=== PATIENT | male | born 1950 | race Two or more races ===

== ENCOUNTER 2024-02-07 15:37 | Inpatient (IN) | payer MEDICARE, MEDICAID, SELFPAY ==
[2024-02-07] VITALS (10 sets, daily range): BP systolic 90–117; BP diastolic 52–74; PULSE 92–123; RESP 22–28; TEMP 36.7–39.6; O2SAT 96–100; BMI 21.6
--- NOTE | 2024-02-07 16:11 | EKG_ITS ---
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
--- NOTE | 2024-02-07 16:15 | EDNOTE_ITS ---
ED General RME/HPI General Chief complaint: Shortness of Breath/Dyspnea Stated complaint: SOB Time Seen by Provider: 02/07/24 16:02 Arrival date/time: 02/07/24 15:37 CC: Cough shortness of breath HPI patient presents the ER via EMS with tachycardia warm to touch and tachypnea, reported cough starting yesterday and short of breath starting today. The patient is noted to be a full code. Patient was assessed on a simple facemask at 15 L with oxygen saturations of 94%. Mode of arrival: ambulatory Related Data Home Medications ?Medication ?Instructions ?Recorded ?Confirmed levetiracetam 500 mg tablet 500 mg PO BID 04/12/23 04/12/23 Previous Rx's ?Medication ?Instructions ?Recorded aspirin 81 mg tablet,delayed 81 mg PO QDAY 30 days #30 tabs 01/09/24 release atorvastatin 80 mg tablet 40 mg (1/2 x 80 mg) PO QPM #30 tabs 01/09/24 midodrine 5 mg tablet 5 mg PO TID 30 days #90 tabs 01/09/24 Allergies Allergy/AdvReac Type Severity Reaction Status Date / Time No Known Allergies Allergy Unverified 04/10/23 17:26 Review of Systems Review of Systems Narrative Review of Systems: GEN: No fever, no chills, no weight loss EYES: No discharge, no visual changes, no pain HEENT: No ear pain, no congestion, no sore throat PULM: + shortness of breath, + cough, no congestion CV: No chest pain, no dyspnea on exertion, no palpitations GI: No nausea, no vomiting, no diarrhea, no pain, no constipation : No frequency, no urgency, no dysuria MUSC/SKEL: No joint pain, no back pain SKIN: No rash PSYCH: No hallucinations, no depression HEME/LYMPH: No easy bleeding or bruising tendencies NEURO: No weakness, no headache Past Medical History Past Medical History NEUROLOGIC: Positive Neurological Disorders, Cerebrovascular Accident, Dementia and Seizures CARDIAC: Positive Hypercholesterolemia; Negative Cardiac Disorders or Congestive Heart Failure RESPIRATORY: Negative Chronic Obstructive Pulmonary Disease (COPD) GASTROINTESTINAL: Negative Gastrointestinal Disorders GENITOURINARY: Negative Genitourinary Disorders or Renal Disease REPRODUCTIVE: Negative Testicular Cancer MUSCULOSKELETAL: Negative Musculoskeletal Disorders ENDOCRINE: Negative Endocrine Disorders, Diabetes Mellitus Type 1 or Diabetes Mellitus Type 2 HEMATOLOGIC: Negative Blood Disorders OTHER HISTORY: Negative Autoimmune Disease, Blood Transfusions, Blood Transfusion Reaction, Anesthesia Reactions or Testicular Cancer Family History FAMILY HISTORY: Negative Family Psychiatric Problems, Family Respiratory Disorders, Family Cardiac Disorders, Family Gastrointestinal Problems, Family Cancer, Family Surgery or Family Anesthesia Reaction Social History SMOKING STATUS: Unknown if ever smoked SUBSTANCE USE: does not use ED Exam Narrative Physical exam: [General: Thin, deconditioned, in mild respiratory distress Head normocephalic HEENT: Eyes pupils are PERRLA EOMs are intact within acceptable limits Neck is supple nontender Chest equal chest rise nontender to palpation Respiratory: Clear to auscultation no wheezes crackles or rubs CV: Rate rhythm is regular, tachycardic, no murmurs rubs or clicks Abdomen is soft nontender no masses positive bowel sounds all 4 quadrants Back: No CVA tenderness no spinous process tenderness from cervical spine thoracic and lumbar spine Skin: Intact no petechiae rash induration ulceration or crepitus Extremities: Moving all extremity against resistance cap refill less than 2 seconds neurosensory intact. No lower extremity edema Neuro: Awake alert oriented x1, person, Glascow coma 15 no focal deficits] Course Quality Measures none Orders Category Date Time Status Admit to Inpatient Status Routine Admission 02/07/24 18:30 Active Patient Condition Routine Admission 02/07/24 18:30 Ordered Activity as Tolerated Routine Care 02/07/24 18:30 Ordered Bedside COVID-19 Antigen Test NOW Care 02/07/24 16:15 Active Bedside Influenza A&B Antigen Test NOW Care 02/07/24 16:15 Completed Naval Designer STAT Care 02/07/24 16:11 Active Continuous Pulse Oximetry STAT Care 02/07/24 16:11 Completed EKG (ED ONLY) *Do not use* NOW Care 02/07/24 16:11 Completed In and Out Catheter X1PRN Care 02/07/24 16:11 Completed Insert IV NOW Care 02/07/24 16:11 Active NPO STAT Care 02/07/24 16:11 Active Notify provider NEEDED Care 02/07/24 18:30 Active Saline [Insert IV] NOW Care 02/07/24 16:15 Active Strict Intake and Output Routine Care 02/07/24 16:11 Ordered EKG (ED Only) Stat Exams 02/07/24 16:11 Draft US liver Stat Exams 02/07/24 18:08 Ordered XR chest 1V Stat Exams 02/07/24 17:19 Completed B-Type Natriuretic Peptide Stat Lab 02/07/24 16:26 Completed Blood Culture (Lab) Stat Lab 02/07/24 16:26 Received CBC AM DRAW Lab 02/09/24 05:00 Ordered CBC Stat Lab 02/07/24 16:26 Completed CMP [Comprehensive Metabolic Panel] AM DRAW Lab 02/09/24 05:00 Ordered Comprehensive Metabolic Panel Stat Lab 02/07/24 16:26 Completed LDH (Lactate Dehydrogenase) Stat Lab 02/07/24 16:26 Completed Lactate (Lactic Acid) Stat Lab 02/07/24 16:26 Completed Lipase Stat Lab 02/07/24 16:26 Completed Magnesium AM DRAW Lab 02/08/24 05:00 Ordered Magnesium AM DRAW Lab 02/09/24 05:00 Ordered Magnesium Stat Lab 02/07/24 16:26 Completed Partial Thromboplastin Time Stat Lab 02/07/24 16:26 Completed Phosphorous AM DRAW Lab 02/09/24 05:00 Ordered Phosphorous Stat Lab 02/07/24 16:26 Completed Procalcitonin Stat Lab 02/07/24 16:26 Completed Prothrombin Time with INR Stat Lab 02/07/24 16:26 Completed Troponin I Stat Lab 02/07/24 16:26 Completed Urinalysis Stat Lab 02/07/24 17:50 Completed Acetaminophen Supp [Tylenol Supp] Med 02/07/24 18:29 Active 650 mg VT Q6H PRN Acetaminophen Tab [Tylenol Tab] Med 02/07/24 18:29 Active 650 mg PO Q6H PRN Acetaminophen Tab [Tylenol Tab] Med 02/07/24 16:10 Discontinued 650 mg PO X1 ONE Albuterol/Ipratr Rt Ana [Duoneb Rt Ana] Med 02/07/24 19:00 Active 3 ml INH Q6HRRT Doxycycline [Vibramycin] Med 02/07/24 21:00 Active 100 mg PO BID HYDROcodone/APAP 10/325 [[place] 10/325] Med 02/07/24 18:29 Active 1 tab PO Q4HR PRN Ondansetron Inj [Zofran Inj] Med 02/07/24 18:29 Active 4 mg IV Q6H PRN Pantoprazole [Protonix] Med 02/07/24 18:45 Discontinued 40 mg PO QDAY Piper/Tazo 3.375 gm [Zosyn] 50 ml Med 02/08/24 06:00 Active IV Q8HR Senna [Senokot] Med 02/07/24 18:29 Active 1 tab PO QDAY PRN Sodium Chloride 0.9% 1000 ml [Ns] 1,000 ml Med 02/07/24 16:15 Discontinued IV 999 mls/hr Sodium Chloride 0.9% 1000 ml [Ns] 1,000 ml Med 02/07/24 17:20 Discontinued IV 999 mls/hr cefTRIAXone/D5w 1gm IV premix [Rocephin/D5w 1gm IV Med 02/07/24 17:19 Discontinued premix] 50 ml IV X1 levETIRAcetam INJ [Keppra Inj] Med 02/07/24 16:20 Discontinued 1,000 mg IVP X1 ONE oxyCODONE/APAP 5/325 [Percocet 5/325] Med 02/07/24 18:29 Active 1 tab PO Q6H PRN Code Status Routine Oth 02/07/24 18:29 Ordered Oxygen Delivery DAILY RT 02/07/24 18:31 Active Oxygen Delivery NOW RT 02/07/24 16:11 Active Vital Signs Vital signs: Vital Signs Temperature 103.3 F H 02/07/24 16:00 Pulse Rate 123 H 02/07/24 16:00 Respiratory Rate 27 H 02/07/24 16:00 Blood Pressure 117/74 02/07/24 16:00 Pulse Oximetry (%) 96 02/07/24 16:00 Oxygen Delivery Method Oxy Mask 02/07/24 16:00 Oxygen Flow Rate 15 02/07/24 16:00 [facility] Patient data External records reviewed:: [facility] previous records Clinical information provided by:: patient Social determinants that could affect healthcare access:: none Patient has the following chronic illnesses:: TIA How is presenting disease/condition affected by chronic disease/condition?: u neffected by Evaluation data The following diagnostics were reviewed and interpreted by me:: lab results, radiology exam(s) and EKG tracing(s) Lab and/or radiology exams considered but not ordered:: EKG performed at 1636 shows ventricular rate 116 VT interval 160 QRS of 9 7 QTc of 388 this sinus tachycardia. When compared to an old EKG of January 2024 there is no significant change in morphology. CBC shows neutropenia, no anemia thrombocytopenia CMP shows a hyponatremia no other significant electrolyte imbalances renal impairment, elevated transaminitis., No T. bili elevation. Troponin is elevated at 0.6 however it is much lower than it was in the admission 1 month ago when the patient was admitted for pneumonia as well. Chest x-ray shows bilateral pneumonia as interpreted by me. Lactic is 2.0 Pro-Momo at 1.06 Interpretation Summary: This appears to be an recurrence of pneumonia again for this patient febrile, patient's case discussed with Dr. Amador, who agrees to accept the patient for admission. Medications Medications considered but not ordered:: None Medication administrations:: Medication Administration History Acetaminophen (Acetaminophen 325 Mg Tablet) 650 mg PO Q6H PRN PRN Reason: Fever >100.4 Stop: 03/08/24 18:28 Acetaminophen (Acetaminophen Supp 650 Mg Supp) 650 mg VT Q6H PRN PRN Reason: PAIN SCALE 1-3 (mild Stop: 03/08/24 18:28 Hydrocodone Bitart/Acetaminophen (Hydrocodone/Apap 10/325 Tab) 1 tab PO Q4HR PRN PRN Reason: PAIN SCALE 7-10 (Severe Stop: 02/12/24 18:28 Albuterol/Ipratropium (Albuterol/Ipratropium (Duoneb) Rt Ana 3 Ml Nebu) 3 ml INH Q6HRRT [facility] Stop: 03/08/24 18:59 Doxycycline Hyclate (Doxycycline 100 Mg Tablet) 100 mg PO BID JENNY Stop: 02/14/24 20:59 Piperacillin/Tazobactam/Dextrose (Zosyn) 50 mls @ 12.5 mls/hr IV Q8HR JENNY Stop: 02/15/24 05:59 Lansoprazole (Lansoprazole 30 Mg Tab.Rap) 30 mg PO QDAY JENNY Stop: 03/08/24 18:59 Levetiracetam (Levetiracetam Inj 100 Mg/Ml Vial 5ml) 500 mg IVP BID JENNY Stop: 03/08/24 20:59 Ondansetron HCl (Ondansetron Inj 2 Mg/Ml Inj 2 Ml) 4 mg IV Q6H PRN; Protocol PRN Reason: NAUSEA OR VOMITING Stop: 03/08/24 18:28 Oxycodone/Acetaminophen (Oxycodone/Apap 5/325 Tablet) 1 tab PO Q6H PRN PRN Reason: PAIN SCALE 4-6 (Moderate Stop: 02/12/24 18:28 Sennosides (Senna Tablet) 1 tab PO QDAY PRN; Protocol PRN Reason: constipation Stop: 03/08/24 18:28 Discontinued Medications Acetaminophen (Acetaminophen 325 Mg Tablet) 650 mg PO X1 ONE Stop: 02/07/24 16:11 Last Admin: 02/07/24 16:35 Dose: 650 mg Documented By: PAULA Sodium Chloride (Ns) 1,000 mls @ 999 mls/hr IV .Q1H1M ONE Stop: 02/07/24 17:15 Last Infusion: 02/07/24 17:32 Dose: Infused Documented By: Admin: 02/07/24 16:34 Dose: 999 mls/hr Documented By: PAULA Ceftriaxone Sodium/Dextrose (Rocephin/D5w 1gm Iv Premix) 50 mls @ 100 mls/hr IV X1 ONE Stop: 02/07/24 17:48 Last Admin: 02/07/24 17:39 Dose: 100 mls/hr Documented By: VALDO Sodium Chloride (Ns) 1,000 mls @ 999 mls/hr IV .Q1H1M ONE Stop: 02/07/24 18:20 Piperacillin/Tazobactam/Dextrose (Zosyn) 50 mls @ 100 mls/hr IV X1 ONE Stop: 02/07/24 19:14 Lansoprazole (Lansoprazole 30 Mg Tab.Rap.Dr) 40 mg PO QDAY JENNY Stop: 03/08/24 18:59 Levetiracetam (Levetiracetam Inj 100 Mg/Ml Vial 5ml) 1,000 mg IVP X1 ONE Stop: 02/07/24 16:21 Last Admin: 02/07/24 16:34 Dose: 1,000 mg Documented By: PAULA Pantoprazole Sodium (Pantoprazole 40 Mg Tablet) 40 mg PO QDAY JENNY Stop: 03/08/24 18:44 Sodium Chloride (Sodium Chloride Rt 10% 15 Ml Nebu) 5 ml INH X1 ONE Stop: 02/07/24 18:37 None Consultations Consultation(s) initiated? (list below): No Diagnosis Differential Diagnosis ED Complaint MDM: Pneumonia [facility] [place] Most likely diagnosis given after review of the tests above:: Pneumonia hypoxemia Admission Indicated Admission indicated?: indicated Explain why admission is indicated or not indicated:: Further medical management Admission Request Was there a request for admission?: No Disposition Plan Disposition Plan: Admit Medical Decision Making Differential Diagnosis Differential Diagnosis: Pneumonia ACS [place] Lab Data 02/07/24 16:26 02/07/24 16:26 Labs: Lab Results 02/07/24 02/07/24 Range/Units 16:26 17:50 WBC 2.8 L (3.8-10.6) Thou/mm3 RBC 3.96 L (4.50-5.90) Miln/mm3 Hgb 12.6 L (13.5-16.0) g/dL Hct 36.6 L (41.0-53.0) % MCV 92 (80-100) fL MCH 31.8 (25.0-35.0) pg MCHC 34.4 (31.0-37.0) g/dl RDW Std Deviation 50.7 H (35.1-43.9) fL Plt Count 273 D (140-440) Thou/mm3 Neut % (Auto) 90 H (37-80) % Lymph % (Auto) 5 L (10-50) % Clarke % (Auto) 4 (0-12) % Eos % (Auto) 0 (0-10) % Baso % (Auto) 0 (0-2.5) % Neut # (Auto) 2.5 (1.8-7.7) Thou/mm3 Lymph # (Auto) 0.1 L (1.0-4.8) Thou/mm3 Clarke # (Auto) 0.1 (0.0-0.8) Thou/mm3 Eos # (Auto) 0.0 (0.0-0.5) Thou/mm3 Baso # (Auto) 0.0 (0.0-0.2) Thou/mm3 Immature Gran # (Auto) 0.02 H (0.00-0.00) Thou/mm3 Absolute Nucleated RBC 0.00 (0.00-0.00) Thou/mm3 Immature Gran % 1 H (0-0) % Nucleated RBC % 0 (0) /100 WBC PT 12.2 (9.0-12.2) Seconds INR 1.1 (0.9-1.3) APTT 26.8 D (22.0-36.0) Seconds Sodium 129 L (136-145) mMol/L Potassium 4.3 (3.4-5.1) mMol/L Chloride 93 L (98-107) mMol/L Carbon Dioxide 28.2 (20.0-31.0) mMol/L Anion Gap 8 (7-16) BUN 11 (9-23) mg/dL Creatinine 0.4 L (0.6-1.3) mg/dL Estim Creat Clear Calc Not Performed. eGFR > 60 (60 - ) See Note BUN/Creatinine Ratio 28 H (12-20) Ratio Glucose 98 (74-106) mg/dL Calculated Osmolality 258 L (275-295) Lactic Acid 2.0 (0.4-2.0) mMol/L Calcium 8.4 (8.3-10.6) mg/dL Corrected Calcium 8.6 (8.5-10.1) mg/dL Phosphorus 3.4 (2.4-5.1) mg/dL Magnesium 1.7 (1.6-2.6) mg/dL Total Bilirubin 1.0 (0.3-1.2) mg/dL AST 576 H* (0-34) U/L ALT 293 H (10-49) U/L Alkaline Phosphatase 308 H (46-116) U/L Lactate Dehydrogenase 968 H (120-246) U/L Troponin I 0.678 H* (0.0-0.045) ng/mL B-Natriuretic Peptide 96 (0-100) pg/mL Total Protein 7.4 (5.7-8.2) gm/dL Albumin 3.7 (3.4-4.8) gm/dL Globulin 3.7 H (2.3-3.5) gm/dL Albumin/Globulin Ratio 1.0 L (1.2-2.2) Lipase 29 (12-53) U/L Procalcitonin 1.06 H (0.0-0.49) ng/ml Ur Collection Type Clean Catch Urine Color Yellow (Lt Yel-Yel) Urine Clarity Clear (Clear/Hazy) Urine pH 7.0 (5.0-7.0) Ur Specific [place] 1.016 (1.001-1.035) Urine Protein Trace (Neg - Trace) Urine Glucose (UA) Negative (Negative) Urine Ketones Negative (Negative) Urine Blood Trace (Negative) Urine Nitrite Negative (Negative) Urine Bilirubin Negative (Negative) Urine Urobilinogen (Auto) 6.0 (0.0-1.0) mg/dL Ur Leukocyte Esterase Negative (Negative) Urine RBC 11 H (0-3) /hpf Urine WBC 1 (0-5) /hpf Ur Squamous Epith Cells 0 (0-5) /hpf Urine Bacteria None (None) Discharge Plan Plan Patient Disposition: Other Care w/in Hosp ([facility]) Patient condition on transfer: Stable Problem List Clinical Impression: Pneumonia, Fever, Hypoxemia PA/CLIENT ADMINISTRATOR Supervising Physician PA/CLIENT ADMINISTRATOR Supervising Physician: Elfego Saavedra ENP
[2024-02-07] MEDS: SODIUM CHLORIDE 0.9% 1000 ML 1,000 ML 999 ML IV (16:34)
[2024-02-07] MEDS: levETIRAcetam INJ 100 MG/ML VIAL 5ML 1000 MG IVP (16:34)
[2024-02-07] MEDS: ACETAMINOPHEN 325 MG TABLET 650 MG PO (16:35)
[2024-02-07 16:41] LABS: Basophils % (Auto) 0 % (0-2.5); Eosinophils % (Auto) 0 % (0-10); Hematocrit 36.6 % (41.0-53.0); Hemoglobin 12.6 g/dL (13.5-16.0); Immature Granulocytes % (Auto) 1 % (0-0); Immature Granulocytes Auto 0.02 Thou/mm3 (0.00-0.00); Lymphocytes # (Auto) 0.1 Thou/mm3 (1.0-4.8); Lymphocytes % (Auto) 5 % (10-50); Mean Corpuscular HGB Conc 34.4 g/dl (31.0-37.0); Mean Corpuscular Hemoglobin 31.8 pg (25.0-35.0); Mean Corpuscular Volume 92 fL (80-100); Monocytes # (Auto) 0.1 Thou/mm3 (0.0-0.8); Monocytes % (Auto) 4 % (0-12); Neutrophils # (Auto) 2.5 Thou/mm3 (1.8-7.7); Neutrophils % (Auto) 90 % (37-80); Nucleated Red Blood Cell % 0 /100 WBC (0); Platelet Count 273 Thou/mm3 (140-440); RDW Standard Deviation 50.7 fL (35.1-43.9); Red Blood Count 3.96 Miln/mm3 (4.50-5.90)
[2024-02-07 16:55] LABS: INR 1.1 (0.9-1.3); Partial Thromboplastin Time 26.8 Seconds (22.0-36.0); Prothrombin Time 12.2 Seconds (9.0-12.2)
[2024-02-07 17:01] LABS: B-Type Natriuretic Peptide 96 pg/mL (0-100)
[2024-02-07 17:05] LABS: White Blood Count 2.8 Thou/mm3 (3.8-10.6)
[2024-02-07 17:14] LABS: Alanine Aminotransferase 293 U/L (10-49); Albumin, Serum 3.7 gm/dL (3.4-4.8); Alkaline Phosphatase 308 U/L (46-116); Anion Gap 8 (7-16); Aspartate Amino Transferase 576 U/L (0-34); BUN/Creatinine Ratio 28 Ratio (12-20); Blood Urea Nitrogen 11 mg/dL (9-23); Calcium 8.4 mg/dL (8.3-10.6); Calcium (Corrected) 8.6 mg/dL (8.5-10.1); Carbon Dioxide 28.2 mMol/L (20.0-31.0); Chloride 93 mMol/L (98-107); Creatinine (Component) 0.4 mg/dL (0.6-1.3); Globulin 3.7 gm/dL (2.3-3.5); Glucose 98 mg/dL (74-106); LDH (Lactate Dehydrogenase) 968 U/L (120-246); Lipase 29 U/L (12-53); Magnesium 1.7 mg/dL (1.6-2.6); Osmolality,Calculated 258 (275-295); Phosphorous 3.4 mg/dL (2.4-5.1); Potassium 4.3 mMol/L (3.4-5.1); Procalcitonin 1.06 ng/ml (0.0-0.49); Sodium 129 mMol/L (136-145); Total Protein 7.4 gm/dL (5.7-8.2); eGFR > 60 See Note
[2024-02-07 17:16] LABS: Troponin I 0.678 ng/mL (0.0-0.045)
--- NOTE | 2024-02-07 17:19 | XR_ITS ---
Examination: AP chest single view Technique: AP portable semiupright chest single view Exam date and time: February 07, 2024 at 1727 hrs. Comparison March 17, 2023 Indications: Shortness of breath today with chest pain, sepsis alert. Findings: Prominent bibasilar pneumonia Normal heart size Mild vascular congestion Moderate osteopenia Impression: Prominent bibasilar pneumonia
[2024-02-07] MEDS: cefTRIAXone/D5w 1gm IV premix 50 ML IV (17:39)
--- NOTE | 2024-02-07 17:50 | PC.NURSE ---
PLACED PT ON WAFFLE MATTRESS, PT HAS SMALL WOUND TO COCCYX THAT APPEARS TO BE HEALING BUT REMAINS OPEN. TEMP RE-CHECKED AT THIS TIME.
[2024-02-07 18:05] LABS: Collection Type, Urine Clean Catch; Squamous Epithelial Cell,Urine 0 /hpf (0-5)
--- NOTE | 2024-02-07 18:08 | XR_ITS ---
Examination: Abdomen sonogram, Limited Date and time of exam: February 07, 2024 1917 hrs. Indications: Rising transaminase on liver function test today Technique: Real-time lu scale transabdominal sonographic images of the upper abdomen obtained. Findings: Gallbladder not visualized Common bile duct 0.3 cm Pancreatic head 1.9 cm Liver 13.6 cm no focal liver lesions Normal hepatopedal portal venous flow Patent IVC Impression: Study limited by gas Normal common bile duct Liver normal size no focal liver lesions
[2024-02-07 18:18] LABS: Bilirubin,Urine Negative (Negative); Blood,Urine Trace (Negative); Clarity,Urine Clear (Clear/Hazy); Color,Urine Yellow (Lt Yel-Yel); Glucose, Urine Negative (Negative); Ketones,Urine Negative (Negative); Leukocyte Esterase,Urine Negative (Negative); Nitrite,Urine Negative (Negative); Protein,Urine Trace (Neg - Trace); RBC,Urine 11 /hpf (0-3); Specific Gravity,Urine 1.016 (1.001-1.035); WBC,Urine 1 /hpf (0-5)
--- NOTE | 2024-02-07 18:29 | ESHP_ITS ---
Documentation for date of: 02/07/24 [facility] History of Present Illness History of present illness: This is a 72-year-old male with PMHx of seizure, dementia, CVA, rectal cancer s/p chemoradiation, brought in by ambulance for cough, SOB, tachycardia which per EMS started this morning. Remainder of history limited 2/2 mental status and shortness of breath, patient only able to state name, not date, situation or location. ED course: T103.3, RR 27, HR 123, BP 117/74, patient started on 15 L OxiMax WBC 2.8, Hgb 12.6, MCV 92 Sodium 129, CO2 28, AST 576, ALT 293, ALP 308, LD 968, Pro-Calc 1.06 Troponin 0.678, EKG sinus tachycardia, no acute ST changes Patient started on CEFTRIAXONE and ZOSYN in ED, continued on oxygen Patient admitted for hospitalist team for acute hypoxic respiratory failure 2/2 sepsis 2/2 pneumonia and further management. Will reevaluate PMHx, meds, SH, FH once mentation improved. Exam Vital Signs Temp Pulse Resp BP Pulse Ox O2 Del Method O2 Flow Rate 101.3 F H 123 H 27 H 117/74 97 Oxy Mask 15 02/07/24 17:50 02/07/24 16:00 02/07/24 16:00 02/07/24 16:00 02/07/24 16:49 02/07/24 16:00 02/07/24 16:49 Narrative Exam GENERAL: Ill-appearing, cachectic elderly male, speaks in short sentences, dyspneic HEENT: NCAT.?PEREZ. Oral mucosa is moist. Patent Nares NECK: Supple, nontender, no thyromegaly, no meningismus, no JVD, no step offs CHEST: Symmetrical, atraumatic, and with equal expansion, Nontender on palpation no deformity and no crepitus. CARDIOVASCULAR: RRR, no m/g/r LUNGS: CTAB, no w/r/r. Symmetrical chest rise. No intercostal subcostal retraction. ABDOMEN: Soft, flat, nontender. No guarding/rebound tenderness/masses. +BS EXTREMITIES: Nontender.? No edema/cyanosis.?Moves all 4 extremities well, with full ROM and good CSM. SKIN: Warm and dry, no jaundice/rashes. MSK: No lumbar or midline, no CVA, no paraspinal muscle spasm or tenderness. NEURO: And oriented x1.?No focal neurologic deficits. PSYCHIATRIC: Limited exam 2/2 acute encephalopathy, mood appropriate for situation Results: Labs 02/07/24 16:26 02/07/24 16:26 Labs: Short CBC 02/07/24 Range/Units 16:26 WBC 2.8 L (3.8-10.6) Thou/mm3 Hgb 12.6 L (13.5-16.0) g/dL Hct 36.6 L (41.0-53.0) % Plt Count 273 D (140-440) Thou/mm3 BMP 02/07/24 16:26 Sodium 129 L Potassium 4.3 Chloride 93 L Carbon Dioxide 28.2 BUN 11 Creatinine 0.4 L Glucose 98 Calcium 8.4 Cardiac Enzymes 02/07/24 Range/Units 16:26 Troponin I 0.678 H* (0.0-0.045) ng/mL Liver Function 02/07/24 Range/Units 16:26 Total Bilirubin 1.0 (0.3-1.2) mg/dL AST 576 H* (0-34) U/L ALT 293 H (10-49) U/L Alkaline Phosphatase 308 H (46-116) U/L Albumin 3.7 (3.4-4.8) gm/dL Urine 02/07/24 Range/Units 17:50 Urine Color Yellow (Lt Yel-Yel) Urine Clarity Clear (Clear/Hazy) Urine pH 7.0 (5.0-7.0) Ur Specific [place] 1.016 (1.001-1.035) Urine Protein Trace (Neg - Trace) Urine Glucose (UA) Negative (Negative) Quality Measures Quality Measures VTE prophylaxis Advance care planning discussed with:: patient Medications Home Medications and Allergies Home Medications ?Medication ?Instructions ?Recorded ?Confirmed ?Type acetaminophen 325 mg tablet 650 mg PO QID PRN Pain, Mild 02/08/24 02/08/24 History amino acids-protein hydrolysate 15 1 ea PO BID 02/08/24 02/08/24 History gram-100 kcal/30 mL oral liquid ascorbic acid (vitamin C) 500 mg 500 mg PO BID 02/08/24 02/08/24 History tablet azithromycin 250 mg tablet 250 mg PO QDAY 02/08/24 02/08/24 History azithromycin 250 mg tablet 500 mg PO QDAY 02/08/24 02/08/24 History guaifenesin 100 mg/5 mL oral liquid 200 mg PO QID PRN Cough 02/08/24 02/08/24 History ipratropium 0.5 mg-albuterol 3 mg 3 ml inhalation Q4HR PRN Shortness 02/08/24 02/08/24 History (2.5 mg base)/3 mL nebulization Of Breath Or Wheezing soln levetiracetam 100 mg/mL oral 500 mg PO BID 02/08/24 02/08/24 History solution midodrine 5 mg tablet 5 mg PO TID 02/08/24 02/08/24 History multivitamin with minerals 1 tab PO QDAY 02/08/24 02/08/24 History prednisone 20 mg tablet 40 mg PO QDAY 02/08/24 02/08/24 History prednisone 20 mg tablet 40 mg PO QDAY 02/08/24 02/08/24 History thiamine mononitrate (vit B1) 90 90 mg PO QDAY 02/08/24 02/08/24 History mg/scoop oral powder zinc 1 tab PO QDAY 02/08/24 02/08/24 History Allergies Allergy/AdvReac Type Severity Reaction Status Date / Time No Known Allergies Allergy Unverified 04/10/23 17:26 Visit Medications Discontinued Medications Acetaminophen (Acetaminophen 325 Mg Tablet) 650 mg PO X1 ONE Stop: 02/07/24 16:11 Last Admin: 02/07/24 16:35 Dose: 650 mg Sodium Chloride (Ns) 1,000 mls @ 999 mls/hr IV .Q1H1M ONE Stop: 02/07/24 17:15 Last Infusion: 02/07/24 17:32 Dose: Infused Ceftriaxone Sodium/Dextrose (Rocephin/D5w 1gm Iv Premix) 50 mls @ 100 mls/hr IV X1 ONE Stop: 02/07/24 17:48 Last Admin: 02/07/24 17:39 Dose: 100 mls/hr Sodium Chloride (Ns) 1,000 mls @ 999 mls/hr IV .Q1H1M ONE Stop: 02/07/24 18:20 Levetiracetam (Levetiracetam Inj 100 Mg/Ml Vial 5ml) 1,000 mg IVP X1 ONE Stop: 02/07/24 16:21 Last Admin: 02/07/24 16:34 Dose: 1,000 mg Assessment & Plan Plan Summary: 73-year-old male with PMHx of seizure, dementia, CVA, and rectal Cancer s/p chemoradiation, presented with AMS, admitted for acute encephalopathy 2/2 sepsis pneumonia. Patient on ANTIBIOTICS, trending troponins q.6h., pending HIV panel for leukopenia, continued on seizure precautions/meds. # Acute encephalopathy 2/2: # Acute hypoxic respiratory failure 2/2: # Severe sepsis 2/2: # Pneumonia, likely hospital-acquired # Hypotension Presented with AMS with limited history 2/2 mentation, SOB, requiring 15 L oxy mask to maintain saturation 06/03 sepsis: T103.3, RR 27, WBC 2.5, pulse 123 CXR prominent bibasilar pneumonia, Pro-Calc 1.06 Adequately resuscitated with 2 L fluid in ED Previously admitted JAN 2024 for shock and pneumonia Blood pressure 90/52, likely fluid overload, anticipate improvement resuscitation ? Started ZOSYN 4.5 mg q.6h. ? Started DOXYCYCLINE 100 mg BID ? DuoNebs q.6h. ? Sputum/blood cultures ordered ? Aspiration precautions ? Oxygen PRN ? Pending ID consult # Leukopenia # Chronic normocytic anemia WBC 2.8 with baseline 1.6?5, hemoglobin 12.6 around baseline Likely contributing to recurrent pneumonia ? Ordered HIV panel ? Daily CBC # Troponinemia, likely type II # Hyperlipidemia Troponin 0.678, EKG sinus tachycardia, no acute ST changes Likely demand ischemia in settings of sepsis Unable to assess symptoms, although patient answered yes to chest pain ? Troponin q.6h. ? Telemetry ? Treating sepsis as above ? Restart statin after med rec's # Acute hyponatremia, moderate Admission sodium 129 Will likely improve with fluids ? Daily CMP # Acute on chronic hepatopathy Likely ischemic hepatopathy 2/2 sepsis, underlying hepatopathy of unknown origin Admission AST 576, ALT 293, ALP 308, LD 968 Baseline AST 414, ALT 277, ALP [address] in January 2024: Cholelithiasis without cholecystitis, no hepatic pathology Negative hepatitis panel from January 2024 Unable to assess for alcohol use given mentation Will likely improve with fluid resuscitation ? Daily CMP ? Follow-up HIV # Seizure ? Resumed home KEPPRA 500 mg IV BID ? Seizure precaution Health maintenance Diet: NPO GI prophylaxis: PROTONIX DVT prophylaxis: HEPARIN Antibiotics: ZOSYN and CEFTRIAXONE CODE STATUS: Full code Disposition: Manage sepsis pneumonia, ID consult pending Patient case was discussed with attending, Toni Amador MD and senior resident Dr. Farris. Allison Cole DO PGYI Attending Provider Attestation/Addendum I reviewed labs, imaging, EKG, home medications and prior available records. Face to face evaluation was performed by me. I have personally examined the patient and discussed assessment and plan with the IM team. I reviewed the resident note and agree with the plan with exceptions as below. 73-year-old male with recent admission for sepsis due to pneumonia who presented with a chief complaint of fevers, shortness of breath, and cough. He was found to have sepsis secondary to bilateral pneumonia. Acute hypoxic respiratory failure: Secondary to sepsis secondary to bilateral pneumonia, mainly in lower lobes. In the setting of recent admission for pneumonia. Will cover with IV Zosyn and doxycycline. Send sputum culture. Consult ID given the recurrence of pneumonia for antibiotic and further investigation guidance. Sepsis secondary to bilateral pneumonia: As above. Transaminitis: Likely related to hypotension versus sepsis. Management as above. Ordered liver ultrasound. Trend LFTs. Elevated troponin: Likely type II non-STEMI in the setting of sepsis. Management as above. Trend troponin. Continue telemetry.
--- NOTE | 2024-02-07 18:54 | PC.NURSE ---
talked to pharmacy as pt takes meds crushed, protonix cannot be crushed, they will change the order and pring the new med down as it is one that is not in ed pyxis.
[2024-02-07] MEDS: SODIUM CHLORIDE RT 10% 15 ML NEBU 5 ML INH (19:48)
[2024-02-07] MEDS: ALBUTEROL/IPRATROPIUM (Duoneb) RT SOL 3 ML NEBU INH (19:55)
[2024-02-07] MEDS: PIPER/TAZO 3.375 GM 50 ML IV (20:23)
[2024-02-07] MEDS: LANSOPRAZOLE 30 MG TAB.RAP.DR PO (20:24)
[2024-02-07] MEDS: DOXYCYCLINE 100 MG TABLET PO (20:24)
[2024-02-07] MEDS: levETIRAcetam INJ 100 MG/ML VIAL 5ML 500 MG IVP (20:25)
[2024-02-07 20:56] LABS: HIV (1&2) Antibody Rapid Non-Reactive
[2024-02-07] MEDS: Heparin/D5w 25K 250 ML Ivpb 25,000 UNIT/250 ML BAG 7.076 UNIT IV (21:28)
[2024-02-07] MEDS: HEPARIN SOD INJ 5000 UNIT/ML VIAL 4000 UNIT IV (21:28)
[2024-02-07] MEDS: SODIUM CHLORIDE 0.9% 500 ML 500 ML 999 ML IV (21:31)
[2024-02-08] VITALS (11 sets, daily range): BP systolic 89–112; BP diastolic 51–70; PULSE 88–98; RESP 17–96; TEMP 36.2–37.1; O2SAT 93–100; BMI 15.7
[2024-02-08] MEDS: ALBUTEROL/IPRATROPIUM (Duoneb) RT SOL 3 ML NEBU INH ×4 (00:40→19:16)
[2024-02-08 02:40] LABS: Troponin I 2.076 ng/mL (0.0-0.045)
[2024-02-08] MEDS: PIPER/TAZO 3.375 GM 50 ML IV ×3 (05:46→22:35)
[2024-02-08 05:47] LABS: Partial Thromboplastin Time 41.9 Seconds (22.0-36.0)
[2024-02-08 06:01] LABS: Magnesium 1.9 mg/dL (1.6-2.6)
--- NOTE | 2024-02-08 07:16 | ESPR_ITS ---
<Statement entered by Shital Young MD - 02/09/24 08:03> Patient was seen and examined by me personally. I agree with most of the assessment and plan as discussed with the international broadcast music librarian physician, and my attending, Dr. Amador. Vitals, labs reviewed. Remains encephalopathic with underlying dementia, per sister this is baseline; however continuing abx for possible infectious encephalopathy component. Troponin downtrending, appreciate cardio recs. Consulted oncology, as patient has h/o rectal adenoca, appreciate recs. Shital Young MD, PGY-3 Documentation for date of: 02/08/24 Subjective Subjective Interval history: Poor mentation, can state name only, persisting SOB. Sister Allie states patient with chronically worsening dementia, patient likely at baseline. Exam Vital Signs Temp Pulse Resp BP Pulse Ox O2 Del Method O2 Flow Rate 98.8 F 92 24 H 112/61 94 L Oxy Mask 10 02/08/24 04:00 02/08/24 06:58 02/08/24 06:58 02/08/24 04:00 02/08/24 06:58 02/08/24 04:00 02/08/24 06:58 Narrative Exam GENERAL: Ill-appearing, cachectic elderly male, speaks in short sentences, dyspneic HEENT: NCAT.?PEREZ. Oral mucosa is moist. Patent Nares NECK: Supple, nontender, no thyromegaly, no meningismus, no JVD, no step offs CHEST: Symmetrical, atraumatic, and with equal expansion, Nontender on palpation no deformity and no crepitus. CARDIOVASCULAR: RRR, no m/g/r LUNGS: CTAB, no w/r/r. Symmetrical chest rise. No intercostal subcostal retraction. ABDOMEN: Soft, flat, nontender. No guarding/rebound tenderness/masses. +BS EXTREMITIES: Nontender.? No edema/cyanosis.?Moves all 4 extremities well, with full ROM and good CSM. Ulcer of bilateral heals SKIN: Warm and dry, no jaundice/rashes. MSK: No lumbar or midline, no CVA, no paraspinal muscle spasm or tenderness. NEURO: And oriented x1.?No focal neurologic deficits. PSYCHIATRIC: Limited exam 2/2 acute encephalopathy, mood appropriate for situation Objective Labs 02/08/24 05:14 02/08/24 05:14 Labs: Laboratory Results - last 24 hr 02/07/24 02/07/24 02/07/24 16:26 17:50 19:10 WBC 2.8 L RBC 3.96 L Hgb 12.6 L Hct 36.6 L MCV 92 MCH 31.8 MCHC 34.4 RDW Std Deviation 50.7 H Plt Count 273 D Neut % (Auto) 90 H Lymph % (Auto) 5 L [place] % (Auto) 4 Eos % (Auto) 0 Baso % (Auto) 0 Neut # (Auto) 2.5 Lymph # (Auto) 0.1 L [place] # (Auto) 0.1 Eos # (Auto) 0.0 Baso # (Auto) 0.0 Immature Gran # (Auto) 0.02 H Absolute Nucleated RBC 0.00 Immature Gran % 1 H Nucleated RBC % 0 PT 12.2 INR 1.1 APTT 26.8 D Sodium 129 L Potassium 4.3 Chloride 93 L Carbon Dioxide 28.2 Anion Gap 8 BUN 11 Creatinine 0.4 L Estim Creat Clear Calc Not Performed. eGFR > 60 BUN/Creatinine Ratio 28 H Glucose 98 Calculated Osmolality 258 L Lactic Acid 2.0 Calcium 8.4 Corrected Calcium 8.6 Phosphorus 3.4 Magnesium 1.7 Total Bilirubin 1.0 AST 576 H* ALT 293 H Alkaline Phosphatase 308 H Lactate Dehydrogenase 968 H Troponin I 0.678 H* 2.030 H* D B-Natriuretic Peptide 96 Total Protein 7.4 Albumin 3.7 Globulin 3.7 H Albumin/Globulin Ratio 1.0 L Lipase 29 Procalcitonin 1.06 H Ur Collection Type Clean Catch Urine Color Yellow Urine Clarity Clear Urine pH 7.0 Ur Specific [place] 1.016 Urine Protein Trace Urine Glucose (UA) Negative Urine Ketones Negative Urine Blood Trace Urine Nitrite Negative Urine Bilirubin Negative Urine Urobilinogen (Auto) 6.0 Ur Leukocyte Esterase Negative Urine RBC 11 H Urine WBC 1 Ur Squamous Epith Cells 0 Urine Bacteria None HIV 1&2 Antibody Rapid Non-Reactive 02/08/24 02/08/24 01:04 05:19 WBC RBC Hgb Hct MCV MCH MCHC RDW Std Deviation Plt Count Neut % (Auto) Lymph % (Auto) [place] % (Auto) Eos % (Auto) Baso % (Auto) Neut # (Auto) Lymph # (Auto) [place] # (Auto) Eos # (Auto) Baso # (Auto) Immature Gran # (Auto) Absolute Nucleated RBC Immature Gran % Nucleated RBC % PT INR APTT 41.9 H D Sodium Potassium Chloride Carbon Dioxide Anion Gap BUN Creatinine Estim Creat Clear Calc eGFR BUN/Creatinine Ratio Glucose Calculated Osmolality Lactic Acid Calcium Corrected Calcium Phosphorus Magnesium 1.9 Total Bilirubin AST ALT Alkaline Phosphatase Lactate Dehydrogenase Troponin I 2.076 H* B-Natriuretic Peptide Total Protein Albumin Globulin Albumin/Globulin Ratio Lipase Procalcitonin Ur Collection Type Urine Color Urine Clarity Urine pH Ur Specific [place] Urine Protein Urine Glucose (UA) Urine Ketones Urine Blood Urine Nitrite Urine Bilirubin Urine Urobilinogen (Auto) Ur Leukocyte Esterase Urine RBC Urine WBC Ur Squamous Epith Cells Urine Bacteria HIV 1&2 Antibody Rapid Quality Measures Quality Measures none Advance care planning discussed with:: patient and sibling Assessment & Plan Assessment Current Active Medications: Generic Name Dose Route Start Last Admin Trade Name Freq PRN Reason Stop Dose Admin Acetaminophen 650 mg 02/07/24 18:29 Acetaminophen 325 Mg Tablet PO 03/08/24 18:28 Q6H PRN Fever >100.4 Acetaminophen 650 mg 02/07/24 18:29 Acetaminophen Supp 650 Mg Supp LA 03/08/24 18:28 Q6H PRN PAIN SCALE 1-3 (mild Hydrocodone Bitart/Acetaminophen 1 tab 02/07/24 18:29 Hydrocodone/Apap 10/325 Tab PO 02/12/24 18:28 Q4HR PRN PAIN SCALE 7-10 (Severe Albuterol/Ipratropium 3 ml 02/07/24 19:00 02/08/24 06:57 Albuterol/Ipratropium (Duoneb) Rt Ana 3 Ml Nebu INH 03/08/24 18:59 3 ml Q6HRRT JENNY Administration Doxycycline Hyclate 100 mg 02/07/24 21:00 02/07/24 20:24 Doxycycline 100 Mg Tablet PO 02/14/24 20:59 100 mg BID JENNY Administration Piperacillin/Tazobactam/Dextrose 50 mls @ 12.5 mls/hr 02/08/24 06:00 02/08/24 05:46 Zosyn IV 02/15/24 05:59 12.5 mls/hr Q8HR JENNY Administration Heparin Sodium/Dextrose 25,000 unit in 250 mls @ 7.076 mls/hr 02/07/24 20:30 02/07/24 21:28 Heparin In D5w Ivpb IV 02/21/24 20:29 12 units/kg/hr .Q24H JENNY 7.076 mls/hr Administration Protocol 12 UNITS/KG/HR Lansoprazole 30 mg 02/07/24 19:00 02/07/24 20:24 Lansoprazole 30 Mg Tab. PO 03/08/24 18:59 30 mg QDAY JENNY Administration Levetiracetam 500 mg 02/07/24 21:00 02/07/24 20:25 Levetiracetam Inj 100 Mg/Ml Vial 5ml IVP 03/08/24 20:59 500 mg BID JENNY Administration Ondansetron HCl 4 mg 02/07/24 18:29 Ondansetron Inj 2 Mg/Ml Inj 2 Ml IV 03/08/24 18:28 Q6H PRN NAUSEA OR VOMITING Protocol Oxycodone/Acetaminophen 1 tab 02/07/24 18:29 Oxycodone/Apap 5/325 Tablet PO 02/12/24 18:28 Q6H PRN PAIN SCALE 4-6 (Moderate Sennosides 1 tab 02/07/24 18:29 Senna Tablet PO 03/08/24 18:28 QDAY PRN constipation Protocol Plan Summary: 73-year-old male with PMHx of seizure, dementia, CVA, and rectal adenocarcinoma s/p chemoradiation, presented with AMS, admitted for acute encephalopathy 2/2 sepsis pneumonia. Patient on ANTIBIOTICS, requiring 8L oxygen, pending cx and ID recs. Trops 1.88 > 2.076 > 1.88, on HEPARIN ggt, pending Cardiology recs. Appreciated Cardiology, ID, and Hemeon recommendations. # Acute encephalopathy 2/2: # Acute hypoxic respiratory failure 2/2: # Severe sepsis 2/2: # Pneumonia, likely hospital-acquired # Hypotension Presented with AMS with limited history 2/2 mentation, SOB, requiring 15 L oxy mask to maintain saturation. / sepsis: T103.3, RR 27, WBC 2.5, pulse 123. CXR prominent bibasilar pneumonia, Pro-Calc 1.06. Previously admitted JAN 2024 for shock and pneumonia Adequately resuscitated with 2 L fluid in ED Admission BP 90/52, fluid responsive, improved after 1.5L, appears dehydrated, continue fluids Persistent AMS on day 2. Sister Allie informed, stated patient has worsening dementia, this is possibly his baseline. ? Continue ZOSYN 4.5 mg q.6h. ? Continue DOXYCYCLINE 100 mg BID ? Continue NORMAL SALINE at 75 cc/H ? DuoNebs q.6h. ? Sputum/blood cultures ordered ? Aspiration precautions ? Oxygen PRN ? Pending ID consult # Leukopenia # Chronic normocytic anemia WBC 2.8 with baseline 1.6?5, today WBC 4.6, appropriately elevated from base 2/2 sepsis Hemoglobin 12.6 around baseline, stable HIV panel negative ? Daily CBC # Troponinemia, likely type II vs. I # Hyperlipidemia # Ischemic cardiomyopathy Troponin 0.678, EKG sinus tachycardia, no acute ST changes Likely demand ischemia in settings of sepsis Unable to assess symptoms, although patient answered yes to chest pain Hx ischemic cardiomyopathy, will continue with HEPARIN drip ? Troponin q.6h. ? Continue HEPARIN ggt ? Pending Cardiology recommendations ? Telemetry ? Treating sepsis as above ? Consider resuming home ATORVASTATIN 40 mg once LFTs normalize # Acute hyponatremia, moderate Admission sodium 129, imporving, sodium 132 now Will likely improve with fluids ? Daily CMP # Acute on chronic hepatopathy ? improving Likely ischemic hepatopathy 2/2 sepsis, underlying hepatopathy of unknown origin Admission AST 576, ALT 293, ALP 308, LD 968, now downtrending Baseline AST 414, ALT 277, ALP [address] in January 2024: Cholelithiasis without cholecystitis, no hepatic pathology Negative hepatitis panel from January 2024 Unable to assess for alcohol use given mentation Will likely continue improve with fluid resuscitation ? Daily CMP ? Follow-up HIV # Seizure ? Resumed home KEPPRA 500 mg IV BID ? Seizure precaution ? Passed bedside swallow eval # Bilateral heal ulcers ? Wound care # Intramucosal rectal adenocarcinoma History of rectal adenocarcinoma, s/p chemoradiation Follows up with oncologist Dr. Oren Forde poor surgical candidate by Dr. Khanh Carlin at [facility], per chart review ? Pending oncology, Dr. Sanchez, recommendations # Chronic pharyngeal dysphagia # Artificial nutrition # Hypoglycemia # Underweight BMI 15.7 # Failure to thrive Failed bedside swallow eval, speech deemed unsafe for p.o. diet Bedside GLUCOSE 54, given an amp of GLUCOSE ? Consider/monitor for refeeding syndrome ? Consulted dietitian for NGT ? Place orders for vitamins if recommended by dietitian, appreciate consult. Health maintenance Diet: NPO GI prophylaxis: PROTONIX DVT prophylaxis: HEPARIN Antibiotics: ZOSYN and CEFTRIAXONE CODE STATUS: Full code Disposition: Manage sepsis pneumonia, ID consult pending Patient case was discussed with attending, Toni Amador MD and senior resident Dr. Farris. Allison Cole DO PGYI Attending Provider Attestation/Addendum I reviewed labs, imaging, EKG, home medications and prior available records. Face to face evaluation was performed by me. I have personally examined the patient and discussed assessment and plan with the IM team. I reviewed the resident note and agree with the plan with exceptions as below. 73-year-old male with recent admission for sepsis due to pneumonia who presented with a chief complaint of fevers, shortness of breath, and cough. He was found to have sepsis secondary to bilateral pneumonia. Acute hypotension: Improved with IV hydration. Continue IV hydration. Monitor BP. Acute hypoxic respiratory failure: He is on nasal cannula. Secondary to sepsis secondary to bilateral pneumonia, mainly in lower lobes. In the setting of recent admission for pneumonia. Will cover with IV Zosyn and doxycycline. Send sputum culture. Consult ID given the recurrence of pneumonia for antibiotic and further investigation guidance. Sepsis secondary to bilateral pneumonia: As above. Transaminitis: Likely related to hypotension versus sepsis. Management as above. Ordered liver ultrasound. Trend LFTs: Downtrending. Elevated troponin: Likely type II non-STEMI in the setting of sepsis. Management as above. Trend troponin: Peaked. Continue telemetry. Consulted cardiology. Rectal adenocarcinoma: Status post chemotherapy. Consulted oncology.
[2024-02-08 07:45] LABS: Basophils % (Auto) 0 % (0-2.5); Eosinophils % (Auto) 0 % (0-10); Hematocrit 38.4 % (41.0-53.0); Hemoglobin 12.8 g/dL (13.5-16.0); Immature Granulocytes % (Auto) 0 % (0-0); Immature Granulocytes Auto 0.02 Thou/mm3 (0.00-0.00); Lymphocytes # (Auto) 0.3 Thou/mm3 (1.0-4.8); Lymphocytes % (Auto) 7 % (10-50); Mean Corpuscular HGB Conc 33.3 g/dl (31.0-37.0); Mean Corpuscular Hemoglobin 31.7 pg (25.0-35.0); Mean Corpuscular Volume 95 fL (80-100); Monocytes # (Auto) 0.1 Thou/mm3 (0.0-0.8); Monocytes % (Auto) 2 % (0-12); Neutrophils # (Auto) 4.1 Thou/mm3 (1.8-7.7); Neutrophils % (Auto) 90 % (37-80); Nucleated Red Blood Cell % 0 /100 WBC (0); Platelet Count 250 Thou/mm3 (140-440); RDW Standard Deviation 52.5 fL (35.1-43.9); Red Blood Count 4.04 Miln/mm3 (4.50-5.90); White Blood Count 4.6 Thou/mm3 (3.8-10.6)
[2024-02-08 08:22] LABS: Alanine Aminotransferase 288 U/L (10-49); Albumin, Serum 3.3 gm/dL (3.4-4.8); Alkaline Phosphatase 275 U/L (46-116); Anion Gap 7 (7-16); Aspartate Amino Transferase 557 U/L (0-34); BUN/Creatinine Ratio 43 Ratio (12-20); Blood Urea Nitrogen 13 mg/dL (9-23); Calcium 8.1 mg/dL (8.3-10.6); Calcium (Corrected) 8.7 mg/dL (8.5-10.1); Carbon Dioxide 28.4 mMol/L (20.0-31.0); Chloride 97 mMol/L (98-107); Creatinine (Component) 0.3 mg/dL (0.6-1.3); Globulin 3.3 gm/dL (2.3-3.5); Glucose 64 mg/dL (74-106); Osmolality,Calculated 262 (275-295); Phosphorous 3.3 mg/dL (2.4-5.1); Sodium 132 mMol/L (136-145); Total Protein 6.6 gm/dL (5.7-8.2); eGFR > 60 See Note
[2024-02-08 08:31] LABS: Troponin I 1.881 ng/mL (0.0-0.045)
--- NOTE | 2024-02-08 09:20 | ESCONSULT_ITS ---
HPI Data of Consult Requesting Physician: Toni Amador MD Admitting Provider: oTni Amador MD Attending Provider: Toni Amador MD Primary Care Provider: Physician No Primary/Family Consult Narrative Reason for consult: Elevated troponins History of present illness: 73-year-old male with past medical history of colon cancer s/p chemoradiation, seizure, dementia, and CVA (ischemic and hemorrhagic) was admitted to the hospital on 02/07/2024 due to acute encephalopathy likely secondary to hospital- acquired pneumonia given the patient was in our hospital on December. Patient was brought in to the ER by EMS with complaints of cough, shortness of breath, tachycardia, and tachypnea. Patient is a very poor historian therefore most of the history was taken from chart review. On my assessment he was still AO x 1 (only to person). Initially was febrile, tachypneic, tachycardic and hypoxic. Initial labs showed WBC 2.8, Hgb 12.6, sodium 129, potassium 4.3, chloride 93, BUN 11, creatinine 0.4, lactic acid 2, magnesium 1.7, AST 576, ALT 293, lactic dehydrogenase 968, troponins 2.03, and procalcitonin 1.06. Initial imaging included chest x-ray showed prominent basilar pneumonia, liver ultrasound was unremarkable, and EKG showed sinus tachycardia. During my assessment patient was still AO x 1 (only to person) and unable to provide any history at this time. He was placed on heparin drip overnight given that his troponins had up trended, but they peaked at 2.076 and down trended this morning to 1.881. EKG showed sinus tachycardia. Patient was on oxy mask and was easily to notice that he was very congested. Patient was recently discharged on 01/09/2024 for similar symptoms and he was eventually upgraded to the ICU for most of his hospital stay. We were also consulted during this last admission due to elevated troponins. Last echo on January 06, 2024 had the following findings Normal LV size and function. Grade 1 diastolic dysfunction. Estimated EF 55 to 60% Normal RV size and function Mild TR. Mild AV sclerosis without stenosis. Trace AI. Cardiology was consulted due to elevated troponins. PMH: colon cancer s/p chemoradiation, seizure, dementia, and CVA (ischemic and hemorrhagic) Allergies: NKDA Surgical Hx: Nil Meds: Levetiracetam 500 mg twice daily, midodrine 5 mg 3 times daily, and prednisone 40 mg daily Social Hx: Previous history of heavy alcohol use, no illicit drug or smoking Occupation: Retired cc:: cc: Toni Amador MD Review of Systems Review of Systems ROS Unobtainable: unobtainable due to mental status Past Medical History Past Medical History Comments PMH COMMENT: PMH: colon cancer s/p chemoradiation, seizure, dementia, and CVA (ischemic and hemorrhagic) Allergies: NKDA Surgical Hx: Nil Meds: Levetiracetam 500 mg twice daily, midodrine 5 mg 3 times daily, and prednisone 40 mg daily Social Hx: Previous history of heavy alcohol use, no illicit drug or smoking Occupation: Retired Exam Vital Signs Temp Pulse Resp BP Pulse Ox O2 Del Method O2 Flow Rate 97.4 F 89 20 109/66 93 L Oxy Mask 5 02/08/24 08:00 02/08/24 08:00 02/08/24 08:00 02/08/24 08:00 02/08/24 08:00 02/08/24 08:00 02/08/24 08:00 Narrative Exam General: A/O x1 (to person only), mild respiratory distress, thin, frail male Eyes: Pupils reactive to light and EOMI. Ears: No visibleear discharge, Hearing grossly intact. Nose: No visible nasal discharge. Mouth/Throat: Moist mucous membranes, no redness, no lesions. Neck: Neck supple, no cervical lymphadenopathy. Lungs: Decreased breath sounds JESUS, on Oxy mask, No accessory muscle use. Cardio: Normal S1/S2, regular rhythm, no murmurs, no JVD or carotid bruits. Abdomen: Soft, non-tender, no palpable masses, peristalsis present, no guarding or rebound. Extremities: Symmetrical, no significant deformities, no peripheral edema , non-tender, peripheral pulses presents. Skin: No rashes, no lesions, warm to touch. Neuro: Could not be properly assessed due to patient's clinical status. Able to move all extremities. Results Labs 02/08/24 05:14 02/09/24 07:41 Labs: Short CBC 02/07/24 02/08/24 Range/Units 16:26 05:14 WBC 2.8 L 4.6 D (3.8-10.6) Thou/mm3 Hgb 12.6 L 12.8 L (13.5-16.0) g/dL Hct 36.6 L 38.4 L (41.0-53.0) % Plt Count 273 D 250 (140-440) Thou/mm3 BMP 02/07/24 02/08/24 16:26 05:14 Sodium 129 L 132 L Potassium 4.3 4.0 Chloride 93 L 97 L Carbon Dioxide 28.2 28.4 BUN 11 13 Creatinine 0.4 L 0.3 L Glucose 98 64 L Calcium 8.4 8.1 L Cardiac Enzymes 02/07/24 02/07/24 02/08/24 Range/Units 16:26 19:10 01:04 Troponin I 0.678 H* 2.030 H* D 2.076 H* (0.0-0.045) ng/mL 02/08/24 Range/Units 05:14 Troponin I 1.881 H* (0.0-0.045) ng/mL Liver Function 02/07/24 02/08/24 Range/Units 16:26 05:14 Total Bilirubin 1.0 1.0 (0.3-1.2) mg/dL AST 576 H* 557 H* (0-34) U/L ALT 293 H 288 H (10-49) U/L Alkaline Phosphatase 308 H 275 H D (46-116) U/L Albumin 3.7 3.3 L (3.4-4.8) gm/dL Urine 02/07/24 Range/Units 17:50 Urine Color Yellow (Lt Yel-Yel) Urine Clarity Clear (Clear/Hazy) Urine pH 7.0 (5.0-7.0) Ur Specific [place] 1.016 (1.001-1.035) Urine Protein Trace (Neg - Trace) Urine Glucose (UA) Negative (Negative) Quality Measures Quality Measures none Advance care planning discussed with:: patient Medications Home Medications and Allergies Home Medications ?Medication ?Instructions ?Recorded ?Confirmed ?Type acetaminophen 325 mg tablet 650 mg PO QID PRN Pain, Mild 02/08/24 02/08/24 History amino acids-protein hydrolysate 15 1 ea PO BID 02/08/24 02/08/24 History gram-100 kcal/30 mL oral liquid ascorbic acid (vitamin C) 500 mg 500 mg PO BID 02/08/24 02/08/24 History tablet azithromycin 250 mg tablet 250 mg PO QDAY 02/08/24 02/08/24 History azithromycin 250 mg tablet 500 mg PO QDAY 02/08/24 02/08/24 History guaifenesin 100 mg/5 mL oral liquid 200 mg PO QID PRN Cough 02/08/24 02/08/24 History ipratropium 0.5 mg-albuterol 3 mg 3 ml inhalation Q4HR PRN Shortness 02/08/24 02/08/24 History (2.5 mg base)/3 mL nebulization Of Breath Or Wheezing soln levetiracetam 100 mg/mL oral 500 mg PO BID 02/08/24 02/08/24 History solution midodrine 5 mg tablet 5 mg PO TID 02/08/24 02/08/24 History multivitamin with minerals 1 tab PO QDAY 02/08/24 02/08/24 History prednisone 20 mg tablet 40 mg PO QDAY 02/08/24 02/08/24 History prednisone 20 mg tablet 40 mg PO QDAY 02/08/24 02/08/24 History thiamine mononitrate (vit B1) 90 90 mg PO QDAY 02/08/24 02/08/24 History mg/scoop oral powder zinc 1 tab PO QDAY 02/08/24 02/08/24 History Allergies Allergy/AdvReac Type Severity Reaction Status Date / Time No Known Allergies Allergy Unverified 04/10/23 17:26 Visit Medications Acetaminophen (Acetaminophen 325 Mg Tablet) 650 mg PO Q6H PRN PRN Reason: Fever >100.4 Stop: 03/08/24 18:28 Acetaminophen (Acetaminophen Supp 650 Mg Supp) 650 mg [place] Q6H PRN PRN Reason: PAIN SCALE 1-3 (mild Stop: 03/08/24 18:28 Hydrocodone Bitart/Acetaminophen (Hydrocodone/Apap 10/325 Tab) 1 tab PO Q4HR PRN PRN Reason: PAIN SCALE 7-10 (Severe Stop: 02/12/24 18:28 Albuterol/Ipratropium (Albuterol/Ipratropium (Duoneb) Rt Ana 3 Ml Nebu) 3 ml INH Q6HRRT JENNY Stop: 03/08/24 18:59 Last Admin: 02/08/24 06:57 Dose: 3 ml Doxycycline Hyclate (Doxycycline 100 Mg Tablet) 100 mg PO BID [facility] Stop: 02/14/24 20:59 Last Admin: 02/07/24 20:24 Dose: 100 mg Piperacillin/Tazobactam/Dextrose (Zosyn) 50 mls @ 12.5 mls/hr IV Q8HR [facility] Stop: 02/15/24 05:59 Last Admin: 02/08/24 05:46 Dose: 12.5 mls/hr Heparin Sodium/Dextrose (Heparin In D5w Ivpb) 25,000 unit in 250 mls @ 7.076 mls/hr IV .Q24H JENNY; Protocol Stop: 02/21/24 20:29 Last Admin: 02/07/24 21:28 Dose: 12 units/kg/hr, 7.076 mls/hr Lansoprazole (Lansoprazole 30 Mg Tab.Rap.Dr) 30 mg PO QDAY [facility] Stop: 03/08/24 18:59 Last Admin: 02/07/24 20:24 Dose: 30 mg Levetiracetam (Levetiracetam Inj 100 Mg/Ml Vial 5ml) 500 mg IVP BID [facility] Stop: 03/08/24 20:59 Last Admin: 02/07/24 20:25 Dose: 500 mg Ondansetron HCl (Ondansetron Inj 2 Mg/Ml Inj 2 Ml) 4 mg IV Q6H PRN; Protocol PRN Reason: NAUSEA OR VOMITING Stop: 03/08/24 18:28 Oxycodone/Acetaminophen (Oxycodone/Apap 5/325 Tablet) 1 tab PO Q6H PRN PRN Reason: PAIN SCALE 4-6 (Moderate Stop: 02/12/24 18:28 Sennosides (Senna Tablet) 1 tab PO QDAY PRN; Protocol PRN Reason: constipation Stop: 03/08/24 18:28 Discontinued Medications Acetaminophen (Acetaminophen 325 Mg Tablet) 650 mg PO X1 ONE Stop: 02/07/24 16:11 Last Admin: 02/07/24 16:35 Dose: 650 mg Heparin Sodium (Porcine) (Heparin Sod Inj 5000 Unit/Ml Vial) 4,000 unit IV X1 ONE; Protocol Stop: 02/07/24 20:25 Last Admin: 02/07/24 21:28 Dose: 4,000 unit Sodium Chloride (Ns) 1,000 mls @ 999 mls/hr IV .Q1H1M ONE Stop: 02/07/24 17:15 Last Infusion: 02/07/24 17:32 Dose: Infused Ceftriaxone Sodium/Dextrose (Rocephin/D5w 1gm Iv Premix) 50 mls @ 100 mls/hr IV X1 ONE Stop: 02/07/24 17:48 Last Infusion: 02/07/24 18:10 Dose: Infused Sodium Chloride (Ns) 1,000 mls @ 999 mls/hr IV .Q1H1M ONE Stop: 02/07/24 18:20 Piperacillin/Tazobactam/Dextrose (Zosyn) 50 mls @ 100 mls/hr IV X1 ONE Stop: 02/07/24 19:14 Last Infusion: 02/07/24 20:56 Dose: Infused Sodium Chloride (Ns) 500 mls @ 999 mls/hr IV .Q31M ONE Stop: 02/07/24 21:54 Last Infusion: 02/07/24 22:38 Dose: Infused Lansoprazole (Lansoprazole 30 Mg Tab.Rap.Dr) 40 mg PO QDAY JENNY Stop: 03/08/24 18:59 Levetiracetam (Levetiracetam Inj 100 Mg/Ml Vial 5ml) 1,000 mg IVP X1 ONE Stop: 02/07/24 16:21 Last Admin: 02/07/24 16:34 Dose: 1,000 mg Pantoprazole Sodium (Pantoprazole 40 Mg Tablet) 40 mg PO QDAY JENNY Stop: 03/08/24 18:44 Last Admin: 02/07/24 22:39 Dose: Not Given Sodium Chloride (Sodium Chloride Rt 10% 15 Ml Nebu) 5 ml INH X1 ONE Stop: 02/07/24 18:37 Last Admin: 02/07/24 19:48 Dose: 5 ml Assessment & Plan Plan 73-year-old male with past medical history of colon cancer s/p chemoradiation, seizure, dementia, and CVA (ischemic and hemorrhagic) was admitted to the hospital on 02/07/2024 due to acute encephalopathy likely secondary to hospital- acquired pneumonia given the patient was in our hospital on . Elevated troponins, NSTEMI type II most likely demand ischemia ?Patient's troponin on admission were 0.678 and peaked at 2.076 before downtrending. ? Patient is currently on heparin drip ? EKG showed sinus tachycardia ?Last echo on January 06, 2024 had the following findings Normal LV size and function. Grade 1 diastolic dysfunction. Estimated EF 55 to 60% Normal RV size and function Mild TR. Mild AV sclerosis without stenosis. Trace AI. ?Zohreh ACS score of 124 points, 9% probability of Plan: ?Continue heparin drip -Aggressively replete potassium and magnesium to keep above 4 and 2 respectively to avoid any arrhythmias. ?Patient is still a poor candidate for cardiac catheterization due to chemoradiation for his colon cancer 2. Acute encephalopathy 3. Acute hypoxic respiratory failure 4. Sepsis likely secondary to hospital-acquired pneumonia 5. Hospital-acquired pneumonia 6. Hypotension ?Patient initially met SIRS 4 out of 4 with leukopenia, tachycardia, tachypnea, and febrile ?Chest x-ray showed bibasilar pneumonia, given prior hospitalization last month patient is at increased risk of hospital-acquired pneumonia ? Patient has baseline dementia and is AO x 1 today (only to present) ? Patient is currently on OxyMask at 5 L ?Patient's blood pressure has been on the lower end since admission with the lowest being 90/52, but currently is 109/66 this morning. ? Patient is currently on doxycycline and Zosyn for antibiotic coverage ? Continue current management as per primary care team 7. Leukopenia 8. Rectal cancer s/p chemoradiation ? Leukopenia mostly in the setting of chemoradiation ?WBCs 2.8 on admission ?Continue current management as per primary care team 9. Hypoosmolar hyponatremia ?Sodium 129 on admission ? This could be due to renal loss versus gastrointestinal loss versus medication induced ? Continue current management as per primary care team 10. Transaminitis ?Patient liver enzymes have been elevated since last admission ? AST 576, ALT 293, alkaline phosphatase 308 on admission ?Liver ultrasound was unremarkable ? Continue current management as per primary care team 11. Seizures 12. CVA 13. Dementia ?Recommend to continue patient's aspirin and Keppra ?Continue current management per primary care team Continue rest of management as per primary team. We are grateful to be able to participate in Mr. Pink's care. Thank you for the consult Plan of care discussed with attending Lead Ios Developer, Dr. Cesar Mcdaniels MD PGY-1 Attending Provider Attestation/Addendum I have personally seen and examined the patient separately on the above date of service and discussed the plan of care with the resident. I reviewed the resident Dr. Laws consultation progress note and agree with the resident findings and plan in the note above and have also edited the documentation to reflect my findings and plan. Patient well-known to me from the recent admission in early January 2024. Troponins peaked at that point of time to 6.7 but then down trended. Echocardiogram done during that admission showed normal LV function normal RV function no regional wall motion abnormalities. Patient was treated conservatively for the NSTEMI and which is thought to be supply/demand mismatch secondary to the severe sepsis or septic shock. Recommended no further inpatient ischemic workup necessary as echo findings were normal. Consider outpatient workup based on prognosis of rectal ca. 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 Also primary team to discuss the goals of care with the patient and the family. Patient now presented again with acute hypoxic respiratory failure and patient again has severe sepsis secondary to bilateral pneumonia and is on IV antibiotics. Troponins again peaked at 2.37 during this admission and now downtrending. Similar presentation to the previous admission and troponin elevation is secondary to supply/demand mismatch. Patient denies any kind of chest pain or chest pressure at the present point of time. Recommend to continue to treat conservatively with heparin drip along with aspirin and statin and beta-anitha if blood pressure permissible. Patient probably has underlying CAD but his overall prognosis and the goals of care needs to be discussed with oncology as well as the family of the patient prior to any kind of invasive workup as we need to assess the risks and benefits appropriately for this patient. Patient does already has dementia with delirium and history of seizure disorder along with history of rectal cancer. Overall patient prognosis appears to be guarded to poor. Primary team did call oncology today for the same. Surinder Guerrero M.D. Interventional Cardiology
--- NOTE | 2024-02-08 09:38 | PC.SS ---
Addendum entered by Ashley Gross 02/08/24 15:20: SS spoke to daughter, Mariah. She confirmed she is the decision maker for patient. She states patient is to return to facility upon discharge. Patient has completed chemo/radiation at our [facility]. Patient is wheelchair bound. Patient is a longterm resident at facility. 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 Patient is documented as altered mental status. Documentation indicates that patient's daughter, Mariah, is the alt medical decision maker and point of contact. SS left daughter a message to verify d/c plan back to facility. Documentation indicates patient has been at facility since 2021. Hx: dysphagia, resp failure, dementia. Patient has dx: rectal cancer, s/p chemotherapy. Dr. Alfaro is attending physician. Patient will need gurney transport.
--- NOTE | 2024-02-08 09:52 | PCS.ST ---
Swallow Evaluation completed. See report for details. Pt is not safe for a PO diet at this time. Chronic pharyngeal dysphagia. ST services for diet readiness.
[2024-02-08] MEDS: HEPARIN SOD INJ 5000 UNIT/ML VIAL 1300 UNIT IV ×2 (09:55→16:48)
[2024-02-08 09:56] LABS: Influenza A Ag Negative; Influenza B Ag Negative
[2024-02-08] MEDS: levETIRAcetam INJ 100 MG/ML VIAL 5ML 500 MG IVP ×2 (09:56→20:41)
--- NOTE | 2024-02-08 12:33 | PD.ONCCONS ---
HPI Data of Consult Consult date: 02/08/24 Requesting Physician: Toni Amador MD Primary Care Provider: Physician No Primary/Family Consult Narrative Reason for consult: Recently treated colorectal cancer patient admitted with pneumonia History of present illness: Patient is a 73-year-old gentleman with dementia evaluated US for rectal adenocarcinoma and felt that he was a poor surgical candidate. For this reason he was given conservative management of Xeloda chemotherapy with Dr. Eula Kingston and radiation therapy at [facility] here in [place]. Pelvis MRI showing diffuse thickening of the rectosigmoid charles extending cephalad that from 3.1 cm from anus to 5.4 cm. Cephalad that. Treatments were completed 3 months ago in November 2023. Patient with various comorbidities has remained weak and has been residing at [facility]. Patient was brought in by ambulance yesterday 02/07/2024 for shortness of breath and tachycardia temp 103 with chest x-ray showing prominent bibasilar pneumonia. Liver ultrasound showed no focal liver lesions with normal common bile duct. A.m. CBC 02/08/2024 4.6 WBC hemoglobin 12.8 platelets 2 50,000. AST ALT alk phos considerably elevated along with troponins. Patient now referred for oncological consultation. cc:: cc: Toni Amador MD Past Medical History Family History OTHER FAMILY HX: 1 uncle with colon cancer. Past Medical History Comments PMH COMMENT: History of CVA dementia seizures rectal CA Meds Home Medications and Allergies Home Medications ?Medication ?Instructions ?Recorded ?Confirmed ?Type acetaminophen 325 mg tablet 650 mg PO QID PRN Pain, Mild 02/08/24 02/08/24 History amino acids-protein hydrolysate 15 1 ea PO BID 02/08/24 02/08/24 History gram-100 kcal/30 mL oral liquid ascorbic acid (vitamin C) 500 mg 500 mg PO BID 02/08/24 02/08/24 History tablet azithromycin 250 mg tablet 250 mg PO QDAY 02/08/24 02/08/24 History azithromycin 250 mg tablet 500 mg PO QDAY 02/08/24 02/08/24 History guaifenesin 100 mg/5 mL oral liquid 200 mg PO QID PRN Cough 02/08/24 02/08/24 History ipratropium 0.5 mg-albuterol 3 mg 3 ml inhalation Q4HR PRN Shortness 02/08/24 02/08/24 History (2.5 mg base)/3 mL nebulization Of Breath Or Wheezing soln levetiracetam 100 mg/mL oral 500 mg PO BID 02/08/24 02/08/24 History solution midodrine 5 mg tablet 5 mg PO TID 02/08/24 02/08/24 History multivitamin with minerals 1 tab PO QDAY 02/08/24 02/08/24 History prednisone 20 mg tablet 40 mg PO QDAY 02/08/24 02/08/24 History prednisone 20 mg tablet 40 mg PO QDAY 02/08/24 02/08/24 History thiamine mononitrate (vit B1) 90 90 mg PO QDAY 02/08/24 02/08/24 History mg/scoop oral powder zinc 1 tab PO QDAY 02/08/24 02/08/24 History Allergies Allergy/AdvReac Type Severity Reaction Status Date / Time No Known Allergies Allergy Unverified 04/10/23 17:26 Exam Vital Signs Temp Pulse Resp BP Pulse Ox O2 Del Method O2 Flow Rate 97.4 F 89 20 109/66 93 L Oxy Mask 5 02/08/24 08:00 02/08/24 08:00 02/08/24 08:00 02/08/24 08:00 02/08/24 08:00 02/08/24 08:00 02/08/24 08:00 Narrative Exam Patient appears comfortable, with dementia poorly communicative. Results Labs 02/08/24 05:14 02/08/24 05:14 Labs: Short CBC 02/07/24 02/08/24 Range/Units 16:26 05:14 WBC 2.8 L 4.6 D (3.8-10.6) Thou/mm3 Hgb 12.6 L 12.8 L (13.5-16.0) g/dL Hct 36.6 L 38.4 L (41.0-53.0) % Plt Count 273 D 250 (140-440) Thou/mm3 BMP 02/07/24 02/08/24 16:26 05:14 Sodium 129 L 132 L Potassium 4.3 4.0 Chloride 93 L 97 L Carbon Dioxide 28.2 28.4 BUN 11 13 Creatinine 0.4 L 0.3 L Glucose 98 64 L Calcium 8.4 8.1 L Cardiac Enzymes 02/07/24 02/07/24 02/08/24 Range/Units 16:26 19:10 01:04 Troponin I 0.678 H* 2.030 H* D 2.076 H* (0.0-0.045) ng/mL 02/08/24 Range/Units 05:14 Troponin I 1.881 H* (0.0-0.045) ng/mL Liver Function 02/07/24 02/08/24 Range/Units 16:26 05:14 Total Bilirubin 1.0 1.0 (0.3-1.2) mg/dL AST 576 H* 557 H* (0-34) U/L ALT 293 H 288 H (10-49) U/L Alkaline Phosphatase 308 H 275 H D (46-116) U/L Albumin 3.7 3.3 L (3.4-4.8) gm/dL Urine 02/07/24 Range/Units 17:50 Urine Color Yellow (Lt Yel-Yel) Urine Clarity Clear (Clear/Hazy) Urine pH 7.0 (5.0-7.0) Ur Specific [place] 1.016 (1.001-1.035) Urine Protein Trace (Neg - Trace) Urine Glucose (UA) Negative (Negative) Assessment and Plan Additional Assessment & Plan Additional Plan: 1. Rectal CA completed Xeloda chemo and radiation 3 months ago. [place] not a surgical candidate by [facility]> 2. Resident of [facility] transitional care due to multiple comorbidities including dementia CVA seizures 3. Admitted with pneumonia sepsis respiratory failure ischemic cardiomyopathy hepatopathy 4. Slowly improving with supportive care. 5. Spoke with patient's sister, Karissa Rios, [facility] power of corporate associate attorney, regarding patient's condition which remains guarded due to both his cancer and comorbidities.. 6. Will follow patient upon discharge.
[2024-02-08] MEDS: DEXTROSE 50%-WATER INJ 50 ML SYRINGE IV (12:34)
[2024-02-08] MEDS: SODIUM CHLORIDE 0.9% 1000 ML 1,000 ML 75 ML IV (14:44)
[2024-02-08 14:50] LABS: Cocci Serology, IgM Negative (Negative)
--- NOTE | 2024-02-08 15:13 | PC.PT ---
transplant worker spoke with the daughter who reported the patient is wheelchair bound. 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 Will cancel PT eval secondary to patient is at his PLOF.
[2024-02-08 15:51] LABS: Partial Thromboplastin Time 38.1 Seconds (22.0-36.0)
[2024-02-08 15:53] LABS: Triglycerides 46 mg/dL (30-150)
--- NOTE | 2024-02-08 16:40 | PC.DIETICIAN ---
Nutrition recommendations: Patient is at significant risk for refeeding syndrome. 1. Jevity 1.5 at 10 ml/hr x 24 hrs (do not advance). If no IV fluids, water flushes 35 ml/hr (or per MD). 2. Thiamine 100mg/day for 7 days; provide first dose at least 30 minutes before starting nutrition. 3. Multivitamins/Minerals. 4. Daily labs for P, K, and Mg; replace as needed. If no electrolytes disturbances after 24 hrs, advance 10 ml every 12 hrs to goal rate of 45 ml/hr x 24 hrs. Continue with water flushes 35 ml/hr (or per MD).
--- NOTE | 2024-02-08 18:07 | XR_ITS ---
Examination: AP chest single view Technique: AP portable sitting chest single view Exam date and time: February 08, 2024 1818 hrs. Comparison February 07, 2024 Indications: Post orogastric tube placement Findings: Orogastric tube is in the stomach, the tip below the level of the film Significant bilateral pneumonia No significant cardiac enlargement Impression: Orogastric tube is in the stomach, the tip is below the level of the film
--- NOTE | 2024-02-08 20:00 | PC.NURSE ---
Dr. Lay called and updated on note from job checker regarding feeding; states she will review.
[2024-02-08] MEDS: DOXYCYCLINE 100 MG TABLET NG (20:41)
[2024-02-08] MEDS: THIAMINE INJ 100 MG/ML VIAL 2 ML IVP (20:41)
--- NOTE | 2024-02-08 21:32 | PC.NURSE ---
1910: Jevity 1.5 at 10 ml/hr x 24 hrs started per MD order. NO water flushes at this time; Patient on IV fluids.
[2024-02-08 23:57] LABS: Partial Thromboplastin Time 45.6 Seconds (22.0-36.0)
[2024-02-09] VITALS (11 sets, daily range): BP systolic 89–126; BP diastolic 51–75; PULSE 69–89; RESP 16–99; TEMP 36.1–36.4; O2SAT 95–100; BMI 16.7
[2024-02-09] MEDS: ALBUTEROL/IPRATROPIUM (Duoneb) RT SOL 3 ML NEBU INH ×4 (00:06→18:37)
[2024-02-09] MEDS: HEPARIN SOD INJ 5000 UNIT/ML VIAL 1285 UNIT IVP (00:21)
--- NOTE | 2024-02-09 00:43 | PC.NURSE ---
2110: Jevity 1.5 at 10 ml/hr x 24 hrs started per MD order. NO water flushes at this time; Patient on IV fluids.
[2024-02-09] MEDS: SODIUM CHLORIDE 0.9% 500 ML 500 ML 999 ML IV (01:03)
[2024-02-09] MEDS: SODIUM CHLORIDE 0.9% 1000 ML 1,000 ML 75 ML IV (04:52)
[2024-02-09] MEDS: Heparin/D5w 25K 250 ML Ivpb 25,000 UNIT/250 ML BAG 10.614 UNIT IV (04:54)
[2024-02-09] MEDS: PIPER/TAZO 3.375 GM 50 ML IV (04:59)
[2024-02-09 08:15] LABS: Basophils % (Auto) 0 % (0-2.5); Eosinophils % (Auto) 0 % (0-10); Hematocrit 30.7 % (41.0-53.0); Hemoglobin 10.3 g/dL (13.5-16.0); Immature Granulocytes % (Auto) 1 % (0-0); Immature Granulocytes Auto 0.03 Thou/mm3 (0.00-0.00); Lymphocytes # (Auto) 0.4 Thou/mm3 (1.0-4.8); Lymphocytes % (Auto) 10 % (10-50); Mean Corpuscular HGB Conc 33.6 g/dl (31.0-37.0); Mean Corpuscular Hemoglobin 31.5 pg (25.0-35.0); Mean Corpuscular Volume 94 fL (80-100); Monocytes # (Auto) 0.2 Thou/mm3 (0.0-0.8); Monocytes % (Auto) 5 % (0-12); Neutrophils # (Auto) 3.6 Thou/mm3 (1.8-7.7); Neutrophils % (Auto) 84 % (37-80); Nucleated Red Blood Cell % 0 /100 WBC (0); Platelet Count 225 Thou/mm3 (140-440); RDW Standard Deviation 51.4 fL (35.1-43.9); Red Blood Count 3.27 Miln/mm3 (4.50-5.90); White Blood Count 4.3 Thou/mm3 (3.8-10.6)
[2024-02-09 08:42] LABS: Alanine Aminotransferase 216 U/L (10-49); Albumin, Serum 2.8 gm/dL (3.4-4.8); Albumin/Globulin Ratio 0.9 (1.2-2.2); Alkaline Phosphatase 172 U/L (46-116); Anion Gap 8 (7-16); Aspartate Amino Transferase 355 U/L (0-34); BUN/Creatinine Ratio 47 Ratio (12-20); Bilirubin,Total 0.8 mg/dL (0.3-1.2); Blood Urea Nitrogen 14 mg/dL (9-23); Calcium 8.4 mg/dL (8.3-10.6); Calcium (Corrected) 9.4 mg/dL (8.5-10.1); Carbon Dioxide 24.7 mMol/L (20.0-31.0); Chloride 101 mMol/L (98-107); Creatinine (Component) 0.3 mg/dL (0.6-1.3); Estimated Creatinine Clearance 136.6 mL/min (>60); Globulin 3.2 gm/dL (2.3-3.5); Glucose 94 mg/dL (74-106); Magnesium 1.9 mg/dL (1.6-2.6); Osmolality,Calculated 268 (275-295); Phosphorous 2.5 mg/dL (2.4-5.1); Sodium 134 mMol/L (136-145); eGFR > 60 See Note
--- NOTE | 2024-02-09 08:47 | ESPR_ITS ---
Documentation for date of: 02/09/24 Subjective Subjective Interval history: Patient seen at bedside this AM. No overnight events. Tolerating heparin drip well Patient had a few PVCs overnight and had a HR of 70-80s. Potassium 3 and Mg 1.9 today, recommend to replete to keep above 4 and 2 respectively. Recommend to continue heparin drip for a total of 48 hours and start patient on aspirin, high intensity statin, and beta anitha if BP allows. Patient probably has underlying CAD but his overall prognosis and the goals of care needs to be discussed with oncology as well as the family of the patient prior to any kind of invasive workup as we need to assess the risks and benefits appropriately for this patient. Patient does already has dementia with delirium and history of seizure disorder along with history of rectal cancer. Overall patient prognosis appears to be guarded to poor. Primary team did call oncology but no clear mention of life expectancy along with cancer staging. Primary to disuss with onc again reg the above. Recommend primary care team to have goals of care discussion with patient's family as condition is guarded. Exam Vital Signs Temp Pulse Resp BP Pulse Ox O2 Del Method O2 Flow Rate 97.6 F 77 16 90/53 L 98 Room Air 5 02/09/24 08:00 02/09/24 08:00 02/09/24 08:00 02/09/24 08:00 02/09/24 08:00 02/09/24 08:00 02/08/24 13:26 Narrative Exam General: A/O x1 (to person only), no acute distress, thin, frail male Eyes: Pupils reactive to light and EOMI. Ears: No visible ear discharge, Hearing grossly intact. Nose: No visible nasal discharge. Mouth/Throat: Moist mucous membranes, no redness, no lesions. Neck: Neck supple, no cervical lymphadenopathy. Lungs: Decreased breath sounds JESUS, No accessory muscle use. Cardio: Normal S1/S2, regular rhythm, no murmurs, no JVD or carotid bruits. Abdomen: Soft, non-tender, no palpable masses, peristalsis present, no guarding or rebound. Extremities: Symmetrical, no significant deformities, no peripheral edema , non-tender, peripheral pulses presents. Skin: No rashes, no lesions, warm to touch. Neuro: Able to move all extremities. Objective Labs 02/09/24 07:41 02/09/24 17:05 Labs: Laboratory Results - last 24 hr 02/07/24 02/08/24 02/08/24 19:10 05:19 06:35 APTT Triglycerides Cancelled Coccidioides IgM Ab Negative Influenza A (Rapid) Negative Influenza B (Rapid) Negative 02/08/24 02/08/24 15:30 23:12 APTT 38.1 H 45.6 H Triglycerides 46 Coccidioides IgM Ab Influenza A (Rapid) Influenza B (Rapid) Quality Measures Quality Measures none Advance care planning discussed with:: patient Assessment & Plan Assessment Current Active Medications: Generic Name Dose Route Start Last Admin Trade Name Freq PRN Reason Stop Dose Admin Acetaminophen 650 mg 02/07/24 18:29 Acetaminophen 325 Mg Tablet PO 03/08/24 18:28 Q6H PRN Fever >100.4 Acetaminophen 650 mg 02/07/24 18:29 Acetaminophen Supp 650 Mg Supp [place] 03/08/24 18:28 Q6H PRN PAIN SCALE 1-3 (mild Hydrocodone Bitart/Acetaminophen 1 tab 02/07/24 18:29 Hydrocodone/Apap 10/325 Tab PO 02/12/24 18:28 Q4HR PRN PAIN SCALE 7-10 (Severe Albuterol/Ipratropium 3 ml 02/07/24 19:00 02/09/24 07:27 Albuterol/Ipratropium (Duoneb) Rt Ana 3 Ml Nebu INH 03/08/24 18:59 3 ml Q6HRRT JENNY Administration Doxycycline Hyclate 100 mg 02/08/24 20:04 02/08/24 20:41 Doxycycline 100 Mg Tablet NG 02/14/24 20:59 100 mg BID JENNY Administration Piperacillin/Tazobactam/Dextrose 50 mls @ 12.5 mls/hr 02/08/24 06:00 02/09/24 04:59 Zosyn IV 02/15/24 05:59 12.5 mls/hr Q8HR JENNY Administration Heparin Sodium/Dextrose 25,000 unit in 250 mls @ 7.076 mls/hr 02/07/24 20:30 02/09/24 04:54 Heparin In D5w Ivpb IV 02/21/24 20:29 18 units/kg/hr .Q24H JENNY 10.614 mls/hr Administration Protocol 12 UNITS/KG/HR Sodium Chloride 1,000 mls @ 100 mls/hr 02/09/24 08:25 Ns IV 02/10/24 08:24 .Q10H JENNY Lansoprazole 30 mg 02/07/24 19:00 02/08/24 10:09 Lansoprazole 30 Mg Tab.Rap. PO 03/08/24 18:59 Not Given QDAY JENNY Levetiracetam 500 mg 02/07/24 21:00 02/08/24 20:41 Levetiracetam Inj 100 Mg/Ml Vial 5ml IVP 03/08/24 20:59 500 mg BID JENNY Administration Ondansetron HCl 4 mg 02/07/24 18:29 Ondansetron Inj 2 Mg/Ml Inj 2 Ml IV 03/08/24 18:28 Q6H PRN NAUSEA OR VOMITING Protocol Oxycodone/Acetaminophen 1 tab 02/07/24 18:29 Oxycodone/Apap 5/325 Tablet PO 02/12/24 18:28 Q6H PRN PAIN SCALE 4-6 (Moderate Sennosides 1 tab 02/07/24 18:29 Senna Tablet PO 03/08/24 18:28 QDAY PRN constipation Protocol Thiamine HCl 100 mg 02/08/24 20:15 02/08/24 20:41 Thiamine Inj 100 Mg/Ml Vial 2 Ml IVP 03/09/24 20:14 100 mg QDAY JENNY Administration Plan 73-year-old male with past medical history of colon cancer s/p chemoradiation, seizure, dementia, and CVA (ischemic and hemorrhagic) was admitted to the hospital on 02/07/2024 due to acute encephalopathy likely secondary to hospital- acquired pneumonia given the patient was in our hospital on December. . Elevated troponins, NSTEMI type II most likely demand ischemia ?Patient's troponin on admission were 0.678 and peaked at 2.076 before downtrending. ? Patient is currently on heparin drip ? EKG showed sinus tachycardia ?Last echo on January 06, 2024 had the following findings Normal LV size and function. Grade 1 diastolic dysfunction. Estimated EF 55 to 60% Normal RV size and function Mild TR. Mild AV sclerosis without stenosis. Trace AI. ?Zohreh ACS score of 124 points, 9% probability of Plan: ?Recommend to continue heparin drip for a total of 48 hours and start patient on aspirin, high intensity statin, and beta anitha if BP allows. -Recommend primary care team to have goals of care discussion with patient's family as condition is guarded. -Aggressively replete potassium and magnesium to keep above 4 and 2 respectively to avoid any arrhythmias. ?Patient is still a poor candidate for cardiac catheterization due to chemoradiation for his colon cancer - Patient probably has underlying CAD but his overall prognosis and the goals of care needs to be discussed with oncology as well as the family of the patient prior to any kind of invasive workup as we need to assess the risks and benefits appropriately for this patient. Patient does already has dementia with delirium and history of seizure disorder along with history of rectal cancer. Overall patient prognosis appears to be guarded to poor. Primary team did call oncology but no clear mention of life expectancy along with cancer staging. Primary to disuss with onc again reg the above. Recommend primary care team to have goals of care discussion with patient's family as condition is guarded. 2. Acute encephalopathy 3. Acute hypoxic respiratory failure 4. Sepsis likely secondary to hospital-acquired pneumonia 5. Hospital-acquired pneumonia 6. Hypotension ?Patient initially met SIRS 4 out of 4 with leukopenia, tachycardia, tachypnea, and febrile ?Chest x-ray showed bibasilar pneumonia, given prior hospitalization last month patient is at increased risk of hospital-acquired pneumonia ? Patient has baseline dementia and is AO x 1 today (only to present) ?Patient's blood pressure has been on the lower end since admission with the lowest being 90/52, but currently is 118/75 today. ? Patient is currently on levofloxacin ? Continue current management as per primary care team 7. Leukopenia 8. Rectal cancer s/p chemoradiation ? Leukopenia mostly in the setting of chemoradiation ?WBCs 2.8 on admission ?Continue current management as per primary care team 9. Hypoosmolar hyponatremia ?Sodium 129 on admission ? This could be due to renal loss versus gastrointestinal loss versus medication induced ? Continue current management as per primary care team 10. Transaminitis ?Patient liver enzymes have been elevated since last admission ? AST 576, ALT 293, alkaline phosphatase 308 on admission ?Liver ultrasound was unremarkable ? Continue current management as per primary care team 11. Seizures 12. CVA 13. Dementia ?Recommend to continue patient's aspirin and Keppra ?Continue current management per primary care team Continue rest of management as per primary team. We are grateful to be able to participate in Mr. Pink's care. Thank you for the consult Plan of care discussed with attending Senior Sales Manager, Dr. Cesar Mcdaniels MD PGY-1 Attending Provider Attestation/Addendum I have personally seen and examined the patient separately on the above date of service and discussed the plan of care with the resident. I reviewed the resident Dr. Laws consultation progress note and agree with the resident findings and plan in the note above and have also edited the documentation to reflect my findings and plan. Surinder Guerrero M.D. Interventional Cardiology
--- NOTE | 2024-02-09 08:57 | PC.NURSE ---
made aware of K 3.0. No orders given.
[2024-02-09] MEDS: LANSOPRAZOLE 30 MG TAB.RAP.DR PO (09:05)
[2024-02-09] MEDS: SODIUM CHLORIDE 0.9% 1000 ML 1,000 ML 100 ML IV ×2 (09:05→18:00)
[2024-02-09] MEDS: DOXYCYCLINE 100 MG TABLET NG (09:05)
--- NOTE | 2024-02-09 09:05 | ESPR_ITS ---
Documentation for date of: 02/09/24 Subjective Subjective Interval history: No acute overnight events. On room air, breathing comfortably. Objectively improving. More alert today, following commands. Able to state name, not or place or year. Denies fever, chills, headaches, chest pain, sob, cough, GI or urinary symptoms. Exam Vital Signs Temp Pulse Resp BP Pulse Ox O2 Del Method O2 Flow Rate 97.6 F 77 16 90/53 L 98 Room Air 5 02/09/24 08:00 02/09/24 08:00 02/09/24 08:00 02/09/24 08:00 02/09/24 08:00 02/09/24 08:00 02/08/24 13:26 Narrative Exam GENERAL: Ill-appearing, cachectic elderly male, speaks in short sentences, dyspneic HEENT: NCAT.?PEREZ. Oral mucosa is moist. Patent Nares NECK: Supple, nontender, no thyromegaly, no meningismus, no JVD, no step offs CHEST: Symmetrical, atraumatic, and with equal expansion, Nontender on palpation no deformity and no crepitus. CARDIOVASCULAR: RRR, no m/g/r LUNGS: CTAB, no w/r/r. Symmetrical chest rise. No intercostal subcostal retraction. ABDOMEN: Soft, flat, nontender. No guarding/rebound tenderness/masses. +BS EXTREMITIES: Nontender.? No edema/cyanosis.?Moves all 4 extremities well, with full ROM and good CSM. Ulcer of bilateral heals SKIN: Warm and dry, no jaundice/rashes. MSK: No lumbar or midline, no CVA, no paraspinal muscle spasm or tenderness. NEURO: And oriented x1.?No focal neurologic deficits. PSYCHIATRIC: Mentation, more alert, following simple commands. Objective Labs 02/10/24 05:05 02/10/24 05:05 Labs: Laboratory Results - last 24 hr 02/07/24 02/08/24 02/08/24 19:10 05:19 06:35 APTT Sodium Potassium Chloride Carbon Dioxide Anion Gap BUN Creatinine Estim Creat Clear Calc eGFR BUN/Creatinine Ratio Glucose Calculated Osmolality Calcium Corrected Calcium Phosphorus Magnesium Total Bilirubin AST ALT Alkaline Phosphatase Total Protein Albumin Globulin Albumin/Globulin Ratio Triglycerides Cancelled Coccidioides IgM Ab Negative Influenza A (Rapid) Negative Influenza B (Rapid) Negative 02/08/24 02/08/24 02/09/24 15:30 23:12 07:41 APTT 38.1 H 45.6 H Sodium 134 L Potassium 3.0 L D Chloride 101 Carbon Dioxide 24.7 Anion Gap 8 BUN 14 Creatinine 0.3 L Estim Creat Clear Calc 136.6 eGFR > 60 BUN/Creatinine Ratio 47 H Glucose 94 Calculated Osmolality 268 L Calcium 8.4 Corrected Calcium 9.4 Phosphorus 2.5 Magnesium 1.9 Total Bilirubin 0.8 AST 355 H ALT 216 H Alkaline Phosphatase 172 H D Total Protein 6.0 Albumin 2.8 L D Globulin 3.2 Albumin/Globulin Ratio 0.9 L Triglycerides 46 Coccidioides IgM Ab Influenza A (Rapid) Influenza B (Rapid) Quality Measures Quality Measures none Advance care planning discussed with:: patient Assessment & Plan Assessment Current Active Medications: Generic Name Dose Route Start Last Admin Trade Name Freq PRN Reason Stop Dose Admin Acetaminophen 650 mg 02/07/24 18:29 Acetaminophen 325 Mg Tablet PO 03/08/24 18:28 Q6H PRN Fever >100.4 Acetaminophen 650 mg 02/07/24 18:29 Acetaminophen Supp 650 Mg Supp [place] 03/08/24 18:28 Q6H PRN PAIN SCALE 1-3 (mild Hydrocodone Bitart/Acetaminophen 1 tab 02/07/24 18:29 Hydrocodone/Apap 10/325 Tab PO 02/12/24 18:28 Q4HR PRN PAIN SCALE 7-10 (Severe Albuterol/Ipratropium 3 ml 02/07/24 19:00 02/09/24 07:27 Albuterol/Ipratropium (Duoneb) Rt Ana 3 Ml Nebu INH 03/08/24 18:59 3 ml Q6HRRT JENNY Administration Doxycycline Hyclate 100 mg 02/08/24 20:04 02/08/24 20:41 Doxycycline 100 Mg Tablet NG 02/14/24 20:59 100 mg BID JENNY Administration Piperacillin/Tazobactam/Dextrose 50 mls @ 12.5 mls/hr 02/08/24 06:00 02/09/24 04:59 Zosyn IV 02/15/24 05:59 12.5 mls/hr Q8HR JENNY Administration Heparin Sodium/Dextrose 25,000 unit in 250 mls @ 7.076 mls/hr 02/07/24 20:30 02/09/24 04:54 Heparin In D5w Ivpb IV 02/21/24 20:29 18 units/kg/hr .Q24H JENNY 10.614 mls/hr Administration Protocol 12 UNITS/KG/HR Sodium Chloride 1,000 mls @ 100 mls/hr 02/09/24 08:25 Ns IV 02/10/24 08:24 .Q10H JENNY Lansoprazole 30 mg 02/07/24 19:00 02/08/24 10:09 Lansoprazole 30 Mg Tab.Rap. PO 03/08/24 18:59 Not Given QDAY JENNY Levetiracetam 500 mg 02/07/24 21:00 02/08/24 20:41 Levetiracetam Inj 100 Mg/Ml Vial 5ml IVP 03/08/24 20:59 500 mg BID JENNY Administration Ondansetron HCl 4 mg 02/07/24 18:29 Ondansetron Inj 2 Mg/Ml Inj 2 Ml IV 03/08/24 18:28 Q6H PRN NAUSEA OR VOMITING Protocol Oxycodone/Acetaminophen 1 tab 02/07/24 18:29 Oxycodone/Apap 5/325 Tablet PO 02/12/24 18:28 Q6H PRN PAIN SCALE 4-6 (Moderate Sennosides 1 tab 02/07/24 18:29 Senna Tablet PO 03/08/24 18:28 QDAY PRN constipation Protocol Thiamine HCl 100 mg 02/08/24 20:15 02/08/24 20:41 Thiamine Inj 100 Mg/Ml Vial 2 Ml IVP 03/09/24 20:14 100 mg QDAY JENNY Administration Plan Summary: 73-year-old male with PMHx of seizure, dementia, CVA, and rectal adenocarcinoma s/p chemoradiation, presented with AMS, admitted for acute encephalopathy 2/2 sepsis pneumonia. Continued on ANTIBIOTICS, currently on room air and breathing okay. Pending ID consult for recurrent pneumonia. Cardiology following for troponinemia, poor candidate for [employer], continued on patient on HEPARIN drip. Overall objectively improving. Appreciated Cardiology, ID, and Hemeonc recommendations. # Acute encephalopathy (resolved) # Acute hypoxic respiratory failure (improving) # Severe sepsis (improving) # Pneumonia, likely hospital-acquired (improving) # Hypotension (improving) # Dementia, chronic Presented with AMS with limited history 2/2 mentation, SOB. Admission CXR prominent bibasilar pneumonia, 4/4 sepsis, elevated PRO-ELIZABETH Currently on room air, previously required 15 L oxy mask, sepsis, resolved Patient appears at baseline S/p adequate fluid resuscitation, ZOSYN and DOXYCYCLINE (02/07 - 02/08) Pending ID recommendations for recurrent pneumonia ? Continue LEVOFLOXACIN 700 mg IV daily (02/08 to [present]) ? Continue ZOSYN 4.5 mg q.6h. ? DuoNebs q.6h. ? Sputum/blood cultures pending ? Aspiration precautions ? Oxygen PRN # Leukopenia (improved) # Chronic normocytic anemia WBC 2.8 with baseline 1.6?5, today stable WBC 4.3 Hemoglobin around baseline HIV panel negative ? Daily CBC # Troponinemia, likely type II vs. I (resolved) # Hyperlipidemia # Ischemic cardiomyopathy Troponin 0.678, EKG sinus tachycardia, no acute ST changes Likely demand ischemia in settings of sepsis, patient asymptomatic Poor candidate for cath, cardiology recommended HEPARIN drip ? Continue HEPARIN ggt ? Telemetry ? Consider resuming home ATORVASTATIN 40 mg once LFTs normalize # Hypokalemia ? 06/09 potassium 3.0 likely due to refeeding, repleted # Acute hyponatremia (resolved) Admission sodium 129, imporving, sodium 132 stable Will likely improve with fluids ? Daily CMP # Acute on chronic hepatopathy ? improving Likely ischemic hepatopathy 2/2 sepsis, underlying hepatopathy of unknown origin Admission AST 576, ALT 293, ALP 308, LD 968, now downtrending Baseline AST 414, ALT 277, ALP [address] in January 2024: Cholelithiasis without cholecystitis, no hepatic pathology Negative hepatitis panel from January 2024 Unable to assess for alcohol use given mentation Will likely continue improve with fluid resuscitation ? Daily CMP ? Follow-up HIV # Seizure ? Resumed home KEPPRA 500 mg IV BID ? Seizure precaution ? Passed bedside swallow eval # Bilateral heal ulcers ? Wound care # Intramucosal rectal adenocarcinoma History of rectal adenocarcinoma, s/p chemoradiation Follows up with oncologist Dr. Oren Forde poor surgical candidate by Dr. Khanh Carlin at [facility], per chart review ? Oncology, Dr. Sanchez, following # Chronic pharyngeal dysphagia # Artificial nutrition # Hypoglycemia # Underweight BMI 15.7 # Failure to thrive Failed bedside swallow eval, speech deemed unsafe for p.o. diet Bedside GLUCOSE 54, given an amp of GLUCOSE ? Consider/monitor for refeeding syndrome ? Consulted dietitian for NGT ? Place orders for vitamins if recommended by dietitian, appreciate consult. Health maintenance Diet: NPO GI prophylaxis: PROTONIX DVT prophylaxis: HEPARIN Antibiotics: ZOSYN and CEFTRIAXONE CODE STATUS: Full code Disposition: Manage sepsis pneumonia, ID consult pending Patient case was discussed with attending, Toni Amador MD and senior resident Dr. Farris. Allison Cole, DO PGYI Mr Rios is a 73-year-old gentleman with dementia, CVA with residual seizures, rectal adenocarcinoma s/p chemoradiation, who presented with altered mentation. He is admitted for acute encephalopathy in the setting of sepsis secondary to bi-basilar pneumonia noted on CXR. He is started on antibiotics for pneumonia, will de-escalate from zosyn +doxy -> levaquin, ID is consulted for further assessment given recent hospitalization for PNA. Patient has a history of being evaluated at [facility] for rectal adenocarcinoma where he was deemed to be a poor surgical candidate. He was given conservative management of Xeloda chemotherapy followed by radiation therapy at the [facility], unclear staging. Cardiology is consulted for troponinemia : 0.678 --> 2.078, possibly type 1 NSTEMI. Will get further clearance from oncology re: prognosis, in case intervention from cardiology is needed. Will continue to monitor closely, NGT in place, as patient failed swallow evaluation. Will continue TF for now, and revaluate swallowing tomorrow. Patient examined and case discussed with the team including attending physician. Note reviewed, I agree with the care plan as documented. - Memo Farris MD, PGY 2 Attending Provider Attestation/Addendum I reviewed labs, imaging, EKG, home medications and prior available records. Face to face evaluation was performed by me. I have personally examined the patient and discussed assessment and plan with the IM team. I reviewed the resident note and agree with the plan with exceptions as below. 73-year-old male with recent admission for sepsis due to pneumonia who presented with a chief complaint of fevers, shortness of breath, and cough. He was found to have sepsis secondary to bilateral pneumonia. Acute hypotension: Improved with IV hydration. Continue IV hydration. Monitor BP. Acute hypoxic respiratory failure: Oxygen requirements are improving. Secondary to sepsis secondary to bilateral pneumonia, mainly in lower lobes. In the setting of recent admission for pneumonia. Will cover with IV Zosyn and doxycycline. Send sputum culture. Consult ID given the recurrence of pneumonia for antibiotic and further investigation guidance. Sepsis secondary to bilateral pneumonia: As above. Transaminitis: Likely related to hypotension versus sepsis. Management as above. Ordered liver ultrasound. Trend LFTs: Downtrending. Elevated troponin: Likely type II non-STEMI in the setting of sepsis. Management as above. Trend troponin: Peaked. Continue telemetry. Consulted cardiology. Recommended starting heparin drip. Continue aspirin. Rectal adenocarcinoma: Status post chemotherapy. Consulted oncology. Recommended outpatient follow-up. Dysphagia: Failed bedside swallow test. Started NG tube. Ordered official speech/swallow evaluation.
[2024-02-09] MEDS: THIAMINE INJ 100 MG/ML VIAL 2 ML IVP (09:06)
[2024-02-09] MEDS: levETIRAcetam INJ 100 MG/ML VIAL 5ML 500 MG IVP ×2 (09:06→20:04)
[2024-02-09 09:12] LABS: INR 1.2 (0.9-1.3); Partial Thromboplastin Time 44.3 Seconds (22.0-36.0); Prothrombin Time 12.5 Seconds (9.0-12.2)
[2024-02-09] MEDS: POTASSIUM CHL 10 mEq IVPB 10 MEQ/100 ML BAG 100 MEQ IV ×6 (09:22→16:13)
[2024-02-09] MEDS: Magnesium Sulfate 2 GM Ivpb 2 GM/50 ML BAG IV (10:27)
[2024-02-09] MEDS: MULTIVITAMIN 15 ML UDC NG (10:27)
[2024-02-09] MEDS: HEPARIN SOD INJ 5000 UNIT/ML VIAL 1362 UNIT IVP (10:39)
[2024-02-09 11:26] LABS: Cocci Serology, IgG Negative (Negative)
[2024-02-09] MEDS: ASPIRIN EC 81 MG TABEC PO (14:11)
[2024-02-09 17:36] LABS: Potassium 3.8 mMol/L (3.4-5.1)
[2024-02-09 18:00] LABS: Partial Thromboplastin Time 64.3 Seconds (22.0-36.0)
[2024-02-10] VITALS (12 sets, daily range): BP systolic 103–123; BP diastolic 64–81; PULSE 74–96; RESP 13–100; TEMP 36.1–36.7; O2SAT 97–100
[2024-02-10] MEDS: ALBUTEROL/IPRATROPIUM (Duoneb) RT SOL 3 ML NEBU INH ×4 (00:14→19:05)
[2024-02-10 01:32] LABS: Partial Thromboplastin Time 77.1 Seconds (22.0-36.0)
--- NOTE | 2024-02-10 03:23 | PC.NURSE ---
NOTIFED DR. LEVINE OFPATIENTS WOUNDS AND NEW ORDERS RECEVIED.
[2024-02-10] MEDS: SODIUM CHLORIDE 0.9% 1000 ML 1,000 ML 100 ML IV (05:12)
[2024-02-10] MEDS: Heparin/D5w 25K 250 ML Ivpb 25,000 UNIT/250 ML BAG 11.793 UNIT IV (05:12)
[2024-02-10 05:42] LABS: Basophils % (Auto) 0 % (0-2.5); Eosinophils % (Auto) 0 % (0-10); Hematocrit 30.3 % (41.0-53.0); Hemoglobin 10.3 g/dL (13.5-16.0); Immature Granulocytes % (Auto) 1 % (0-0); Immature Granulocytes Auto 0.03 Thou/mm3 (0.00-0.00); Lymphocytes # (Auto) 0.3 Thou/mm3 (1.0-4.8); Lymphocytes % (Auto) 8 % (10-50); Mean Corpuscular Hemoglobin 31.9 pg (25.0-35.0); Mean Corpuscular Volume 94 fL (80-100); Monocytes # (Auto) 0.3 Thou/mm3 (0.0-0.8); Monocytes % (Auto) 7 % (0-12); Neutrophils # (Auto) 3.3 Thou/mm3 (1.8-7.7); Neutrophils % (Auto) 84 % (37-80); Nucleated Red Blood Cell % 0 /100 WBC (0); Platelet Count 228 Thou/mm3 (140-440); RDW Standard Deviation 50.4 fL (35.1-43.9); Red Blood Count 3.23 Miln/mm3 (4.50-5.90); White Blood Count 3.9 Thou/mm3 (3.8-10.6)
[2024-02-10 06:21] LABS: Alanine Aminotransferase 202 U/L (10-49); Albumin, Serum 2.7 gm/dL (3.4-4.8); Alkaline Phosphatase 153 U/L (46-116); Anion Gap 6 (7-16); Aspartate Amino Transferase 294 U/L (0-34); BUN/Creatinine Ratio 50 Ratio (12-20); Bilirubin,Total 0.6 mg/dL (0.3-1.2); Blood Urea Nitrogen 10 mg/dL (9-23); Calcium 7.7 mg/dL (8.3-10.6); Calcium (Corrected) 8.7 mg/dL (8.5-10.1); Chloride 103 mMol/L (98-107); Creatinine (Component) 0.2 mg/dL (0.6-1.3); Globulin 2.8 gm/dL (2.3-3.5); Glucose 133 mg/dL (74-106); Magnesium 1.8 mg/dL (1.6-2.6); Osmolality,Calculated 269 (275-295); Phosphorous 2.1 mg/dL (2.4-5.1); Potassium 3.4 mMol/L (3.4-5.1); Sodium 134 mMol/L (136-145); Total Protein 5.5 gm/dL (5.7-8.2); eGFR > 60 See Note
--- NOTE | 2024-02-10 08:28 | PD.ONCPROG ---
Documentation for date of: 02/10/24 Subjective Subjective Interval history: Patient has been evaluated by cardiology with concern about coronary artery disease but desiring to know more about his cancer status before proceeding with cardiac cath etc. Exam Vital Signs Temp Pulse Resp BP Pulse Ox O2 Del Method O2 Flow Rate 97.4 F 82 19 107/66 100 Room Air 5 02/10/24 08:00 02/10/24 08:00 02/10/24 08:00 02/10/24 08:00 02/10/24 08:00 02/10/24 00:00 02/08/24 13:26 Objective Labs 02/10/24 05:05 02/10/24 05:05 Labs: Laboratory Results - last 24 hr 02/07/24 02/09/24 02/09/24 19:10 07:41 17:05 WBC 4.3 RBC 3.27 L Hgb 10.3 L D Hct 30.7 L MCV 94 MCH 31.5 MCHC 33.6 RDW Std Deviation 51.4 H Plt Count 225 Neut % (Auto) 84 H Lymph % (Auto) 10 [place] % (Auto) 5 Eos % (Auto) 0 Baso % (Auto) 0 Neut # (Auto) 3.6 Lymph # (Auto) 0.4 L [place] # (Auto) 0.2 Eos # (Auto) 0.0 Baso # (Auto) 0.0 Immature Gran # (Auto) 0.03 H Absolute Nucleated RBC 0.00 Immature Gran % 1 H Nucleated RBC % 0 PT 12.5 H INR 1.2 APTT 44.3 H 64.3 H D Sodium 134 L Potassium 3.0 L D 3.8 D Chloride 101 Carbon Dioxide 24.7 Anion Gap 8 BUN 14 Creatinine 0.3 L Estim Creat Clear Calc 136.6 eGFR > 60 BUN/Creatinine Ratio 47 H Glucose 94 Calculated Osmolality 268 L Calcium 8.4 Corrected Calcium 9.4 Phosphorus 2.5 Magnesium 1.9 Total Bilirubin 0.8 AST 355 H ALT 216 H Alkaline Phosphatase 172 H D Total Protein 6.0 Albumin 2.8 L D Globulin 3.2 Albumin/Globulin Ratio 0.9 L Coccidioides IgG Ab Negative 02/10/24 02/10/24 00:51 05:05 WBC 3.9 RBC 3.23 L Hgb 10.3 L Hct 30.3 L MCV 94 MCH 31.9 MCHC 34.0 RDW Std Deviation 50.4 H Plt Count 228 Neut % (Auto) 84 H Lymph % (Auto) 8 L [place] % (Auto) 7 Eos % (Auto) 0 Baso % (Auto) 0 Neut # (Auto) 3.3 Lymph # (Auto) 0.3 L [place] # (Auto) 0.3 Eos # (Auto) 0.0 Baso # (Auto) 0.0 Immature Gran # (Auto) 0.03 H Absolute Nucleated RBC 0.00 Immature Gran % 1 H Nucleated RBC % 0 PT INR APTT 77.1 H D 81.0 H Sodium 134 L Potassium 3.4 Chloride 103 Carbon Dioxide 25.0 Anion Gap 6 L BUN 10 Creatinine 0.2 L Estim Creat Clear Calc 205.0 eGFR > 60 BUN/Creatinine Ratio 50 H Glucose 133 H Calculated Osmolality 269 L Calcium 7.7 L Corrected Calcium 8.7 Phosphorus 2.1 L Magnesium 1.8 Total Bilirubin 0.6 AST 294 H ALT 202 H Alkaline Phosphatase 153 H Total Protein 5.5 L Albumin 2.7 L Globulin 2.8 Albumin/Globulin Ratio 1.0 L Coccidioides IgG Ab Assessment & Plan A&P Narrative 1. Admitted with pneumonia sepsis respiratory failure ischemic cardiomyopathy hepatopathy 2. Rectal CA completed oral Xeloda chemo and radiation 3 months ago. [place] not a surgical candidate by [facility], largely due to his dementia and comorbidities along with the likelihood need for colostomy. 2. Patient not having had an operation was not surgically staged, but clinically patient has likely stage II with large primary tumor but no regional or distant mets. 3. The goal was comfort in terms of preventing or delaying obstruction pain bleeding symptoms, which typically works for a year or 2 in those not having surgery. 4. Patient can be scheduled for colonoscopy as an outpatient, which we can arrange for, unless it is felt to be needed while patient in hospital. Dr. Barraza did the original colonoscopy. Time Spent With Patient Time: Total time spent is greater than 50% in coordination of care (as documented) at patient's floor/unit and/or counseling patient:
[2024-02-10] MEDS: levETIRAcetam INJ 100 MG/ML VIAL 5ML 500 MG IVP ×2 (08:35→20:53)
[2024-02-10] MEDS: LEVOFLOXACIN/D5W 750MG IVPB 750 MG/150 ML BAG 100 MG IV (08:35)
[2024-02-10] MEDS: THIAMINE INJ 100 MG/ML VIAL 2 ML IVP (08:35)
[2024-02-10] MEDS: MULTIVITAMIN 15 ML UDC NG (08:35)
[2024-02-10] MEDS: LANSOPRAZOLE 30 MG TAB.RAP.DR PO (08:36)
[2024-02-10] MEDS: ASPIRIN EC 81 MG TABEC PO (08:36)
--- NOTE | 2024-02-10 09:25 | ESPR_ITS ---
Documentation for date of: 02/10/24 Subjective Subjective Interval history: Patient seen at bedside this AM. No overnight events. Ok to DC heparin drip as already 48 hrs have passed Patient again overnight had a few PVCs and his heart rate was in the 80s to 90s Potassium 3.4 and Mg 1.8 today, recommend to replete to keep above 4 and 2 respectively. Gave 40 mEq of potassium and 2 g of magnesium Recommend to continue patient on aspirin, high intensity statin, and beta anitha if BP allows. As per oncologist patient is clinically likely in stage II with large primary tumor, but no regional or distant mets. Also stated the goal of chemo and radiation was comfort in terms of preventing or delaying obstruction, pain, or bleeding symptoms and since patient did not have any surgery this will work for around 1 to 2 years. Still no clear life expectancy. Patient's condition continues to be guarded, with probable underlying CAD, but will need to assess the risk of benefits of invasive workup. Spoke with patient's sisters about patient's need for heart cath, but given his history of cancer and other comorbidities explained the risk and benefits and patient's family will decide between themselves and let us now their decision if they would like to proceed with heart cath. Exam Vital Signs Temp Pulse Resp BP Pulse Ox O2 Del Method O2 Flow Rate 97.4 F 82 19 107/66 100 Room Air 5 02/10/24 08:00 02/10/24 08:00 02/10/24 08:00 02/10/24 08:00 02/10/24 08:00 02/10/24 00:00 02/08/24 13:26 Narrative Exam General: A/O x1 (to person only), resting in bed, thin, frail male Eyes: Pupils reactive to light and EOMI. Ears: No visible ear discharge, Hearing grossly intact. Nose: No visible nasal discharge. Mouth/Throat: Moist mucous membranes, no redness, no lesions. Neck: Neck supple, no cervical lymphadenopathy. Lungs: Clearer JESUS, No accessory muscle use. Cardio: Normal S1/S2, regular rhythm, no murmurs, no JVD. Abdomen: Soft, non-tender, no palpable masses, peristalsis present, no guarding or rebound. Extremities: Symmetrical, no significant deformities, no peripheral edema , non-tender, peripheral pulses presents. Skin: No rashes, no lesions, warm to touch. Neuro: Able to move all extremities. Objective Labs 02/11/24 04:44 02/11/24 04:44 Labs: Laboratory Results - last 24 hr 02/07/24 02/09/24 02/09/24 19:10 07:41 17:05 WBC 4.3 RBC 3.27 L Hgb 10.3 L D Hct 30.7 L MCV 94 MCH 31.5 MCHC 33.6 RDW Std Deviation 51.4 H Plt Count 225 Neut % (Auto) 84 H Lymph % (Auto) 10 [place] % (Auto) 5 Eos % (Auto) 0 Baso % (Auto) 0 Neut # (Auto) 3.6 Lymph # (Auto) 0.4 L [place] # (Auto) 0.2 Eos # (Auto) 0.0 Baso # (Auto) 0.0 Immature Gran # (Auto) 0.03 H Absolute Nucleated RBC 0.00 Immature Gran % 1 H Nucleated RBC % 0 APTT 64.3 H D Sodium Potassium 3.8 D Chloride Carbon Dioxide Anion Gap BUN Creatinine Estim Creat Clear Calc eGFR BUN/Creatinine Ratio Glucose Calculated Osmolality Calcium Corrected Calcium Phosphorus Magnesium Total Bilirubin AST ALT Alkaline Phosphatase Total Protein Albumin Globulin Albumin/Globulin Ratio Coccidioides IgG Ab Negative 02/10/24 02/10/24 00:51 05:05 WBC 3.9 RBC 3.23 L Hgb 10.3 L Hct 30.3 L MCV 94 MCH 31.9 MCHC 34.0 RDW Std Deviation 50.4 H Plt Count 228 Neut % (Auto) 84 H Lymph % (Auto) 8 L [place] % (Auto) 7 Eos % (Auto) 0 Baso % (Auto) 0 Neut # (Auto) 3.3 Lymph # (Auto) 0.3 L [place] # (Auto) 0.3 Eos # (Auto) 0.0 Baso # (Auto) 0.0 Immature Gran # (Auto) 0.03 H Absolute Nucleated RBC 0.00 Immature Gran % 1 H Nucleated RBC % 0 APTT 77.1 H D 81.0 H Sodium 134 L Potassium 3.4 Chloride 103 Carbon Dioxide 25.0 Anion Gap 6 L BUN 10 Creatinine 0.2 L Estim Creat Clear Calc 205.0 eGFR > 60 BUN/Creatinine Ratio 50 H Glucose 133 H Calculated Osmolality 269 L Calcium 7.7 L Corrected Calcium 8.7 Phosphorus 2.1 L Magnesium 1.8 Total Bilirubin 0.6 AST 294 H ALT 202 H Alkaline Phosphatase 153 H Total Protein 5.5 L Albumin 2.7 L Globulin 2.8 Albumin/Globulin Ratio 1.0 L Coccidioides IgG Ab Quality Measures Quality Measures none Advance care planning discussed with:: patient and sibling Assessment & Plan Assessment Current Active Medications: Generic Name Dose Route Start Last Admin Trade Name Freq PRN Reason Stop Dose Admin Acetaminophen 650 mg 02/07/24 18:29 Acetaminophen 325 Mg Tablet PO 03/08/24 18:28 Q6H PRN Fever >100.4 Acetaminophen 650 mg 02/07/24 18:29 Acetaminophen Supp 650 Mg Supp OK 03/08/24 18:28 Q6H PRN PAIN SCALE 1-3 (mild Hydrocodone Bitart/Acetaminophen 1 tab 02/07/24 18:29 Hydrocodone/Apap 10/325 Tab PO 02/12/24 18:28 Q4HR PRN PAIN SCALE 7-10 (Severe Albuterol/Ipratropium 3 ml 02/07/24 19:00 02/10/24 07:18 Albuterol/Ipratropium (Duoneb) Rt Ana 3 Ml Nebu INH 03/08/24 18:59 3 ml Q6HRRT JENNY Administration Aspirin 81 mg 02/09/24 10:30 02/10/24 08:36 Aspirin Ec 81 Mg Tabec PO 03/10/24 10:29 81 mg QDAY JENNY Administration Heparin Sodium/Dextrose 25,000 unit in 250 mls @ 7.076 mls/hr 02/07/24 20:30 02/10/24 08:30 Heparin In D5w Ivpb IV 02/21/24 20:29 18 units/kg/hr .Q24H JENNY 10.614 mls/hr Titration Protocol 12 UNITS/KG/HR Levofloxacin/Dextrose 750 mg in 150 mls @ 100 mls/hr 02/10/24 09:00 02/10/24 08:35 Levaquin Ivpb IV 02/17/24 08:59 100 mls/hr QDAY JENNY Administration Lansoprazole 30 mg 02/07/24 19:00 02/10/24 08:36 Lansoprazole 30 Mg Tab.Rap. PO 03/08/24 18:59 30 mg QDAY JENNY Administration Levetiracetam 500 mg 02/07/24 21:00 02/10/24 08:35 Levetiracetam Inj 100 Mg/Ml Vial 5ml IVP 03/08/24 20:59 500 mg BID JENNY Administration Multivitamins/Minerals 15 ml 02/09/24 09:30 02/10/24 08:35 Multivitamin 15 Ml Udc NG 03/10/24 09:29 15 ml QDAY JENNY Administration Ondansetron HCl 4 mg 02/07/24 18:29 Ondansetron Inj 2 Mg/Ml Inj 2 Ml IV 03/08/24 18:28 Q6H PRN NAUSEA OR VOMITING Protocol Oxycodone/Acetaminophen 1 tab 02/07/24 18:29 Oxycodone/Apap 5/325 Tablet PO 02/12/24 18:28 Q6H PRN PAIN SCALE 4-6 (Moderate Sennosides 1 tab 02/07/24 18:29 Senna Tablet PO 03/08/24 18:28 QDAY PRN constipation Protocol Thiamine HCl 100 mg 02/08/24 20:15 02/10/24 08:35 Thiamine Inj 100 Mg/Ml Vial 2 Ml IVP 03/09/24 20:14 100 mg QDAY JENNY Administration Plan 73-year-old male with past medical history of colon cancer s/p chemoradiation, seizure, dementia, and CVA (ischemic and hemorrhagic) was admitted to the hospital on 02/07/2024 due to acute encephalopathy likely secondary to hospital- acquired pneumonia given the patient was in our hospital on December. . Elevated troponins, NSTEMI type II most likely demand ischemia ?Patient's troponin on admission were 0.678 and peaked at 2.076 before downtrending. ? Patient is currently on heparin drip ? EKG showed sinus tachycardia ?Last echo on January 06, 2024 had the following findings Normal LV size and function. Grade 1 diastolic dysfunction. Estimated EF 55 to 60% Normal RV size and function Mild TR. Mild AV sclerosis without stenosis. Trace AI. ?Zohreh ACS score of 124 points, 9% probability of Plan: ?Recommend to continue patient on aspirin, high intensity statin, and beta anitha if BP allows. -Recommend primary care team to have goals of care discussion with patient's family as condition is guarded. -Aggressively replete potassium and magnesium to keep above 4 and 2 respectively to avoid any arrhythmias. ?Patient is still a poor candidate for cardiac catheterization due to chemoradiation for his colon cancer -Ok to DC heparin drip as already 48 hrs have passed -Spoke with patient's sisters about patient's need for heart cath, but given his history of cancer and other comorbidities explained the risk and benefits and patient's family will decide between themselves and let us now their decision if they would like to proceed with heart cath. -As per oncologist patient is clinically likely in stage II with large primary tumor, but no regional or distant mets. Also stated the goal of chemo and radiation was comfort in terms of preventing or delaying obstruction, pain, or bleeding symptoms and since patient did not have any surgery this will work for around 1 to 2 years. Still no clear life expectancy. Patient's condition continues to be guarded, with probable underlying CAD, but will need to assess the risk of benefits of invasive workup, recommend to speak with family to discuss goals of care and wishes. 2. Acute encephalopathy 3. Acute hypoxic respiratory failure 4. Sepsis likely secondary to hospital-acquired pneumonia 5. Hospital-acquired pneumonia 6. Hypotension ?Patient initially met SIRS 4 out of 4 with leukopenia, tachycardia, tachypnea, and febrile ?Chest x-ray showed bibasilar pneumonia, given prior hospitalization last month patient is at increased risk of hospital-acquired pneumonia ? Patient has baseline dementia and is AO x 1 today (only to present) ?Patient's blood pressure has been on the lower end since admission with the lowest being 90/52, but currently is 118/75 today. ? Patient is currently on levofloxacin ? Continue current management as per primary care team 7. Leukopenia 8. Rectal cancer s/p chemoradiation ? Leukopenia mostly in the setting of chemoradiation ?WBCs 2.8 on admission ?Continue current management as per primary care team 9. Hypoosmolar hyponatremia ?Sodium 129 on admission ? This could be due to renal loss versus gastrointestinal loss versus medication induced ? Continue current management as per primary care team 10. Transaminitis ?Patient liver enzymes have been elevated since last admission ? AST 576, ALT 293, alkaline phosphatase 308 on admission ?Liver ultrasound was unremarkable ? Continue current management as per primary care team 11. Seizures 12. CVA 13. Dementia ?Recommend to continue patient's aspirin and Keppra ?Continue current management per primary care team Continue rest of management as per primary team. We are grateful to be able to participate in Mr. Pink's care. Thank you for the consult Plan of care discussed with attending Physician Chief Of Pathology, Dr. Cesar Mcdaniels MD PGY-1 Attending Provider Attestation/Addendum I have personally seen and examined the patient separately on the above date of service and discussed the plan of care with the resident. I reviewed the resident Dr. Laws consultation progress note and agree with the resident findings and plan in the note above and have also edited the documentation to reflect my findings and plan. Primary team apparently spoke to the oncologist Dr. Sanchez who explained the patient has only stage II colon cancer. With no regional or distant mets and patient is not a surgical candidate and the goal of chemo and radiation was only for comfort care which would appropriately last for 1 to 2 years. No clear life expectancy mentioned in the chart. Patient denies any chest pain or chest pressure and doing well and as noted before the echo showed normal LV function and RV function. Troponin elevation mostly secondary to NSTEMI type II in the setting of supply/demand ischemia and has possible underlying CAD given his other history as noted above. Patient at baseline is demented and now is confused and at times agitated and hence she is on restraints. Patient has not been walking recently as per the family and has been very forgetful. One of the sisters who is involved in the care and is also my patient was at the bedside today and we discussed about the risk of CAD for the patient given his elevated troponins during both admissions. The sisters will discuss between themselves and along the family to make a decision about whether further ischemic workup needs to be pursued for the patient taking his overall physical and mental health and consideration. \ Surinder Guerrero M.D. Interventional Cardiology
--- NOTE | 2024-02-10 09:32 | PCS.ST ---
Seen for PO trials for diet readiness. Pt continues to have s/s of laryngeal penetration and weak cough to clear airway. Not ready for PO at this time. ST will see daily.
[2024-02-10] MEDS: Magnesium Sulfate 2 GM Ivpb 2 GM/50 ML BAG IV (10:40)
[2024-02-10] MEDS: POTASSIUM CHL 10 mEq IVPB 10 MEQ/100 ML BAG 100 MEQ IV ×4 (13:31→18:00)
--- NOTE | 2024-02-10 13:58 | ESPR_ITS ---
Documentation for date of: 02/10/24 Subjective Subjective Interval history: No acute overnight events. Continues to improve in term of mentation and alertness. Continued on room air, no sings of sob or respiratory distress. Exam Vital Signs Temp Pulse Resp BP Pulse Ox O2 Del Method O2 Flow Rate 97.4 F 96 20 107/66 99 Room Air 5 02/10/24 08:00 02/10/24 12:22 02/10/24 12:22 02/10/24 08:00 02/10/24 12:22 02/10/24 00:00 02/08/24 13:26 Narrative Exam GENERAL: Ill-appearing, cachectic elderly male, speaks in short sentences, dyspneic HEENT: NCAT.?PEREZ. Oral mucosa is moist. Patent Nares NECK: Supple, nontender, no thyromegaly, no meningismus, no JVD, no step offs CHEST: Symmetrical, atraumatic, and with equal expansion, Nontender on palpation no deformity and no crepitus. CARDIOVASCULAR: RRR, no m/g/r LUNGS: CTAB, no w/r/r. Symmetrical chest rise. No intercostal subcostal retraction. ABDOMEN: Soft, flat, nontender. No guarding/rebound tenderness/masses. +BS EXTREMITIES: Nontender.? No edema/cyanosis.?Moves all 4 extremities well, with full ROM and good CSM. Ulcer of bilateral heals SKIN: Warm and dry, no jaundice/rashes. MSK: No lumbar or midline, no CVA, no paraspinal muscle spasm or tenderness. NEURO: And oriented x1.?No focal neurologic deficits. PSYCHIATRIC: Mentation, more alert, following simple commands. Objective Labs 02/11/24 04:44 02/11/24 04:44 Labs: Laboratory Results - last 24 hr 02/09/24 02/10/24 02/10/24 17:05 00:51 05:05 WBC 3.9 RBC 3.23 L Hgb 10.3 L Hct 30.3 L MCV 94 MCH 31.9 MCHC 34.0 RDW Std Deviation 50.4 H Plt Count 228 Neut % (Auto) 84 H Lymph % (Auto) 8 L [place] % (Auto) 7 Eos % (Auto) 0 Baso % (Auto) 0 Neut # (Auto) 3.3 Lymph # (Auto) 0.3 L [place] # (Auto) 0.3 Eos # (Auto) 0.0 Baso # (Auto) 0.0 Immature Gran # (Auto) 0.03 H Absolute Nucleated RBC 0.00 Immature Gran % 1 H Nucleated RBC % 0 APTT 64.3 H D 77.1 H D 81.0 H Sodium 134 L Potassium 3.8 D 3.4 Chloride 103 Carbon Dioxide 25.0 Anion Gap 6 L BUN 10 Creatinine 0.2 L Estim Creat Clear Calc 205.0 eGFR > 60 BUN/Creatinine Ratio 50 H Glucose 133 H Calculated Osmolality 269 L Calcium 7.7 L Corrected Calcium 8.7 Phosphorus 2.1 L Magnesium 1.8 Total Bilirubin 0.6 AST 294 H ALT 202 H Alkaline Phosphatase 153 H Total Protein 5.5 L Albumin 2.7 L Globulin 2.8 Albumin/Globulin Ratio 1.0 L Quality Measures Quality Measures none Advance care planning discussed with:: patient Assessment & Plan Assessment Current Active Medications: Generic Name Dose Route Start Last Admin Trade Name Freq PRN Reason Stop Dose Admin Acetaminophen 650 mg 02/07/24 18:29 Acetaminophen 325 Mg Tablet PO 03/08/24 18:28 Q6H PRN Fever >100.4 Acetaminophen 650 mg 02/07/24 18:29 Acetaminophen Supp 650 Mg Supp MA 03/08/24 18:28 Q6H PRN PAIN SCALE 1-3 (mild Hydrocodone Bitart/Acetaminophen 1 tab 02/07/24 18:29 Hydrocodone/Apap 10/325 Tab PO 02/12/24 18:28 Q4HR PRN PAIN SCALE 7-10 (Severe Albuterol/Ipratropium 3 ml 02/07/24 19:00 02/10/24 12:21 Albuterol/Ipratropium (Duoneb) Rt Ana 3 Ml Nebu INH 03/08/24 18:59 3 ml Q6HRRT JENNY Administration Aspirin 81 mg 02/09/24 10:30 02/10/24 08:36 Aspirin Ec 81 Mg Tabec PO 03/10/24 10:29 81 mg QDAY JENNY Administration Heparin Sodium/Dextrose 25,000 unit in 250 mls @ 7.076 mls/hr 02/07/24 20:30 02/10/24 08:30 Heparin In D5w Ivpb IV 02/21/24 20:29 18 units/kg/hr .Q24H JENNY 10.614 mls/hr Titration Protocol 12 UNITS/KG/HR Levofloxacin/Dextrose 750 mg in 150 mls @ 100 mls/hr 02/10/24 09:00 02/10/24 08:35 Levaquin Ivpb IV 02/17/24 08:59 100 mls/hr QDAY JENNY Administration Lansoprazole 30 mg 02/07/24 19:00 02/10/24 08:36 Lansoprazole 30 Mg Tab.Rap.Dr PO 03/08/24 18:59 30 mg QDAY JENNY Administration Levetiracetam 500 mg 02/07/24 21:00 02/10/24 08:35 Levetiracetam Inj 100 Mg/Ml Vial 5ml IVP 03/08/24 20:59 500 mg BID JENNY Administration Multivitamins/Minerals 15 ml 02/09/24 09:30 02/10/24 08:35 Multivitamin 15 Ml Udc NG 03/10/24 09:29 15 ml QDAY JENNY Administration Ondansetron HCl 4 mg 02/07/24 18:29 Ondansetron Inj 2 Mg/Ml Inj 2 Ml IV 03/08/24 18:28 Q6H PRN NAUSEA OR VOMITING Protocol Oxycodone/Acetaminophen 1 tab 02/07/24 18:29 Oxycodone/Apap 5/325 Tablet PO 02/12/24 18:28 Q6H PRN PAIN SCALE 4-6 (Moderate Sennosides 1 tab 02/07/24 18:29 Senna Tablet PO 03/08/24 18:28 QDAY PRN constipation Protocol Thiamine HCl 100 mg 02/08/24 20:15 02/10/24 08:35 Thiamine Inj 100 Mg/Ml Vial 2 Ml IVP 03/09/24 20:14 100 mg QDAY JENNY Administration Plan Summary: 73-year-old male with PMHx of seizure, dementia, CVA, and rectal adenocarcinoma s/p chemoradiation, presented with AMS, admitted for acute encephalopathy 2/2 sepsis pneumonia. Continued on ANTIBIOTICS, currently on room air and breathing well. Pending ID consult for recurrent pneumonia. Cardiology following for troponinemia, poor candidate for Bone Puller, continued on patient on HEPARIN drip. Overall objectively improving. Appreciated Cardiology, ID, and Hemeonc recommendations. # Acute encephalopathy (resolved) # Acute hypoxic respiratory failure (improving) # Severe sepsis (improving) # Klebsiella pneumonia # Hypotension (improving) # Dementia, chronic Presented with AMS with limited history 2/2 mentation, SOB. Admission CXR prominent bibasilar pneumonia, 4/4 sepsis, elevated PRO-ELIZABETH Currently on room air, previously required 15 L oxy mask, sepsis, resolved Patient appears at baseline S/p adequate fluid resuscitation, ZOSYN and DOXYCYCLINE (02/07 - 02/08) Sputum culture grew bryan-sen Klebsiella, no MRSA, -48 hours blood culture Pending ID recommendations ? Continue LEVOFLOXACIN 700 mg IV daily (02/08 to [present]) ? DuoNebs q.6h. ? Sputum/blood cultures pending ? Aspiration precautions ? Oxygen PRN # Leukopenia (improved) # Chronic normocytic anemia WBC 2.8 with baseline 1.6?5, today stable WBC 3.9 Hemoglobin around baseline HIV panel negative ? Daily CBC # Troponinemia, likely type II vs. I (resolved) # Hyperlipidemia # Ischemic cardiomyopathy Troponin 0.678, EKG sinus tachycardia, no acute ST changes Likely demand ischemia in settings of sepsis, patient asymptomatic Poor candidate for cath, cardiology recommended HEPARIN drip ? Continue HEPARIN ggt ? Telemetry ? Consider resuming home ATORVASTATIN 40 mg once LFTs normalize # Electrolyte abnormalities ? 02/08 potassium 3.0 likely due to refeeding, repleted ? 02/09 phosphorus 2.1, gave NEUTRA-PHOS # Acute hyponatremia (resolved) Admission sodium 129, imporving, sodium 132 stable Will likely improve with fluids ? Daily CMP # Acute on chronic hepatopathy ? improving Likely ischemic hepatopathy 2/2 sepsis, underlying hepatopathy of unknown origin Admission AST 576, ALT 293, ALP 308, LD 968, now downtrending Baseline AST 414, ALT 277, ALP [address] in January 2024: Cholelithiasis without cholecystitis, no hepatic pathology Negative hepatitis panel from January 2024 Unable to assess for alcohol use given mentation Will likely continue improve with fluid resuscitation ? Daily CMP ? Follow-up HIV # Seizure ? Resumed home KEPPRA 500 mg IV BID ? Seizure precaution ? Passed bedside swallow eval # Bilateral heal ulcers ? Wound care # Stage II intramucosal rectal adenocarcinoma (stable) History of rectal adenocarcinoma, s/p chemoradiation Follows up with oncologist Dr. Oren Forde poor surgical candidate by Dr. Khanh Carlin at [facility], per chart review Dr. Sanchez consulted, recommended outpatient follow-up as well as outpatient colonoscopy ? Oncology, Dr. Sanchez, following ? Patient will need colonoscopy outpatient # Chronic pharyngeal dysphagia # Artificial nutrition # Hypoglycemia # Underweight BMI 15.7 # Failure to thrive Failed bedside swallow eval, speech deemed unsafe for p.o. diet secondary to oropharyngeal penetration Patient will likely need PEG tube for persistent dysphagia, speech will continue to follow. Bedside GLUCOSE 54, given an amp of GLUCOSE ? Consider/monitor for refeeding syndrome ? Consulted dietitian for NGT ? Place orders for vitamins if recommended by dietitian, appreciate consult. Health maintenance Diet: NPO GI prophylaxis: PROTONIX DVT prophylaxis: HEPARIN Antibiotics: ZOSYN and CEFTRIAXONE CODE STATUS: Full code Disposition: Manage sepsis pneumonia, ID consult pending Patient case was discussed with attending, Toni Amador MD and senior resident Dr. Farris. Allison Cole, DO PGYI Mr Rios is a 73-year-old gentleman with dementia, CVA with residual seizures, rectal adenocarcinoma s/p chemoradiation, who presented with altered mentation. He is admitted for acute encephalopathy in the setting of sepsis secondary to bi-basilar pneumonia noted on CXR. He is started on antibiotics for pneumonia, will de-escalate from zosyn +doxy -> levaquin, ID is consulted for further assessment given recent hospitalization for PNA. Patient has a history of being evaluated at [facility] for rectal adenocarcinoma where he was deemed to be a poor surgical candidate. He was given conservative management of Xeloda chemotherapy followed by radiation therapy at the [facility], unclear staging. Cardiology is consulted for troponinemia : 0.678 --> 2.078, possibly type 1 NSTEMI. Will get further clearance from oncology re: prognosis, in case intervention from cardiology is needed. Will continue to monitor closely, NGT in place, as patient failed swallow evaluation. Will continue TF for now, and revaluate swallowing tomorrow. Patient examined and case discussed with the team including attending physician. Note reviewed, I agree with the care plan as documented. - Memo Farris MD, PGY 2 Attending Provider Attestation/Addendum I reviewed labs, imaging, EKG, home medications and prior available records. Face to face evaluation was performed by me. I have personally examined the patient and discussed assessment and plan with the IM team. I reviewed the resident note and agree with the plan with exceptions as below. 73-year-old male with recent admission for sepsis due to pneumonia who presented with a chief complaint of fevers, shortness of breath, and cough. He was found to have sepsis secondary to bilateral pneumonia. Acute hypotension: Improved with IV hydration. Continue IV hydration. Monitor BP. Acute hypoxic respiratory failure: Oxygen requirements are improving. Secondary to sepsis secondary to bilateral pneumonia, mainly in lower lobes. In the setting of recent admission for pneumonia. Sputum culture showed Klebsiella. Consulted ID: Switch to levofloxacin to complete 7 days. Possible aspiration pneumonia. Ordered speech evaluation. Aspiration precautions. Sepsis secondary to bilateral pneumonia: As above. Transaminitis: Likely related to hypotension versus sepsis. Management as above. Ordered liver ultrasound. Trend LFTs: Downtrending. Elevated troponin: Likely type II non-STEMI in the setting of sepsis. Management as above. Trend troponin: Peaked. Continue telemetry. Consulted cardiology. Recommended starting heparin drip. Continue aspirin. Rectal adenocarcinoma: Status post chemotherapy. Consulted oncology. Recommended outpatient follow-up. Dysphagia: Failed bedside swallow test. Started NG tube. Ordered official speech/swallow evaluation.
[2024-02-10] MEDS: NAPH,KPH MBDB 1 PACKET (1.5 GM) PO (14:27)
[2024-02-10] MEDS: Heparin/D5w 25K 250 ML Ivpb 25,000 UNIT/250 ML BAG 10.614 UNIT IV (14:33)
--- NOTE | 2024-02-10 15:43 | ESPR_ITS ---
Subjective Subjective Interval history: 73 y/o with rectal CA. not a good surgical candidate. so no surgery. only other rx. pneumonia likely due to his other health concerns. not the least of which is is age. he is only 100 lb. I see that cocci neg in dec and jan. Exam Vital Signs Temp Pulse Resp BP Pulse Ox O2 Del Method O2 Flow Rate 97.2 F 96 20 103/65 99 Room Air 5 02/10/24 12:00 02/10/24 12:22 02/10/24 12:22 02/10/24 12:00 02/10/24 12:22 02/10/24 12:00 02/08/24 13:26 Narrative Exam not that interactive. seems his age. not on O2. but was charted to be on 2lpm. as of noon today. Objective - Internal Medicine Labs 02/10/24 05:05 02/10/24 05:05 Labs: Laboratory Results - last 24 hr 02/09/24 02/10/24 02/10/24 17:05 00:51 05:05 WBC 3.9 RBC 3.23 L Hgb 10.3 L Hct 30.3 L MCV 94 MCH 31.9 MCHC 34.0 RDW Std Deviation 50.4 H Plt Count 228 Neut % (Auto) 84 H Lymph % (Auto) 8 L [place] % (Auto) 7 Eos % (Auto) 0 Baso % (Auto) 0 Neut # (Auto) 3.3 Lymph # (Auto) 0.3 L [place] # (Auto) 0.3 Eos # (Auto) 0.0 Baso # (Auto) 0.0 Immature Gran # (Auto) 0.03 H Absolute Nucleated RBC 0.00 Immature Gran % 1 H Nucleated RBC % 0 APTT 64.3 H D 77.1 H D 81.0 H Sodium 134 L Potassium 3.8 D 3.4 Chloride 103 Carbon Dioxide 25.0 Anion Gap 6 L BUN 10 Creatinine 0.2 L Estim Creat Clear Calc 205.0 eGFR > 60 BUN/Creatinine Ratio 50 H Glucose 133 H Calculated Osmolality 269 L Calcium 7.7 L Corrected Calcium 8.7 Phosphorus 2.1 L Magnesium 1.8 Total Bilirubin 0.6 AST 294 H ALT 202 H Alkaline Phosphatase 153 H Total Protein 5.5 L Albumin 2.7 L Globulin 2.8 Albumin/Globulin Ratio 1.0 L Assessment & Plan A&P Narrative pt has a neg hiv test. you can screen for legionella or note that levaquin covers atypical pneumonia as well as routine pneumonia added a total Igg to w/u, but note that his globulins are normal, so that is unlikely to be significant. he is listed as a full code , so this needs to be clarified theron ok to finish 7d of enteral levaquin. if not safely swallowing, he may have experimental box tester mets from his CA. will check chart on thursday if still here in hospital Time Spent With Patient Time: Total time spent is greater than 50% in coordination of care (as documented) at patient's floor/unit and/or counseling patient:
[2024-02-10 16:02] LABS: Partial Thromboplastin Time 69.2 Seconds (22.0-36.0)
--- NOTE | 2024-02-10 18:19 | ESCONSULT_ITS ---
RE: LAQUITA SERRANO : 1950 DATE OF CONSULTATION: 02/10/2024 REFERRING PHYSICIAN: Dr. Amador REASON FOR CONSULTATION: Recurrent pneumonia. HISTORY OF PRESENT ILLNESS: The patient is an unfortunate 73-year-old man admitted with pneumonia. It was not his first episode of pneumonia. He was here for pneumonia in December as well. He is currently on Levaquin. There are no diagnostic tests that are positive, but Levaquin is fairly effective for routine bacteria as well as atypical organisms such as mycoplasma or legionella. The patient has no known exposures. He is unable to offer any meaningful history. He has advanced cancer by oncology notes. So, he may have [employer] metastases as well. He is listed as being a full code. This means that his decision makers may want him to receive all treatment including intubation if necessary. This needs to be clarified. If it is indeed what they want, then we should do it. From a recurrent pneumonia standpoint, about the only other thing we can suggest is total IgG, which I will go ahead and order. I see his HIV test was negative. [place] fever testing was negative twice in December and again here in January. It seems less likely that his pneumonia is due to his cancer; although, pulmonary metastases are always possible. I will check on him superficially on Thursday. DT: 15:50:00 TT: 16:54:00 Ref: [id number] - TID: [id number] MTDD
--- NOTE | 2024-02-10 19:15 | ESCONSULT_ITS ---
<Statement entered by Aramis Hernandez MD - 02/11/24 16:48> pt seen with resident. all findings confirmed. see additional notes for details HPI Data of Consult Requesting Physician: Toni Amador MD Admitting Provider: Toni Amador MD Attending Provider: Toni Amador MD Primary Care Provider: Physician No Primary/Family Consult Narrative Reason for consult: Recurrent Pneumonia History of present illness: Patient is a 73 year old male with history of seizure disorder, dementia, CVA, rectal cancer s/p and chemoradiation who presented to the ED with concerns of cough, SOB, and tachycardia, was admitted for acute hypoxic respiratory failure 2/2 sepsis from possible hospital acquired pneumonia. At time of admission, patient was febrile, tachycardic, and tachypneic with WBC 2.8, CXR revealing bibasilar pneumonia. Patient was started on zosyn and doxycyline, has since been de-escalated to levofloxacin as blood cultures remained negative, sputum cultures revealing levofloxacin-sensitive Klebsiella pneumoniae. 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 Of note, patient was hospitalized in the previous month of December for pneumonia. Given episodes of recurrent pneumonia, infectious disease team was consulted. History obtained per chart review and patient's sister who was present bedside. PMH: Seizure disorder, dementia, CVA, rectal cancer s/p and chemoradiation FH: Brain aneurysm, hypertension, heart disease (unclear) Social Hx: No current tobacco, alcohol, or illicit drug use per patient's sister. Quit alcohol 15+ years ago Surgical Hx: None reported Vaccination Hx: Unclear of previous tetanus, flu, covid, or pneumococcal vaccine. cc:: cc: Toni Amador MD Exam Vital Signs Temp Pulse Resp BP Pulse Ox O2 Del Method O2 Flow Rate 97.5 F 83 20 105/71 99 Room Air 5 02/10/24 16:00 02/10/24 19:06 02/10/24 19:06 02/10/24 16:00 02/10/24 19:06 02/10/24 16:00 02/08/24 13:26 Narrative Exam General: AOx1 in no acute distress HEENT: Atraumatic/normocephalic, PEREZ, neck supple without masses Heart: RRR, S1 and S2 without clicks or murmurs Lungs: Clear on auscultation bilaterally, no difficulty breathing Abdomen: Soft, nontender. Bowel sounds present on all quadrants Skin: Intact, no cyanosis or edema noted. Neuro: No focal neurological deficits noted on appearance however cranial nerves not individually tested Results Labs 02/10/24 05:05 02/10/24 05:05 Labs: Short CBC 02/10/24 Range/Units 05:05 WBC 3.9 (3.8-10.6) Thou/mm3 Hgb 10.3 L (13.5-16.0) g/dL Hct 30.3 L (41.0-53.0) % Plt Count 228 (140-440) Thou/mm3 BMP 02/10/24 05:05 Sodium 134 L Potassium 3.4 Chloride 103 Carbon Dioxide 25.0 BUN 10 Creatinine 0.2 L Glucose 133 H Calcium 7.7 L Liver Function 02/10/24 Range/Units 05:05 Total Bilirubin 0.6 (0.3-1.2) mg/dL AST 294 H (0-34) U/L ALT 202 H (10-49) U/L Alkaline Phosphatase 153 H (46-116) U/L Albumin 2.7 L (3.4-4.8) gm/dL Quality Measures Quality Measures VTE prophylaxis (Heparin drip) Advance care planning discussed with:: other Medications Home Medications and Allergies Home Medications ?Medication ?Instructions ?Recorded ?Confirmed ?Type acetaminophen 325 mg tablet 650 mg PO QID PRN Pain, Mild 02/08/24 02/08/24 History amino acids-protein hydrolysate 15 1 ea PO BID 02/08/24 02/08/24 History gram-100 kcal/30 mL oral liquid ascorbic acid (vitamin C) 500 mg 500 mg PO BID 02/08/24 02/08/24 History tablet azithromycin 250 mg tablet 250 mg PO QDAY 02/08/24 02/08/24 History azithromycin 250 mg tablet 500 mg PO QDAY 02/08/24 02/08/24 History guaifenesin 100 mg/5 mL oral liquid 200 mg PO QID PRN Cough 02/08/24 02/08/24 History ipratropium 0.5 mg-albuterol 3 mg 3 ml inhalation Q4HR PRN Shortness 02/08/24 02/08/24 History (2.5 mg base)/3 mL nebulization Of Breath Or Wheezing soln levetiracetam 100 mg/mL oral 500 mg PO BID 02/08/24 02/08/24 History solution midodrine 5 mg tablet 5 mg PO TID 02/08/24 02/08/24 History multivitamin with minerals 1 tab PO QDAY 02/08/24 02/08/24 History prednisone 20 mg tablet 40 mg PO QDAY 02/08/24 02/08/24 History prednisone 20 mg tablet 40 mg PO QDAY 02/08/24 02/08/24 History thiamine mononitrate (vit B1) 90 90 mg PO QDAY 02/08/24 02/08/24 History mg/scoop oral powder zinc 1 tab PO QDAY 02/08/24 02/08/24 History Allergies Allergy/AdvReac Type Severity Reaction Status Date / Time No Known Allergies Allergy Unverified 04/10/23 17:26 Visit Medications Acetaminophen (Acetaminophen 325 Mg Tablet) 650 mg PO Q6H PRN PRN Reason: Fever >100.4 Stop: 03/08/24 18:28 Acetaminophen (Acetaminophen Supp 650 Mg Supp) 650 mg DE Q6H PRN PRN Reason: PAIN SCALE 1-3 (mild Stop: 03/08/24 18:28 Hydrocodone Bitart/Acetaminophen (Hydrocodone/Apap 10/325 Tab) 1 tab PO Q4HR PRN PRN Reason: PAIN SCALE 7-10 (Severe Stop: 02/12/24 18:28 Albuterol/Ipratropium (Albuterol/Ipratropium (Duoneb) Rt Ana 3 Ml Nebu) 3 ml INH Q6HRRT [facility] Stop: 03/08/24 18:59 Last Admin: 02/10/24 19:05 Dose: 3 ml Aspirin (Aspirin Ec 81 Mg Tabec) 81 mg PO QDAY [facility] Stop: 03/10/24 10:29 Last Admin: 02/10/24 08:36 Dose: 81 mg Heparin Sodium/Dextrose (Heparin In D5w Ivpb) 25,000 unit in 250 mls @ 7.076 mls/hr IV .Q24H [facility]; Protocol Stop: 02/21/24 20:29 Last Admin: 02/10/24 14:33 Dose: 18 units/kg/hr, 10.614 mls/hr Levofloxacin/Dextrose (Levaquin Ivpb) 750 mg in 150 mls @ 100 mls/hr IV QDAY [facility] Stop: 02/17/24 08:59 Last Admin: 02/10/24 08:35 Dose: 100 mls/hr Lansoprazole (Lansoprazole 30 Mg Tab.Rap) 30 mg PO QDAY [facility] Stop: 03/08/24 18:59 Last Admin: 02/10/24 08:36 Dose: 30 mg Levetiracetam (Levetiracetam Inj 100 Mg/Ml Vial 5ml) 500 mg IVP BID [facility] Stop: 03/08/24 20:59 Last Admin: 02/10/24 08:35 Dose: 500 mg Multivitamins/Minerals (Multivitamin 15 Ml Udc) 15 ml NG QDAY [facility] Stop: 03/10/24 09:29 Last Admin: 02/10/24 08:35 Dose: 15 ml Ondansetron HCl (Ondansetron Inj 2 Mg/Ml Inj 2 Ml) 4 mg IV Q6H PRN; Protocol PRN Reason: NAUSEA OR VOMITING Stop: 03/08/24 18:28 Oxycodone/Acetaminophen (Oxycodone/Apap 5/325 Tablet) 1 tab PO Q6H PRN PRN Reason: PAIN SCALE 4-6 (Moderate Stop: 02/12/24 18:28 Sennosides (Senna Tablet) 1 tab PO QDAY PRN; Protocol PRN Reason: constipation Stop: 03/08/24 18:28 Thiamine HCl (Thiamine Inj 100 Mg/Ml Vial 2 Ml) 100 mg IVP QDAY [facility] Stop: 03/09/24 20:14 Last Admin: 02/10/24 08:35 Dose: 100 mg Discontinued Medications Acetaminophen (Acetaminophen 325 Mg Tablet) 650 mg PO X1 ONE Stop: 02/07/24 16:11 Last Admin: 02/07/24 16:35 Dose: 650 mg Atorvastatin Calcium (Atorvastatin Calcium 20 Mg Tablet) 40 mg PO HS [facility] Stop: 03/09/24 20:59 Dextrose (Dextrose 50%-Water Inj 50 Ml Syringe) 50 ml IV X1 ONE Stop: 02/08/24 12:06 Last Admin: 02/08/24 12:34 Dose: 50 ml Doxycycline Hyclate (Doxycycline 100 Mg Tablet) 100 mg PO BID [facility] Stop: 02/14/24 20:59 Last Admin: 02/08/24 10:09 Dose: Not Given Doxycycline Hyclate (Doxycycline 100 Mg Tablet) 100 mg NG BID JENNY Stop: 02/14/24 20:59 Last Admin: 02/09/24 09:05 Dose: 100 mg Heparin Sodium (Porcine) (Heparin Sod Inj 5000 Unit/Ml Vial) 4,000 unit IV X1 ONE; Protocol Stop: 02/07/24 20:25 Last Admin: 02/07/24 21:28 Dose: 4,000 unit Heparin Sodium (Porcine) (Heparin Sod Inj 5000 Unit/Ml Vial) 1,300 unit 30 unit/kg (1300 unit) IV X1 ONE Stop: 02/08/24 09:43 Last Admin: 02/08/24 09:55 Dose: 1,300 unit Heparin Sodium (Porcine) (Heparin Sod Inj 5000 Unit/Ml Vial) 1,300 unit 30 unit/kg (1300 unit) IV X1 ONE Stop: 02/08/24 16:34 Last Admin: 02/08/24 16:48 Dose: 1,300 unit Heparin Sodium (Porcine) (Heparin Sod Inj 5000 Unit/Ml Vial) 1,285 unit IVP X1 ONE Stop: 02/09/24 00:02 Last Admin: 02/09/24 00:21 Dose: 1,285 unit Heparin Sodium (Porcine) (Heparin Sod Inj 5000 Unit/Ml Vial) 1,362 unit IVP X1 ONE Stop: 02/09/24 10:08 Last Admin: 02/09/24 10:39 Dose: 1,362 unit Sodium Chloride (Ns) 1,000 mls @ 999 mls/hr IV .Q1H1M ONE Stop: 02/07/24 17:15 Last Infusion: 02/07/24 17:32 Dose: Infused Ceftriaxone Sodium/Dextrose (Rocephin/D5w 1gm Iv Premix) 50 mls @ 100 mls/hr IV X1 ONE Stop: 02/07/24 17:48 Last Infusion: 02/07/24 18:10 Dose: Infused Sodium Chloride (Ns) 1,000 mls @ 999 mls/hr IV .Q1H1M ONE Stop: 02/07/24 18:20 Piperacillin/Tazobactam/Dextrose (Zosyn) 50 mls @ 12.5 mls/hr IV Q8HR JENNY Stop: 02/15/24 05:59 Last Infusion: 02/09/24 19:33 Dose: Infused Piperacillin/Tazobactam/Dextrose (Zosyn) 50 mls @ 100 mls/hr IV X1 ONE Stop: 02/07/24 19:14 Last Infusion: 02/07/24 20:56 Dose: Infused Sodium Chloride (Ns) 500 mls @ 999 mls/hr IV .Q31M ONE Stop: 02/07/24 21:54 Last Infusion: 02/07/24 22:38 Dose: Infused Sodium Chloride (Ns) 1,000 mls @ 75 mls/hr IV .[id number] JENNY Stop: 02/09/24 09:50 Last Infusion: 02/09/24 19:34 Dose: Infused Sodium Chloride (Ns) 500 mls @ 999 mls/hr IV .Q31M ONE Stop: 02/09/24 01:30 Last Infusion: 02/09/24 19:34 Dose: Infused Sodium Chloride (Ns) 1,000 mls @ 100 mls/hr IV .Q10H [facility] Stop: 02/10/24 08:23 Sodium Chloride (Ns) 1,000 mls @ 100 mls/hr IV .Q10H JENNY Stop: 02/10/24 08:24 Last Admin: 02/10/24 05:12 Dose: 100 mls/hr Potassium Chloride (Kcl Ivpb) 10 meq in 100 mls @ 100 mls/hr IV Q1H JENNY Stop: 02/09/24 15:05 Last Infusion: 02/10/24 18:10 Dose: Infused Magnesium Sulfate (Magnesium Sulfate Ivpb) 2 gm in 50 mls @ 25 mls/hr IV X1 ONE Stop: 02/09/24 11:08 Last Infusion: 02/09/24 19:33 Dose: Infused Magnesium Sulfate (Magnesium Sulfate Ivpb) 2 gm in 50 mls @ 25 mls/hr IV X1 ONE Stop: 02/10/24 11:51 Last Admin: 02/10/24 10:40 Dose: 25 mls/hr Potassium Chloride (Kcl Ivpb) 10 meq in 100 mls @ 100 mls/hr IV Q1H [facility] Stop: 02/10/24 13:51 Last Admin: 02/10/24 18:00 Dose: 100 mls/hr Lansoprazole (Lansoprazole 30 Mg Tab.Rap.Dr) 40 mg PO QDAY JENNY Stop: 03/08/24 18:59 Levetiracetam (Levetiracetam Inj 100 Mg/Ml Vial 5ml) 1,000 mg IVP X1 ONE Stop: 02/07/24 16:21 Last Admin: 02/07/24 16:34 Dose: 1,000 mg Pantoprazole Sodium (Pantoprazole 40 Mg Tablet) 40 mg PO QDAY JENNY Stop: 03/08/24 18:44 Last Admin: 02/07/24 22:39 Dose: Not Given Pharmacy Consult (Pha To Consult Parenteral Nutr 1 Each Each) 1 each XX PRN PRN PRN Reason: CONSULT Stop: 03/09/24 13:06 Potassium Phos/Sodium Phos (Naph,[facility] 1 Packet (1.5 Gm)) 1 packet PO X1 ONE Stop: 02/10/24 14:17 Last Admin: 02/10/24 14:27 Dose: 1 packet Sodium Chloride (Sodium Chloride Rt 10% 15 Ml Nebu) 5 ml INH X1 ONE Stop: 02/07/24 18:37 Last Admin: 02/07/24 19:48 Dose: 5 ml Assessment & Plan Plan Patient is a 73 year old male with history of seizure disorder, dementia, CVA, rectal cancer s/p and chemoradiation who presented to the ED with concerns of cough, SOB, and tachycardia, was admitted for acute hypoxic respiratory failure 2/2 sepsis from possible hospital acquired pneumonia. At time of admission, patient was febrile, tachycardic, and tachypneic with WBC 2.8, CXR revealing bibasilar pneumonia. Patient was started on zosyn and doxycyline, has since been de-escalated to levofloxacin as blood cultures remained negative, sputum cultures revealing levofloxacin-sensitive Klebsiella pneumoniae. 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 Of note, patient was hospitalized in the previous month of December for pneumonia. Given episodes of recurrent pneumonia, infectious disease team was consulted. #GNR Klebsiella Pneumoniae - CXR imaging revealing bibasilar pneumonia - Klebsiella pneumoniae per sputum culture - IV zosyn and PO doxycycline (02/06 - 02/08) - HIV negative - Cocci negative Plan: - Continue levofloxacin 750mg qday for total of 7 days, PO if tolerated - Will add serum IgG lab given concern of recurrent pneumonia - Pneumonia is less likely from cancer, however pulmonary metastasis is possible #Acute encephalopathy #AHRF #Sepsis #Chronic dementia #Chronic normocytic anemia #Troponinemia #Hyperlipidemia #Ischemic cardiomyopathy #Electrolyte abnormalities #Seizure disorder #Stage II intramucosal rectal adenocarcinoma - management per primary team Patient case discussed with attending physician Dr. Mary Chance, DO PGY-3
--- NOTE | 2024-02-10 21:13 | PC.NURSE ---
Spoke with Dr. Martell; sierra to increase feeding to 20ml/hr from 10ml/hr and add water flushes of 35ml/hr as recommended by medical editor. Also made her aware patient no longer on IV fluids. No new orders regarding IV fluids.
[2024-02-11] VITALS (10 sets, daily range): BP systolic 110–127; BP diastolic 68–83; PULSE 81–115; RESP 13–30; TEMP 36.1–36.7; O2SAT 93–100; BMI 17.6
[2024-02-11] MEDS: ALBUTEROL/IPRATROPIUM (Duoneb) RT SOL 3 ML NEBU INH ×4 (00:56→19:01)
[2024-02-11 05:47] LABS: Basophils % (Auto) 0 % (0-2.5); Eosinophils % (Auto) 0 % (0-10); Hematocrit 31.9 % (41.0-53.0); Hemoglobin 10.9 g/dL (13.5-16.0); Immature Granulocytes % (Auto) 1 % (0-0); Immature Granulocytes Auto 0.03 Thou/mm3 (0.00-0.00); Lymphocytes # (Auto) 0.3 Thou/mm3 (1.0-4.8); Lymphocytes % (Auto) 9 % (10-50); Mean Corpuscular HGB Conc 34.2 g/dl (31.0-37.0); Mean Corpuscular Hemoglobin 32.1 pg (25.0-35.0); Mean Corpuscular Volume 94 fL (80-100); Monocytes # (Auto) 0.3 Thou/mm3 (0.0-0.8); Monocytes % (Auto) 8 % (0-12); Neutrophils # (Auto) 2.5 Thou/mm3 (1.8-7.7); Neutrophils % (Auto) 82 % (37-80); Nucleated Red Blood Cell % 0 /100 WBC (0); Platelet Count 237 Thou/mm3 (140-440); RDW Standard Deviation 51.5 fL (35.1-43.9)
[2024-02-11 06:17] LABS: Partial Thromboplastin Time 67.3 Seconds (22.0-36.0)
[2024-02-11 06:36] LABS: Alanine Aminotransferase 192 U/L (10-49); Albumin, Serum 2.9 gm/dL (3.4-4.8); Alkaline Phosphatase 149 U/L (46-116); Anion Gap 7 (7-16); Aspartate Amino Transferase 246 U/L (0-34); BUN/Creatinine Ratio 23 Ratio (12-20); Bilirubin,Total 0.5 mg/dL (0.3-1.2); Blood Urea Nitrogen 7 mg/dL (9-23); Calcium 7.9 mg/dL (8.3-10.6); Calcium (Corrected) 8.8 mg/dL (8.5-10.1); Carbon Dioxide 24.5 mMol/L (20.0-31.0); Chloride 101 mMol/L (98-107); Creatinine (Component) 0.3 mg/dL (0.6-1.3); Globulin 2.9 gm/dL (2.3-3.5); Glucose 119 mg/dL (74-106); Magnesium 1.8 mg/dL (1.6-2.6); Osmolality,Calculated 263 (275-295); Phosphorous 2.5 mg/dL (2.4-5.1); Potassium 3.7 mMol/L (3.4-5.1); Sodium 132 mMol/L (136-145); Total Protein 5.8 gm/dL (5.7-8.2); eGFR > 60 See Note
--- NOTE | 2024-02-11 09:41 | PC.SS ---
Follow up note: SS spoke to physician and they need to get a hold of family to discuss perm feeding tube. Swallow eval completed. Patient remains full code. Ss spoke to daughter, Mariah. Patient's daughter Mariah wanted to transfer decision making to her aunt. SS contacted her aunt, Karissa. Karissa is agreeable and was updated what physician's may want to discuss with her. She will wait for call.
--- NOTE | 2024-02-11 10:05 | PD.RESPRO ---
Documentation for date of: 02/11/24 Subjective Subjective Interval history: Patient seen at bedside this AM. No overnight events. Patient has some PVCs on the monitor and storage bin tender overnight and his heart rate was in the 90s. Potassium 3.7 and Mg 1.8 today, recommend to replete to keep above 4 and 2 respectively. Gave 40 mEq of potassium and 2 g of magnesium Recommend to continue patient on aspirin, high intensity statin, and beta anitha if BP allows. Patient was made DNR and will have PEG tube placed. Family at this time has decided not to pursue invasive interventions, therefore no left heart cath and continue to treat him medically. Stop heparin drip after 48 hours and continue aspirin intensity statin and beta-anitha if blood pressure is permissible. Patient can also be placed on dual antiplatelets Plavix 75 mg once daily if there is no complications for anticoagulation. Exam Vital Signs Temp Pulse Resp BP Pulse Ox O2 Del Method O2 Flow Rate 97.3 F 84 30 H 117/69 93 L Room Air 5 02/11/24 08:00 02/11/24 08:00 02/11/24 08:00 02/11/24 08:00 02/11/24 08:00 02/10/24 16:00 02/08/24 13:26 Narrative Exam General: A/O x1 (to person only), resting in bed, thin, frail male Eyes: Pupils reactive to light and EOMI. Ears: No visible ear discharge, Hearing grossly intact. Nose: No visible nasal discharge. Mouth/Throat: Moist mucous membranes, no redness, no lesions. Neck: Neck supple, no cervical lymphadenopathy. Lungs: Clearer JESUS, No accessory muscle use. Cardio: Normal S1/S2, regular rhythm, no murmurs, no JVD. Abdomen: Soft, non-tender, no palpable masses, peristalsis present, no guarding or rebound. Extremities: Symmetrical, no significant deformities, no peripheral edema , non-tender, peripheral pulses presents. Skin: No rashes, no lesions, warm to touch. Neuro: Able to move all extremities. Objective Labs 02/11/24 04:44 02/11/24 04:44 Labs: Laboratory Results - last 24 hr 02/10/24 02/11/24 15:20 04:44 WBC 3.0 L RBC 3.40 L Hgb 10.9 L Hct 31.9 L MCV 94 MCH 32.1 MCHC 34.2 RDW Std Deviation 51.5 H Plt Count 237 Neut % (Auto) 82 H Lymph % (Auto) 9 L [place] % (Auto) 8 Eos % (Auto) 0 Baso % (Auto) 0 Neut # (Auto) 2.5 Lymph # (Auto) 0.3 L [place] # (Auto) 0.3 Eos # (Auto) 0.0 Baso # (Auto) 0.0 Immature Gran # (Auto) 0.03 H Absolute Nucleated RBC 0.00 Immature Gran % 1 H Nucleated RBC % 0 APTT 69.2 H D 67.3 H Sodium 132 L Potassium 3.7 Chloride 101 Carbon Dioxide 24.5 Anion Gap 7 BUN 7 L Creatinine 0.3 L Estim Creat Clear Calc 144.0 eGFR > 60 BUN/Creatinine Ratio 23 H Glucose 119 H Calculated Osmolality 263 L Calcium 7.9 L Corrected Calcium 8.8 Phosphorus 2.5 Magnesium 1.8 Total Bilirubin 0.5 AST 246 H ALT 192 H Alkaline Phosphatase 149 H Total Protein 5.8 Albumin 2.9 L Globulin 2.9 Albumin/Globulin Ratio 1.0 L Quality Measures Quality Measures VTE prophylaxis (Heparin drip) Advance care planning discussed with:: patient Assessment & Plan Assessment Current Active Medications: Generic Name Dose Route Start Last Admin Trade Name Freq PRN Reason Stop Dose Admin Acetaminophen 650 mg 02/07/24 18:29 Acetaminophen 325 Mg Tablet PO 03/08/24 18:28 Q6H PRN Fever >100.4 Acetaminophen 650 mg 02/07/24 18:29 Acetaminophen Supp 650 Mg Supp [place] 03/08/24 18:28 Q6H PRN PAIN SCALE 1-3 (mild Hydrocodone Bitart/Acetaminophen 1 tab 02/07/24 18:29 Hydrocodone/Apap 10/325 Tab PO 02/12/24 18:28 Q4HR PRN PAIN SCALE 7-10 (Severe Albuterol/Ipratropium 3 ml 02/07/24 19:00 02/11/24 07:02 Albuterol/Ipratropium (Duoneb) Rt Ana 3 Ml Nebu INH 03/08/24 18:59 3 ml Q6HRRT JENNY Administration Aspirin 81 mg 02/09/24 10:30 02/10/24 08:36 Aspirin Ec 81 Mg Tabec PO 03/10/24 10:29 81 mg QDAY JENNY Administration Heparin Sodium/Dextrose 25,000 unit in 250 mls @ 7.076 mls/hr 02/07/24 20:30 02/11/24 06:18 Heparin In D5w Ivpb IV 02/21/24 20:29 18 units/kg/hr .Q24H JENNY 10.614 mls/hr Titration Protocol 12 UNITS/KG/HR Levofloxacin/Dextrose 750 mg in 150 mls @ 100 mls/hr 02/10/24 09:00 02/10/24 08:35 Levaquin Ivpb IV 02/17/24 08:59 100 mls/hr QDAY JENNY Administration Lansoprazole 30 mg 02/07/24 19:00 02/10/24 08:36 Lansoprazole 30 Mg Tab.Rap. PO 03/08/24 18:59 30 mg QDAY JENNY Administration Levetiracetam 500 mg 02/07/24 21:00 02/10/24 20:53 Levetiracetam Inj 100 Mg/Ml Vial 5ml IVP 03/08/24 20:59 500 mg BID JENNY Administration Multivitamins/Minerals 15 ml 02/09/24 09:30 02/10/24 08:35 Multivitamin 15 Ml Udc NG 03/10/24 09:29 15 ml QDAY JENNY Administration Ondansetron HCl 4 mg 02/07/24 18:29 Ondansetron Inj 2 Mg/Ml Inj 2 Ml IV 03/08/24 18:28 Q6H PRN NAUSEA OR VOMITING Protocol Oxycodone/Acetaminophen 1 tab 02/07/24 18:29 Oxycodone/Apap 5/325 Tablet PO 02/12/24 18:28 Q6H PRN PAIN SCALE 4-6 (Moderate Sennosides 1 tab 02/07/24 18:29 Senna Tablet PO 03/08/24 18:28 QDAY PRN constipation Protocol Thiamine HCl 100 mg 02/08/24 20:15 02/10/24 08:35 Thiamine Inj 100 Mg/Ml Vial 2 Ml IVP 03/09/24 20:14 100 mg QDAY JENNY Administration Plan 73-year-old male with past medical history of colon cancer s/p chemoradiation, seizure, dementia, and CVA (ischemic and hemorrhagic) was admitted to the hospital on 02/07/2024 due to acute encephalopathy likely secondary to hospital-acquired pneumonia given the patient was in our hospital on December. 1. Elevated troponins, NSTEMI type II most likely demand ischemia ?Patient's troponin on admission were 0.678 and peaked at 2.076 before downtrending. ? EKG showed sinus tachycardia ?Last echo on January 06, 2024 had the following findings Normal LV size and function. Grade 1 diastolic dysfunction. Estimated EF 55 to 60% Normal RV size and function Mild TR. Mild AV sclerosis without stenosis. Trace AI. ?Zohreh ACS score of 124 points, 9% probability of Plan: ?Recommend to continue patient on aspirin, high intensity statin, and beta anitha if BP allows. -Recommend primary care team to have goals of care discussion with patient's family as condition is guarded. -Aggressively replete potassium and magnesium to keep above 4 and 2 respectively to avoid any arrhythmias. -Patient was made DNR and will have PEG tube placed. -As per oncologist patient is clinically likely in stage II with large primary tumor, but no regional or distant mets. Also stated the goal of chemo and radiation was comfort in terms of preventing or delaying obstruction, pain, or bleeding symptoms and since patient did not have any surgery this will work for around 1 to 2 years. Still no clear life expectancy. Patient's condition continues to be guarded, with probable underlying CAD, but will need to assess the risk of benefits of invasive workup, recommend to speak with family to discuss goals of care and wishes. - Family at this time has decided not to pursue invasive interventions, therefore no left heart cath and continue to treat him medically. - Stop heparin drip after 48 hours and continue aspirin intensity statin and beta-anitha if blood pressure is permissible. Patient can also be placed on dual antiplatelets Plavix 75 mg once daily if there is no complications for anticoagulation. 2. Acute encephalopathy 3. Acute hypoxic respiratory failure 4. Sepsis likely secondary to hospital-acquired pneumonia 5. Hospital-acquired pneumonia 6. Hypotension ?Patient initially met SIRS 4 out of 4 with leukopenia, tachycardia, tachypnea, and febrile ?Chest x-ray showed bibasilar pneumonia, given prior hospitalization last month patient is at increased risk of hospital-acquired pneumonia ? Patient has baseline dementia and is AO x 1 today (only to present) ?Patient's blood pressure has been on the lower end since admission with the lowest being 90/52, but currently is 118/75 today. ? Patient is currently on levofloxacin ? Continue current management as per primary care team 7. Leukopenia 8. Rectal cancer s/p chemoradiation ? Leukopenia mostly in the setting of chemoradiation ?WBCs 2.8 on admission ?Continue current management as per primary care team 9. Hypoosmolar hyponatremia ?Sodium 129 on admission ? This could be due to renal loss versus gastrointestinal loss versus medication induced ? Continue current management as per primary care team 10. Transaminitis ?Patient liver enzymes have been elevated since last admission ? AST 576, ALT 293, alkaline phosphatase 308 on admission ?Liver ultrasound was unremarkable ? Continue current management as per primary care team 11. Seizures 12. CVA 13. Dementia ?Recommend to continue patient's aspirin and Keppra ?Continue current management per primary care team Continue rest of management as per primary team. We are grateful to be able to participate in Mr. Pink's care. Thank you for the consult Plan of care discussed with attending Clinical Social Worker, Dr. Cesar Mcdaniels MD PGY-1 Attending Provider Attestation/Addendum I have personally seen and examined the patient separately on the above date of service and discussed the plan of care with the resident. I reviewed the resident Dr. Laws consultation progress note and agree with the resident findings and plan in the note above and have also edited the documentation to reflect my findings and plan. Surinder Guerrero M.D. Interventional Cardiology
[2024-02-11] MEDS: LEVOFLOXACIN/D5W 750MG IVPB 750 MG/150 ML BAG 100 MG IV (11:29)
[2024-02-11] MEDS: levETIRAcetam INJ 100 MG/ML VIAL 5ML 500 MG IVP ×2 (11:29→20:20)
[2024-02-11] MEDS: THIAMINE INJ 100 MG/ML VIAL 2 ML IVP (11:30)
[2024-02-11] MEDS: MULTIVITAMIN 15 ML UDC NG (11:30)
[2024-02-11] MEDS: ASPIRIN 81 MG CHEW NG (11:37)
[2024-02-11] MEDS: LANSOPRAZOLE 30 MG TAB.RAP.DR NG (11:37)
--- NOTE | 2024-02-11 11:59 | XR_ITS ---
Examination: CT chest with intravenous contrast 2-D sagittal and coronal reconstructions Exam date and time: February 11, 2024 1706 hrs. Indications: Coughing congestion shortness of breath this week, 10 mm pulmonary nodule left upper lobe 4 mm pulmonary nodule lingular segment on CT chest August 17, 2023 CTDI:vol (mGy) 9.99 DLP: (mGycm) 346 Technique: Multiple axial sections of the thorax have been obtained. Sections have been obtained, 3 mm slice thickness. Mediastinal and lung density settings have been obtained. Intravenous contrast administered, 60 cc Isovue-370. 2-D sagittal, coronal images obtained. Low dose protocols were performed. One or more of the following dose reduction techniques were used; automated exposure control, adjustment of the mA and/or KV according to patient size, use of iterative reconstruction technique. Findings: AP dimension ascending thoracic aorta 37 mm Pulmonary artery segments are not enlarged No pulmonary artery emboli No paratracheal tracheobronchial or bronchopulmonary adenopathy Prominent bibasilar pneumonia with small to moderate bilateral pleural effusions Pericardial effusion measuring up to 7 mm with mild enlargement cardiac contour Liver is irregular in contour with mild ascites, no visualized liver or splenic lesion Orogastric tube in the stomach, gastric mucosa is diffusely thickened Heavy abdominal aortic calcification No hydronephrosis Moderate thoracic spondylosis Impression: Prominent bibasilar pneumonia Suspect primary hepatocellular disease versus cirrhosis Mild ascites Gastritis pattern
--- NOTE | 2024-02-11 13:41 | PD.RESPRO ---
Documentation for date of: 02/11/24 Subjective Subjective Interval history: There were no acute events overnight. The patient shows continued improvement in alertness and mentation. Remains on room air, with no signs of shortness of breath or respiratory distress. Exam Vital Signs Temp Pulse Resp BP Pulse Ox O2 Del Method O2 Flow Rate 97.9 F 113 H 26 H 122/73 99 Room Air 5 02/11/24 12:00 02/11/24 13:10 02/11/24 13:10 02/11/24 12:00 02/11/24 13:10 02/11/24 12:00 02/08/24 13:26 Narrative Exam GENERAL: Ill-appearing, cachectic elderly male, speaks in short sentences, dyspneic HEENT: NCAT.?PEREZ. Oral mucosa is moist. Patent Nares NECK: Supple, nontender, no thyromegaly, no meningismus, no JVD, no step offs CHEST: Symmetrical, atraumatic, and with equal expansion, Nontender on palpation no deformity and no crepitus. CARDIOVASCULAR: RRR, no m/g/r LUNGS: CTAB, no w/r/r. Symmetrical chest rise. No intercostal subcostal retraction. ABDOMEN: Soft, flat, nontender. No guarding/rebound tenderness/masses. +BS EXTREMITIES: Nontender.? No edema/cyanosis.?Moves all 4 extremities well, with full ROM and good CSM. Ulcer of bilateral heals SKIN: Warm and dry, no jaundice/rashes. MSK: No lumbar or midline, no CVA, no paraspinal muscle spasm or tenderness. NEURO: alert and oriented x1.?No focal neurologic deficits. PSYCHIATRIC: Mentation, more alert, following simple commands. Objective Labs 02/11/24 04:44 02/11/24 04:44 Labs: Laboratory Results - last 24 hr 02/10/24 02/11/24 15:20 04:44 WBC 3.0 L RBC 3.40 L Hgb 10.9 L Hct 31.9 L MCV 94 MCH 32.1 MCHC 34.2 RDW Std Deviation 51.5 H Plt Count 237 Neut % (Auto) 82 H Lymph % (Auto) 9 L [place] % (Auto) 8 Eos % (Auto) 0 Baso % (Auto) 0 Neut # (Auto) 2.5 Lymph # (Auto) 0.3 L [place] # (Auto) 0.3 Eos # (Auto) 0.0 Baso # (Auto) 0.0 Immature Gran # (Auto) 0.03 H Absolute Nucleated RBC 0.00 Immature Gran % 1 H Nucleated RBC % 0 APTT 69.2 H D 67.3 H Sodium 132 L Potassium 3.7 Chloride 101 Carbon Dioxide 24.5 Anion Gap 7 BUN 7 L Creatinine 0.3 L Estim Creat Clear Calc 144.0 eGFR > 60 BUN/Creatinine Ratio 23 H Glucose 119 H Calculated Osmolality 263 L Calcium 7.9 L Corrected Calcium 8.8 Phosphorus 2.5 Magnesium 1.8 Total Bilirubin 0.5 AST 246 H ALT 192 H Alkaline Phosphatase 149 H Total Protein 5.8 Albumin 2.9 L Globulin 2.9 Albumin/Globulin Ratio 1.0 L Quality Measures Quality Measures VTE prophylaxis (Heparin drip) Advance care planning discussed with:: patient Assessment & Plan Assessment Current Active Medications: Generic Name Dose Route Start Last Admin Trade Name Freq PRN Reason Stop Dose Admin Acetaminophen 650 mg 02/07/24 18:29 Acetaminophen 325 Mg Tablet PO 03/08/24 18:28 Q6H PRN Fever >100.4 Acetaminophen 650 mg 02/07/24 18:29 Acetaminophen Supp 650 Mg Supp [place] 03/08/24 18:28 Q6H PRN PAIN SCALE 1-3 (mild Hydrocodone Bitart/Acetaminophen 1 tab 02/07/24 18:29 Hydrocodone/Apap 10/325 Tab PO 02/12/24 18:28 Q4HR PRN PAIN SCALE 7-10 (Severe Albuterol/Ipratropium 3 ml 02/07/24 19:00 02/11/24 13:09 Albuterol/Ipratropium (Duoneb) Rt Ana 3 Ml Nebu INH 03/08/24 18:59 3 ml Q6HRRT JENNY Administration Aspirin 81 mg 02/11/24 11:45 02/11/24 11:37 Aspirin 81 Mg Chew NG 03/10/24 10:29 81 mg QDAY JENNY Administration Heparin Sodium/Dextrose 25,000 unit in 250 mls @ 7.076 mls/hr 02/07/24 20:30 02/11/24 06:18 Heparin In D5w Ivpb IV 02/21/24 20:29 18 units/kg/hr .Q24H JENNY 10.614 mls/hr Titration Protocol 12 UNITS/KG/HR Levofloxacin/Dextrose 750 mg in 150 mls @ 100 mls/hr 02/10/24 09:00 02/11/24 11:29 Levaquin Ivpb IV 02/17/24 08:59 100 mls/hr QDAY JENNY Administration Lansoprazole 30 mg 02/11/24 11:30 02/11/24 11:37 Lansoprazole 30 Mg Tab.Rap.Dr THORPE 03/08/24 18:59 30 mg QDAY JENNY Administration Levetiracetam 500 mg 02/07/24 21:00 02/11/24 11:29 Levetiracetam Inj 100 Mg/Ml Vial 5ml IVP 03/08/24 20:59 500 mg BID JENNY Administration Multivitamins/Minerals 15 ml 02/09/24 09:30 02/11/24 11:30 Multivitamin 15 Ml Udc NG 03/10/24 09:29 15 ml QDAY JENNY Administration Ondansetron HCl 4 mg 02/07/24 18:29 Ondansetron Inj 2 Mg/Ml Inj 2 Ml IV 03/08/24 18:28 Q6H PRN NAUSEA OR VOMITING Protocol Oxycodone/Acetaminophen 1 tab 02/07/24 18:29 Oxycodone/Apap 5/325 Tablet PO 02/12/24 18:28 Q6H PRN PAIN SCALE 4-6 (Moderate Sennosides 1 tab 02/07/24 18:29 Senna Tablet PO 03/08/24 18:28 QDAY PRN constipation Protocol Thiamine HCl 100 mg 02/08/24 20:15 02/11/24 11:30 Thiamine Inj 100 Mg/Ml Vial 2 Ml IVP 03/09/24 20:14 100 mg QDAY JENNY Administration Plan In summary: 73-year-old male with PMHx of seizure, dementia, CVA, and rectal adenocarcinoma s/p chemoradiation, presented with AMS, admitted for acute encephalopathy 2/2 sepsis pneumonia. Sputum culture grew Klebsiella pneumonia, now on LEVAQUIN per sensitivity. ID concurs, added IgG given recurrent pneumonia. Cardiology following for troponinemia, and hx of ischemic cardiomyopathy. Goals of care with family at bedside: Care with PEG tube, denied other interventions. Appreciated Cardiology, ID, and Hemeonc recommendations. Acute encephalopathy (resolved) Acute hypoxic respiratory failure (improving) Severe sepsis (improving) Klebsiella pneumonia Hypotension (improving) Dementia, chronic Presented with AMS with limited history 2/2 mentation, SOB. Admission CXR prominent bibasilar pneumonia, 4/4 sepsis, elevated PRO-ELIZABETH Currently on room air, previously required 15 L oxy mask, sepsis, resolved Patient appears at baseline S/p adequate fluid resuscitation, ZOSYN and DOXYCYCLINE (02/07 - 02/08) Sputum culture grew Klebsiella, no MRSA, negative 48 hours blood culture Pending ID recommendations ? Follow-up CT chest ? Continue LEVOFLOXACIN 700 mg IV daily (02/08 to [present]) ? DuoNebs q.6h. ? Aspiration precautions ? Oxygen PRN Leukopenia (improved) Chronic normocytic anemia WBC 2.8 with baseline 1.6?5, today stable WBC 3.0 Hemoglobin around baseline HIV panel negative ? Daily CBC Troponinemia, likely type II vs. I (resolved) Hyperlipidemia Ischemic cardiomyopathy Troponin 0.678, EKG sinus tachycardia, no acute ST changes Likely demand ischemia in settings of sepsis, patient asymptomatic S/p HEPARIN drip, discontinued per cardiology recommendations ASCVD score 26.1% for cardiovascular event, 18.6% 10-year cardiovascular risk recommends mod-high sensitive statin ? Telemetry ? Continue ATORVASTATIN 40 mg HS, Escalate to 80 mg once LFTs normalize ? Continue ASPIRIN 81 mg daily ? Magnesium >2, potassium >4 Electrolyte abnormalities ? 02/08 potassium 3.0 likely due to refeeding, repleted ? 02/09 phosphorus 2.1, gave NEUTRA-PHOS Acute hyponatremia (resolved) Admission sodium 129, imporving, sodium 132 stable Will likely improve with fluids ? Daily CMP Acute on chronic hepatopathy ? improving Likely ischemic hepatopathy 2/2 sepsis, underlying hepatopathy of unknown origin Admission AST 576, ALT 293, ALP 308, LD 968, now downtrending Baseline AST 414, ALT 277, ALP [address] in January 2024: Cholelithiasis without cholecystitis, no hepatic pathology Negative hepatitis panel from January 2024 Unable to assess for alcohol use given mentation Will likely continue improve with fluid resuscitation ? Daily CMP ? Follow-up HIV Seizure ? Resumed home KEPPRA 500 mg IV BID ? Seizure precaution ? Passed bedside swallow eval Bilateral heal ulcers ? Wound care Stage II intramucosal rectal adenocarcinoma (stable) History of rectal adenocarcinoma, s/p chemoradiation Follows up with oncologist Dr. Oren Eula poor surgical candidate by Dr. Khanh Carlin at [facility], per chart review Dr. Sanchez consulted, recommended outpatient follow-up as well as outpatient colonoscopy ? Oncology, Dr. Sanchez, following ? Patient will need colonoscopy outpatient Chronic pharyngeal dysphagia Artificial nutrition Hypoglycemia (resolved) Underweight BMI 15.7 Failure to thrive Failed bedside swallow eval, speech deemed unsafe for p.o. diet secondary to oropharyngeal penetration Patient will likely need PEG tube for persistent dysphagia, speech will continue to follow. Bedside GLUCOSE 54, given an amp of GLUCOSE ? Consider/monitor for refeeding syndrome ? Consulted dietitian for NGT ? Place orders for vitamins if recommended by dietitian, appreciate consult. Dietitian recommendations: Jevity 1.5 at 10 ml/hr x 24 hrs (do not advance). If no IV fluids, water flushes 35 ml/hr Thiamine 100mg/day for 7 days; provide first dose at least 30 minutes before starting nutrition. Multivitamins/Minerals. Daily labs for P, K, and Mg; replace as needed. If no electrolytes disturbances after 24 hrs, advance 10 ml every 12 hrs to goal rate of 45 ml/hr x 24 hrs. Continue with water flushes 35 ml/hr (or per MD Health maintenance Diet: NPO GI prophylaxis: PROTONIX DVT prophylaxis: HEPARIN Antibiotics: ZOSYN and CEFTRIAXONE CODE STATUS: Full code Disposition: Manage sepsis pneumonia, ID consult pending Patient case was discussed with attending, Toni Amador MD and senior resident Dr. Farris. Allison Cole DO PGYI Attending Provider Attestation/Addendum I reviewed labs, imaging, EKG, home medications and prior available records. Face to face evaluation was performed by me. I have personally examined the patient and discussed assessment and plan with the IM team. I reviewed the resident note and agree with the plan with exceptions as below. 73-year-old male with recent admission for sepsis due to pneumonia who presented with a chief complaint of fevers, shortness of breath, and cough. He was found to have sepsis secondary to bilateral pneumonia. Acute hypotension: Improved with IV hydration. Continue IV hydration. Monitor BP. Acute hypoxic respiratory failure: Oxygen requirements are improving. Secondary to sepsis secondary to bilateral pneumonia, mainly in lower lobes. In the setting of recent admission for pneumonia. Sputum culture showed Klebsiella. Consulted ID: Switch to levofloxacin to complete 7 days. Possible aspiration pneumonia. Ordered speech evaluation. Aspiration precautions. Discussed with the younger sister who is the POA: Okay to pursue with PEG tube. Will consult GI for that. Sepsis secondary to bilateral pneumonia: As above. Transaminitis: Likely related to hypotension versus sepsis. Management as above. Ordered liver ultrasound. Trend LFTs: Downtrending. Elevated troponin: Likely type II non-STEMI in the setting of sepsis. Management as above. Trend troponin: Peaked. Continue telemetry. Consulted cardiology. Recommended starting heparin drip. Continue aspirin. Initially recommended cardiac catheterization however he is a poor candidate for which we will hold off. Rectal adenocarcinoma: Status post chemotherapy. Consulted oncology. Recommended outpatient follow-up. Ordered CT chest to rule out pulmonary metastasis. Dysphagia: Failed bedside swallow test. Started NG tube. PEG tube as above. Goals of care discussion/counseling: Met with the younger sister who is the POA. Confirmed the CODE STATUS of DNR/DNI. The younger sister wants to pursue feeding tube and other treatments however she understands the poor prognosis and poor quality of life.
--- NOTE | 2024-02-11 15:17 | PD.RESEVENT ---
Documentation for date of: 02/11/24 Event Note Event Note: Case was discussed with railroad car painter over the phone. Cardiology team had an extensive discussion with patient family, including decision maker, Karissa (sister), regarding patient's current condition and comorbidities, including dementia, chronic bedbound state, and underlying malignancy. At this time, family is refusing aggressive interventions other than PEG tube placement. Additionally they would like patient to be made DNR, once having PEG tube placed. Patient understands current plan, and all questions were answered to their satisfaction. Patient case was discussed with attending, Toni Amador MD and senior residents Dr. Young and Dr. Farris. Allison Cole DO PGYI
[2024-02-11] MEDS: Magnesium Sulfate 4 GM Ivpb 4 GM/50 ML BAG IV (16:52)
[2024-02-11] MEDS: POTASSIUM CHL 10 mEq IVPB 10 MEQ/100 ML BAG 100 MEQ IV ×4 (16:52→21:24)
[2024-02-11 17:38] LABS: INR 1.1 (0.9-1.3); Prothrombin Time 12.4 Seconds (9.0-12.2)
--- NOTE | 2024-02-11 19:11 | PD.IMCONS ---
HPI Data of Consult Requesting Physician: Toni Amador MD Primary Care Provider: Physician No Primary/Family Consult Narrative Reason for consult: Failure to thrive, dysphagia History of present illness: 73 years male evaluated at request of the internal medicine team for failure to thrive dysphagia History is from the chart review Patient was admitted on 02/07/2024 with chief complaints of tachycardia tachypnea was found to have acute hypoxic respiratory failure sepsis and pneumonia Patient also has a history of seizure disorder dementia previous CVA rectal carcinoma status post chemo radiation Patient has been evaluated by the speech pathologist and has developed dysphagia and oral nutrition is not a possibility and for long-term management PEG tube has been requested cc:: cc: Toni Amador MD Review of Systems Review of Systems ROS Unobtainable: unobtainable due to medical condition Past Medical History Surgical History OTHER SURGICAL HX: As in the history of present illness Meds Home Medications and Allergies Home Medications ?Medication ?Instructions ?Recorded ?Confirmed ?Type acetaminophen 325 mg tablet 650 mg PO QID PRN Pain, Mild 02/08/24 02/08/24 History amino acids-protein hydrolysate 15 1 ea PO BID 02/08/24 02/08/24 History gram-100 kcal/30 mL oral liquid ascorbic acid (vitamin C) 500 mg 500 mg PO BID 02/08/24 02/08/24 History tablet azithromycin 250 mg tablet 250 mg PO QDAY 02/08/24 02/08/24 History azithromycin 250 mg tablet 500 mg PO QDAY 02/08/24 02/08/24 History guaifenesin 100 mg/5 mL oral liquid 200 mg PO QID PRN Cough 02/08/24 02/08/24 History ipratropium 0.5 mg-albuterol 3 mg 3 ml inhalation Q4HR PRN Shortness 02/08/24 02/08/24 History (2.5 mg base)/3 mL nebulization Of Breath Or Wheezing soln levetiracetam 100 mg/mL oral 500 mg PO BID 02/08/24 02/08/24 History solution midodrine 5 mg tablet 5 mg PO TID 02/08/24 02/08/24 History multivitamin with minerals 1 tab PO QDAY 02/08/24 02/08/24 History prednisone 20 mg tablet 40 mg PO QDAY 02/08/24 02/08/24 History prednisone 20 mg tablet 40 mg PO QDAY 02/08/24 02/08/24 History thiamine mononitrate (vit B1) 90 90 mg PO QDAY 02/08/24 02/08/24 History mg/scoop oral powder zinc 1 tab PO QDAY 02/08/24 02/08/24 History Allergies Allergy/AdvReac Type Severity Reaction Status Date / Time No Known Allergies Allergy Unverified 04/10/23 17:26 Exam Vital Signs Temp Pulse Resp BP Pulse Ox O2 Del Method O2 Flow Rate 97.5 F 103 H 20 119/74 100 Room Air 5 02/11/24 16:00 02/11/24 19:01 02/11/24 19:01 02/11/24 16:00 02/11/24 19:01 02/11/24 16:00 02/11/24 16:00 Constitutional Comments: Chronically ill-appearing Routine Respiratory Exam Comments: Scattered rhonchi Routine Abdominal Exam Comments: Soft nontender Results Labs 02/11/24 04:44 02/11/24 04:44 Labs: Short CBC 02/11/24 Range/Units 04:44 WBC 3.0 L (3.8-10.6) Thou/mm3 Hgb 10.9 L (13.5-16.0) g/dL Hct 31.9 L (41.0-53.0) % Plt Count 237 (140-440) Thou/mm3 [facility] 02/11/24 04:44 Sodium 132 L Potassium 3.7 Chloride 101 Carbon Dioxide 24.5 BUN 7 L Creatinine 0.3 L Glucose 119 H Calcium 7.9 L Liver Function 02/11/24 Range/Units 04:44 Total Bilirubin 0.5 (0.3-1.2) mg/dL AST 246 H (0-34) U/L ALT 192 H (10-49) U/L Alkaline Phosphatase 149 H (46-116) U/L Albumin 2.9 L (3.4-4.8) gm/dL Assessment and Plan Additional Assessment & Plan Additional Plan: # Dysphagia # Failure to thrive Plan For long-term management placement of a PEG tube endoscopically is a reasonable choice There is also recommendation of the speech therapist Procedure has been tentatively scheduled for tomorrow Other medical problems include # Seizure disorder # Dementia # CVA # Rectal carcinoma status post chemo and radiation therapy # Acute hypoxic respiratory failure improved due to pneumonia and sepsis
[2024-02-11] MEDS: ATORVASTATIN CALCIUM 20 MG TABLET 40 MG PO (20:20)
[2024-02-12] VITALS (18 sets, daily range): BP systolic 92–136; BP diastolic 51–93; PULSE 78–110; RESP 12–98; TEMP 36.1–36.7; O2SAT 94–100; BMI 16.6
[2024-02-12] MEDS: ALBUTEROL/IPRATROPIUM (Duoneb) RT SOL 3 ML NEBU INH ×3 (00:32→12:35)
[2024-02-12 05:47] LABS: Basophils % (Auto) 0 % (0-2.5); Eosinophils % (Auto) 0 % (0-10); Hematocrit 34.1 % (41.0-53.0); Hemoglobin 11.8 g/dL (13.5-16.0); Immature Granulocytes % (Auto) 2 % (0-0); Immature Granulocytes Auto 0.06 Thou/mm3 (0.00-0.00); Lymphocytes # (Auto) 0.2 Thou/mm3 (1.0-4.8); Lymphocytes % (Auto) 6 % (10-50); Mean Corpuscular HGB Conc 34.6 g/dl (31.0-37.0); Mean Corpuscular Hemoglobin 31.6 pg (25.0-35.0); Mean Corpuscular Volume 91 fL (80-100); Monocytes # (Auto) 0.1 Thou/mm3 (0.0-0.8); Monocytes % (Auto) 5 % (0-12); Neutrophils # (Auto) 2.6 Thou/mm3 (1.8-7.7); Neutrophils % (Auto) 87 % (37-80); Nucleated Red Blood Cell % 0 /100 WBC (0); Platelet Count 252 Thou/mm3 (140-440); RDW Standard Deviation 47.3 fL (35.1-43.9); Red Blood Count 3.74 Miln/mm3 (4.50-5.90)
[2024-02-12 06:28] LABS: Alanine Aminotransferase 230 U/L (10-49); Albumin, Serum 3.1 gm/dL (3.4-4.8); Alkaline Phosphatase 150 U/L (46-116); Anion Gap 6 (7-16); Aspartate Amino Transferase 316 U/L (0-34); BUN/Creatinine Ratio 17 Ratio (12-20); Bilirubin,Total 1.1 mg/dL (0.3-1.2); Blood Urea Nitrogen 5 mg/dL (9-23); Calcium 7.9 mg/dL (8.3-10.6); Calcium (Corrected) 8.6 mg/dL (8.5-10.1); Carbon Dioxide 24.9 mMol/L (20.0-31.0); Chloride 93 mMol/L (98-107); Creatinine (Component) 0.3 mg/dL (0.6-1.3); Estimated Creatinine Clearance 136.5 mL/min (>60); Globulin 3.2 gm/dL (2.3-3.5); Glucose 82 mg/dL (74-106); Magnesium 1.8 mg/dL (1.6-2.6); Osmolality,Calculated 245 (275-295); Phosphorous 2.7 mg/dL (2.4-5.1); Potassium 4.2 mMol/L (3.4-5.1); Sodium 124 mMol/L (136-145); Total Protein 6.3 gm/dL (5.7-8.2); eGFR > 60 See Note
--- NOTE | 2024-02-12 09:36 | PD.IDPROG ---
Subjective Subjective Interval history: quinolones are the same iv and enteral. tests neg, hiv, hep c, pt has CA . total igG pending. was changed to dnr. seems reasonable. lft's notable and seem to be rising slowly, imaging with no over mets to liver or head Exam Vital Signs Temp Pulse Resp BP Pulse Ox O2 Del Method O2 Flow Rate 97.6 F 98 18 116/88 H 100 Room Air 5 02/12/24 08:00 02/12/24 08:00 02/12/24 08:00 02/12/24 08:00 02/12/24 08:00 02/12/24 08:00 02/11/24 16:00 Narrative Exam limited eval today Objective - Internal Medicine Labs 02/12/24 05:00 02/12/24 05:00 Labs: Laboratory Results - last 24 hr 02/11/24 02/12/24 04:44 05:00 WBC 3.0 L RBC 3.74 L Hgb 11.8 L Hct 34.1 L MCV 91 MCH 31.6 MCHC 34.6 RDW Std Deviation 47.3 H Plt Count 252 Neut % (Auto) 87 H Lymph % (Auto) 6 L [place] % (Auto) 5 Eos % (Auto) 0 Baso % (Auto) 0 Neut # (Auto) 2.6 Lymph # (Auto) 0.2 L [place] # (Auto) 0.1 Eos # (Auto) 0.0 Baso # (Auto) 0.0 Immature Gran # (Auto) 0.06 H Absolute Nucleated RBC 0.00 Immature Gran % 2 H Nucleated RBC % 0 PT 12.4 H INR 1.1 Sodium 124 L Potassium 4.2 D Chloride 93 L Carbon Dioxide 24.9 Anion Gap 6 L BUN 5 L Creatinine 0.3 L Estim Creat Clear Calc 136.5 eGFR > 60 BUN/Creatinine Ratio 17 Glucose 82 Calculated Osmolality 245 L Calcium 7.9 L Corrected Calcium 8.6 Phosphorus 2.7 Magnesium 1.8 Total Bilirubin 1.1 D AST 316 H ALT 230 H Alkaline Phosphatase 150 H Total Protein 6.3 Albumin 3.1 L Globulin 3.2 Albumin/Globulin Ratio 1.0 L Assessment & Plan A&P Narrative recurrent pneumonia in pt with CA dnr status elevated lft's if unable to swallow and family desires intervention, then may need feeding tube. rising lft's noted but hep panel neg before, will get it again, but if again neg, then likely is intrinsic liver disease quinolones not well known to be associated with liver enzyme elevations, rx to be max of 7d anyway. can check in thursday if still here. Time Spent With Patient Time: Total time spent is greater than 50% in coordination of care (as documented) at patient's floor/unit and/or counseling patient:
--- NOTE | 2024-02-12 09:51 | PC.SS ---
Follow up note: Family agreed upon peg tube placement. Code status was also changed to DNR.
[2024-02-12] MEDS: levETIRAcetam INJ 100 MG/ML VIAL 5ML 500 MG IVP ×2 (09:56→21:09)
[2024-02-12] MEDS: THIAMINE INJ 100 MG/ML VIAL 2 ML IVP (09:56)
[2024-02-12] MEDS: ASPIRIN 81 MG CHEW NG (09:56)
[2024-02-12] MEDS: LEVOFLOXACIN/D5W 750MG IVPB 750 MG/150 ML BAG 100 MG IV (09:56)
[2024-02-12] MEDS: LANSOPRAZOLE 30 MG TAB.RAP.DR NG (09:56)
[2024-02-12] MEDS: MULTIVITAMIN 15 ML UDC NG (09:56)
[2024-02-12] MEDS: SODIUM CHLORIDE 0.9% 1000 ML 1,000 ML 60 ML IV (09:58)
[2024-02-12 11:08] LABS: Hepatitis A Antibody IgM Non Reactive (Non React); Hepatitis B Core Antibody IgM Non Reactive (Non React); Hepatitis B Surface Antigen Non Reactive (Non React); Hepatitis C Antibody Non Reactive (Non React)
--- NOTE | 2024-02-12 11:42 | PC.DIETICIAN ---
Nutrition prescription Once PEG tube is placed, consider resuming: Jevity 1.5 at 30 ml/hr via PEG tube by pump. Advance 10 ml every 8 hrs to goal rate of 45 ml/hr x 24 hrs. If no IV fluids, water flushes of 35 ml/hr (or per MD).
--- NOTE | 2024-02-12 13:45 | ESPR_ITS ---
Documentation for date of: 02/12/24 Subjective - Hospitalist Subjective Interval history: Patient was seen and examined at the bedside. 24-hour events, labs, imaging studies, and reports reviewed in details. Patient developed hyponatremia at 124. Started NS IV fluid. Patient denies new complaints. I did notice that he is having productive cough. He does not look short of breath. He denied nausea or vomiting. No abdominal pain. He was seen by GI. Plan for G-tube placement. He is n.p.o. prior to the procedure. Review of Systems Review of Systems Narrative Review of Systems: Review of systems: 12 point of system reviewed. All negative except as mentioned above. Exam Vital Signs Temp Pulse Resp BP Pulse Ox O2 Del Method O2 Flow Rate 97.6 F 83 20 116/88 H 98 Room Air 5 02/12/24 08:00 02/12/24 12:36 02/12/24 12:36 02/12/24 08:00 02/12/24 12:36 02/12/24 08:00 02/11/24 16:00 Narrative General: Alert and oriented x3. In no acute distress. Eyes: Pupils are equal and reactive to light bilaterally. HEENT: Atraumatic, normocephalic. No JVD noted. Mucous membranes are dry. Cardiovascular: Normal S1 and S2. Normal rate and regular rhythm. No murmurs appreciated. No peripheral pitting edema noted. No JVD noted. Respiratory: No respiratory distress. Rhonchi heard on both lung auscultation. No wheezing or crackles heard. Abdomen: Soft, nontender, nondistended. Skin: No rash. Warm to touch. Musculoskeletal: No gross injuries. Able to move all 4 extremities. Neuro: Alert and oriented x3. Sensation is intact throughout. Strength is 5/5 and symmetric. No focal neuro deficits. Psych: Normal affect and mood. Objective - Hospitalist Labs Diagram: 02/12/24 05:00 Labs: Laboratory Results - last 24 hr 02/11/24 02/12/24 04:44 05:00 WBC 3.0 L RBC 3.74 L Hgb 11.8 L Hct 34.1 L MCV 91 MCH 31.6 MCHC 34.6 RDW Std Deviation 47.3 H Plt Count 252 Neut % (Auto) 87 H Lymph % (Auto) [address] [place] % (Auto) 5 Eos % (Auto) 0 Baso % (Auto) 0 Neut # (Auto) 2.6 Lymph # (Auto) 0.[address] [place] # (Auto) 0.1 Eos # (Auto) 0.0 Baso # (Auto) 0.0 Immature Gran # (Auto) 0.06 H Absolute Nucleated RBC 0.00 Immature Gran % 2 H Nucleated RBC % 0 PT 12.4 H INR 1.1 Sodium 124 L Potassium 4.2 D Chloride 93 L Carbon Dioxide 24.9 Anion Gap 6 L BUN 5 L Creatinine 0.3 L Estim Creat Clear Calc 136.5 eGFR > 60 BUN/Creatinine Ratio 17 Glucose 82 Calculated Osmolality 245 L Calcium 7.9 L Corrected Calcium 8.6 Phosphorus 2.7 Magnesium 1.8 Total Bilirubin 1.1 D AST 316 H ALT 230 H Alkaline Phosphatase 150 H Total Protein 6.3 Albumin 3.1 L Globulin 3.2 Albumin/Globulin Ratio 1.0 L Hepatitis A IgM Ab Non Reactive Hep Bs Antigen Non Reactive Hep B Core IgM Ab Non Reactive Hepatitis C Antibody Non Reactive Assessment & Plan Patient Synopsis 73-year-old male with PMHx of seizure, dementia, CVA, and rectal adenocarcinoma s/p chemoradiation, presented with AMS, admitted for acute encephalopathy 2/2 sepsis pneumonia. Sputum culture grew Klebsiella pneumonia, now on LEVAQUIN per sensitivity. ID concurs, added IgG given recurrent pneumonia. Cardiology following for troponinemia, and hx of ischemic cardiomyopathy. Goals of care with family at bedside: Care with PEG tube, denied other interventions. Appreciated Cardiology, ID, and Hemeonc recommendations. Acute encephalopathy (resolved) Acute hypoxic respiratory failure (improving) Severe sepsis (improving) Klebsiella pneumonia Hypotension (improving) Dementia, chronic Presented with AMS with limited history 2/2 mentation, SOB. Admission CXR prominent bibasilar pneumonia, 4/4 sepsis, elevated PRO-ELIZABETH Currently on room air, previously required 15 L oxy mask, sepsis, resolved Patient appears at baseline S/p adequate fluid resuscitation, ZOSYN and DOXYCYCLINE (02/07 - 02/08) Sputum culture grew Klebsiella, no MRSA, negative 48 hours blood culture ID recommendations: Recommended p.o. levofloxacin to complete 7 days of treatment ? Follow-up CT chest ? Continue LEVOFLOXACIN 700 mg IV daily (02/08 to [present]) ? DuoNebs q.6h. ? Aspiration precautions ? Oxygen PRN Dysphagia Failed bedside swallow. Discussed with the younger sister who is the POA: Agreed to PEG tube insertion. Consulted GI. Evaluated by GI who will plan for the PEG tube insertion on 02/11. Will keep the patient n.p.o. Hyponatremia New complication. Sodium was 124 on 02/11. Likely in setting of dehydration in setting of n.p.o. started IV normal saline. Monitor BMP. Avoid rapid correction. Leukopenia (improved) Chronic normocytic anemia WBC is borderline low Hemoglobin around baseline HIV panel negative ? Daily CBC Troponinemia, likely type II vs. I (resolved) Hyperlipidemia Cardiomyopathy Troponin 0.678, EKG sinus tachycardia, no acute ST changes Likely demand ischemia in settings of sepsis, patient asymptomatic S/p HEPARIN drip, discontinued per cardiology recommendations initially cardiology planned on cardiac catheterization however, he is not a good candidate. ASCVD score 26.1% for cardiovascular event, 18.6% 10-year cardiovascular risk recommends mod-high sensitive statin ? Telemetry ? Continue ATORVASTATIN 40 mg HS, Escalate to 80 mg once LFTs normalize ? Continue ASPIRIN 81 mg daily ? Magnesium >2, potassium >4 Electrolyte abnormalities ? 02/08 potassium 3.0 likely due to refeeding, repleted ? 02/09 phosphorus 2.1, gave NEUTRA-PHOS Transaminitis Likely ischemic hepatopathy 2/ sepsis, underlying hepatopathy of unknown origin Admission AST 576, ALT 293, ALP 308, improved but increased again, likely due to dehydration Baseline AST 414, ALT 277, ALP [address] in January 2024: Cholelithiasis without cholecystitis, no hepatic pathology Negative hepatitis panel from January 2024 Unable to assess for alcohol use given mentation Will likely continue improve with fluid resuscitation ? Daily CMP ? Follow-up HIV: Negative -Continue IV fluids. Monitor LFTs. Seizure ? Resumed home KEPPRA 500 mg IV BID ? Seizure precaution Bilateral heal ulcers ? Wound care Stage II intramucosal rectal adenocarcinoma (stable) History of rectal adenocarcinoma, s/p chemoradiation Follows up with oncologist Dr. Oren Forde poor surgical candidate by Dr. Khanh Carlin at [facility], per chart review Dr. Sanchez consulted, recommended outpatient follow-up as well as outpatient colonoscopy ? Oncology, Dr. Sanchez, following ? Patient will need colonoscopy outpatient Chronic pharyngeal dysphagia Artificial nutrition Hypoglycemia (resolved) Underweight BMI 15.7 Failure to thrive Failed bedside swallow eval, speech deemed unsafe for p.o. diet secondary to oropharyngeal penetration Patient will likely need PEG tube for persistent dysphagia, speech will continue to follow. Bedside GLUCOSE 54, given an amp of GLUCOSE ? Consider/monitor for refeeding syndrome ? Consulted dietitian for NGT ? Place orders for vitamins if recommended by dietitian, appreciate consult. Dietitian recommendations: Discussed with dietitian: Will use the same recommendations after PEG tube insertion * Jevity 1.5 at 10 ml/hr x 24 hrs (do not advance). If no IV fluids, water flushes 35 ml/hr * Thiamine 100mg/day for 7 days; provide first dose at least 30 minutes before starting nutrition. * Multivitamins/Minerals. * Daily labs for P, K, and Mg; replace as needed. * If no electrolytes disturbances after 24 hrs, advance 10 ml every 12 hrs to goal rate of 45 ml/hr x 24 hrs. * Continue with water flushes 35 ml/hr (or per MD Health maintenance Diet: NPO GI prophylaxis: PROTONIX DVT prophylaxis: HEPARIN Antibiotics: ZOSYN and CEFTRIAXONE CODE STATUS: Full code Disposition: Manage sepsis pneumonia, ID consult pending Time Spent with Patient Time: Total time spent is greater than 50% in coordination of care (as documented) at patient's floor/unit and/or counseling patient: Time with patient: 25 - 35 minutes Reason for Continued Stay Reason for continued stay: surgical intervention Quality Measures Quality Measures VTE prophylaxis (Heparin drip) Advance care planning discussed with:: legal surragate
[2024-02-12 14:50] LABS: Anion Gap 5 (7-16); BUN/Creatinine Ratio 23 Ratio (12-20); Blood Urea Nitrogen 7 mg/dL (9-23); Calcium 7.8 mg/dL (8.3-10.6); Carbon Dioxide 25.3 mMol/L (20.0-31.0); Chloride 94 mMol/L (98-107); Creatinine (Component) 0.3 mg/dL (0.6-1.3); Estimated Creatinine Clearance 136.5 mL/min (>60); Glucose 80 mg/dL (74-106); Osmolality,Calculated 246 (275-295); Potassium 4.8 mMol/L (3.4-5.1); Sodium 124 mMol/L (136-145); eGFR > 60 See Note
--- NOTE | 2024-02-12 15:56 | PD.IMPROG ---
Documentation for date of: 02/12/24 Subjective Subjective Interval history: Patient seen at bedside this AM. No overnight events. Patient has some PVCs on the environmental monitoring technician overnight and his heart rate was in the 90s. Potassium 4.8 and Mg 1.8 today, recommend to replete to keep above 4 and 2 respectively. Going to give additional 2 g of magnesium IV Recommend to continue patient on aspirin, high intensity statin, and beta anitha if BP allows. Patient was made DNR and PEG tube to be placed today Family at this time has decided not to pursue invasive interventions, therefore no left heart cath and continue to treat him medically. Heparin drip completed for 48 hours and continue aspirin intensity statin and beta-anitha if blood pressure is permissible. Patient can also be placed on dual antiplatelets Plavix 75 mg once daily if there is no complications for anticoagulation. Exam Vital Signs Temp Pulse Resp BP Pulse Ox O2 Del Method O2 Flow Rate 97.5 F 83 20 114/69 98 Room Air 5 02/12/24 12:00 02/12/24 12:36 02/12/24 12:36 02/12/24 12:00 02/12/24 12:36 02/12/24 12:00 02/11/24 16:00 Narrative Exam General: A/O x1 (to person only), resting in bed, thin, frail male Eyes: Pupils reactive to light and EOMI. Ears: No visible ear discharge, Hearing grossly intact. Nose: No visible nasal discharge. Mouth/Throat: Moist mucous membranes, no redness, no lesions. Neck: Neck supple, no cervical lymphadenopathy. Lungs: Clearer JESUS, No accessory muscle use. Cardio: Normal S1/S2, regular rhythm, no murmurs, no JVD. Abdomen: Soft, non-tender, no palpable masses, peristalsis present, no guarding or rebound. Extremities: Symmetrical, no significant deformities, no peripheral edema , non-tender, peripheral pulses presents. Skin: No rashes, no lesions, warm to touch. Neuro: Able to move all extremities. Objective Labs 02/12/24 05:00 02/12/24 13:54 Labs: Laboratory Results - last 24 hr 02/11/24 02/12/24 02/12/24 04:44 05:00 13:54 WBC 3.0 L RBC 3.74 L Hgb 11.8 L Hct 34.1 L MCV 91 MCH 31.6 MCHC 34.6 RDW Std Deviation 47.3 H Plt Count 252 Neut % (Auto) 87 H Lymph % (Auto) 6 L [place] % (Auto) 5 Eos % (Auto) 0 Baso % (Auto) 0 Neut # (Auto) 2.6 Lymph # (Auto) 0.2 L [place] # (Auto) 0.1 Eos # (Auto) 0.0 Baso # (Auto) 0.0 Immature Gran # (Auto) 0.06 H Absolute Nucleated RBC 0.00 Immature Gran % 2 H Nucleated RBC % 0 PT 12.4 H INR 1.1 Sodium 124 L 124 L Potassium 4.2 D 4.8 D Chloride 93 L 94 L Carbon Dioxide 24.9 25.3 Anion Gap 6 L 5 L BUN 5 L 7 L Creatinine 0.3 L 0.3 L Estim Creat Clear Calc 136.5 136.5 eGFR > 60 > 60 BUN/Creatinine Ratio 17 23 H Glucose 82 80 Calculated Osmolality 245 L 246 L Calcium 7.9 L 7.8 L Corrected Calcium 8.6 Phosphorus 2.7 Magnesium 1.8 Total Bilirubin 1.1 D AST 316 H ALT 230 H Alkaline Phosphatase 150 H Total Protein 6.3 Albumin 3.1 L Globulin 3.2 Albumin/Globulin Ratio 1.0 L Hepatitis A IgM Ab Non Reactive Hep Bs Antigen Non Reactive Hep B Core IgM Ab Non Reactive Hepatitis C Antibody Non Reactive Assessment & Plan A&P Narrative 73-year-old male with past medical history of colon cancer s/p chemoradiation, seizure, dementia, and CVA (ischemic and hemorrhagic) was admitted to the hospital on 02/07/2024 due to acute encephalopathy likely secondary to hospital-acquired pneumonia given the patient was in our hospital on December. . Elevated troponins, NSTEMI type II most likely demand ischemia ?Patient's troponin on admission were 0.678 and peaked at 2.076 before downtrending. ? EKG showed sinus tachycardia ?Last echo on January 06, 2024 had the following findings Normal LV size and function. Grade 1 diastolic dysfunction. Estimated EF 55 to 60% Normal RV size and function Mild TR. Mild AV sclerosis without stenosis. Trace AI. ?Zohreh ACS score of 124 points, 9% probability of Plan: ?Recommend to continue patient on aspirin, high intensity statin, and beta anitha if BP allows. -Recommend primary care team to have goals of care discussion with patient's family as condition is guarded. -Aggressively replete potassium and magnesium to keep above 4 and 2 respectively to avoid any arrhythmias. -Patient was made DNR and will have PEG tube placed today -As per oncologist patient is clinically likely in stage II with large primary tumor, but no regional or distant mets. Also stated the goal of chemo and radiation was comfort in terms of preventing or delaying obstruction, pain, or bleeding symptoms and since patient did not have any surgery this will work for around 1 to 2 years. Still no clear life expectancy. Patient's condition continues to be guarded, with probable underlying CAD, but will need to assess the risk of benefits of invasive workup, recommend to speak with family to discuss goals of care and wishes. - Family at this time has decided not to pursue invasive interventions, therefore no left heart cath and continue to treat him medically. - Stop heparin drip after 48 hours and continue aspirin intensity statin and beta-anitha if blood pressure is permissible. Patient can also be placed on dual antiplatelets Plavix 75 mg once daily if there is no complications for anticoagulation. 2. Acute encephalopathy 3. Acute hypoxic respiratory failure 4. Sepsis likely secondary to hospital-acquired pneumonia 5. Hospital-acquired pneumonia 6. Hypotension ?Patient initially met SIRS 4 out of 4 with leukopenia, tachycardia, tachypnea, and febrile ?Chest x-ray showed bibasilar pneumonia, given prior hospitalization last month patient is at increased risk of hospital-acquired pneumonia ? Patient has baseline dementia and is AO x 1 today (only to present) ?Patient's blood pressure has been on the lower end since admission with the lowest being 90/52, but currently is 118/75 today. ? Patient is currently on levofloxacin ? Continue current management as per primary care team 7. Leukopenia 8. Rectal cancer s/p chemoradiation ? Leukopenia mostly in the setting of chemoradiation ?WBCs 2.8 on admission ?Continue current management as per primary care team 9. Hypoosmolar hyponatremia ?Sodium 129 on admission ? This could be due to renal loss versus gastrointestinal loss versus medication induced ? Continue current management as per primary care team 10. Transaminitis ?Patient liver enzymes have been elevated since last admission ? AST 576, ALT 293, alkaline phosphatase 308 on admission ?Liver ultrasound was unremarkable ? Continue current management as per primary care team 11. Seizures 12. CVA 13. Dementia ?Recommend to continue patient's aspirin and Keppra ?Continue current management per primary care team Management of rest of the medical conditions as per primary team and other consultants. Thank you for the consult and allowing me to participate in the care of the patient. Cardiology will continue to follow. Surinder Guerrero M.D. Interventional Cardiology Time Spent With Patient Time: Total time spent is greater than 50% in coordination of care (as documented) at patient's floor/unit and/or counseling patient:
--- NOTE | 2024-02-12 19:15 | PC.NURSE ---
Speech therapist was able to update Karissa about evaluation, with 2nd evaluation Karissa felt more comfortable about PEG placement. Karissa verbalized over phone that Dr. Barraza explained the procedure and signed consent over phone with Leanne ANTHONY.
--- NOTE | 2024-02-12 19:34 | PC.NURSE ---
Notified endo of blood sugar 71 prior to procedure
[2024-02-13] VITALS (10 sets, daily range): BP systolic 91–117; BP diastolic 56–73; PULSE 74–96; RESP 16–98; TEMP 36.1–36.5; O2SAT 95–100; BMI 16.8
[2024-02-13] MEDS: ALBUTEROL/IPRATROPIUM (Duoneb) RT SOL 3 ML NEBU INH ×4 (01:24→19:00)
[2024-02-13 06:46] LABS: Basophils % (Auto) 1 % (0-2.5); Eosinophils % (Auto) 1 % (0-10); Hemoglobin 11.4 g/dL (13.5-16.0); Immature Granulocytes % (Auto) 7 % (0-0); Immature Granulocytes Auto 0.14 Thou/mm3 (0.00-0.00); Lymphocytes # (Auto) 0.2 Thou/mm3 (1.0-4.8); Lymphocytes % (Auto) 10 % (10-50); Mean Corpuscular HGB Conc 34.5 g/dl (31.0-37.0); Mean Corpuscular Hemoglobin 31.9 pg (25.0-35.0); Mean Corpuscular Volume 92 fL (80-100); Monocytes # (Auto) 0.2 Thou/mm3 (0.0-0.8); Monocytes % (Auto) 8 % (0-12); Neutrophils # (Auto) 1.6 Thou/mm3 (1.8-7.7); Neutrophils % (Auto) 75 % (37-80); Nucleated Red Blood Cell % 0 /100 WBC (0); Platelet Count 217 Thou/mm3 (140-440); RDW Standard Deviation 48.1 fL (35.1-43.9); Red Blood Count 3.57 Miln/mm3 (4.50-5.90)
[2024-02-13 07:13] LABS: Alanine Aminotransferase 184 U/L (10-49); Albumin, Serum 2.8 gm/dL (3.4-4.8); Albumin/Globulin Ratio 0.9 (1.2-2.2); Alkaline Phosphatase 123 U/L (46-116); Anion Gap 6 (7-16); Aspartate Amino Transferase 232 U/L (0-34); BUN/Creatinine Ratio 40 Ratio (12-20); Bilirubin,Total 0.7 mg/dL (0.3-1.2); Blood Urea Nitrogen 8 mg/dL (9-23); Calcium 7.8 mg/dL (8.3-10.6); Calcium (Corrected) 8.8 mg/dL (8.5-10.1); Carbon Dioxide 23.7 mMol/L (20.0-31.0); Chloride 92 mMol/L (98-107); Creatinine (Component) 0.2 mg/dL (0.6-1.3); Estimated Creatinine Clearance 206.8 mL/min (>60); Glucose 76 mg/dL (74-106); Magnesium 1.7 mg/dL (1.6-2.6); Osmolality,Calculated 243 (275-295); Phosphorous 3.3 mg/dL (2.4-5.1); Potassium 3.6 mMol/L (3.4-5.1); Sodium 122 mMol/L (136-145); Total Protein 5.8 gm/dL (5.7-8.2); eGFR > 60 See Note
[2024-02-13 07:16] LABS: White Blood Count 2.1 Thou/mm3 (3.8-10.6)
--- NOTE | 2024-02-13 07:32 | PD.RESPRO ---
Documentation for date of: 02/13/24 Subjective Subjective Interval history: Patient seen and examined at bedside. Patient underwent PEG tube placement on 02/11, with medication throughout changed to G-tube and tube feeds resumed. Will continue Levaquin for 7 days total. Vitals, labs reviewed. Patient remains pleasantly confused. Sodium noted to be 122 after NS. IV fluids stopped. 1.[address] fluid restriction in place. UA, urine electrolytes and uric acid ordered. Nephrology consulted, appreciate recommendations: Start salt tabs. Exam Vital Signs Temp Pulse Resp BP Pulse Ox O2 Del Method O2 Flow Rate 97.7 F 76 17 117/57 L 100 Room Air 5 02/13/24 04:00 02/13/24 07:00 02/13/24 07:00 02/13/24 04:00 02/13/24 07:00 02/13/24 04:00 02/12/24 19:27 Narrative Exam Gen: Elderly male, appears chronically ill, pleasant but confused HEENT: NCAT, PERRLA, MMM, no LAD noted CVS: normal S1, S2. RRR. No MRG Resp: CTA B/L with occasional rhonchi Abd: soft, non-tender, non-distended. BS+ in all 4 quadrants. PEG tube and abd binder noted MSK: Moves all extremities, no edema noted. Ulcers at B/L heels Neuro: CN II-XII grossly intact. Does not follow all commands Objective Labs 02/14/24 02:45 02/14/24 10:21 Labs: Laboratory Results - last 24 hr 02/12/24 02/12/24 02/13/24 05:00 13:54 06:19 WBC 2.1 L RBC 3.57 L Hgb 11.4 L Hct 33.0 L MCV 92 MCH 31.9 MCHC 34.5 RDW Std Deviation 48.1 H Plt Count 217 D Neut % (Auto) 75 Lymph % (Auto) 10 Dixon % (Auto) 8 Eos % (Auto) 1 Baso % (Auto) 1 Neut # (Auto) 1.6 L Lymph # (Auto) 0.2 L Dixon # (Auto) 0.2 Eos # (Auto) 0.0 Baso # (Auto) 0.0 Immature Gran # (Auto) 0.14 H Absolute Nucleated RBC 0.00 Immature Gran % 7 H Nucleated RBC % 0 Sodium 124 L 122 L Potassium 4.8 D 3.6 D Chloride 94 L 92 L Carbon Dioxide 25.3 23.7 Anion Gap 5 L 6 L BUN 7 L 8 L Creatinine 0.3 L 0.2 L Estim Creat Clear Calc 136.5 206.8 eGFR > 60 > 60 BUN/Creatinine Ratio 23 H 40 H Glucose 80 76 Calculated Osmolality 246 L 243 L Calcium 7.8 L 7.8 L Corrected Calcium 8.8 Phosphorus 3.3 Magnesium 1.7 Total Bilirubin 0.7 AST 232 H ALT 184 H Alkaline Phosphatase 123 H D Total Protein 5.8 Albumin 2.8 L Globulin 3.0 Albumin/Globulin Ratio 0.9 L Hepatitis A IgM Ab Non Reactive Hep Bs Antigen Non Reactive Hep B Core IgM Ab Non Reactive Hepatitis C Antibody Non Reactive Quality Measures Quality Measures VTE prophylaxis (Heparin drip) Advance care planning discussed with:: sibling Assessment & Plan Assessment Current Active Medications: Generic Name Dose Route Start Last Admin Trade Name Freq PRN Reason Stop Dose Admin Acetaminophen 650 mg 02/07/24 18:29 Acetaminophen 325 Mg Tablet PO 03/08/24 18:28 Q6H PRN Fever >100.4 Acetaminophen 650 mg 02/07/24 18:29 Acetaminophen Supp 650 Mg Supp IL 03/08/24 18:28 Q6H PRN PAIN SCALE 1-3 (mild Albuterol/Ipratropium 3 ml 02/07/24 19:00 02/13/24 07:00 Albuterol/Ipratropium (Duoneb) Rt Ana 3 Ml Nebu INH 03/08/24 18:59 3 ml Q6HRRT JENNY Administration Aspirin 81 mg 02/13/24 09:00 Aspirin 81 Mg Chew GT 03/14/24 08:59 QDAY JENNY Levofloxacin/Dextrose 750 mg in 150 mls @ 100 mls/hr 02/10/24 09:00 02/12/24 19:41 Levaquin Ivpb IV 02/17/24 08:59 Infused QDAY JENNY Infusion Sodium Chloride 1,000 mls @ 60 mls/hr 02/12/24 08:31 02/13/24 06:11 Ns IV 03/13/24 08:30 Not Given .[id number] JENNY Magnesium Sulfate 2 gm in 50 mls @ 25 mls/hr 02/13/24 07:30 Magnesium Sulfate Ivpb IV 02/13/24 09:29 X1 ONE Lansoprazole 30 mg 02/13/24 09:00 Lansoprazole 30 Mg Tab.Rap. GT 03/14/24 08:59 QDAY JENNY Levetiracetam 500 mg 02/07/24 21:00 02/12/24 21:09 Levetiracetam Inj 100 Mg/Ml Vial 5ml IVP 03/08/24 20:59 500 mg BID JENNY Administration Multivitamins/Minerals 15 ml 02/09/24 09:30 02/12/24 09:56 Multivitamin 15 Ml Udc NG 03/10/24 09:29 15 ml QDAY JENNY Administration Ondansetron HCl 4 mg 02/07/24 18:29 Ondansetron Inj 2 Mg/Ml Inj 2 Ml IV 03/08/24 18:28 Q6H PRN NAUSEA OR VOMITING Protocol Potassium Chloride 40 meq 02/13/24 07:30 Potassium Chloride 10% 20 Meq/15 Ml Udc GT 02/13/24 07:31 X1 ONE Sennosides 1 tab 02/07/24 18:29 Senna Tablet PO 03/08/24 18:28 QDAY PRN constipation Protocol Thiamine HCl 100 mg 02/08/24 20:15 02/12/24 09:56 Thiamine Inj 100 Mg/Ml Vial 2 Ml IVP 03/09/24 20:14 100 mg QDAY JENNY Administration Plan 73-year-old male with PMHx of seizure, dementia, CVA, and rectal adenocarcinoma s/p chemoradiation, presented with AMS, admitted for acute encephalopathy 2/2 sepsis pneumonia. Sputum culture grew Klebsiella pneumonia, now on LEVAQUIN per sensitivity. ID concurs, added IgG given recurrent pneumonia. Cardiology following for troponinemia, and hx of ischemic cardiomyopathy. Goals of care with family at bedside: Care with PEG tube, denied other interventions. Appreciated Cardiology, ID, and Hemeonc recommendations. Acute encephalopathy (resolved) Acute hypoxic respiratory failure (improving) Severe sepsis (improving) Klebsiella pneumonia Hypotension (improving) Dementia, chronic Presented with AMS with limited history 2/2 mentation, SOB. Admission CXR prominent bibasilar pneumonia, 4/4 sepsis, elevated PRO-ELIZABETH Currently on room air, previously required 15 L oxy mask, sepsis, resolved Patient appears at baseline S/p adequate fluid resuscitation, ZOSYN and DOXYCYCLINE (02/07 - 02/08) Sputum culture grew Klebsiella, no MRSA, negative 48 hours blood culture ID recommendations: Recommended p.o. levofloxacin to complete 7 days of treatment ? Follow-up CT chest: Prominent bibasilar pneumonia, suspect primary vital cellular disease for cirrhosis, mild ascites, gastritis ? Continue LEVOFLOXACIN 750 mg IV changed to p.o. daily (02/08 to [present]) ? DuoNebs q.6h. ? Aspiration precautions ? Oxygen PRN Underweight BMI 15.7 Failure to thrive Dysphagia s/p PEG tube placement Failed bedside swallow. Discussed with the younger sister who is the POA: Agreed to PEG tube insertion. Consulted GI. Evaluated by GI who will plan for the PEG tube insertion on 02/11. Will keep the patient n.p.o. 02/12: S/p PEG. Started tube feeds as per dietitian recommendations. Albumin 2.8 Hyponatremia DDx includes SIADH 02/12: Sodium 122 on a.m. labs. DC'd fluids and implemented 1.5 L fluid restrictions. Follow-up UA, urine electrolytes, uric acid. Trend sodium every 4 hours Nephro consulted, appreciate recommendations: Start patient on 1 g salt tabs twice daily Goal correction: 4?6 per 25. Leukopenia (improved) Chronic normocytic anemia WBC is borderline low Hemoglobin around baseline HIV panel negative ? Daily CBC Troponinemia, likely type II vs. I (resolved) Hyperlipidemia Cardiomyopathy Troponin 0.678, EKG sinus tachycardia, no acute ST changes Likely demand ischemia in settings of sepsis, patient asymptomatic S/p HEPARIN drip, discontinued per cardiology recommendations initially cardiology planned on cardiac catheterization however, he is not a good candidate and family did not agree to intervention ASCVD score 26.1% for cardiovascular event, 18.6% 10-year cardiovascular risk recommends mod-high sensitive statin ? Telemetry ? Continue ATORVASTATIN 40 mg HS, Escalate to 80 mg once LFTs normalize ? Continue ASPIRIN 81 mg daily ? Magnesium >2, potassium >4 Electrolyte abnormalities ? 02/08 potassium 3.0 likely due to refeeding, repleted ? 02/09 phosphorus 2.1, gave NEUTRA-PHOS Transaminitis Likely ischemic hepatopathy 2/2 sepsis, underlying hepatopathy of unknown origin Admission AST 576, ALT 293, ALP 308, improved but increased again, likely due to dehydration Baseline AST 414, ALT 277, ALP [address] in January 2024: Cholelithiasis without cholecystitis, no hepatic pathology Negative hepatitis panel from January 2024 Unable to assess for alcohol use given mentation Will likely continue improve with fluid resuscitation ? Daily CMP ? Follow-up HIV: Negative -Continue IV fluids. Monitor LFTs. Seizure ? Resumed home KEPPRA 500 mg IV CHANGED TO G-TUBE BID ? Seizure precaution Bilateral heal ulcers ? Wound care Stage II intramucosal rectal adenocarcinoma (stable) History of rectal adenocarcinoma, s/p chemoradiation Follows up with oncologist Dr. Oren Forde poor surgical candidate by Dr. Khanh Carlin at [facility], per chart review Dr. Sanchez consulted, recommended outpatient follow-up as well as outpatient colonoscopy ? Oncology, Dr. Sanchez, following ? Patient will need colonoscopy outpatient Dietitian recommendations: Discussed with dietitian: Will use the same recommendations after PEG tube insertion Jevity 1.5 at 10 ml/hr x 24 hrs (do not advance). If no IV fluids, water flushes 35 ml/hr Thiamine 100mg/day for 7 days; provide first dose at least 30 minutes before starting nutrition. Multivitamins/Minerals. Daily labs for P, K, and Mg; replace as needed. If no electrolytes disturbances after 24 hrs, advance 10 ml every 12 hrs to goal rate of 45 ml/hr x 24 hrs. Continue with water flushes 35 ml/hr (or per MD Health maintenance Diet: NPO, on tube feeds Jevity 1.5 GI prophylaxis: PROTONIX DVT prophylaxis: HEPARIN Antibiotics: Levaquin CODE STATUS: Full code Disposition: Diagnostic workup and management of hyponatremia; nephro following. Continue antibiotics for pneumonia Patient seen and care discussed with my attending Dr. Amador. Shital Young MD PGY-3 Attending Provider Attestation/Addendum I reviewed labs, imaging, EKG, home medications and prior available records. Face to face evaluation was performed by me. I have personally examined the patient and discussed assessment and plan with the IM team. I reviewed the resident note and agree with the plan with exceptions as below. See my addendum in a separate note for the same date.
[2024-02-13] MEDS: Magnesium Sulfate 2 GM Ivpb 2 GM/50 ML BAG IV (07:59)
--- NOTE | 2024-02-13 08:56 | PD.RESCONSUL ---
HPI Data of Consult Patient: new to practice Consult date: 02/13/24 Requesting Physician: Toni Amador MD Admitting Provider: Toni Amador MD Attending Provider: Toni Amador MD Primary Care Provider: Physician No Primary/Family Consult Narrative Reason for consult: Progress hyponatremia History of present illness: Mr. Rios is a 73-year-old male with past medical history of seizure, dementia, CVA, rectal cancer status post chemo who was brought in by ambulance to [facility] on for with a chief complaint of altered mental status and shortness of breath. Patient was unable to provide history, most of the history on admission was obtained from patient's family and chart review, during the course of his hospital stay cardiology was consulted due to concern of NSTEMI which on further workup showed NSTEMI type II, oncology was consulted for rectal CA due to patient's advanced disease and acute changes and GI was consulted for PEG tube placement. With the progression of hospital course patient's sodium continued to decline, acute drop noted on 02/11 from 132 to 124, patient was given IV normal saline and patient's sodium did not improve, decreased to 122 and nephrology was consulted for acute hyponatremia. Of note patient is currently being treated for extensive bilateral pneumonia. Patient is underweight with BMI of 15.7 and has PEG tube placement status post poor p.o. intake causing failure to thrive. 02/12: Patient seen at bedside, patient is responsive to name, unable to provide any details. As patient was unresponsive to IV fluids, patient placed on fluid restriction and will be started on salt tablets, will continue to monitor sodium every 4 hours, will follow urine sodium, urine creatinine, urine potassium and urine chloride. Possible component of SIADH due to underlying lung pathology as patient was unresponsive to fluids. Will continue to monitor. cc:: cc: Toni Amador MD Review of Systems Review of Systems ROS Unobtainable: unobtainable due to mental status Past Medical History Past Medical History NEUROLOGIC: Positive Neurological Disorders, Cerebrovascular Accident, Dementia and Seizures CARDIAC: Positive Myocardial Infarction and Hypercholesterolemia; Negative Cardiac Disorders or Congestive Heart Failure RESPIRATORY: Positive Asthma; Negative Chronic Obstructive Pulmonary Disease (COPD) GASTROINTESTINAL: Positive Cirrhosis, Gastrointestinal Bleed and Colorectal Cancer; Negative Gastrointestinal Disorders GENITOURINARY: Negative Genitourinary Disorders or Renal Disease REPRODUCTIVE: Negative Testicular Cancer MUSCULOSKELETAL: Negative Musculoskeletal Disorders ENDOCRINE: Negative Endocrine Disorders, Diabetes Mellitus Type 1 or Diabetes Mellitus Type 2 HEMATOLOGIC: Positive Anemia; Negative Blood Disorders or Sickle Cell Disease OTHER HISTORY: Positive Colorectal Cancer; Negative Autoimmune Disease, Blood Transfusions, Blood Transfusion Reaction, Anesthesia Reactions or Testicular Cancer Family History FAMILY HISTORY: Negative Family Psychiatric Problems, Family Respiratory Disorders, Family Cardiac Disorders, Family Gastrointestinal Problems, Family Cancer, Family Surgery or Family Anesthesia Reaction OTHER FAMILY HX: 1 uncle with colon cancer. Surgical History OTHER SURGICAL HX: As in the history of present illness Social History SMOKING STATUS: Unknown if ever smoked SUBSTANCE USE: does not use ALCOHOL LAST INTAKE: Unknown Past Medical History Comments PMH COMMENT: PMH: colon cancer s/p chemoradiation, seizure, dementia, and CVA (ischemic and hemorrhagic) Allergies: NKDA Surgical Hx: Nil Meds: Levetiracetam 500 mg twice daily, midodrine 5 mg 3 times daily, and prednisone 40 mg daily Social Hx: Previous history of heavy alcohol use, no illicit drug or smoking Occupation: Retired Exam Vital Signs Temp Pulse Resp BP Pulse Ox O2 Del Method O2 Flow Rate 97.0 F 83 21 H 91/61 95 Room Air 5 02/13/24 08:00 02/13/24 08:00 02/13/24 08:00 02/13/24 08:00 02/13/24 08:00 02/13/24 08:00 02/13/24 08:00 Narrative Exam GENERAL: Ill-appearing, cachectic elderly male, able to nod as answer to questions. HEENT: NCAT.?PEREZ. Oral mucosa is moist. Patent Nares NECK: Supple, nontender, no thyromegaly, no meningismus, no JVD, no step offs CHEST: Symmetrical, atraumatic, and with equal expansion, Nontender on palpation no deformity and no crepitus. CARDIOVASCULAR: RRR, no m/g/r LUNGS: CTAB, no w/r/r. Symmetrical chest rise. No intercostal subcostal retraction. ABDOMEN: Soft, flat, nontender. No guarding/rebound tenderness/masses. +BS EXTREMITIES: Nontender.? No edema/cyanosis.?Moves all 4 extremities well, with full ROM and good CSM. Ulcer of bilateral heals SKIN: Warm and dry, no jaundice/rashes. MSK: No lumbar or midline, no CVA, no paraspinal muscle spasm or tenderness. NEURO: alert and oriented x1.?No focal neurologic deficits. PSYCHIATRIC: following simple commands. Results Labs 02/13/24 06:19 02/13/24 17:27 Labs: Short CBC 02/13/24 Range/Units 06:19 WBC 2.1 L (3.8-10.6) Thou/mm3 Hgb 11.4 L (13.5-16.0) g/dL Hct 33.0 L (41.0-53.0) % Plt Count 217 D (140-440) Thou/mm3 BMP 02/12/24 02/13/24 13:54 06:19 Sodium 124 L 122 L Potassium 4.8 D 3.6 D Chloride 94 L 92 L Carbon Dioxide 25.3 23.7 BUN 7 L 8 L Creatinine 0.3 L 0.2 L Glucose 80 76 Calcium 7.8 L 7.8 L Liver Function 02/13/24 Range/Units 06:19 Total Bilirubin 0.7 (0.3-1.2) mg/dL AST 232 H (0-34) U/L ALT 184 H (10-49) U/L Alkaline Phosphatase 123 H D (46-116) U/L Albumin 2.8 L (3.4-4.8) gm/dL Quality Measures Quality Measures VTE prophylaxis (Heparin drip) Advance care planning discussed with:: patient Medications Home Medications and Allergies Home Medications ?Medication ?Instructions ?Recorded ?Confirmed ?Type acetaminophen 325 mg tablet 650 mg PO QID PRN Pain, Mild 02/08/24 02/08/24 History amino acids-protein hydrolysate 15 1 ea PO BID 02/08/24 02/08/24 History gram-100 kcal/30 mL oral liquid ascorbic acid (vitamin C) 500 mg 500 mg PO BID 02/08/24 02/08/24 History tablet azithromycin 250 mg tablet 250 mg PO QDAY 02/08/24 02/08/24 History azithromycin 250 mg tablet 500 mg PO QDAY 02/08/24 02/08/24 History guaifenesin 100 mg/5 mL oral liquid 200 mg PO QID PRN Cough 02/08/24 02/08/24 History ipratropium 0.5 mg-albuterol 3 mg 3 ml inhalation Q4HR PRN Shortness 02/08/24 02/08/24 History (2.5 mg base)/3 mL nebulization Of Breath Or Wheezing soln levetiracetam 100 mg/mL oral 500 mg PO BID 02/08/24 02/08/24 History solution midodrine 5 mg tablet 5 mg PO TID 02/08/24 02/08/24 History multivitamin with minerals 1 tab PO QDAY 02/08/24 02/08/24 History prednisone 20 mg tablet 40 mg PO QDAY 02/08/24 02/08/24 History prednisone 20 mg tablet 40 mg PO QDAY 02/08/24 02/08/24 History thiamine mononitrate (vit B1) 90 90 mg PO QDAY 02/08/24 02/08/24 History mg/scoop oral powder zinc 1 tab PO QDAY 02/08/24 02/08/24 History Allergies Allergy/AdvReac Type Severity Reaction Status Date / Time No Known Allergies Allergy Unverified 04/10/23 17:26 Visit Medications Acetaminophen (Acetaminophen 325 Mg Tablet) 650 mg PO Q6H PRN PRN Reason: Fever >100.4 Stop: 03/08/24 18:28 Acetaminophen (Acetaminophen Supp 650 Mg Supp) 650 mg TX Q6H PRN PRN Reason: PAIN SCALE 1-3 (mild Stop: 03/08/24 18:28 Albuterol/Ipratropium (Albuterol/Ipratropium (Duoneb) Rt Ana 3 Ml Nebu) 3 ml INH Q6HRRT [facility] Stop: 03/08/24 18:59 Last Admin: 02/13/24 07:00 Dose: 3 ml Aspirin (Aspirin 81 Mg Chew) 81 mg GT QDAY [facility] Stop: 03/14/24 08:59 Levofloxacin/Dextrose (Levaquin Ivpb) 750 mg in 150 mls @ 100 mls/hr IV QDAY JENNY Stop: 02/17/24 08:59 Last Infusion: 02/12/24 19:41 Dose: Infused Sodium Chloride (Ns) 1,000 mls @ 60 mls/hr IV .[id number] [facility] Stop: 03/13/24 08:30 Last Admin: 02/13/24 06:11 Dose: Not Given Magnesium Sulfate (Magnesium Sulfate Ivpb) 2 gm in 50 mls @ 25 mls/hr IV X1 ONE Stop: 02/13/24 09:29 Last Admin: 02/13/24 07:59 Dose: 25 mls/hr Lansoprazole (Lansoprazole 30 Mg Tab.Rap) 30 mg GT QDAY [facility] Stop: 03/14/24 08:59 Levetiracetam (Levetiracetam Inj 100 Mg/Ml Vial 5ml) 500 mg IVP BID JENNY Stop: 03/08/24 20:59 Last Admin: 02/12/24 21:09 Dose: 500 mg Multivitamins/Minerals (Multivitamin 15 Ml Udc) 15 ml NG QDAY [facility] Stop: 03/10/24 09:29 Last Admin: 02/12/24 09:56 Dose: 15 ml Ondansetron HCl (Ondansetron Inj 2 Mg/Ml Inj 2 Ml) 4 mg IV Q6H PRN; Protocol PRN Reason: NAUSEA OR VOMITING Stop: 03/08/24 18:28 Sennosides (Senna Tablet) 1 tab PO QDAY PRN; Protocol PRN Reason: constipation Stop: 03/08/24 18:28 Thiamine HCl (Thiamine Inj 100 Mg/Ml Vial 2 Ml) 100 mg IVP QDAY [facility] Stop: 03/09/24 20:14 Last Admin: 02/12/24 09:56 Dose: 100 mg Discontinued Medications Acetaminophen (Acetaminophen 325 Mg Tablet) 650 mg PO X1 ONE Stop: 02/07/24 16:11 Last Admin: 02/07/24 16:35 Dose: 650 mg Hydrocodone Bitart/Acetaminophen (Hydrocodone/Apap 10/325 Tab) 1 tab PO Q4HR PRN PRN Reason: PAIN SCALE 7-10 (Severe Stop: 02/12/24 18:28 Aspirin (Aspirin Ec 81 Mg Tabec) 81 mg PO QDAY [facility] Stop: 03/10/24 10:29 Last Admin: 02/11/24 11:33 Dose: Not Given Aspirin (Aspirin 81 Mg Chew) 81 mg NG QDAY [facility] Stop: 03/10/24 10:29 Last Admin: 02/12/24 09:56 Dose: 81 mg Atorvastatin Calcium (Atorvastatin Calcium 20 Mg Tablet) 40 mg PO HS [facility] Stop: 03/09/24 20:59 Atorvastatin Calcium (Atorvastatin Calcium 20 Mg Tablet) 40 mg PO HS [facility] Stop: 03/12/24 20:59 Last Admin: 02/11/24 20:20 Dose: 40 mg Atorvastatin Calcium (Atorvastatin Calcium 20 Mg Tablet) 40 mg GT [facility] Stop: 03/13/24 20:59 Dextrose (Dextrose 50%-Water Inj 50 Ml Syringe) 50 ml IV X1 ONE Stop: 02/08/24 12:06 Last Admin: 02/08/24 12:34 Dose: 50 ml Diphenhydramine HCl (Diphenhydramine Inj 50 Mg/Ml Vial) 25 mg IV [id number] PRN PRN Reason: MODERATE SEDATION Stop: 02/12/24 19:41 Doxycycline Hyclate (Doxycycline 100 Mg Tablet) 100 mg PO BID JENNY Stop: 02/14/24 20:59 Last Admin: 02/08/24 10:09 Dose: Not Given Doxycycline Hyclate (Doxycycline 100 Mg Tablet) 100 mg NG BID JENNY Stop: 02/14/24 20:59 Last Admin: 02/09/24 09:05 Dose: 100 mg Fentanyl Citrate (Fentanyl Cit Inj 50 Mcg/Ml Amp 2ml) 50 mcg IV Q2M PRN PRN Reason: MODERATE SEDATION Stop: 02/12/24 19:41 Heparin Sodium (Porcine) (Heparin Sod Inj 5000 Unit/Ml Vial) 4,000 unit IV X1 ONE; Protocol Stop: 02/07/24 20:25 Last Admin: 02/07/24 21:28 Dose: 4,000 unit Heparin Sodium (Porcine) (Heparin Sod Inj 5000 Unit/Ml Vial) 1,300 unit 30 unit/kg (1300 unit) IV X1 ONE Stop: 02/08/24 09:43 Last Admin: 02/08/24 09:55 Dose: 1,300 unit Heparin Sodium (Porcine) (Heparin Sod Inj 5000 Unit/Ml Vial) 1,300 unit 30 unit/kg (1300 unit) IV X1 ONE Stop: 02/08/24 16:34 Last Admin: 02/08/24 16:48 Dose: 1,300 unit Heparin Sodium (Porcine) (Heparin Sod Inj 5000 Unit/Ml Vial) 1,285 unit IVP X1 ONE Stop: 02/09/24 00:02 Last Admin: 02/09/24 00:21 Dose: 1,285 unit Heparin Sodium (Porcine) (Heparin Sod Inj 5000 Unit/Ml Vial) 1,362 unit IVP X1 ONE Stop: 02/09/24 10:08 Last Admin: 02/09/24 10:39 Dose: 1,362 unit Sodium Chloride (Ns) 1,000 mls @ 999 mls/hr IV .Q1H1M ONE Stop: 02/07/24 17:15 Last Infusion: 02/07/24 17:32 Dose: Infused Ceftriaxone Sodium/Dextrose (Rocephin/D5w 1gm Iv Premix) 50 mls @ 100 mls/hr IV X1 ONE Stop: 02/07/24 17:48 Last Infusion: 02/07/24 18:10 Dose: Infused Sodium Chloride (Ns) 1,000 mls @ 999 mls/hr IV .Q1H1M ONE Stop: 02/07/24 18:20 Piperacillin/Tazobactam/Dextrose (Zosyn) 50 mls @ 12.5 mls/hr IV Q8HR JENNY Stop: 02/15/24 05:59 Last Infusion: 02/09/24 19:33 Dose: Infused Piperacillin/Tazobactam/Dextrose (Zosyn) 50 mls @ 100 mls/hr IV X1 ONE Stop: 02/07/24 19:14 Last Infusion: 02/07/24 20:56 Dose: Infused Heparin Sodium/Dextrose (Heparin In D5w Ivpb) 25,000 unit in 250 mls @ 7.076 mls/hr IV .Q24H JENNY; Protocol Stop: 02/21/24 20:29 Last Titration: 02/11/24 16:30 Dose: Infused Sodium Chloride (Ns) 500 mls @ 999 mls/hr IV .Q31M ONE Stop: 02/07/24 21:54 Last Infusion: 02/07/24 22:38 Dose: Infused Sodium Chloride (Ns) 1,000 mls @ 75 mls/hr IV .[id number] JENNY Stop: 02/09/24 09:50 Last Infusion: 02/09/24 19:34 Dose: Infused Sodium Chloride (Ns) 500 mls @ 999 mls/hr IV .Q31M ONE Stop: 02/09/24 01:30 Last Infusion: 02/09/24 19:34 Dose: Infused Sodium Chloride (Ns) 1,000 mls @ 100 mls/hr IV .Q10H JENNY Stop: 02/10/24 08:23 Last Admin: 02/11/24 19:52 Dose: Not Given Sodium Chloride (Ns) 1,000 mls @ 100 mls/hr IV .Q10H JENNY Stop: 02/10/24 08:24 Last Admin: 02/10/24 05:12 Dose: 100 mls/hr Potassium Chloride (Kcl Ivpb) 10 meq in 100 mls @ 100 mls/hr IV Q1H [facility] Stop: 02/09/24 15:05 Last Infusion: 02/10/24 18:10 Dose: Infused Magnesium Sulfate (Magnesium Sulfate Ivpb) 2 gm in 50 mls @ 25 mls/hr IV X1 ONE Stop: 02/09/24 11:08 Last Infusion: 02/09/24 19:33 Dose: Infused Magnesium Sulfate (Magnesium Sulfate Ivpb) 2 gm in 50 mls @ 25 mls/hr IV X1 ONE Stop: 02/10/24 11:51 Last Admin: 02/10/24 10:40 Dose: 25 mls/hr Potassium Chloride (Kcl Ivpb) 10 meq in 100 mls @ 100 mls/hr IV Q1H [facility] Stop: 02/10/24 13:51 Last Admin: 02/10/24 18:00 Dose: 100 mls/hr Potassium Chloride (Kcl Ivpb) 10 meq in 100 mls @ 100 mls/hr IV Q1H [facility] Stop: 02/11/24 20:00 Last Infusion: 02/12/24 19:40 Dose: Infused Magnesium Sulfate (Magnesium Sulfate Ivpb) 4 gm in 50 mls @ 12.5 mls/hr IV X1 ONE Stop: 02/11/24 20:01 Last Infusion: 02/12/24 19:40 Dose: Infused Lansoprazole (Lansoprazole 30 Mg Tab.Rap) 40 mg PO QDAY [facility] Stop: 03/08/24 18:59 Lansoprazole (Lansoprazole 30 Mg Tab.Rap) 30 mg PO QDAY [facility] Stop: 03/08/24 18:59 Last Admin: 02/11/24 11:33 Dose: Not Given Lansoprazole (Lansoprazole 30 Mg Tab.Rap) 30 mg NG QDAY [facility] Stop: 03/08/24 18:59 Last Admin: 02/12/24 09:56 Dose: 30 mg Levetiracetam (Levetiracetam Inj 100 Mg/Ml Vial 5ml) 1,000 mg IVP X1 ONE Stop: 02/07/24 16:21 Last Admin: 02/07/24 16:34 Dose: 1,000 mg Midazolam HCl (Midazolam Inj 1 Mg/Ml Vial 2 Ml) 2 mg IV Q2M PRN PRN Reason: Moderate Sedation Stop: 02/12/24 19:41 Oxycodone/Acetaminophen (Oxycodone/Apap 5/325 Tablet) 1 tab PO Q6H PRN PRN Reason: PAIN SCALE 4-6 (Moderate Stop: 02/12/24 18:28 Pantoprazole Sodium (Pantoprazole 40 Mg Tablet) 40 mg PO QDAY JENNY Stop: 03/08/24 18:44 Last Admin: 02/07/24 22:39 Dose: Not Given Pharmacy Consult (Pha To Consult Parenteral Nutr 1 Each Each) 1 each XX PRN PRN PRN Reason: CONSULT Stop: 03/09/24 13:06 Potassium Chloride (Potassium Chloride 10% 20 Meq/15 Ml Udc) 40 meq GT X1 ONE Stop: 02/13/24 07:31 Potassium Phos/Sodium Phos (Naph,[facility] Mbdb 1 Packet (1.5 Gm)) 1 packet PO X1 ONE Stop: 02/10/24 14:17 Last Admin: 02/10/24 14:27 Dose: 1 packet Sodium Chloride (Sodium Chloride Rt 10% 15 Ml Nebu) 5 ml INH X1 ONE Stop: 02/07/24 18:37 Last Admin: 02/07/24 19:48 Dose: 5 ml Assessment & Plan Plan Summary: Mr. Rios is a 73-year-old male with past medical history of seizure, dementia, CVA, rectal cancer status post chemo who was brought in by ambulance to [facility] on for with a chief complaint of altered mental status and shortness of breath. Patient was unable to provide history, most of the history on admission was obtained from patient's family and chart review, during the course of his hospital stay cardiology was consulted due to concern of NSTEMI which on further workup showed NSTEMI type II, oncology was consulted for rectal CA due to patient's advanced disease and acute changes and GI was consulted for PEG tube placement. With the progression of hospital course patient's sodium continued to decline, acute drop noted on 02/11 from 132 to 124, patient was given IV normal saline and patient's sodium did not improve, decreased to 122 and nephrology was consulted for acute hyponatremia. Of note patient is currently being treated for extensive bilateral pneumonia. Patient is underweight with BMI of 15.7 and has PEG tube placement status post poor p.o. intake causing failure to thrive. # Acute Euvolemic hypoosmolar hyponatremia -Dropped acutely from 132 to 124 on 02/11, did not improve with IV NS, high suspicion of SIADH due to pulmonary pathology of extensive bilateral pneumonia and the use of antiseizure medications. Of note uric acid level significantly low consistent with increased ADH response. Plan: -Sodium tablet twice daily through G-tube -Fluid restriction -Monitor sodium every 4 hours -Follow urine electrolytes -Goal correction rate of sodium 4 to 6 mEq in 24 hours -Hold salt tablet if sodium overcorrected #Acute encephalopathy #Acute hypoxic respiratory failure #Severe sepsis #Klebsiella pneumonia #Hypotension #Dementia, chronic #Dysphagia #Leukopenia (improved) #Chronic normocytic anemia #Troponinemia, likely type II vs. I (resolved) #Hyperlipidemia #Cardiomyopathy #Electrolyte abnormalities #Transaminitis #Seizure #Bilateral heal ulcers #Stage II intramucosal rectal adenocarcinoma (stable) #Chronic pharyngeal dysphagia #Artificial nutrition #Hypoglycemia (resolved) #Underweight BMI 15.7 #Failure to thrive -Management per primrary team Case discussed with Attending Dr. Noah Gill PGY1 Attending Provider Attestation/Addendum Patient seen and examined with resident physician Dr. Gill. Note reviewed, agree with findings and recommendations. Asymptomatic hyponatremia in the setting of bilateral extensive pneumonia and low uric acid levels consistent with increased ADH response. Currently on free water flushes and tube feeds. Will add salt tablets and closely monitor serum sodium. Thank you Dr. Amador for allowing me to participate in the care of Mr. Rios
[2024-02-13] MEDS: LEVOFLOXACIN/D5W 750MG IVPB 750 MG/150 ML BAG 100 MG IV (09:17)
[2024-02-13] MEDS: POTASSIUM CHLORIDE 10% 20 MEQ/15 ML UDC 40 MEQ GT (09:18)
[2024-02-13] MEDS: THIAMINE INJ 100 MG/ML VIAL 2 ML IVP (09:19)
[2024-02-13] MEDS: MULTIVITAMIN 15 ML UDC NG (09:20)
[2024-02-13] MEDS: LANSOPRAZOLE 30 MG TAB.RAP.DR GT ×2 (09:20→09:21)
[2024-02-13] MEDS: levETIRAcetam INJ 100 MG/ML VIAL 5ML 500 MG IVP (09:20)
[2024-02-13] MEDS: ASPIRIN 81 MG CHEW GT (09:21)
[2024-02-13] MEDS: SODIUM CHLORIDE 1 GM TABLET GT ×2 (09:23→20:14)
--- NOTE | 2024-02-13 10:05 | ESPR_ITS ---
Documentation for date of: 02/13/24 Subjective Subjective Interval history: Patient seen at bedside this morning. Patient had no overnight events. Patient had a successful PEG tube placed yesterday Tube feeds were started. Patient's sodium today was 122, and is currently on normal saline. At this time no invasive interventions will be done as patient's family has decided to not pursue any invasive interventions at this time. Patient completed heparin drip total of 48 hours, recommend to continue aspirin, high intensity statin, and beta-anitha if blood pressure allows. Plavix 75 mg daily could also be added to regimen if there is no complications or contraindication for anticoagulation Exam Vital Signs Temp Pulse Resp BP Pulse Ox O2 Del Method O2 Flow Rate 97.0 F 83 21 H 91/61 95 Room Air 5 02/13/24 08:00 02/13/24 08:00 02/13/24 08:00 02/13/24 08:00 02/13/24 08:00 02/13/24 08:00 02/13/24 08:00 Narrative Exam General: A/O x1 (to person only), resting in bed, thin, frail male Eyes: Pupils reactive to light and EOMI. Ears: No visible ear discharge, Hearing grossly intact. Nose: No visible nasal discharge. Mouth/Throat: Moist mucous membranes, no redness, no lesions. Neck: Neck supple, no cervical lymphadenopathy. Lungs: Clearer JESUS, No accessory muscle use. Cardio: Normal S1/S2, regular rhythm, no murmurs, no JVD. Abdomen: Soft, non-tender, no palpable masses, peristalsis present, no guarding or rebound, PEG tube in place with no bleeding. Extremities: Symmetrical, no significant deformities, no peripheral edema , non-tender, peripheral pulses presents. Skin: No rashes, no lesions, warm to touch. Neuro: Able to move all extremities. Objective Labs 02/13/24 06:19 02/13/24 17:27 Labs: Laboratory Results - last 24 hr 02/12/24 02/12/24 02/13/24 05:00 13:54 06:19 WBC 2.1 L RBC 3.57 L Hgb 11.4 L Hct 33.0 L MCV 92 MCH 31.9 MCHC 34.5 RDW Std Deviation 48.1 H Plt Count 217 D Neut % (Auto) 75 Lymph % (Auto) 10 [place] % (Auto) 8 Eos % (Auto) 1 Baso % (Auto) 1 Neut # (Auto) 1.6 L Lymph # (Auto) 0.2 L [place] # (Auto) 0.2 Eos # (Auto) 0.0 Baso # (Auto) 0.0 Immature Gran # (Auto) 0.14 H Absolute Nucleated RBC 0.00 Immature Gran % 7 H Nucleated RBC % 0 Sodium 124 L 122 L Potassium 4.8 D 3.6 D Chloride 94 L 92 L Carbon Dioxide 25.3 23.7 Anion Gap 5 L 6 L BUN 7 L 8 L Creatinine 0.3 L 0.2 L Estim Creat Clear Calc 136.5 206.8 eGFR > 60 > 60 BUN/Creatinine Ratio 23 H 40 H Glucose 80 76 Calculated Osmolality 246 L 243 L Uric Acid 2.0 L Calcium 7.8 L 7.8 L Corrected Calcium 8.8 Phosphorus 3.3 Magnesium 1.7 Total Bilirubin 0.7 AST 232 H ALT 184 H Alkaline Phosphatase 123 H D Total Protein 5.8 Albumin 2.8 L Globulin 3.0 Albumin/Globulin Ratio 0.9 L Hepatitis A IgM Ab Non Reactive Hep Bs Antigen Non Reactive Hep B Core IgM Ab Non Reactive Hepatitis C Antibody Non Reactive Quality Measures Quality Measures VTE prophylaxis (Heparin drip) Advance care planning discussed with:: patient Assessment & Plan Assessment Current Active Medications: Generic Name Dose Route Start Last Admin Trade Name Freq PRN Reason Stop Dose Admin Acetaminophen 650 mg 02/07/24 18:29 Acetaminophen 325 Mg Tablet PO 03/08/24 18:28 Q6H PRN Fever >100.4 Acetaminophen 650 mg 02/07/24 18:29 Acetaminophen Supp 650 Mg Supp NH 03/08/24 18:28 Q6H PRN PAIN SCALE 1-3 (mild Albuterol/Ipratropium 3 ml 02/07/24 19:00 02/13/24 07:00 Albuterol/Ipratropium (Duoneb) Rt Ana 3 Ml Nebu INH 03/08/24 18:59 3 ml Q6HRRT JENNY Administration Aspirin 81 mg 02/13/24 09:00 02/13/24 09:21 Aspirin 81 Mg Chew GT 03/14/24 08:59 81 mg QDAY JENNY Administration Levofloxacin/Dextrose 750 mg in 150 mls @ 100 mls/hr 02/10/24 09:00 02/13/24 09:17 Levaquin Ivpb IV 12/18/24 08:59 100 mls/hr QDAY JENNY Administration Sodium Chloride 1,000 mls @ 60 mls/hr 02/12/24 08:31 02/13/24 06:11 Ns IV 03/13/24 08:30 Not Given .[id number] JENNY Lansoprazole 30 mg 02/13/24 09:00 02/13/24 09:21 Lansoprazole 30 Mg Tab.Rap.Dr GLASER 03/14/24 08:59 30 mg QDAY JENNY Administration Levetiracetam 500 mg 02/07/24 21:00 02/13/24 09:20 Levetiracetam Inj 100 Mg/Ml Vial 5ml IVP 03/08/24 20:59 500 mg BID JENNY Administration Multivitamins/Minerals 15 ml 02/09/24 09:30 02/13/24 09:20 Multivitamin 15 Ml Udc NG 03/10/24 09:29 15 ml QDAY JENNY Administration Ondansetron HCl 4 mg 02/07/24 18:29 Ondansetron Inj 2 Mg/Ml Inj 2 Ml IV 03/08/24 18:28 Q6H PRN NAUSEA OR VOMITING Protocol Sennosides 1 tab 02/07/24 18:29 Senna Tablet PO 03/08/24 18:28 QDAY PRN constipation Protocol Sodium Chloride 1 gm 02/13/24 09:15 02/13/24 09:23 Sodium Chloride 1 Gm Tablet GT 03/14/24 09:14 1 gm BID JENNY Administration Thiamine HCl 100 mg 02/08/24 20:15 02/13/24 09:19 Thiamine Inj 100 Mg/Ml Vial 2 Ml IVP 03/09/24 20:14 100 mg QDAY JENNY Administration Plan 73-year-old male with past medical history of colon cancer s/p chemoradiation, seizure, dementia, and CVA (ischemic and hemorrhagic) was admitted to the hospital on 02/07/2024 due to acute encephalopathy likely secondary to hospital- acquired pneumonia given the patient was in our hospital on December. . Elevated troponins, NSTEMI type II most likely demand ischemia ?Patient's troponin on admission were 0.678 and peaked at 2.076 before downtrending. ? EKG showed sinus tachycardia ?Last echo on January 06, 2024 had the following findings Normal LV size and function. Grade 1 diastolic dysfunction. Estimated EF 55 to 60% Normal RV size and function Mild TR. Mild AV sclerosis without stenosis. Trace AI. ?Zohreh ACS score of 124 points, 9% probability of Plan: ?Recommend to continue patient on aspirin, high intensity statin, and beta anitha if BP allows. -Recommend Plavix 75 mg daily could also be added to regimen if there is no complications or contraindication for anticoagulation -Recommend primary care team to have goals of care discussion with patient's family as condition is guarded. -Aggressively replete potassium and magnesium to keep above 4 and 2 respectively to avoid any arrhythmias. -Patient was made DNR and had PEG tube placed yesterday, started tube feeds. -As per oncologist patient is clinically likely in stage II with large primary tumor, but no regional or distant mets. Also stated the goal of chemo and radiation was comfort in terms of preventing or delaying obstruction, pain, or bleeding symptoms and since patient did not have any surgery this will work for around 1 to 2 years. Still no clear life expectancy. Patient's condition continues to be guarded, with probable underlying CAD, but will need to assess the risk of benefits of invasive workup, recommend to speak with family to discuss goals of care and wishes. - Family at this time has decided not to pursue invasive interventions, therefore no left heart cath and continue to treat him medically. 2. Acute encephalopathy 3. Acute hypoxic respiratory failure 4. Sepsis likely secondary to hospital-acquired pneumonia 5. Hospital-acquired pneumonia 6. Hypotension ?Patient initially met SIRS 4 out of 4 with leukopenia, tachycardia, tachypnea, and febrile ?Chest x-ray showed bibasilar pneumonia, given prior hospitalization last month patient is at increased risk of hospital-acquired pneumonia ? Patient has baseline dementia and is AO x 1 today (only to present) ?Patient's blood pressure has been on the lower end since admission with the lowest being 90/52, but currently is 118/75 today. ? Patient is currently on levofloxacin ? Continue current management as per primary care team 7. Leukopenia 8. Rectal cancer s/p chemoradiation ? Leukopenia mostly in the setting of chemoradiation ?WBCs 2.8 on admission ?Continue current management as per primary care team 9. Hypoosmolar hyponatremia ?Sodium 129 on admission ? This could be due to renal loss versus gastrointestinal loss versus medication induced ? Continue current management as per primary care team 10. Transaminitis ?Patient liver enzymes have been elevated since last admission ? AST 576, ALT 293, alkaline phosphatase 308 on admission ?Liver ultrasound was unremarkable ? Continue current management as per primary care team 11. Seizures 12. CVA 13. Dementia ?Recommend to continue patient's aspirin and Keppra ?Continue current management per primary care team Continue rest of management as per primary team. We are grateful to be able to participate in Mr. Rios's care. Thank you for the consult Plan of care discussed with attending Store Product Demonstrator, Dr. Cesar Mcdaniels MD PGY-1 Attending Provider Attestation/Addendum I have personally seen and examined the patient separately on the above date of service and discussed the plan of care with the resident. I reviewed the resident Dr. Laws consultation progress note and agree with the resident findings and plan in the note above and have also edited the documentation to reflect my findings and plan. Surinder Guerrero M.D. Interventional Cardiology
[2024-02-13 11:05] LABS: Sodium 122 mMol/L (136-145)
--- NOTE | 2024-02-13 11:12 | PD.ADDPROG ---
Addendum Progress Note Addendum Date of report being addended: 02/13/24 Narrative: Attending's attestation: I reviewed labs, imaging, EKG, home medications and prior available records. Face to face evaluation was performed by me. I have personally examined the patient and discussed assessment and plan with the IM team. I reviewed the resident note and agree with the plan with exceptions as below. Acute hypoxic respiratory failure Aspiration pneumonia Dementia, likely Alzheimer's type, without aggressive behavior Hyperactive delirium Hyponatremia Transaminitis Dysphagia He is on room air Continue levofloxacin for 7 days. ID is following Hepatitis panel is negative. Liver ultrasound is WNL. Continue to monitor LFTs Delirium precautions Order UA and urine lites. Hold IV fluids and do fluid restriction. Consulted nephrology: Started salt tablets. Monitor BMP. Status post PEG tube insertion. Discussed with nutrition: Resumed tube feeds.
[2024-02-13 11:36] LABS: Collection Type, Urine Clean Catch; Squamous Epithelial Cell,Urine 0 /hpf (0-5)
[2024-02-13 11:50] LABS: Bilirubin,Urine Negative (Negative); Blood,Urine 1+ (Negative); Clarity,Urine Clear (Clear/Hazy); Color,Urine Yellow (Lt Yel-Yel); Glucose, Urine Negative (Negative); Ketones,Urine 1+ (Negative); Leukocyte Esterase,Urine Negative (Negative); Nitrite,Urine Negative (Negative); Protein,Urine Trace (Neg - Trace); RBC,Urine 10 /hpf (0-3); WBC,Urine 1 /hpf (0-5)
[2024-02-13 12:02] LABS: Chloride,Urine Random 44.7 mMol/L (55.0-125.0); Creatinine,Random Urine 52 mg/dL (30-125); Potassium,Urine Random 24 mMol/L (12-62); Sodium,Urine Random 22.5 mMol/L (20.0-110.0)
[2024-02-13 14:35] LABS: Sodium 124 mMol/L (136-145)
--- NOTE | 2024-02-13 17:38 | PD.IMPROG ---
Documentation for date of: 02/13/24 Subjective Subjective Interval history: PEG site looks good No drainage at the PEG site Abdomen soft nontender and benign Exam Vital Signs Temp Pulse Resp BP Pulse Ox O2 Del Method O2 Flow Rate 97.0 F 92 21 H 97/65 99 Room Air 5 02/13/24 16:00 02/13/24 16:00 02/13/24 16:00 02/13/24 16:00 02/13/24 16:00 02/13/24 12:00 02/13/24 12:00 Objective Labs 02/13/24 06:19 02/13/24 13:51 Labs: Laboratory Results - last 24 hr 02/13/24 02/13/24 02/13/24 06:19 10:30 11:25 WBC 2.1 L RBC 3.57 L Hgb 11.4 L Hct 33.0 L MCV 92 MCH 31.9 MCHC 34.5 RDW Std Deviation 48.1 H Plt Count 217 D Neut % (Auto) 75 Lymph % (Auto) 10 [place] % (Auto) 8 Eos % (Auto) 1 Baso % (Auto) 1 Neut # (Auto) 1.6 L Lymph # (Auto) 0.2 L [place] # (Auto) 0.2 Eos # (Auto) 0.0 Baso # (Auto) 0.0 Immature Gran # (Auto) 0.14 H Absolute Nucleated RBC 0.00 Immature Gran % 7 H Nucleated RBC % 0 Sodium 122 L 122 L Potassium 3.6 D Chloride 92 L Carbon Dioxide 23.7 Anion Gap 6 L BUN 8 L Creatinine 0.2 L Estim Creat Clear Calc 206.8 eGFR > 60 BUN/Creatinine Ratio 40 H Glucose 76 Calculated Osmolality 243 L Uric Acid 2.0 L Calcium 7.8 L Corrected Calcium 8.8 Phosphorus 3.3 Magnesium 1.7 Total Bilirubin 0.7 AST 232 H ALT 184 H Alkaline Phosphatase 123 H D Total Protein 5.8 Albumin 2.8 L Globulin 3.0 Albumin/Globulin Ratio 0.9 L Ur Collection Type Clean Catch Urine Color Yellow Urine Clarity Clear Urine pH 6.0 Ur Specific [place] 1.020 Urine Protein Trace Urine Glucose (UA) Negative Urine Ketones 1+ A Urine Blood 1+ A Urine Nitrite Negative Urine Bilirubin Negative Urine Urobilinogen (Auto) 2.0 Ur Leukocyte Esterase Negative Urine RBC 10 H Urine WBC 1 Ur Squamous Epith Cells 0 Urine Bacteria None Ur Random Creatinine 52 Ur Random Sodium 22.5 Ur Random Potassium 24 Ur Random Chloride 44.7 L 02/13/24 13:51 WBC RBC Hgb Hct MCV MCH MCHC RDW Std Deviation Plt Count Neut % (Auto) Lymph % (Auto) [place] % (Auto) Eos % (Auto) Baso % (Auto) Neut # (Auto) Lymph # (Auto) [place] # (Auto) Eos # (Auto) Baso # (Auto) Immature Gran # (Auto) Absolute Nucleated RBC Immature Gran % Nucleated RBC % Sodium 124 L Potassium Chloride Carbon Dioxide Anion Gap BUN Creatinine Estim Creat Clear Calc eGFR BUN/Creatinine Ratio Glucose Calculated Osmolality Uric Acid Calcium Corrected Calcium Phosphorus Magnesium Total Bilirubin AST ALT Alkaline Phosphatase Total Protein Albumin Globulin Albumin/Globulin Ratio Ur Collection Type Urine Color Urine Clarity Urine pH Ur Specific [place] Urine Protein Urine Glucose (UA) Urine Ketones Urine Blood Urine Nitrite Urine Bilirubin Urine Urobilinogen (Auto) Ur Leukocyte Esterase Urine RBC Urine WBC Ur Squamous Epith Cells Urine Bacteria Ur Random Creatinine Ur Random Sodium Ur Random Potassium Ur Random Chloride Impressions Impression: # Failure to thrive # Status postplacement of a PEG tube for enteral hyperalimentation Assessment & Plan A&P Narrative 73-year-old male with past medical history of colon cancer s/p chemoradiation, seizure, dementia, and CVA (ischemic and hemorrhagic) was admitted to the hospital on 02/07/2024 due to acute encephalopathy likely secondary to hospital-acquired pneumonia given the patient was in our hospital on December. 1. Elevated troponins, NSTEMI type II most likely demand ischemia ?Patient's troponin on admission were 0.678 and peaked at 2.076 before downtrending. ? EKG showed sinus tachycardia ?Last echo on January 06, 2024 had the following findings Normal LV size and function. Grade 1 diastolic dysfunction. Estimated EF 55 to 60% Normal RV size and function Mild TR. Mild AV sclerosis without stenosis. Trace AI. ?Zohreh ACS score of 124 points, 9% probability of Plan: ?Recommend to continue patient on aspirin, high intensity statin, and beta anitha if BP allows. -Recommend primary care team to have goals of care discussion with patient's family as condition is guarded. -Aggressively replete potassium and magnesium to keep above 4 and 2 respectively to avoid any arrhythmias. -Patient was made DNR and will have PEG tube placed today -As per oncologist patient is clinically likely in stage II with large primary tumor, but no regional or distant mets. Also stated the goal of chemo and radiation was comfort in terms of preventing or delaying obstruction, pain, or bleeding symptoms and since patient did not have any surgery this will work for around 1 to 2 years. Still no clear life expectancy. Patient's condition continues to be guarded, with probable underlying CAD, but will need to assess the risk of benefits of invasive workup, recommend to speak with family to discuss goals of care and wishes. - Family at this time has decided not to pursue invasive interventions, therefore no left heart cath and continue to treat him medically. - Stop heparin drip after 48 hours and continue aspirin intensity statin and beta-anitha if blood pressure is permissible. Patient can also be placed on dual antiplatelets Plavix 75 mg once daily if there is no complications for anticoagulation. 2. Acute encephalopathy 3. Acute hypoxic respiratory failure 4. Sepsis likely secondary to hospital-acquired pneumonia 5. Hospital-acquired pneumonia 6. Hypotension ?Patient initially met SIRS 4 out of 4 with leukopenia, tachycardia, tachypnea, and febrile ?Chest x-ray showed bibasilar pneumonia, given prior hospitalization last month patient is at increased risk of hospital-acquired pneumonia ? Patient has baseline dementia and is AO x 1 today (only to present) ?Patient's blood pressure has been on the lower end since admission with the lowest being 90/52, but currently is 118/75 today. ? Patient is currently on levofloxacin ? Continue current management as per primary care team 7. Leukopenia 8. Rectal cancer s/p chemoradiation ? Leukopenia mostly in the setting of chemoradiation ?WBCs 2.8 on admission ?Continue current management as per primary care team 9. Hypoosmolar hyponatremia ?Sodium 129 on admission ? This could be due to renal loss versus gastrointestinal loss versus medication induced ? Continue current management as per primary care team 10. Transaminitis ?Patient liver enzymes have been elevated since last admission ? AST 576, ALT 293, alkaline phosphatase 308 on admission ?Liver ultrasound was unremarkable ? Continue current management as per primary care team 11. Seizures 12. CVA 13. Dementia ?Recommend to continue patient's aspirin and Keppra ?Continue current management per primary care team Management of rest of the medical conditions as per primary team and other consultants. Thank you for the consult and allowing me to participate in the care of the patient. Cardiology will continue to follow. Surinder Guerrero M.D. Interventional Cardiology Time Spent With Patient Time: Total time spent is greater than 50% in coordination of care (as documented) at patient's floor/unit and/or counseling patient:
[2024-02-13 17:55] LABS: Sodium 125 mMol/L (136-145)
[2024-02-13] MEDS: levETIRAcetam LIQD 500 MG/5 ML UDC GT (20:14)
[2024-02-13 22:21] LABS: Sodium 127 mMol/L (136-145)
[2024-02-14] VITALS (9 sets, daily range): BP systolic 107–129; BP diastolic 66–87; PULSE 65–106; RESP 16–98; TEMP 36.1–36.6; O2SAT 94–100; BMI 16.7
[2024-02-14 03:44] LABS: Basophils % (Auto) 0 % (0-2.5); Eosinophils % (Auto) 0 % (0-10); Hematocrit 33.1 % (41.0-53.0); Hemoglobin 11.4 g/dL (13.5-16.0); Immature Granulocytes % (Auto) 3 % (0-0); Lymphocytes # (Auto) 0.2 Thou/mm3 (1.0-4.8); Lymphocytes % (Auto) 7 % (10-50); Mean Corpuscular HGB Conc 34.4 g/dl (31.0-37.0); Mean Corpuscular Hemoglobin 31.4 pg (25.0-35.0); Mean Corpuscular Volume 91 fL (80-100); Monocytes # (Auto) 0.2 Thou/mm3 (0.0-0.8); Monocytes % (Auto) 7 % (0-12); Neutrophils # (Auto) 2.7 Thou/mm3 (1.8-7.7); Neutrophils % (Auto) 83 % (37-80); Nucleated Red Blood Cell % 0 /100 WBC (0); Platelet Count 247 Thou/mm3 (140-440); RDW Standard Deviation 48.4 fL (35.1-43.9); Red Blood Count 3.63 Miln/mm3 (4.50-5.90); White Blood Count 3.3 Thou/mm3 (3.8-10.6)
[2024-02-14 03:58] LABS: Albumin, Serum 2.8 gm/dL (3.4-4.8); Anion Gap 5 (7-16); BUN/Creatinine Ratio 23 Ratio (12-20); Blood Urea Nitrogen 7 mg/dL (9-23); Calcium 7.7 mg/dL (8.3-10.6); Calcium (Corrected) 8.7 mg/dL (8.5-10.1); Carbon Dioxide 26.7 mMol/L (20.0-31.0); Chloride 94 mMol/L (98-107); Creatinine (Component) 0.3 mg/dL (0.6-1.3); Estimated Creatinine Clearance 137.9 mL/min (>60); Glucose 109 mg/dL (74-106); Osmolality,Calculated 252 (275-295); Phosphorous 2.7 mg/dL (2.4-5.1); Potassium 4.3 mMol/L (3.4-5.1); Sodium 126 mMol/L (136-145); eGFR > 60 See Note
[2024-02-14] MEDS: ALBUTEROL/IPRATROPIUM (Duoneb) RT SOL 3 ML NEBU INH ×3 (06:39→18:29)
[2024-02-14 07:36] LABS: Sodium 127 mMol/L (136-145)
[2024-02-14] MEDS: levETIRAcetam LIQD 500 MG/5 ML UDC GT ×2 (08:02→21:12)
[2024-02-14] MEDS: ASPIRIN 81 MG CHEW GT (08:02)
[2024-02-14] MEDS: THIAMINE INJ 100 MG/ML VIAL 2 ML IVP (08:03)
[2024-02-14] MEDS: LANSOPRAZOLE 30 MG TAB.RAP.DR GT (08:03)
[2024-02-14] MEDS: MULTIVITAMIN 15 ML UDC NG (08:03)
[2024-02-14] MEDS: LEVOFLOXACIN 250 MG TABLET 750 MG GT (08:03)
[2024-02-14] MEDS: SODIUM CHLORIDE 1 GM TABLET GT ×2 (08:03→21:12)
--- NOTE | 2024-02-14 10:22 | PD.RESPRO ---
Documentation for date of: 02/14/24 Subjective Subjective Interval history: Mr. Rios is a 73-year-old male with past medical history of seizure, dementia, CVA, rectal cancer status post chemo who was brought in by ambulance to [facility] on for with a chief complaint of altered mental status and shortness of breath. Patient was unable to provide history, most of the history on admission was obtained from patient's family and chart review, during the course of his hospital stay cardiology was consulted due to concern of NSTEMI which on further workup showed NSTEMI type II, oncology was consulted for rectal CA due to patient's advanced disease and acute changes and GI was consulted for PEG tube placement. With the progression of hospital course patient's sodium continued to decline, acute drop noted on 02/11 from 132 to 124, patient was given IV normal saline and patient's sodium did not improve, decreased to 122 and nephrology was consulted for acute hyponatremia. Of note patient is currently being treated for extensive bilateral pneumonia. Patient is underweight with BMI of 15.7 and has PEG tube placement status post poor p.o. intake causing failure to thrive. 02/12: Patient seen at bedside, patient is responsive to name, unable to provide any details. As patient was unresponsive to IV fluids, patient placed on fluid restriction and will be started on salt tablets, will continue to monitor sodium every 4 hours, will follow urine sodium, urine creatinine, urine potassium and urine chloride. Possible component of SIADH due to underlying lung pathology as patient was unresponsive to fluids. Will continue to monitor. 02/14/24: Patient was seen and examined by the bedside. No acute overnight events. Sodium improved from 122 to 127 in 24 hours plan. Continues to be on salt tablets. Urine creatinine 52, sodium 122.5, potassium 24, chloride 44.7. Patient is set to be discharged on salt tablet twice daily for 1 week, repeat CMP in 1 week. Exam Vital Signs Temp Pulse Resp BP Pulse Ox O2 Del Method O2 Flow Rate 97 F 96 23 H 110/69 95 Room Air 5 02/14/24 08:00 02/14/24 08:00 02/14/24 08:00 02/14/24 08:00 02/14/24 08:00 02/14/24 08:00 02/13/24 12:00 Narrative Exam Physical Exam General: Awake and in no acute distress. Chronically ill-appearing. Conversational. AOx1. HEENT: Normocephalic, atraumatic, mucous membranes moist. Heart: Regular rate and rhythm, no murmurs. Lungs: Clear to auscultation with no wheezing or crackles. Abdomen: Soft, nondistended, nontender, positive bowel sounds. ?PEG tube in place. No guarding or rebound tenderness. Neurologic: Alert and oriented x1, no gross neurological deficit, and patient able to move all 4 extremities. Extremities: No edema. Skin: No rash or ecchymoses. Objective Labs 02/14/24 02:45 02/14/24 10:21 Labs: Laboratory Results - last 24 hr 02/13/24 02/13/24 02/13/24 10:30 11:25 13:51 WBC RBC Hgb Hct MCV MCH MCHC RDW Std Deviation Plt Count Neut % (Auto) Lymph % (Auto) [place] % (Auto) Eos % (Auto) Baso % (Auto) Neut # (Auto) Lymph # (Auto) [place] # (Auto) Eos # (Auto) Baso # (Auto) Immature Gran # (Auto) Absolute Nucleated RBC Immature Gran % Nucleated RBC % Sodium 122 L 124 L Potassium Chloride Carbon Dioxide Anion Gap BUN Creatinine Estim Creat Clear Calc eGFR BUN/Creatinine Ratio Glucose Calculated Osmolality Calcium Corrected Calcium Phosphorus Albumin Ur Collection Type Clean Catch Urine Color Yellow Urine Clarity Clear Urine pH 6.0 Ur Specific [place] 1.020 Urine Protein Trace Urine Glucose (UA) Negative Urine Ketones 1+ A Urine Blood 1+ A Urine Nitrite Negative Urine Bilirubin Negative Urine Urobilinogen (Auto) 2.0 Ur Leukocyte Esterase Negative Urine RBC 10 H Urine WBC 1 Ur Squamous Epith Cells 0 Urine Bacteria None Ur Random Creatinine 52 Ur Random Sodium 22.5 Ur Random Potassium 24 Ur Random Chloride 44.7 L 02/13/24 02/13/24 02/14/24 17:27 21:49 02:45 WBC 3.3 L D RBC 3.63 L Hgb 11.4 L Hct 33.1 L MCV 91 MCH 31.4 MCHC 34.4 RDW Std Deviation 48.4 H Plt Count 247 D Neut % (Auto) 83 H Lymph % (Auto) 7 L [place] % (Auto) 7 Eos % (Auto) 0 Baso % (Auto) 0 Neut # (Auto) 2.7 Lymph # (Auto) 0.2 L [place] # (Auto) 0.2 Eos # (Auto) 0.0 Baso # (Auto) 0.0 Immature Gran # (Auto) 0.10 H Absolute Nucleated RBC 0.00 Immature Gran % 3 H Nucleated RBC % 0 Sodium 125 L 127 L 126 L Potassium 4.3 D Chloride 94 L Carbon Dioxide 26.7 Anion Gap 5 L BUN 7 L Creatinine 0.3 L Estim Creat Clear Calc 137.9 eGFR > 60 BUN/Creatinine Ratio 23 H Glucose 109 H Calculated Osmolality 252 L Calcium 7.7 L Corrected Calcium 8.7 Phosphorus 2.7 Albumin 2.8 L Ur Collection Type Urine Color Urine Clarity Urine pH Ur Specific [place] Urine Protein Urine Glucose (UA) Urine Ketones Urine Blood Urine Nitrite Urine Bilirubin Urine Urobilinogen (Auto) Ur Leukocyte Esterase Urine RBC Urine WBC Ur Squamous Epith Cells Urine Bacteria Ur Random Creatinine Ur Random Sodium Ur Random Potassium Ur Random Chloride 02/14/24 06:54 WBC RBC Hgb Hct MCV MCH MCHC RDW Std Deviation Plt Count Neut % (Auto) Lymph % (Auto) [place] % (Auto) Eos % (Auto) Baso % (Auto) Neut # (Auto) Lymph # (Auto) [place] # (Auto) Eos # (Auto) Baso # (Auto) Immature Gran # (Auto) Absolute Nucleated RBC Immature Gran % Nucleated RBC % Sodium 127 L Potassium Chloride Carbon Dioxide Anion Gap BUN Creatinine Estim Creat Clear Calc eGFR BUN/Creatinine Ratio Glucose Calculated Osmolality Calcium Corrected Calcium Phosphorus Albumin Ur Collection Type Urine Color Urine Clarity Urine pH Ur Specific [place] Urine Protein Urine Glucose (UA) Urine Ketones Urine Blood Urine Nitrite Urine Bilirubin Urine Urobilinogen (Auto) Ur Leukocyte Esterase Urine RBC Urine WBC Ur Squamous Epith Cells Urine Bacteria Ur Random Creatinine Ur Random Sodium Ur Random Potassium Ur Random Chloride Quality Measures Quality Measures none Advance care planning discussed with:: other Assessment & Plan Assessment Current Active Medications: Generic Name Dose Route Start Last Admin Trade Name Freq PRN Reason Stop Dose Admin Acetaminophen 650 mg 02/07/24 18:29 Acetaminophen 325 Mg Tablet PO 03/08/24 18:28 Q6H PRN Fever >100.4 Acetaminophen 650 mg 02/07/24 18:29 Acetaminophen Supp 650 Mg Supp NM 03/08/24 18:28 Q6H PRN PAIN SCALE 1-3 (mild Albuterol/Ipratropium 3 ml 02/07/24 19:00 02/14/24 06:39 Albuterol/Ipratropium (Duoneb) Rt Ana 3 Ml Nebu INH 03/08/24 18:59 3 ml [id number] JENNY Administration Aspirin 81 mg 02/13/24 09:00 02/14/24 08:02 Aspirin 81 Mg Chew GT 03/14/24 08:59 81 mg QDAY JENNY Administration Sodium Chloride 1,000 mls @ 60 mls/hr 02/12/24 08:31 02/13/24 20:58 Ns IV 03/13/24 08:30 Infused .[id number] JENNY Infusion Lansoprazole 30 mg 02/13/24 09:00 02/14/24 08:03 Lansoprazole 30 Mg Tab. GT 03/14/24 08:59 30 mg QDAY JENNY Administration Levetiracetam 500 mg 02/13/24 21:00 02/14/24 08:02 Levetiracetam Liqd 500 Mg/5 Ml Udc GT 03/14/24 20:59 500 mg BID JENNY Administration Levofloxacin 750 mg 02/14/24 09:00 02/14/24 08:03 Levofloxacin 250 Mg Tablet GT 02/16/24 09:01 750 mg QDAY JENNY Administration Multivitamins/Minerals 15 ml 02/09/24 09:30 02/14/24 08:03 Multivitamin 15 Ml Udc NG 03/10/24 09:29 15 ml QDAY JENNY Administration Ondansetron HCl 4 mg 02/07/24 18:29 Ondansetron Inj 2 Mg/Ml Inj 2 Ml IV 03/08/24 18:28 Q6H PRN NAUSEA OR VOMITING Protocol Sennosides 1 tab 02/13/24 16:05 Senna Tablet GT 03/08/24 18:28 QDAY PRN constipation Protocol Sodium Chloride 1 gm 02/13/24 09:15 02/14/24 08:03 Sodium Chloride 1 Gm Tablet GT 03/14/24 09:14 1 gm BID JENNY Administration Thiamine HCl 100 mg 02/15/24 09:00 Thiamine 100 Mg Tablet GT 03/16/24 08:59 QDAY JENNY Plan Mr. Rios is a 73-year-old male with past medical history of seizure, dementia, CVA, rectal cancer status post chemo who was brought in by ambulance to [facility] on for with a chief complaint of altered mental status and shortness of breath. Patient was unable to provide history, most of the history on admission was obtained from patient's family and chart review, during the course of his hospital stay cardiology was consulted due to concern of NSTEMI which on further workup showed NSTEMI type II, oncology was consulted for rectal CA due to patient's advanced disease and acute changes and GI was consulted for PEG tube placement. With the progression of hospital course patient's sodium continued to decline, acute drop noted on 02/11 from 132 to 124, patient was given IV normal saline and patient's sodium did not improve, decreased to 122 and nephrology was consulted for acute hyponatremia. Of note patient is currently being treated for extensive bilateral pneumonia. Patient is underweight with BMI of 15.7 and has PEG tube placement status post poor p.o. intake causing failure to thrive. #Acute Euvolemic hypoosmolar hyponatremia, improving -Dropped acutely from 132 to 124 on 02/11, did not improve with IV NS, high suspicion of SIADH due to pulmonary pathology of extensive bilateral pneumonia and the use of antiseizure medications. Of note uric acid level significantly low consistent with increased ADH response. 02/14/24: Na improved from 122 to 127 while on salt tablets and fluid restriction. Plan: -Sodium tablet twice daily through G-tube for 1 week -Fluid restriction - repeat CMP in 1 week #Acute encephalopathy #Acute hypoxic respiratory failure #Severe sepsis #Klebsiella pneumonia #Hypotension #Dementia, chronic #Dysphagia #Leukopenia (improved) #Chronic normocytic anemia #Troponinemia, likely type II vs. I (resolved) #Hyperlipidemia #Cardiomyopathy #Electrolyte abnormalities #Transaminitis #Seizure #Bilateral heal ulcers #Stage II intramucosal rectal adenocarcinoma (stable) #Chronic pharyngeal dysphagia #Artificial nutrition #Hypoglycemia (resolved) #Underweight BMI 15.7 #Failure to thrive -Management per primary team Plan of care discussed with attending Dr. Zamora. Samina Ireland MD, PGY 1. Attending Provider Attestation/Addendum Patient seen and examined with resident physician . Note reviewed, agree with findings and recommendations. Patient currently seen in telemetry. He has a G-tube. Sodium improved to 127. Renal henderson stable for discharge on salt tablets
--- NOTE | 2024-02-14 10:46 | PD.RESPRO ---
Documentation for date of: 02/14/24 Subjective Subjective Interval history: Patient seen at bedside this morning. Patient had no overnight events. More alert today, but still AO x 1 (only to person). Patient's sodium today was 126 At this time no invasive interventions will be done as patient's family has decided to not pursue any invasive interventions at this time. Patient completed heparin drip total of 48 hours, recommend to continue aspirin, high intensity statin, and beta-anitha if blood pressure allows. Plavix 75 mg daily could also be added to regimen if there is no complications or contraindication for anticoagulation Exam Vital Signs Temp Pulse Resp BP Pulse Ox O2 Del Method O2 Flow Rate 97 F 96 23 H 110/69 95 Room Air 5 02/14/24 08:00 02/14/24 08:00 02/14/24 08:00 02/14/24 08:00 02/14/24 08:00 02/14/24 08:00 02/13/24 12:00 Narrative Exam General: A/O x1 (to person only), resting in bed, thin, frail male Eyes: Pupils reactive to light and EOMI. Ears: No visible ear discharge, Hearing grossly intact. Nose: No visible nasal discharge. Mouth/Throat: Moist mucous membranes, no redness, no lesions. Neck: Neck supple, no cervical lymphadenopathy. Lungs: Clearer JESUS, No accessory muscle use. Cardio: Normal S1/S2, regular rhythm, no murmurs, no JVD. Abdomen: Soft, non-tender, no palpable masses, peristalsis present, no guarding or rebound, PEG tube in place with no bleeding. Extremities: Symmetrical, no significant deformities, no peripheral edema , non-tender, peripheral pulses presents. Skin: No rashes, no lesions, warm to touch. Neuro: Able to move all extremities. Objective Labs 02/14/24 02:45 02/14/24 10:21 Labs: Laboratory Results - last 24 hr 02/13/24 02/13/24 02/13/24 10:30 11:25 13:51 WBC RBC Hgb Hct MCV MCH MCHC RDW Std Deviation Plt Count Neut % (Auto) Lymph % (Auto) [place] % (Auto) Eos % (Auto) Baso % (Auto) Neut # (Auto) Lymph # (Auto) [place] # (Auto) Eos # (Auto) Baso # (Auto) Immature Gran # (Auto) Absolute Nucleated RBC Immature Gran % Nucleated RBC % Sodium 122 L 124 L Potassium Chloride Carbon Dioxide Anion Gap BUN Creatinine Estim Creat Clear Calc eGFR BUN/Creatinine Ratio Glucose Calculated Osmolality Calcium Corrected Calcium Phosphorus Albumin Ur Collection Type Clean Catch Urine Color Yellow Urine Clarity Clear Urine pH 6.0 Ur Specific [place] 1.020 Urine Protein Trace Urine Glucose (UA) Negative Urine Ketones 1+ A Urine Blood 1+ A Urine Nitrite Negative Urine Bilirubin Negative Urine Urobilinogen (Auto) 2.0 Ur Leukocyte Esterase Negative Urine RBC 10 H Urine WBC 1 Ur Squamous Epith Cells 0 Urine Bacteria None Ur Random Creatinine 52 Ur Random Sodium 22.5 Ur Random Potassium 24 Ur Random Chloride 44.7 L 02/13/24 02/13/24 02/14/24 17:27 21:49 02:45 WBC 3.3 L D RBC 3.63 L Hgb 11.4 L Hct 33.1 L MCV 91 MCH 31.4 MCHC 34.4 RDW Std Deviation 48.4 H Plt Count 247 D Neut % (Auto) 83 H Lymph % (Auto) 7 L [place] % (Auto) 7 Eos % (Auto) 0 Baso % (Auto) 0 Neut # (Auto) 2.7 Lymph # (Auto) 0.2 L [place] # (Auto) 0.2 Eos # (Auto) 0.0 Baso # (Auto) 0.0 Immature Gran # (Auto) 0.10 H Absolute Nucleated RBC 0.00 Immature Gran % 3 H Nucleated RBC % 0 Sodium 125 L 127 L 126 L Potassium 4.3 D Chloride 94 L Carbon Dioxide 26.7 Anion Gap 5 L BUN 7 L Creatinine 0.3 L Estim Creat Clear Calc 137.9 eGFR > 60 BUN/Creatinine Ratio 23 H Glucose 109 H Calculated Osmolality 252 L Calcium 7.7 L Corrected Calcium 8.7 Phosphorus 2.7 Albumin 2.8 L Ur Collection Type Urine Color Urine Clarity Urine pH Ur Specific [place] Urine Protein Urine Glucose (UA) Urine Ketones Urine Blood Urine Nitrite Urine Bilirubin Urine Urobilinogen (Auto) Ur Leukocyte Esterase Urine RBC Urine WBC Ur Squamous Epith Cells Urine Bacteria Ur Random Creatinine Ur Random Sodium Ur Random Potassium Ur Random Chloride 02/14/24 06:54 WBC RBC Hgb Hct MCV MCH MCHC RDW Std Deviation Plt Count Neut % (Auto) Lymph % (Auto) [place] % (Auto) Eos % (Auto) Baso % (Auto) Neut # (Auto) Lymph # (Auto) [place] # (Auto) Eos # (Auto) Baso # (Auto) Immature Gran # (Auto) Absolute Nucleated RBC Immature Gran % Nucleated RBC % Sodium 127 L Potassium Chloride Carbon Dioxide Anion Gap BUN Creatinine Estim Creat Clear Calc eGFR BUN/Creatinine Ratio Glucose Calculated Osmolality Calcium Corrected Calcium Phosphorus Albumin Ur Collection Type Urine Color Urine Clarity Urine pH Ur Specific [place] Urine Protein Urine Glucose (UA) Urine Ketones Urine Blood Urine Nitrite Urine Bilirubin Urine Urobilinogen (Auto) Ur Leukocyte Esterase Urine RBC Urine WBC Ur Squamous Epith Cells Urine Bacteria Ur Random Creatinine Ur Random Sodium Ur Random Potassium Ur Random Chloride Quality Measures Quality Measures none Advance care planning discussed with:: patient Assessment & Plan Assessment Current Active Medications: Generic Name Dose Route Start Last Admin Trade Name Freq PRN Reason Stop Dose Admin Acetaminophen 650 mg 02/07/24 18:29 Acetaminophen 325 Mg Tablet PO 03/08/24 18:28 Q6H PRN Fever >100.4 Acetaminophen 650 mg 02/07/24 18:29 Acetaminophen Supp 650 Mg Supp MT 03/08/24 18:28 Q6H PRN PAIN SCALE 1-3 (mild Albuterol/Ipratropium 3 ml 02/07/24 19:00 02/14/24 06:39 Albuterol/Ipratropium (Duoneb) Rt Ana 3 Ml Nebu INH 03/08/24 18:59 3 ml Q6HRRT JENNY Administration Aspirin 81 mg 02/13/24 09:00 02/14/24 08:02 Aspirin 81 Mg Chew GT 03/14/24 08:59 81 mg QDAY JENNY Administration Sodium Chloride 1,000 mls @ 60 mls/hr 02/12/24 08:31 02/13/24 20:58 Ns IV 03/13/24 08:30 Infused .[id number] JENNY Infusion Lansoprazole 30 mg 02/13/24 09:00 02/14/24 08:03 Lansoprazole 30 Mg Tab.Rap. GT 03/14/24 08:59 30 mg QDAY JENNY Administration Levetiracetam 500 mg 02/13/24 21:00 02/14/24 08:02 Levetiracetam Liqd 500 Mg/5 Ml Udc GT 03/14/24 20:59 500 mg BID JENNY Administration Levofloxacin 750 mg 02/14/24 09:00 02/14/24 08:03 Levofloxacin 250 Mg Tablet GT 02/16/24 09:01 750 mg QDAY JENNY Administration Multivitamins/Minerals 15 ml 02/09/24 09:30 02/14/24 08:03 Multivitamin 15 Ml Udc NG 03/10/24 09:29 15 ml QDAY JENNY Administration Ondansetron HCl 4 mg 02/07/24 18:29 Ondansetron Inj 2 Mg/Ml Inj 2 Ml IV 03/08/24 18:28 Q6H PRN NAUSEA OR VOMITING Protocol Sennosides 1 tab 02/13/24 16:05 Senna Tablet GT 03/08/24 18:28 QDAY PRN constipation Protocol Sodium Chloride 1 gm 02/13/24 09:15 02/14/24 08:03 Sodium Chloride 1 Gm Tablet GT 03/14/24 09:14 1 gm BID JENNY Administration Thiamine HCl 100 mg 02/15/24 09:00 Thiamine 100 Mg Tablet GT 03/16/24 08:59 QDAY JENNY Plan 73-year-old male with past medical history of colon cancer s/p chemoradiation, seizure, dementia, and CVA (ischemic and hemorrhagic) was admitted to the hospital on 02/07/2024 due to acute encephalopathy likely secondary to hospital-acquired pneumonia given the patient was in our hospital on December. 1. Elevated troponins, NSTEMI type II most likely demand ischemia ?Patient's troponin on admission were 0.678 and peaked at 2.076 before downtrending. ? EKG showed sinus tachycardia ?Last echo on January 06, 2024 had the following findings Normal LV size and function. Grade 1 diastolic dysfunction. Estimated EF 55 to 60% Normal RV size and function Mild TR. Mild AV sclerosis without stenosis. Trace AI. ?Zohreh ACS score of 124 points, 9% probability of Plan: ?Recommend to continue patient on aspirin, high intensity statin, and beta anitha if BP allows. -Recommend Plavix 75 mg daily could also be added to regimen if there is no complications or contraindication for anticoagulation -Recommend primary care team to have goals of care discussion with patient's family as condition is guarded. -Aggressively replete potassium and magnesium to keep above 4 and 2 respectively to avoid any arrhythmias. -Patient was made DNR and had PEG tube placed yesterday, started tube feeds. -As per oncologist patient is clinically likely in stage II with large primary tumor, but no regional or distant mets. Also stated the goal of chemo and radiation was comfort in terms of preventing or delaying obstruction, pain, or bleeding symptoms and since patient did not have any surgery this will work for around 1 to 2 years. Still no clear life expectancy. Patient's condition continues to be guarded, with probable underlying CAD, but will need to assess the risk of benefits of invasive workup, recommend to speak with family to discuss goals of care and wishes. - Family at this time has decided not to pursue invasive interventions, therefore no left heart cath and continue to treat him medically. 2. Acute encephalopathy 3. Acute hypoxic respiratory failure 4. Sepsis likely secondary to hospital-acquired pneumonia 5. Hospital-acquired pneumonia 6. Hypotension ?Patient initially met SIRS 4 out of 4 with leukopenia, tachycardia, tachypnea, and febrile ?Chest x-ray showed bibasilar pneumonia, given prior hospitalization last month patient is at increased risk of hospital-acquired pneumonia ? Patient has baseline dementia and is AO x 1 today (only to present) ?Patient's blood pressure has been on the lower end since admission with the lowest being 90/52, but currently is 118/75 today. ? Patient is currently on levofloxacin ? Continue current management as per primary care team 7. Leukopenia 8. Rectal cancer s/p chemoradiation ? Leukopenia mostly in the setting of chemoradiation ?WBCs 2.8 on admission ?Continue current management as per primary care team 9. Hypoosmolar hyponatremia ?Sodium 129 on admission ? This could be due to renal loss versus gastrointestinal loss versus medication induced ? Continue current management as per primary care team 10. Transaminitis ?Patient liver enzymes have been elevated since last admission ? AST 576, ALT 293, alkaline phosphatase 308 on admission ?Liver ultrasound was unremarkable ? Continue current management as per primary care team 11. Seizures 12. CVA 13. Dementia ?Recommend to continue patient's aspirin and Keppra ?Continue current management per primary care team Continue rest of management as per primary team. We are grateful to be able to participate in Mr. Rios's care. Thank you for the consult Plan of care discussed with attending Sammying Machine Operator, Dr. Cesar Mcdaniels MD PGY-1 Attending Provider Attestation/Addendum I have personally seen and examined the patient separately on the above date of service and discussed the plan of care with the resident. I reviewed the resident Dr. Laws consultation progress note and agree with the resident findings and plan in the note above and have also edited the documentation to reflect my findings and plan. Surinder Guerrero M.D. Interventional Cardiology
[2024-02-14 10:56] LABS: Sodium 126 mMol/L (136-145)
--- NOTE | 2024-02-14 12:55 | ESDS_ITS ---
Planned Discharge Date 02/14/24 DS: Providers Provider Date of admission: 02/07/24 18:30 Primary care physician: Physician No Primary/Family Admitting Provider: Syed St DO Attending Provider on Admission: Syed St DO Consults: 02/07/24 18:36 Consult to Infectious Diseases Stat Comment: Recurrent PNA Consulting Provider: Aramis Hernandez 02/07/24 20:44 Consult to Cardiology Routine Comment: Consulting Provider: Surinder Guerrero 02/08/24 10:16 Consult to Oncology Routine Comment: Intramucosal rectal adenocarcinoma Consulting Provider: Lj Sanchez Instructions: Chart shows you've seen patient before Follows up with oncologist Dr. Oren Forde poor surgical candidate by Dr. Khanh Carlin at [facility], per chart review 02/08/24 13:09 Referral Registered Dietitian Routine Comment: Instructions: PEG TUBE INSERTION COMPLETED 02/09/24 23:30 Referral Wound Care Urgent Comment: Instructions: patient admitted from snf on 02/06, no wound referal ordered. unstageable to heel or and stage 3 to coccyx 02/10/24 08:26 Referral Speech Therapy Routine Comment: repeat swallow eval please 02/11/24 12:22 Consult to Gastroenterology Urgent Comment: PEG placement; recurrent aspiration Consulting Provider: Jayson Barraza 02/13/24 08:21 Consult to Nephrology Routine Comment: hyponatremia Consulting Provider: Carol Zamora Attending Provider on DC: Allison Cole MD Discharging Provider: Allison Cole MD DS: Diagnosis Problem List Completed Was Problem List Reviewed/Reconciled?: Yes Hospital Course Hospital Course Hospital course: This is a 73-year-old male with PMHx of seizure, dementia, CVA, and rectal adenocarcinoma s/p chemoradiation, presented with AMS, admitted for acute encephalopathy 2/2 sepsis pneumonia. Sputum culture grew Klebsiella pneumonia, she continued on LEVAQUIN per sensitivity. ID concurs, added IgG given recurrent pneumonia which is currently pending. Cocci IgM was negative Cardiology was following for NSTEMI type II, and hx of ischemic cardiomyopathy, patient started on PLAVIX, METOPROLOL, ASPIRIN and ATORVASTATIN. Risk of bleed discussed with patient and patient's sister at bedside. Patient and family agreed prior to starting medication. Nephrology is following for hyponatremia, which is corrected with fluid restrictions, IV fluid and salt tablets. Sodium 127 at the time of discharge. Patient will follow-up with nephrology in 1 week, and will have renal labs completed for his next appointment. Presented with worsening dysphagia, evaluated by speech, deemed unsafe for p.o. feed. He underwent PEG tube placement with GI, will continue PEG tube feed as instructed by dietitian. Patient, on room air, and stable at the time of discharge, he will discharge to SNF. Initially PATIENT INSTRUCTIONS: * Follow-up with PCP within 1 week of discharge, discussed scheduling colonoscopy. * Follow-up with oncology, Dr. Sanchez, within 1 week of discharge for rectal adenocarcinoma * Follow-up with nephrology, Dr. Zamora, within 1 week of discharge, please bring renal labs to appointment. * Follow-up with cardiology, Dr. Guerrero within 1 week of discharge * Return to Emergency Room if symptoms persist, worsen, or new symptoms develop. * Continue taking medications as prescribed below. CONTINUE taking the following medications: ? PLAVIX 75 mg daily ? METOPROLOL XL 50 mg daily ? ATORVASTATIN 80 mg daily at night ? ASPIRIN 81 mg daily ? LEVOFLOXACIN 750 mg daily for 2 more days ? KEPPRA 500 mg daily ? Continue tube feed through PEG tube as instructed ADMISSION DIAGNOSES: Acute encephalopathy (resolved) Acute hypoxic respiratory failure (improving) Severe sepsis (improving) Klebsiella pneumonia Hypotension (improving) Dementia, chronic Underweight BMI 15.7 Failure to thrive Dysphagia s/p PEG tube placement Hyponatremia Leukopenia (improved) Chronic normocytic anemia Troponinemia, likely type II vs. I (resolved) Hyperlipidemia Cardiomyopathy Electrolyte abnormalities Transaminitis Seizure Bilateral heal ulcers Stage II intramucosal rectal adenocarcinoma (stable) Patient case was discussed with attending, Dr. Alma Rosa MD and senior resident Dr. Farris. Allison Cole DO PGYI Time Spent with Patient Time attestation: Total time spent providing and/or coordinating discharge services: Greater than 35 minutes. Exam Vital Signs Temp Pulse Resp BP Pulse Ox O2 Del Method O2 Flow Rate 97 F 92 20 110/69 99 Room Air 5 02/14/24 08:00 02/14/24 12:15 02/14/24 12:15 02/14/24 08:00 02/14/24 12:15 02/14/24 08:00 02/13/24 12:00 Narrative Exam Gen: Elderly male, appears chronically ill, pleasant but confused HEENT: NCAT, PERRLA, MMM, no LAD noted CVS: normal S1, S2. RRR. No MRG Resp: CTA B/L with occasional rhonchi Abd: soft, non-tender, non-distended. BS+ in all 4 quadrants. PEG tube and abd binder noted MSK: Moves all extremities, no edema noted. Ulcers at B/L heels Neuro: CN II-XII grossly intact. Does not follow all commands Discharge Plan Plan Patient Disposition: Xfer Skilled Nsg Fac (SNF) Patient condition on transfer: Stable Prescriptions/Referrals Prescriptions/Med Rec: New clopidogrel [Plavix] 75 mg tablet 75 mg PO QDAY 30 Days Qty: 30 0RF metoprolol succinate 50 mg tablet extended release 24 hr 50 mg PO QDAY 30 Days Qty: 30 0RF levofloxacin 250 mg/10 mL solution 750 mg feeding tube QDAY 2 Days Qty: 60 0RF Continued aspirin 81 mg Tablet,Delayed Release (Dr/Ec) 81 mg PO QDAY 30 Days Qty: 30 0RF atorvastatin 80 mg tablet 40 mg PO QPM Qty: 30 0RF acetaminophen 325 mg Tablet 650 mg PO QID PRN (Reason: Pain, Mild) Rx Instructions: elevated temp, mild pain guaifenesin 100 mg/5 mL Liquid 200 mg PO QID PRN (Reason: Cough) ipratropium-albuterol 0.5 mg-3 mg(2.5 mg base)/3 mL Solution For Nebulization 3 ml INHALATION Q4HR PRN (Reason: Shortness Of Breath Or Wheezing) multivitamin with minerals Tablet 1 tab PO QDAY zinc Tablet,Chewable 1 tab PO QDAY Rx Instructions: for wound supplement for 14 days levetiracetam 100 mg/mL Solution 500 mg PO BID Rx Instructions: may be mixed with applesauced for thickening amino acids-protein hydrolys 15-100 gram-kcal/30 mL Liquid 1 ea PO BID Rx Instructions: for wound supplement for 60 days, start 01/29/24, end 03/29/24 thiamine mononitrate (vit B1) 90 mg/scoop Powder 90 mg PO QDAY Discontinued azithromycin 250 mg Tablet 500 mg PO QDAY Rx Instructions: for infecttion for 1 day. start 02/08/24, end 02/09/24 azithromycin 250 mg Tablet 250 mg PO QDAY Rx Instructions: start on day 2 of therapy, for infection for 4 days, start 02/09/24, end 02/13/24 ascorbic acid (vitamin C) 500 mg Tablet 500 mg PO BID Rx Instructions: for wound supplement for 60 days, started 01/29/24, end 03/29/24 prednisone 20 mg Tablet 40 mg PO QDAY Rx Instructions: for wheezing for 5 days prednisone 20 mg Tablet 40 mg PO QDAY midodrine 5 mg Tablet 5 mg PO TID Rx Instructions: for low blood pressure hold if SBP is more than 110 Referrals: No Primary/Family,Physician [Primary Care Provider] - Patient/Caregiver Discharge Instructions Discharge Activity: resume usual activities Other Discharge Activity Instructions:: Follow-up with PCP within 1 week of jeffrey michele, discussed scheduling colonoscopy. Follow-up with oncology, Dr. Sanchez, within 1 week of discharge for rectal adenocarcinoma Follow-up with cardiology, Dr. Guerrero, within 1-2 weeks of discharge Follow-up with nephrology, Dr. Zamora, within 1 week of discharge, please bring renal labs to appointment. Return to Emergency Room if symptoms persist, worsen, or new symptoms develop. Continue taking medications as prescribed below. CONTINUE taking the following medications: ? PLAVIX 75 mg daily ? METOPROLOL XL 50 mg daily ? ATORVASTATIN 80 mg daily at night ? ASPIRIN 81 mg daily ? LEVOFLOXACIN 750 mg daily for 2 more days ? KEPPRA 500 mg twice daily ? Continue tube feed through PEG tube as instructed Education Materials: Anemia, Stroke Prevention Eating Healthy Print Language: Divehi Activity Restrictions/Additional Instructions: Follow-up with Dr. Zamora in 2 weeks- tele appt - [phone] Renal panel in 2 weeks Stand Alone Forms: Raine Award Info., Patient Portal Info Letter Discharge Order Discharge Orders: Discharge (Routine); Ordered 02/14/24 Ordered By: Allison Cole Quality Discharge Quality Measures VTE prophylaxis Attestestation MD Attestation I have discussed and was present for the essential components of the discharge history, physical examination, diagnosis, and discharge treatment plan with the resident. I agree with the patient's discharge care as documented by the resident and amended herein by me. Nirav St, . The patient understood all discharge instructions, all questions were answered satisfactorily. The patient was instructed to return to the Emergency Department is symptoms worsened or persisted. Patient was stable, afebrile, tolerating tube feeds at time of discharge. Although this document has been carefully reviewed, there may still be some phonetic and other typographical errors. These errors are purely grammatical due to imperfections in the software program and should not be construed in any way to compromise the substance of the patient's medical care during this visit.
--- NOTE | 2024-02-14 14:51 | PC.SS ---
[employer] called [facility] to set up transportation for pt, comfiration code is #[id number], [facility].
--- NOTE | 2024-02-14 15:12 | PC.SS ---
[facility] pt now having a peg tube.
--- NOTE | 2024-02-14 15:48 | PC.SS ---
Jimena from [facility] called [employer] and stated that the reason why they could not take the pt back was because [facility] does not currently have the feeding supplies to accommodate pt, per jimena FABY is sick right now and will follow up tmrw to see if they can accommodate pt. rn support services to follow up.
--- NOTE | 2024-02-14 15:58 | ESPR_ITS ---
Documentation for date of: 02/14/24 Subjective Subjective Interval history: No acute overnight events. Patient appears at baseline. Family, sister, was at bedside, feel patient is doing better. Denies fever, chills, headaches, chest pain, sob, cough, GI or urinary symptoms. Exam Vital Signs Temp Pulse Resp BP Pulse Ox O2 Del Method O2 Flow Rate 97.7 F 92 20 129/74 99 Room Air 5 02/14/24 12:00 02/14/24 12:15 02/14/24 12:02/14/24 12:00 02/14/24 12:02/14/24 12:00 02/13/24 12:00 Narrative Exam Gen: Elderly male, appears chronically ill, pleasant but confused HEENT: NCAT, PERRLA, MMM, no LAD noted CVS: normal S1, S2. RRR. No MRG Resp: CTA B/L with occasional rhonchi Abd: soft, non-tender, non-distended. BS+ in all 4 quadrants. PEG tube and abd binder noted MSK: Moves all extremities, no edema noted. Ulcers at B/L heels Neuro: CN II-XII grossly intact. Does not follow all commands Objective Labs 02/16/24 05:28 02/16/24 14:48 Labs: Laboratory Results - last 24 hr 02/13/24 02/13/24 02/14/24 17:27 21:49 02:45 WBC 3.3 L D RBC 3.63 L Hgb 11.4 L Hct 33.1 L MCV 91 MCH 31.4 MCHC 34.4 RDW Std Deviation 48.4 H Plt Count 247 D Neut % (Auto) 83 H Lymph % (Auto) 7 L Island % (Auto) 7 Eos % (Auto) 0 Baso % (Auto) 0 Neut # (Auto) 2.7 Lymph # (Auto) 0.2 L Island # (Auto) 0.2 Eos # (Auto) 0.0 Baso # (Auto) 0.0 Immature Gran # (Auto) 0.10 H Absolute Nucleated RBC 0.00 Immature Gran % 3 H Nucleated RBC % 0 Sodium 125 L 127 L 126 L Potassium 4.3 D Chloride 94 L Carbon Dioxide 26.7 Anion Gap 5 L BUN 7 L Creatinine 0.3 L Estim Creat Clear Calc 137.9 eGFR > 60 BUN/Creatinine Ratio 23 H Glucose 109 H Calculated Osmolality 252 L Calcium 7.7 L Corrected Calcium 8.7 Phosphorus 2.7 Albumin 2.8 L 02/14/24 02/14/24 06:54 10:21 WBC RBC Hgb Hct MCV MCH MCHC RDW Std Deviation Plt Count Neut % (Auto) Lymph % (Auto) Island % (Auto) Eos % (Auto) Baso % (Auto) Neut # (Auto) Lymph # (Auto) Island # (Auto) Eos # (Auto) Baso # (Auto) Immature Gran # (Auto) Absolute Nucleated RBC Immature Gran % Nucleated RBC % Sodium 127 L 126 L Potassium Chloride Carbon Dioxide Anion Gap BUN Creatinine Estim Creat Clear Calc eGFR BUN/Creatinine Ratio Glucose Calculated Osmolality Calcium Corrected Calcium Phosphorus Albumin Quality Measures Quality Measures VTE prophylaxis Advance care planning discussed with:: patient Assessment & Plan Assessment Current Active Medications: Generic Name Dose Route Start Last Admin Trade Name Freq PRN Reason Stop Dose Admin Acetaminophen 650 mg 02/07/24 18:29 Acetaminophen 325 Mg Tablet PO 03/08/24 18:28 Q6H PRN Fever >100.4 Acetaminophen 650 mg 02/07/24 18:29 Acetaminophen Supp 650 Mg Supp NC 03/08/24 18:28 Q6H PRN PAIN SCALE 1-3 (mild Albuterol/Ipratropium 3 ml 02/07/24 19:00 02/14/24 12:15 Albuterol/Ipratropium (Duoneb) Rt Ana 3 Ml Nebu INH 03/08/24 18:59 3 ml Q6HRRT JENNY Administration Aspirin 81 mg 02/13/24 09:00 02/14/24 08:02 Aspirin 81 Mg Chew GT 03/14/24 08:59 81 mg QDAY JENNY Administration Sodium Chloride 1,000 mls @ 60 mls/hr 02/12/24 08:31 02/13/24 20:58 Ns IV 03/13/24 08:30 Infused .[id number] JENNY Infusion Lansoprazole 30 mg 02/13/24 09:00 02/14/24 08:03 Lansoprazole 30 Mg Tab.Rap. GT 03/14/24 08:59 30 mg QDAY JENNY Administration Levetiracetam 500 mg 02/13/24 21:00 02/14/24 08:02 Levetiracetam Liqd 500 Mg/5 Ml Udc GT 03/14/24 20:59 500 mg BID JENNY Administration Levofloxacin 750 mg 02/14/24 09:00 02/14/24 08:03 Levofloxacin 250 Mg Tablet GT 02/16/24 09:01 750 mg QDAY JENNY Administration Multivitamins/Minerals 15 ml 02/09/24 09:30 02/14/24 08:03 Multivitamin 15 Ml Udc NG 03/10/24 09:29 15 ml QDAY JENNY Administration Ondansetron HCl 4 mg 02/07/24 18:29 Ondansetron Inj 2 Mg/Ml Inj 2 Ml IV 03/08/24 18:28 Q6H PRN NAUSEA OR VOMITING Protocol Sennosides 1 tab 02/13/24 16:05 Senna Tablet GT 03/08/24 18:28 QDAY PRN constipation Protocol Sodium Chloride 1 gm 02/13/24 09:15 02/14/24 08:03 Sodium Chloride 1 Gm Tablet GT 03/14/24 09:14 1 gm BID JENNY Administration Thiamine HCl 100 mg 02/15/24 09:00 Thiamine 100 Mg Tablet GT 03/16/24 08:59 QDAY JENNY Plan 73-year-old male with PMHx of seizure, dementia, CVA, and rectal adenocarcinoma s/p chemoradiation, presented with AMS, admitted for acute encephalopathy 2/2 sepsis pneumonia. Sputum culture grew Klebsiella pneumonia, now on LEVAQUIN per sensitivity. ID concurs, added IgG given recurrent pneumonia. Cardiology following for troponinemia, and hx of ischemic cardiomyopathy. Goals of care with family at bedside: Care with PEG tube, denied other interventions. Appreciated Cardiology, ID, and Hemeonc recommendations. Acute encephalopathy (resolved) Acute hypoxic respiratory failure (improving) Severe sepsis (improving) Klebsiella pneumonia Hypotension (improving) Dementia, chronic Presented with AMS with limited history 2/2 mentation, SOB. Admission CXR prominent bibasilar pneumonia, 4/4 sepsis, elevated PRO-ELIZABETH Currently on room air, previously required 15 L oxy mask, sepsis, resolved Patient appears at baseline S/p adequate fluid resuscitation, ZOSYN and DOXYCYCLINE (02/07 - 02/08) Sputum culture grew Klebsiella, no MRSA, negative 48 hours blood culture ID recommended p.o. levofloxacin to complete 7 days of treatment Repeat CT chest prominent bibasilar pneumonia, suspect primary vital cellular disease for cirrhosis, mild ascites, gastritis ? Continue LEVOFLOXACIN 750 mg p.o. daily (02/08 to [present]) ? DuoNebs q.6h. ? Aspiration precautions ? Oxygen PRN Underweight BMI 15.7 Failure to thrive Dysphagia s/p PEG tube placement Failed bedside swallow. Discussed with the younger sister who is the POA: Agreed to PEG tube insertion. Consulted GI. PEG tube inserted 02/11 complication. ALBUMIN 2.8 ? Continue PEG tube feeding following dietitian recommendations Hyponatremia DDx includes SIADH 02/12 sodium 122, appropriate corrected with fluid restrictions and salt tablets with nephrology following Nephrology recommended salt tablets twice daily for 1 week Sodium 126-127 ? Continue to monitor sodium ? Continue SODIUM CHLORIDE 1 tablet BID (02/13 to [present]) Leukopenia (improved) Chronic normocytic anemia WBC is borderline low Hemoglobin around baseline HIV panel negative ? Daily CBC Troponinemia, likely type II vs. I (resolved) Hyperlipidemia Cardiomyopathy Troponin 0.678, EKG sinus tachycardia, no acute ST changes Likely demand ischemia in settings of sepsis, patient asymptomatic S/p HEPARIN drip, discontinued per cardiology recommendations initially cardiology planned on cardiac catheterization however, he is not a good candidate and family did not agree to intervention ASCVD score 26.1% for cardiovascular event, 18.6% 10-year cardiovascular risk recommends mod-high sensitive statin ? Telemetry ? Continue ATORVASTATIN 40 mg HS, Escalate to 80 mg once LFTs normalize ? Continue ASPIRIN 81 mg daily ? Magnesium >2, potassium >4 Electrolyte abnormalities ? 02/08 potassium 3.0 likely due to refeeding, repleted ? 02/09 phosphorus 2.1, gave NEUTRA-PHOS Transaminitis Likely ischemic hepatopathy 2/2 sepsis, underlying hepatopathy of unknown origin Admission AST 576, ALT 293, ALP 308, improved but increased again, likely due to dehydration Baseline AST 414, ALT 277, ALP [address] in January 2024: Cholelithiasis without cholecystitis, no hepatic pathology Negative hepatitis panel from January 2024 Unable to assess for alcohol use given mentation Will likely continue improve with fluid resuscitation ? Daily CMP ? Follow-up HIV: Negative ? Continue IV fluids. Monitor LFTs. Seizure ? Resumed home KEPPRA 500 mg IV CHANGED TO G-TUBE BID ? Seizure precaution Bilateral heal ulcers ? Wound care Stage II intramucosal rectal adenocarcinoma (stable) History of rectal adenocarcinoma, s/p chemoradiation Follows up with oncologist Dr. Oren Forde poor surgical candidate by Dr. Khanh Carlin at [facility], per chart review Dr. Sanchez consulted, recommended outpatient follow-up as well as outpatient colonoscopy ? Oncology, Dr. Sanchez, following ? Patient will need colonoscopy outpatient Dietitian recommendations: Discussed with dietitian: Will use the same recommendations after PEG tube insertion * Jevity 1.5 at 10 ml/hr x 24 hrs (do not advance). If no IV fluids, water flushes 35 ml/hr * Thiamine 100mg/day for 7 days; provide first dose at least 30 minutes before starting nutrition. * Multivitamins/Minerals. * Daily labs for P, K, and Mg; replace as needed. * If no electrolytes disturbances after 24 hrs, advance 10 ml every 12 hrs to goal rate of 45 ml/hr x 24 hrs. * Continue with water flushes 35 ml/hr (or per MD Health maintenance Diet: NPO, on tube feeds Jevity 1.5 GI prophylaxis: PROTONIX DVT prophylaxis: HEPARIN Antibiotics: Levaquin CODE STATUS: Full code Disposition: Diagnostic workup and management of hyponatremia; nephro following. Continue antibiotics for pneumonia Patient case was discussed with attending, Syed St DO and senior resident Dr. Farris. Allison Cole DO PGYI Attending Provider Attestation/Addendum I have discussed and was present for the essential components of the history, physical examination, diagnosis, and treatment plan with the resident. I agree with the patient's care as documented by the resident and amended herein by me. Nirav St DO. Although this document has been carefully reviewed, there may still be some phonetic and other typographical errors. These errors are purely grammatical due to imperfections in the software program and should not be construed in any way to compromise the substance of the patient's medical care during this visit.
--- NOTE | 2024-02-14 16:01 | ESPR_ITS ---
Documentation for date of: 02/14/24 Subjective Subjective Interval history: No drainage at the PEG site Tolerating enteral feeding Exam Vital Signs Temp Pulse Resp BP Pulse Ox O2 Del Method O2 Flow Rate 97.7 F 92 20 129/74 99 Room Air 5 02/14/24 12:00 02/14/24 12:15 02/14/24 12:15 02/14/24 12:00 02/14/24 12:15 02/14/24 12:00 02/13/24 12:00 Objective Labs 02/14/24 02:45 02/14/24 10:21 Labs: Laboratory Results - last 24 hr 02/13/24 02/13/24 02/14/24 17:27 21:49 02:45 WBC 3.3 L D RBC 3.63 L Hgb 11.4 L Hct 33.1 L MCV 91 MCH 31.4 MCHC 34.4 RDW Std Deviation 48.4 H Plt Count 247 D Neut % (Auto) 83 H Lymph % (Auto) 7 L [place] % (Auto) 7 Eos % (Auto) 0 Baso % (Auto) 0 Neut # (Auto) 2.7 Lymph # (Auto) 0.2 L [place] # (Auto) 0.2 Eos # (Auto) 0.0 Baso # (Auto) 0.0 Immature Gran # (Auto) 0.10 H Absolute Nucleated RBC 0.00 Immature Gran % 3 H Nucleated RBC % 0 Sodium 125 L 127 L 126 L Potassium 4.3 D Chloride 94 L Carbon Dioxide 26.7 Anion Gap 5 L BUN 7 L Creatinine 0.3 L Estim Creat Clear Calc 137.9 eGFR > 60 BUN/Creatinine Ratio 23 H Glucose 109 H Calculated Osmolality 252 L Calcium 7.7 L Corrected Calcium 8.7 Phosphorus 2.7 Albumin 2.8 L 02/14/24 02/14/24 06:54 10:21 WBC RBC Hgb Hct MCV MCH MCHC RDW Std Deviation Plt Count Neut % (Auto) Lymph % (Auto) [place] % (Auto) Eos % (Auto) Baso % (Auto) Neut # (Auto) Lymph # (Auto) [place] # (Auto) Eos # (Auto) Baso # (Auto) Immature Gran # (Auto) Absolute Nucleated RBC Immature Gran % Nucleated RBC % Sodium 127 L 126 L Potassium Chloride Carbon Dioxide Anion Gap BUN Creatinine Estim Creat Clear Calc eGFR BUN/Creatinine Ratio Glucose Calculated Osmolality Calcium Corrected Calcium Phosphorus Albumin Impressions Impression: # Failure to thrive # Enteral hyperalimentation due to the PEG tube to continue Assessment & Plan A&P Narrative 73-year-old male with past medical history of colon cancer s/p chemoradiation, seizure, dementia, and CVA (ischemic and hemorrhagic) was admitted to the hospital on 02/07/2024 due to acute encephalopathy likely secondary to hospital- acquired pneumonia given the patient was in our hospital on December. 1. Elevated troponins, NSTEMI type II most likely demand ischemia ?Patient's troponin on admission were 0.678 and peaked at 2.076 before downtrending. ? EKG showed sinus tachycardia ?Last echo on January 06, 2024 had the following findings Normal LV size and function. Grade 1 diastolic dysfunction. Estimated EF 55 to 60% Normal RV size and function Mild TR. Mild AV sclerosis without stenosis. Trace AI. ?Zohreh ACS score of 124 points, 9% probability of Plan: ?Recommend to continue patient on aspirin, high intensity statin, and beta anitha if BP allows. -Recommend primary care team to have goals of care discussion with patient's family as condition is guarded. -Aggressively replete potassium and magnesium to keep above 4 and 2 respectively to avoid any arrhythmias. -Patient was made DNR and will have PEG tube placed today -As per oncologist patient is clinically likely in stage II with large primary tumor, but no regional or distant mets. Also stated the goal of chemo and radiation was comfort in terms of preventing or delaying obstruction, pain, or bleeding symptoms and since patient did not have any surgery this will work for around 1 to 2 years. Still no clear life expectancy. Patient's condition continues to be guarded, with probable underlying CAD, but will need to assess the risk of benefits of invasive workup, recommend to speak with family to discuss goals of care and wishes. - Family at this time has decided not to pursue invasive interventions, therefore no left heart cath and continue to treat him medically. - Stop heparin drip after 48 hours and continue aspirin intensity statin and beta-anitha if blood pressure is permissible. Patient can also be placed on dual antiplatelets Plavix 75 mg once daily if there is no complications for anticoagulation. 2. Acute encephalopathy 3. Acute hypoxic respiratory failure 4. Sepsis likely secondary to hospital-acquired pneumonia 5. Hospital-acquired pneumonia 6. Hypotension ?Patient initially met SIRS 4 out of 4 with leukopenia, tachycardia, tachypnea, and febrile ?Chest x-ray showed bibasilar pneumonia, given prior hospitalization last month patient is at increased risk of hospital-acquired pneumonia ? Patient has baseline dementia and is AO x 1 today (only to present) ?Patient's blood pressure has been on the lower end since admission with the lowest being 90/52, but currently is 118/75 today. ? Patient is currently on levofloxacin ? Continue current management as per primary care team 7. Leukopenia 8. Rectal cancer s/p chemoradiation ? Leukopenia mostly in the setting of chemoradiation ?WBCs 2.8 on admission ?Continue current management as per primary care team 9. Hypoosmolar hyponatremia ?Sodium 129 on admission ? This could be due to renal loss versus gastrointestinal loss versus medication induced ? Continue current management as per primary care team 10. Transaminitis ?Patient liver enzymes have been elevated since last admission ? AST 576, ALT 293, alkaline phosphatase 308 on admission ?Liver ultrasound was unremarkable ? Continue current management as per primary care team 11. Seizures 12. CVA 13. Dementia ?Recommend to continue patient's aspirin and Keppra ?Continue current management per primary care team Management of rest of the medical conditions as per primary team and other consultants. Thank you for the consult and allowing me to participate in the care of the patient. Cardiology will continue to follow. Surinder Guerrero M.D. Interventional Cardiology Time Spent With Patient Time: Total time spent is greater than 50% in coordination of care (as documented) at patient's floor/unit and/or counseling patient:
--- NOTE | 2024-02-14 16:57 | PC.NURSE ---
report given to Lindsey pt transfer to room 353
[2024-02-15] VITALS (12 sets, daily range): BP systolic 110–127; BP diastolic 64–94; PULSE 80–106; RESP 15–97; TEMP 36.4–36.6; O2SAT 93–100; BMI 16.3
--- NOTE | 2024-02-15 08:53 | PD.RESPRO ---
Documentation for date of: 02/15/24 Subjective Subjective Interval history: Mr. Rios is a 73-year-old male with past medical history of seizure, dementia, CVA, rectal cancer status post chemo who was brought in by ambulance to [facility] on for with a chief complaint of altered mental status and shortness of breath. Patient was unable to provide history, most of the history on admission was obtained from patient's family and chart review, during the course of his hospital stay cardiology was consulted due to concern of NSTEMI which on further workup showed NSTEMI type II, oncology was consulted for rectal CA due to patient's advanced disease and acute changes and GI was consulted for PEG tube placement. With the progression of hospital course patient's sodium continued to decline, acute drop noted on 02/11 from 132 to 124, patient was given IV normal saline and patient's sodium did not improve, decreased to 122 and nephrology was consulted for acute hyponatremia. Of note patient is currently being treated for extensive bilateral pneumonia. Patient is underweight with BMI of 15.7 and has PEG tube placement status post poor p.o. intake causing failure to thrive. 02/12: Patient seen at bedside, patient is responsive to name, unable to provide any details. As patient was unresponsive to IV fluids, patient placed on fluid restriction and will be started on salt tablets, will continue to monitor sodium every 4 hours, will follow urine sodium, urine creatinine, urine potassium and urine chloride. Possible component of SIADH due to underlying lung pathology as patient was unresponsive to fluids. Will continue to monitor. 02/14/24: Patient was seen and examined by the bedside. No acute overnight events. Sodium improved from 122 to 127 in 24 hours plan. Continues to be on salt tablets. Urine creatinine 52, sodium 122.5, potassium 24, chloride 44.7. Patient is set to be discharged on salt tablet twice daily for 1 week, repeat CMP in 1 week. 02/15/24: Patient seen at bedside. No acute overnight events, patient more alert conversational, patient is pending discharge currently on salt tablets. Anticipating discharge on salt tablets twice daily for 1 week and follow-up with repeat CMP in 1 week. No lab done today as patient is pending discharge. Exam Vital Signs Temp Pulse Resp BP Pulse Ox O2 Del Method O2 Flow Rate 97.8 F 101 H 18 120/94 H 94 L Room Air 5 12/16/24 08:00 02/15/24 08:00 02/15/24 08:00 02/15/24 08:00 02/15/24 08:00 02/15/24 08:00 02/13/24 12:00 Narrative Exam Physical Exam General: Awake and in no acute distress. Chronically ill-appearing. Conversational. AOx1. HEENT: Normocephalic, atraumatic, mucous membranes moist. Heart: Regular rate and rhythm, no murmurs. Lungs: Clear to auscultation with no wheezing or crackles. Abdomen: Soft, nondistended, nontender, positive bowel sounds. ?PEG tube in place. No guarding or rebound tenderness. Neurologic: Alert and oriented x1, no gross neurological deficit, and patient able to move all 4 extremities. Extremities: No edema. Skin: No rash or ecchymoses. Objective Labs 02/15/24 12:42 02/15/24 12:42 Labs: Laboratory Results - last 24 hr 02/14/24 10:21 Sodium 126 L Quality Measures Quality Measures VTE prophylaxis Advance care planning discussed with:: patient Assessment & Plan Assessment Current Active Medications: Generic Name Dose Route Start Last Admin Trade Name Freq PRN Reason Stop Dose Admin Acetaminophen 650 mg 02/07/24 18:29 Acetaminophen 325 Mg Tablet PO 03/08/24 18:28 Q6H PRN Fever >100.4 Acetaminophen 650 mg 02/07/24 18:29 Acetaminophen Supp 650 Mg Supp ME 03/08/24 18:28 Q6H PRN PAIN SCALE 1-3 (mild Albuterol/Ipratropium 3 ml 02/14/24 22:02 Albuterol/Ipratropium (Duoneb) Rt Ana 3 Ml Nebu INH 03/15/24 22:01 Q6HRRT PRN SHORTNESS OF BREATH OR WHEEZE Aspirin 81 mg 02/13/24 09:00 02/14/24 08:02 Aspirin 81 Mg Chew GT 03/14/24 08:59 81 mg QDAY JENNY Administration Lansoprazole 30 mg 02/13/24 09:00 02/14/24 08:03 Lansoprazole 30 Mg Tab.Rap.Dr GLASER 03/14/24 08:59 30 mg QDAY JENNY Administration Levetiracetam 500 mg 02/13/24 21:00 02/14/24 21:12 Levetiracetam Liqd 500 Mg/5 Ml Udc GT 03/14/24 20:59 500 mg BID JENNY Administration Levofloxacin 750 mg 02/14/24 09:00 02/14/24 08:03 Levofloxacin 250 Mg Tablet GT 02/16/24 09:01 750 mg QDAY JENNY Administration Multivitamins/Minerals 15 ml 02/09/24 09:30 02/14/24 08:03 Multivitamin 15 Ml Udc NG 03/10/24 09:29 15 ml QDAY JENNY Administration Ondansetron HCl 4 mg 02/07/24 18:29 Ondansetron Inj 2 Mg/Ml Inj 2 Ml IV 03/08/24 18:28 Q6H PRN NAUSEA OR VOMITING Protocol Sennosides 1 tab 02/13/24 16:05 Senna Tablet GT 03/08/24 18:28 QDAY PRN constipation Protocol Sodium Chloride 1 gm 02/13/24 09:15 02/14/24 21:12 Sodium Chloride 1 Gm Tablet GT 03/14/24 09:14 1 gm BID JENNY Administration Thiamine HCl 100 mg 02/15/24 09:00 Thiamine 100 Mg Tablet GT 03/16/24 08:59 QDAY JENNY Plan Mr. Rios is a 73-year-old male with past medical history of seizure, dementia, CVA, rectal cancer status post chemo who was brought in by ambulance to [facility] on for with a chief complaint of altered mental status and shortness of breath. Patient was unable to provide history, most of the history on admission was obtained from patient's family and chart review, during the course of his hospital stay cardiology was consulted due to concern of NSTEMI which on further workup showed NSTEMI type II, oncology was consulted for rectal CA due to patient's advanced disease and acute changes and GI was consulted for PEG tube placement. With the progression of hospital course patient's sodium continued to decline, acute drop noted on 02/11 from 132 to 124, patient was given IV normal saline and patient's sodium did not improve, decreased to 122 and nephrology was consulted for acute hyponatremia. Of note patient is currently being treated for extensive bilateral pneumonia. Patient is underweight with BMI of 15.7 and has PEG tube placement status post poor p.o. intake causing failure to thrive. #Acute Euvolemic hypoosmolar hyponatremia, improving -Dropped acutely from 132 to 124 on 02/11, did not improve with IV NS, high suspicion of SIADH due to pulmonary pathology of extensive bilateral pneumonia and the use of antiseizure medications. Of note uric acid level significantly low consistent with increased ADH response. 02/14/24: Na improved from 122 to 127 while on salt tablets and fluid restriction. Plan: -Sodium tablet twice daily through G-tube for 1 week -Fluid restriction -Repeat CMP in 1 week #Acute encephalopathy #Acute hypoxic respiratory failure #Severe sepsis #Klebsiella pneumonia #Hypotension #Dementia, chronic #Dysphagia #Leukopenia (improved) #Chronic normocytic anemia #Troponinemia, likely type II vs. I (resolved) #Hyperlipidemia #Cardiomyopathy #Electrolyte abnormalities #Transaminitis #Seizure #Bilateral heal ulcers #Stage II intramucosal rectal adenocarcinoma (stable) #Chronic pharyngeal dysphagia #Artificial nutrition #Hypoglycemia (resolved) #Underweight BMI 15.7 #Failure to thrive -Management per primary team Plan of care discussed with attending Dr. Zamora. Arnav Gill PGY-1 Attending Provider Attestation/Addendum Patient seen and examined with resident physician Dr. Gill. Note reviewed, agree with findings and recommendations. Patient currently seen in telemetry. He has a G-tube. Sodium improved to 126. Renal henderson stable for discharge on salt tablets
--- NOTE | 2024-02-15 09:06 | PD.IDPROG ---
Subjective Subjective Interval history: rx to finish tomorrowno fever. was febrile on admit Exam Vital Signs Temp Pulse Resp BP Pulse Ox O2 Del Method O2 Flow Rate 97.8 F 101 H 18 120/94 H 94 L Room Air 5 02/15/24 08:00 02/15/24 08:00 02/15/24 08:00 02/15/24 08:00 02/15/24 08:00 02/15/24 08:00 02/13/24 12:00 Narrative Exam limited visit. was febrile on admit Objective - Internal Medicine Labs 02/14/24 02:45 02/14/24 10:21 Labs: Laboratory Results - last 24 hr 02/14/24 10:21 Sodium 126 L Assessment & Plan A&P Narrative recurrent pneumonia advanced CA hx pt will finish abx soon. will see again prn. he is dnr. that should be continued as outpt Time Spent With Patient Time: Total time spent is greater than 50% in coordination of care (as documented) at patient's floor/unit and/or counseling patient:
[2024-02-15] MEDS: levETIRAcetam LIQD 500 MG/5 ML UDC GT ×2 (09:09→21:23)
[2024-02-15] MEDS: SODIUM CHLORIDE 1 GM TABLET GT ×2 (09:09→21:23)
[2024-02-15] MEDS: MULTIVITAMIN 15 ML UDC NG (09:09)
[2024-02-15] MEDS: LEVOFLOXACIN 250 MG TABLET 750 MG GT (09:09)
[2024-02-15] MEDS: THIAMINE 100 MG TABLET GT (09:10)
[2024-02-15] MEDS: ASPIRIN 81 MG CHEW GT (09:10)
[2024-02-15] MEDS: LANSOPRAZOLE 30 MG TAB.RAP.DR GT (09:10)
--- NOTE | 2024-02-15 10:06 | ESPR_ITS ---
Documentation for date of: 02/15/24 Subjective Subjective Interval history: No acute overnight events. Patient appears at baseline. No signs of respiratory distress distress, pain, or agitation. Remainder exam limited due to mentation. STATISTICAL CONSULTANT at approximately 1215 patient was found desatting to 84% on room air, which improved to 93% on 15 L OxiMax. Please refer to event note for more detail. Patient was placed to discharge to SNF today. Sister, Karissa was contacted and updated about the patient's status, and that he'll stay for monitoring. Advised Karissa that patient will always be at risk of aspiration pneumonia given his chronic dysphagia and PEG tube use. Advised discussion with family regarding overall goals of care. Exam Vital Signs Temp Pulse Resp BP Pulse Ox O2 Del Method O2 Flow Rate 97.8 F 101 H 18 120/94 H 94 L Room Air 5 02/15/24 08:00 02/15/24 08:00 02/15/24 08:00 02/15/24 08:00 02/15/24 08:00 02/15/24 08:00 02/13/24 12:00 Narrative Exam Gen: Elderly male, appears chronically ill, pleasant but confused HEENT: NCAT, PERRLA, MMM, no LAD noted CVS: normal S1, S2. RRR. No MRG Resp: CTA B/L no w/r/r Abd: soft, non-tender, non-distended. BS+ in all 4 quadrants. PEG tube and abd binder noted MSK: Moves all extremities, no edema noted. Ulcers at B/L heels Neuro: CN II-XII grossly intact. Does not follow all commands Objective Labs 02/16/24 05:28 02/16/24 05:28 Labs: Laboratory Results - last 24 hr 02/14/24 10:21 Sodium 126 L Quality Measures Quality Measures VTE prophylaxis Advance care planning discussed with:: patient Assessment & Plan Assessment Current Active Medications: Generic Name Dose Route Start Last Admin Trade Name Freq PRN Reason Stop Dose Admin Acetaminophen 650 mg 02/07/24 18:29 Acetaminophen 325 Mg Tablet PO 03/08/24 18:28 Q6H PRN Fever >100.4 Acetaminophen 650 mg 02/07/24 18:29 Acetaminophen Supp 650 Mg Supp ID 03/08/24 18:28 Q6H PRN PAIN SCALE 1-3 (mild Albuterol/Ipratropium 3 ml 02/14/24 22:02 Albuterol/Ipratropium (Duoneb) Rt Ana 3 Ml Nebu INH 03/15/24 22:01 Q6HRRT PRN SHORTNESS OF BREATH OR WHEEZE Aspirin 81 mg 02/13/24 09:00 02/15/24 09:10 Aspirin 81 Mg Chew GT 03/14/24 08:59 81 mg QDAY JENNY Administration Lansoprazole 30 mg 02/13/24 09:00 02/15/24 09:10 Lansoprazole 30 Mg Tab.Rap. GT 03/14/24 08:59 30 mg QDAY JENNY Administration Levetiracetam 500 mg 02/13/24 21:00 02/15/24 09:09 Levetiracetam Liqd 500 Mg/5 Ml Udc GT 03/14/24 20:59 500 mg BID JENNY Administration Levofloxacin 750 mg 02/14/24 09:00 02/15/24 09:09 Levofloxacin 250 Mg Tablet GT 02/16/24 09:01 750 mg QDAY JENNY Administration Multivitamins/Minerals 15 ml 02/09/24 09:30 02/15/24 09:09 Multivitamin 15 Ml Udc NG 03/10/24 09:29 15 ml QDAY JENNY Administration Ondansetron HCl 4 mg 02/07/24 18:29 Ondansetron Inj 2 Mg/Ml Inj 2 Ml IV 03/08/24 18:28 Q6H PRN NAUSEA OR VOMITING Protocol Sennosides 1 tab 02/13/24 16:05 Senna Tablet GT 03/08/24 18:28 QDAY PRN constipation Protocol Sodium Chloride 1 gm 02/13/24 09:15 02/15/24 09:09 Sodium Chloride 1 Gm Tablet GT 03/14/24 09:14 1 gm BID JENNY Administration Thiamine HCl 100 mg 02/15/24 09:00 02/15/24 09:10 Thiamine 100 Mg Tablet GT 03/16/24 08:59 100 mg QDAY JENNY Administration Plan 73-year-old male with PMHx of seizure, dementia, CVA, and rectal adenocarcinoma s/p chemoradiation, presented with AMS, admitted for acute encephalopathy 2/2 sepsis pneumonia. Sputum culture grew Klebsiella pneumonia, now on LEVAQUIN per sensitivity. ID concurs, added IgG given recurrent pneumonia. Cardiology following for troponinemia, and hx of ischemic cardiomyopathy. Patient was discharging today however will continue for another day 2/2 STATISTICAL CONSULTANT, until oxygenation improved. Please refer to event note for detail. Appreciated Cardiology, ID, and Hemeonc recommendations. Acute encephalopathy (resolved) Acute hypoxic respiratory failure (improving) Severe sepsis (improving) Klebsiella pneumonia Hypotension (improving) Dementia, chronic Presented with AMS with limited history 2/2 mentation, SOB. Admission CXR prominent bibasilar pneumonia, 4/4 sepsis, elevated PRO-ELIZABETH Currently on room air, previously required 15 L oxy mask, sepsis, resolved Patient appears at baseline S/p adequate fluid resuscitation, ZOSYN and DOXYCYCLINE (02/07 - 02/08) Sputum culture grew Klebsiella, no MRSA, negative 48 hours blood culture ID recommended p.o. levofloxacin to complete 7 days of treatment Repeat CT chest prominent bibasilar pneumonia, suspect primary hepatocellular disease for cirrhosis, mild ascites, gastritis Rapid was called. Patient was desatting to 84 on room air, likely 2/2 aspiration, we stopped tube feed, CXR suggested aspiration pneumonia vs. pneumonitis. Patient afebrile, however follow-up labs showed worsening leukocytosis, with left shift. Will consider starting patient on ANTIBIOTICS and blood culture. We ordered DuoNebs x 1. Will continue monitoring. ? Continue LEVOFLOXACIN 750 mg p.o. daily (02/08 to [present]) ? DuoNebs q.6h. ? Aspiration precautions ? Oxygen PRN Underweight BMI 15.7 Failure to thrive Dysphagia s/p PEG tube placement Failed bedside swallow. Discussed with the younger sister who is the POA: Agreed to PEG tube insertion. Consulted GI. PEG tube inserted 02/11 complication. ALBUMIN 2.8 ? Holding PEG tube feeding 2/2 possible aspiration. ? Discussed possible need to test PEG tube feeding rate or consistency to prevent aspiration. Hyponatremia DDx includes SIADH 02/12 sodium 122, appropriate corrected with fluid restrictions and salt tablets with nephrology following Nephrology recommended salt tablets twice daily for 1 week Sodium 126-127 ? Continue to monitor sodium ? Continue SODIUM CHLORIDE 1 tablet BID (02/13 to [present]) Leukopenia (improved) Chronic normocytic anemia WBC is borderline low, 02/14 acute elevation with new left shift Hemoglobin around baseline HIV panel negative ? Daily CBC Troponinemia, likely type II vs. I (resolved) Hyperlipidemia Cardiomyopathy Troponin 0.678, EKG sinus tachycardia, no acute ST changes Likely demand ischemia in settings of sepsis, patient asymptomatic S/p HEPARIN drip, discontinued per cardiology recommendations initially cardiology planned on cardiac catheterization however, he is not a good candidate and family did not agree to intervention ASCVD score 26.1% for cardiovascular event, 18.6% 10-year cardiovascular risk recommends mod-high sensitive statin ? Telemetry ? Continue ATORVASTATIN 40 mg HS, Escalate to 80 mg once LFTs normalize ? Continue ASPIRIN 81 mg daily ? Magnesium >2, potassium >4 Electrolyte abnormalities ? 02/08 potassium 3.0 likely due to refeeding, repleted ? 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 Daily CMP ? Follow-up HIV: Negative ? Continue IV fluids. Monitor LFTs. Seizure ? Resumed home KEPPRA 500 mg IV CHANGED TO G-TUBE BID ? Seizure precaution Bilateral heal ulcers ? Wound care Stage II intramucosal rectal adenocarcinoma (stable) History of rectal adenocarcinoma, s/p chemoradiation Follows up with oncologist Dr. Oren Forde poor surgical candidate by Dr. Khanh Carlin at [facility], per chart review Dr. Sanchez consulted, recommended outpatient follow-up as well as outpatient colonoscopy ? Oncology, Dr. Sanchez, following ? Patient will need colonoscopy outpatient Dietitian recommendations: Discussed with dietitian: Will use the same recommendations after PEG tube insertion * Jevity 1.5 at 10 ml/hr x 24 hrs (do not advance). If no IV fluids, water flushes 35 ml/hr * Thiamine 100mg/day for 7 days; provide first dose at least 30 minutes before starting nutrition. * Multivitamins/Minerals. * Daily labs for P, K, and Mg; replace as needed. * If no electrolytes disturbances after 24 hrs, advance 10 ml every 12 hrs to goal rate of 45 ml/hr x 24 hrs. * Continue with water flushes 35 ml/hr (or per MD Health maintenance Diet: Holding tube feeds 2/2 ?aspiration GI prophylaxis: PROTONIX DVT prophylaxis: HEPARIN Antibiotics: Levaquin CODE STATUS: Full code Disposition: Diagnostic workup and management of hyponatremia; nephro following. Continue antibiotics for pneumonia Patient case was discussed with attending, Toni Amador MD and senior residents Dr. Young and Dr. Farris. Allison Cole, DO PGYI Mr Rios is a Chilean-speaking 73-year-old male with past medical history of age- related dementia, history of CVA with residual seizures, history of stage II rectal adenocarcinoma s/p chemoradiation, who was brought into the ED for altered mentation. Patient was admitted for acute metabolic encephalopathy, severe sepsis and acute hepatic respiratory failure in the setting of Klebsiella pneumonia. Patient was initially treated with IV Zosyn and doxycycline for the first 2 days of hospitalization/?02/08, later transitioned to p.o. Levaquin 500 mg daily. As per family and patient's wishes, patient had a PEG tube placed on his last hospitalization. He also has troponinemia, likely type II, however family denied any cardiac intervention at this time. He was also noted to have hyponatremia, no started on sodium chloride tablets by nephrology. Patient improved steadily on this hospitalization, and was scheduled to be discharged today 01/1620. However at 12:15 PM today, a rapid response was called for acute desaturation to 84% on room air. Patient was switched to oxygen mask 10 L, and saturating 87%. Flow was increased to 15 L with oxygen saturation is 94- 98%. Repeat chest x-ray was ordered which was consistent with bronchitis, and possible bibasilar aspiration pneumonia, however patient does not have any fever or elevated leukocyte count. Will monitor for 1 more day, unlikely to need antibiotics at this time. Tube feeds were held, registered dietitian was consulted again, and tube feeds will be resumed again at a slower rate to prevent regurgitation and better tolerance. Dispo: Anticipate discharge in the next 24 hours if tolerates tube feeds, will closely monitor for aspiration, while on feeds. Patient examined and case discussed with the team including attending physician. Note reviewed, I agree with the care plan as documented. - Memo Farris MD, PGY 2 Attending Provider Attestation/Addendum I reviewed labs, imaging, EKG, home medications and prior available records. Face to face evaluation was performed by me. I have personally examined the patient and discussed assessment and plan with the IM team. I reviewed the resident note and agree with the plan with exceptions as below. Breakthrough seizure Acute hypoxic respiratory failure Aspiration pneumonia Dementia, likely Alzheimer's type, without aggressive behavior Hyperactive delirium Hyponatremia Transaminitis Dysphagia Rapid response was called on 02/14 for seizure-like activity and acute hypoxia, possible aspiration. Tube feeds were held. Ordered chest x-ray. Seizure precautions. Continue Keppra. Continue levofloxacin for 7 days. ID is following Hepatitis panel is negative. Liver ultrasound is WNL. Continue to monitor LFTs Delirium precautions Order UA and urine lites. Continue salt tablets. Monitor sodium level. Monitor BMP. Status post PEG tube insertion. Dietitian is following.
--- NOTE | 2024-02-15 10:13 | PC.SS ---
Addendum entered by Ashley Gross 02/15/24 14:45: [facility] states they will take patient back with restraints since it is only due to pulling. No need for patient to be off restraints per [facility] Original Note: Follow up note: SS spoke to [facility] who states they need the orders for the tube feeding. They may not have the peg feeding so they will need an additional supply to hold them until their own supply is delivered. SS spoke to student accounts manager who will provide additional formula. SS spoke to nursing who states patient is now on restraints. SS attempted to contact [facility] to update. Patient on restraints due to pulling lines. Patient had d/c orders since yesterday. IMM discussed with sister. She's agreeable to d/c. SS updated physician. Not sure at this time if facility will take patient back on restraints. will follow up with response.
--- NOTE | 2024-02-15 11:13 | PD.RESPRO ---
Documentation for date of: 02/15/24 Subjective Subjective Interval history: Patient seen at bedside this morning. Patient had a Rapid response called due to hypoxia which is mostly secondary to possible mucous plug and increased secretions Placed on Oxymask. Na 128 today K+ 4.4 and no mg today, recommend to keep above 4 and 2 respectively. Still AO x 1 (only to person). At this time no invasive interventions will be done as patient's family has decided to not pursue any invasive interventions at this time. Recommend to continue aspirin, high intensity statin, and beta-anitha if blood pressure allows. Plavix 75 mg daily could also be added to regimen if there is no complications or contraindication for anticoagulation Exam Vital Signs Temp Pulse Resp BP Pulse Ox O2 Del Method O2 Flow Rate 97.8 F 101 H 18 120/94 H 94 L Room Air 5 02/15/24 08:00 02/15/24 08:00 02/15/24 08:00 02/15/24 08:00 02/15/24 08:00 02/15/24 08:00 02/13/24 12:00 Narrative Exam General: A/O x1 (to person only), resting in bed, thin, frail male Eyes: Pupils reactive to light and EOMI. Ears: No visible ear discharge, Hearing grossly intact. Nose: No visible nasal discharge. Mouth/Throat: Moist mucous membranes, no redness, no lesions. Neck: Neck supple, no cervical lymphadenopathy. Lungs: Clearer JESUS, No accessory muscle use. Cardio: Normal S1/S2, regular rhythm, no murmurs, no JVD. Abdomen: Soft, non-tender, no palpable masses, peristalsis present, no guarding or rebound, PEG tube in place with no bleeding. Extremities: Symmetrical, no significant deformities, no peripheral edema , non-tender, peripheral pulses presents. Skin: No rashes, no lesions, warm to touch. Neuro: Able to move all extremities. Objective Labs 02/15/24 12:42 02/15/24 12:42 Quality Measures Quality Measures VTE prophylaxis Advance care planning discussed with:: patient Assessment & Plan Assessment Current Active Medications: Generic Name Dose Route Start Last Admin Trade Name Freq PRN Reason Stop Dose Admin Acetaminophen 650 mg 02/07/24 18:29 Acetaminophen 325 Mg Tablet PO 03/08/24 18:28 Q6H PRN Fever >100.4 Acetaminophen 650 mg 02/07/24 18:29 Acetaminophen Supp 650 Mg Supp CA 03/08/24 18:28 Q6H PRN PAIN SCALE 1-3 (mild Albuterol/Ipratropium 3 ml 02/14/24 22:02 Albuterol/Ipratropium (Duoneb) Rt Ana 3 Ml Nebu INH 03/15/24 22:01 Q6HRRT PRN SHORTNESS OF BREATH OR WHEEZE Aspirin 81 mg 02/13/24 09:00 02/15/24 09:10 Aspirin 81 Mg Chew GT 03/14/24 08:59 81 mg QDAY JENNY Administration Lansoprazole 30 mg 02/13/24 09:00 02/15/24 09:10 Lansoprazole 30 Mg Tab. GT 03/14/24 08:59 30 mg QDAY JENNY Administration Levetiracetam 500 mg 02/13/24 21:00 02/15/24 09:09 Levetiracetam Liqd 500 Mg/5 Ml Udc GT 03/14/24 20:59 500 mg BID JENNY Administration Levofloxacin 750 mg 02/14/24 09:00 02/15/24 09:09 Levofloxacin 250 Mg Tablet GT 02/16/24 09:01 750 mg QDAY JENNY Administration Metoprolol Succinate 50 mg 02/15/24 11:15 Metoprolol Succinate Xl 25 Mg Tabcr GT 03/16/24 11:14 QDAY JENNY Multivitamins/Minerals 15 ml 02/09/24 09:30 02/15/24 09:09 Multivitamin 15 Ml Udc NG 03/10/24 09:29 15 ml QDAY JENNY Administration Ondansetron HCl 4 mg 02/07/24 18:29 Ondansetron Inj 2 Mg/Ml Inj 2 Ml IV 03/08/24 18:28 Q6H PRN NAUSEA OR VOMITING Protocol Sennosides 1 tab 02/13/24 16:05 Senna Tablet GT 03/08/24 18:28 QDAY PRN constipation Protocol Sodium Chloride 1 gm 02/13/24 09:15 02/15/24 09:09 Sodium Chloride 1 Gm Tablet GT 03/14/24 09:14 1 gm BID JENNY Administration Thiamine HCl 100 mg 02/15/24 09:00 02/15/24 09:10 Thiamine 100 Mg Tablet GT 03/16/24 08:59 100 mg QDAY JENNY Administration Plan 73-year-old male with past medical history of colon cancer s/p chemoradiation, seizure, dementia, and CVA (ischemic and hemorrhagic) was admitted to the hospital on 02/07/2024 due to acute encephalopathy likely secondary to hospital-acquired pneumonia given the patient was in our hospital on December. 1. Elevated troponins, NSTEMI type II most likely demand ischemia ?Patient's troponin on admission were 0.678 and peaked at 2.076 before downtrending. ? EKG showed sinus tachycardia ?Last echo on January 06, 2024 had the following findings Normal LV size and function. Grade 1 diastolic dysfunction. Estimated EF 55 to 60% Normal RV size and function Mild TR. Mild AV sclerosis without stenosis. Trace AI. ?Zohreh ACS score of 124 points, 9% probability of Plan: ?Recommend to continue patient on aspirin, high intensity statin, and beta anitha if BP allows. -Recommend Plavix 75 mg daily could also be added to regimen if there is no complications or contraindication for anticoagulation -Recommend primary care team to have goals of care discussion with patient's family as condition is guarded. -Aggressively replete potassium and magnesium to keep above 4 and 2 respectively to avoid any arrhythmias. -Patient was made DNR and had PEG tube placed yesterday, started tube feeds. -As per oncologist patient is clinically likely in stage II with large primary tumor, but no regional or distant mets. Also stated the goal of chemo and radiation was comfort in terms of preventing or delaying obstruction, pain, or bleeding symptoms and since patient did not have any surgery this will work for around 1 to 2 years. Still no clear life expectancy. Patient's condition continues to be guarded, with probable underlying CAD, but will need to assess the risk of benefits of invasive workup, recommend to speak with family to discuss goals of care and wishes. - Family at this time has decided not to pursue invasive interventions, therefore no left heart cath and continue to treat him medically. 2. Acute encephalopathy 3. Acute hypoxic respiratory failure 4. Sepsis likely secondary to hospital-acquired pneumonia 5. Hospital-acquired pneumonia 6. Hypotension ?Patient initially met SIRS 4 out of 4 with leukopenia, tachycardia, tachypnea, and febrile ?Chest x-ray showed bibasilar pneumonia, given prior hospitalization last month patient is at increased risk of hospital-acquired pneumonia ? Patient has baseline dementia and is AO x 1 today (only to present) ?Patient's blood pressure has been on the lower end since admission with the lowest being 90/52, but currently is 127/86 today. ? Continue current management as per primary care team -Rapid response on 02/16/2024 which could be secondary to mucous plug and increased secretions that has been having for the past few days. Family does not want any further intervention send patient has been placed on oxygen mask for now and is saturating well. Patient continues to be DNR/DNI 7. Leukopenia 8. Rectal cancer s/p chemoradiation ? Leukopenia mostly in the setting of chemoradiation ?WBCs 2.8 on admission ?Continue current management as per primary care team 9. Hypoosmolar hyponatremia ?Sodium 129 on admission ? This could be due to renal loss versus gastrointestinal loss versus medication induced ? Continue current management as per primary care team 10. Transaminitis ?Patient liver enzymes have been elevated since last admission ? AST 576, ALT 293, alkaline phosphatase 308 on admission ?Liver ultrasound was unremarkable ? Continue current management as per primary care team 11. Seizures 12. CVA 13. Dementia ?Recommend to continue patient's aspirin and Keppra ?Continue current management per primary care team Continue rest of management as per primary team. We are grateful to be able to participate in Mr. Rios's care. Thank you for the consult Plan of care discussed with attending Novelty Twister Operator, Dr. Cesar Mcdaniels MD PGY-1 Attending Provider Attestation/Addendum I have personally seen and examined the patient separately on the above date of service and discussed the plan of care with the resident. I reviewed the resident Dr. Laws consultation progress note and agree with the resident findings and plan in the note above and have also edited the documentation to reflect my findings and plan. Surinder Guerrero M.D. Interventional Cardiology
[2024-02-15 11:23] LABS: Sodium 127 mMol/L (136-145)
--- NOTE | 2024-02-15 12:08 | XR_ITS ---
Examination: AP chest single view Technique one AP portable semiupright chest single view Exam date and time: February 15, 2024 1243 hours Comparison February 07, 2024, February 08, 2024 INDICATIONS: Shortness of breath congestion today FINDINGS: Bibasilar pneumonia, consider aspiration pneumonia No significant cardiac enlargement Mild vascular congestion Prominent osteopenia IMPRESSION: Bibasilar pneumonia, consider aspiration pneumonia
[2024-02-15 12:40] LABS: Base Excess 5 (-3-3); HCO3 28 mEq/L (20-26); Inspired O2, VO2 Liters 15 L/min; O2 Saturation 91 % (91-98); PCO2 36 mmHg (32.0-48.0)
[2024-02-15 12:42] LABS: Allen Test Performed/OK; Puncture Site Right Radial
[2024-02-15 12:43] LABS: PO2 58 mmHg (83-108)
[2024-02-15 12:49] LABS: Basophils % (Auto) 0 % (0-2.5); Eosinophils % (Auto) 0 % (0-10); Hematocrit 35.7 % (41.0-53.0); Hemoglobin 12.4 g/dL (13.5-16.0); Immature Granulocytes % (Auto) 1 % (0-0); Immature Granulocytes Auto 0.05 Thou/mm3 (0.00-0.00); Lymphocytes # (Auto) 0.2 Thou/mm3 (1.0-4.8); Lymphocytes % (Auto) 5 % (10-50); Mean Corpuscular HGB Conc 34.7 g/dl (31.0-37.0); Mean Corpuscular Hemoglobin 31.6 pg (25.0-35.0); Mean Corpuscular Volume 91 fL (80-100); Monocytes # (Auto) 0.2 Thou/mm3 (0.0-0.8); Monocytes % (Auto) 4 % (0-12); Neutrophils # (Auto) 4.2 Thou/mm3 (1.8-7.7); Neutrophils % (Auto) 91 % (37-80); Nucleated Red Blood Cell % 0 /100 WBC (0); Platelet Count 282 Thou/mm3 (140-440); RDW Standard Deviation 48.3 fL (35.1-43.9); Red Blood Count 3.93 Miln/mm3 (4.50-5.90); White Blood Count 4.7 Thou/mm3 (3.8-10.6)
--- NOTE | 2024-02-15 13:07 | EVENTNT_ITS ---
Documentation for date of: 02/15/24 Event Note Event Note: Approximately 1215, [employer] AND HUM[employer] CHAIR was called as patient was found hypoxemic with oxygen saturation 84% on room air which quickly improved in the 90s with 15 L oxy mask. On arrival patient in no acute distress, vitals showed BP 110/69, HR 103, RR 15, satting 94% on 15 L. On exam, crackles heard in right lower lung compared to the morning morning were clear. Likely patient aspirated after starting G-tube feed. Nurse at bedside reported increased oral secretion, suspected seizure, however patient did not seem postictal, he is on his home dose of KEPPRA. Additionally, patient has difficulty clearing secretion and producing good cough according speech evaluation over the last few days. CXR showed possible right pneumonitis. ABG showed pH 7.5, pCO2 36, pO2 58, HCO3 28. On the second evaluation, oxygen decreased to 10 L. Patient continues satting in 90s. Will continue to monitor.
[2024-02-15 13:10] LABS: Anion Gap 9 (7-16); BUN/Creatinine Ratio 25 Ratio (12-20); Blood Urea Nitrogen 5 mg/dL (9-23); Calcium 8.1 mg/dL (8.3-10.6); Carbon Dioxide 24.5 mMol/L (20.0-31.0); Chloride 95 mMol/L (98-107); Creatinine (Component) 0.2 mg/dL (0.6-1.3); Estimated Creatinine Clearance 200.4 mL/min (>60); Glucose 125 mg/dL (74-106); Osmolality,Calculated 255 (275-295); Potassium 4.4 mMol/L (3.4-5.1); Sodium 128 mMol/L (136-145); eGFR > 60 See Note
[2024-02-15] MEDS: METOPROLOL SUCCINATE XL 25 MG TABCR 50 MG GT (13:10)
[2024-02-15] MEDS: HEPARIN SOD INJ 5000 UNIT/ML VIAL SC ×2 (13:10→21:23)
[2024-02-15] MEDS: ALBUTEROL/IPRATROPIUM (Duoneb) RT SOL 3 ML NEBU INH ×2 (13:28→19:04)
[2024-02-15] MEDS: ACETYLCYSTEINE SOL 20% 4 ML NEBU 3 ML INH ×3 (13:28→22:04)
--- NOTE | 2024-02-15 13:41 | PC.SS ---
follow up note: Patient had a rapid and d/c held
--- NOTE | 2024-02-15 17:43 | PD.IMPROG ---
Documentation for date of: 02/15/24 Subjective Subjective Interval history: PEG tube site checked no drainage Enteral hyperalimentation to continue Exam Vital Signs Temp Pulse Resp BP Pulse Ox O2 Del Method O2 Flow Rate 97.6 F 100 18 121/80 99 Room Air 12 02/15/24 16:00 02/15/24 16:00 02/15/24 16:00 02/15/24 16:00 02/15/24 16:00 02/15/24 16:00 02/15/24 13:33 Objective Labs 02/15/24 12:42 02/15/24 12:42 Labs: Laboratory Results - last 24 hr 02/15/24 02/15/24 02/15/24 10:56 12:33 12:42 WBC 4.7 D RBC 3.93 L Hgb 12.4 L Hct 35.7 L MCV 91 MCH 31.6 MCHC 34.7 RDW Std Deviation 48.3 H Plt Count 282 D Neut % (Auto) 91 H Lymph % (Auto) 5 L [place] % (Auto) 4 Eos % (Auto) 0 Baso % (Auto) 0 Neut # (Auto) 4.2 Lymph # (Auto) 0.2 L [place] # (Auto) 0.2 Eos # (Auto) 0.0 Baso # (Auto) 0.0 Immature Gran # (Auto) 0.05 H Absolute Nucleated RBC 0.00 Immature Gran % 1 H Nucleated RBC % 0 Puncture Site Right Radial ABG pH 7.50 H ABG pCO2 36 ABG pO2 58 L* ABG HCO3 28 H ABG O2 Saturation 91 ABG Base Excess 5 H Oxygen Liter Flow 15 Sodium 127 L 128 L Potassium 4.4 Chloride 95 L Carbon Dioxide 24.5 Anion Gap 9 BUN 5 L Creatinine 0.2 L Estim Creat Clear Calc 200.4 eGFR > 60 BUN/Creatinine Ratio 25 H Glucose 125 H Calculated Osmolality 255 L Calcium 8.1 L Impressions Impression: # Failure to thrive # PEG placement for enteral hyperalimentation Continue current management ABG Interpretation ABG results: 02/15/24 12:33 ABG pH 7.50 H ABG pCO2 36 ABG pO2 58 L* ABG HCO3 28 H ABG O2 Saturation 91 ABG Base Excess 5 H Assessment & Plan A&P Narrative recurrent pneumonia advanced CA hx pt will finish abx soon. will see again prn. he is dnr. that should be continued as outpt Time Spent With Patient Time: Total time spent is greater than 50% in coordination of care (as documented) at patient's floor/unit and/or counseling patient:
[2024-02-16] VITALS (9 sets, daily range): BP systolic 91–114; BP diastolic 59–73; PULSE 65–94; RESP 16–24; TEMP 36.1–36.4; O2SAT 94–100
[2024-02-16] MEDS: ALBUTEROL/IPRATROPIUM (Duoneb) RT SOL 3 ML NEBU INH ×2 (02:14→06:14)
[2024-02-16] MEDS: ACETYLCYSTEINE SOL 20% 4 ML NEBU 3 ML INH ×2 (02:14→06:14)
[2024-02-16] MEDS: HEPARIN SOD INJ 5000 UNIT/ML VIAL SC (05:24)
[2024-02-16 06:33] LABS: Basophils % (Auto) 0 % (0-2.5); Eosinophils % (Auto) 0 % (0-10); Hematocrit 33.6 % (41.0-53.0); Hemoglobin 11.6 g/dL (13.5-16.0); Immature Granulocytes % (Auto) 1 % (0-0); Immature Granulocytes Auto 0.05 Thou/mm3 (0.00-0.00); Lymphocytes # (Auto) 0.2 Thou/mm3 (1.0-4.8); Lymphocytes % (Auto) 5 % (10-50); Mean Corpuscular HGB Conc 34.5 g/dl (31.0-37.0); Mean Corpuscular Hemoglobin 31.7 pg (25.0-35.0); Mean Corpuscular Volume 92 fL (80-100); Monocytes # (Auto) 0.2 Thou/mm3 (0.0-0.8); Monocytes % (Auto) 4 % (0-12); Neutrophils # (Auto) 3.7 Thou/mm3 (1.8-7.7); Neutrophils % (Auto) 90 % (37-80); Nucleated Red Blood Cell % 0 /100 WBC (0); Platelet Count 253 Thou/mm3 (140-440); RDW Standard Deviation 49.5 fL (35.1-43.9); Red Blood Count 3.66 Miln/mm3 (4.50-5.90); White Blood Count 4.2 Thou/mm3 (3.8-10.6)
[2024-02-16 07:16] LABS: Anion Gap 6 (7-16); BUN/Creatinine Ratio 23 Ratio (12-20); Blood Urea Nitrogen 7 mg/dL (9-23); Carbon Dioxide 27.4 mMol/L (20.0-31.0); Chloride 94 mMol/L (98-107); Creatinine (Component) 0.3 mg/dL (0.6-1.3); Estimated Creatinine Clearance 133.6 mL/min (>60); Glucose 118 mg/dL (74-106); Osmolality,Calculated 254 (275-295); Potassium 3.6 mMol/L (3.4-5.1); Sodium 127 mMol/L (136-145); eGFR > 60 See Note
--- NOTE | 2024-02-16 07:37 | PD.RESPRO ---
Documentation for date of: 02/16/24 Exam Vital Signs Temp Pulse Resp BP Pulse Ox O2 Del Method O2 Flow Rate 97.4 F 81 20 99/59 L 100 Oxy Mask 4 02/16/24 04:00 02/16/24 06:17 02/16/24 06:17 02/16/24 04:00 02/16/24 06:17 02/16/24 04:00 02/16/24 06:17 Objective Labs 02/16/24 05:28 02/16/24 05:28 Labs: Laboratory Results - last 24 hr 02/15/24 02/15/24 02/15/24 10:56 12:33 12:42 WBC 4.7 D RBC 3.93 L Hgb 12.4 L Hct 35.7 L MCV 91 MCH 31.6 MCHC 34.7 RDW Std Deviation 48.3 H Plt Count 282 D Neut % (Auto) 91 H Lymph % (Auto) 5 L [place] % (Auto) 4 Eos % (Auto) 0 Baso % (Auto) 0 Neut # (Auto) 4.2 Lymph # (Auto) 0.2 L [place] # (Auto) 0.2 Eos # (Auto) 0.0 Baso # (Auto) 0.0 Immature Gran # (Auto) 0.05 H Absolute Nucleated RBC 0.00 Immature Gran % 1 H Nucleated RBC % 0 Puncture Site Right Radial ABG pH 7.50 H ABG pCO2 36 ABG pO2 58 L* ABG HCO3 28 H ABG O2 Saturation 91 ABG Base Excess 5 H Oxygen Liter Flow 15 Sodium 127 L 128 L Potassium 4.4 Chloride 95 L Carbon Dioxide 24.5 Anion Gap 9 BUN 5 L Creatinine 0.2 L Estim Creat Clear Calc 200.4 eGFR > 60 BUN/Creatinine Ratio 25 H Glucose 125 H Calculated Osmolality 255 L Calcium 8.1 L 02/16/24 05:28 WBC 4.2 RBC 3.66 L Hgb 11.6 L Hct 33.6 L MCV 92 MCH 31.7 MCHC 34.5 RDW Std Deviation 49.5 H Plt Count 253 Neut % (Auto) 90 H Lymph % (Auto) 5 L [place] % (Auto) 4 Eos % (Auto) 0 Baso % (Auto) 0 Neut # (Auto) 3.7 Lymph # (Auto) 0.2 L [place] # (Auto) 0.2 Eos # (Auto) 0.0 Baso # (Auto) 0.0 Immature Gran # (Auto) 0.05 H Absolute Nucleated RBC 0.00 Immature Gran % 1 H Nucleated RBC % 0 Puncture Site ABG pH ABG pCO2 ABG pO2 ABG HCO3 ABG O2 Saturation ABG Base Excess Oxygen Liter Flow Sodium 127 L Potassium 3.6 D Chloride 94 L Carbon Dioxide 27.4 Anion Gap 6 L BUN 7 L Creatinine 0.3 L Estim Creat Clear Calc 133.6 eGFR > 60 BUN/Creatinine Ratio 23 H Glucose 118 H Calculated Osmolality 254 L Calcium 8.0 L ABG Interpretation ABG results: 02/15/24 12:33 ABG pH 7.50 H ABG pCO2 36 ABG pO2 58 L* ABG HCO3 28 H ABG O2 Saturation 91 ABG Base Excess 5 H Quality Measures Quality Measures VTE prophylaxis Assessment & Plan Assessment Current Active Medications: Generic Name Dose Route Start Last Admin Trade Name Freq PRN Reason Stop Dose Admin Acetaminophen 650 mg 02/07/24 18:29 Acetaminophen 325 Mg Tablet PO 03/08/24 18:28 Q6H PRN Fever >100.4 Acetaminophen 650 mg 02/07/24 18:29 Acetaminophen Supp 650 Mg Supp [place] 03/08/24 18:28 Q6H PRN PAIN SCALE 1-3 (mild Acetylcysteine 3 ml 02/15/24 12:30 02/16/24 06:14 Acetylcysteine Ana 20% 4 Ml Nebu INH 03/16/24 12:29 3 ml Q4HRRT JENNY Administration Albuterol/Ipratropium 3 ml 02/14/24 22:02 02/16/24 06:14 Albuterol/Ipratropium (Duoneb) Rt Ana 3 Ml Nebu INH 03/15/24 22:01 3 ml Q6HRRT PRN Administration SHORTNESS OF BREATH OR WHEEZE Aspirin 81 mg 02/13/24 09:00 02/15/24 09:10 Aspirin 81 Mg Chew GT 03/14/24 08:59 81 mg QDAY JENNY Administration Heparin Sodium (Porcine) 5,000 unit 02/15/24 12:30 02/16/24 05:24 Heparin Sod Inj 5000 Unit/Ml Vial SC 02/29/24 12:29 5,000 unit Q8HR JENNY Administration Lansoprazole 30 mg 02/13/24 09:00 02/15/24 09:10 Lansoprazole 30 Mg Tab.Rap.Dr GLASER 03/14/24 08:59 30 mg QDAY JENNY Administration Levetiracetam 500 mg 02/13/24 21:00 02/15/24 21:23 Levetiracetam Liqd 500 Mg/5 Ml Udc GT 03/14/24 20:59 500 mg BID JENNY Administration Levofloxacin 750 mg 02/14/24 09:00 02/15/24 09:09 Levofloxacin 250 Mg Tablet GT 02/16/24 09:01 750 mg QDAY JENNY Administration Metoprolol Succinate 50 mg 02/15/24 11:15 02/15/24 13:10 Metoprolol Succinate Xl 25 Mg Tabcr GT 03/16/24 11:14 50 mg QDAY JENNY Administration Multivitamins/Minerals 15 ml 02/09/24 09:30 02/15/24 09:09 Multivitamin 15 Ml Udc NG 03/10/24 09:29 15 ml QDAY JENNY Administration Ondansetron HCl 4 mg 02/07/24 18:29 Ondansetron Inj 2 Mg/Ml Inj 2 Ml IV 03/08/24 18:28 Q6H PRN NAUSEA OR VOMITING Protocol Sennosides 1 tab 02/13/24 16:05 Senna Tablet GT 03/08/24 18:28 QDAY PRN constipation Protocol Sodium Chloride 1 gm 02/13/24 09:15 02/15/24 21:23 Sodium Chloride 1 Gm Tablet GT 03/14/24 09:14 1 gm BID JENNY Administration Thiamine HCl 100 mg 02/15/24 09:00 02/15/24 09:10 Thiamine 100 Mg Tablet GT 03/16/24 08:59 100 mg QDAY JENNY Administration Plan 73-year-old male with PMHx of seizure, dementia, CVA, and rectal adenocarcinoma s/p chemoradiation, presented with AMS, admitted for acute encephalopathy 2/2 sepsis pneumonia. Sputum culture grew Klebsiella pneumonia, now on LEVAQUIN per sensitivity. ID concurs, added IgG given recurrent pneumonia. Cardiology following for troponinemia, and hx of ischemic cardiomyopathy. 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 Please refer to event note for detail. Appreciated Cardiology, ID, and Hemeonc recommendations. Afebrile, no tachycardia, on 100 oxy mask, satting 97, BP 99/59 Sodium 127, CBC stable Acute encephalopathy (resolved) Acute hypoxic respiratory failure (improving) Severe sepsis (resolved) Klebsiella pneumonia Hypotension (improving) Dementia, chronic Presented with AMS with limited history 2/2 mentation, SOB. Admission CXR prominent bibasilar pneumonia, 4/4 sepsis, elevated PRO-ELIZABETH Currently on room air, previously required 15 L oxy mask, sepsis, resolved Patient appears at baseline S/p adequate fluid resuscitation, ZOSYN and DOXYCYCLINE (02/07 - 02/08) Sputum culture grew Klebsiella, no MRSA, negative 48 hours blood culture ID recommended p.o. levofloxacin to complete 7 days of treatment Repeat CT chest prominent bibasilar pneumonia, suspect primary hepatocellular disease for cirrhosis, mild ascites, gastritis Rapid was called. Patient was desatting to 84 on room air, likely 2/2 aspiration, we stopped tube feed, CXR suggested aspiration pneumonia vs. pneumonitis. Patient afebrile, however follow-up labs showed worsening leukocytosis, with left shift. Will consider starting patient on ANTIBIOTICS and blood culture. We ordered DuoNebs x 1. Will continue monitoring. ? Continue LEVOFLOXACIN 750 mg p.o. daily (02/08 to [present]) ? DuoNebs q.6h. ? Aspiration precautions ? Oxygen PRN Underweight BMI 15.7 Failure to thrive Dysphagia s/p PEG tube placement Failed bedside swallow. Discussed with the younger sister who is the POA: Agreed to PEG tube insertion. Consulted GI. PEG tube inserted 02/11 complication. ALBUMIN 2.8 ? Holding PEG tube feeding 2/2 possible aspiration. ? Discussed possible need to test PEG tube feeding rate or consistency to prevent aspiration. Hyponatremia DDx includes SIADH 02/12 sodium 122, appropriate corrected with fluid restrictions and salt tablets with nephrology following Nephrology recommended salt tablets twice daily for 1 week Sodium 126-127 ? Continue to monitor sodium ? Continue SODIUM CHLORIDE 1 tablet BID (02/13 to [present]) Leukopenia (improved) Chronic normocytic anemia WBC is borderline low, 02/14 acute elevation with new left shift Hemoglobin around baseline HIV panel negative ? Daily CBC Troponinemia, likely type II vs. I (resolved) Hyperlipidemia Cardiomyopathy Troponin 0.678, EKG sinus tachycardia, no acute ST changes Likely demand ischemia in settings of sepsis, patient asymptomatic S/p HEPARIN drip, discontinued per cardiology recommendations initially cardiology planned on cardiac catheterization however, he is not a good candidate and family did not agree to intervention ASCVD score 26.1% for cardiovascular event, 18.6% 10-year cardiovascular risk recommends mod-high sensitive statin ? Telemetry ? Continue ATORVASTATIN 40 mg HS, Escalate to 80 mg once LFTs normalize ? Continue ASPIRIN 81 mg daily ? Magnesium >2, potassium >4 Electrolyte abnormalities ? 02/08 potassium 3.0 likely due to refeeding, repleted ? 02/09 phosphorus 2.1, gave NEUTRA-PHOS Transaminitis (improving) Likely ischemic hepatopathy 2/2 sepsis, underlying hepatopathy of unknown origin Admission AST 576, ALT 293, ALP 308, improved but increased again, likely due to dehydration Baseline AST 414, ALT 277, ALP [address] in January 2024: Cholelithiasis without cholecystitis, no hepatic pathology Negative hepatitis panel from January 2024 Unable to assess for alcohol use given mentation Will likely continue improve with fluid resuscitation ? Daily CMP ? Follow-up HIV: Negative ? Continue IV fluids. Monitor LFTs. Seizure ? Resumed home KEPPRA 500 mg IV CHANGED TO G-TUBE BID ? Seizure precaution Bilateral heal ulcers ? Wound care Stage II intramucosal rectal adenocarcinoma (stable) History of rectal adenocarcinoma, s/p chemoradiation Follows up with oncologist Dr. Oren Forde poor surgical candidate by Dr. Khanh Carlin at [facility], per chart review Dr. Sanchez consulted, recommended outpatient follow-up as well as outpatient colonoscopy ? Oncology, Dr. Sanchez, following ? Patient will need colonoscopy outpatient Dietitian recommendations: Discussed with dietitian: Will use the same recommendations after PEG tube insertion Jevity 1.5 at 10 ml/hr x 24 hrs (do not advance). If no IV fluids, water flushes 35 ml/hr Thiamine 100mg/day for 7 days; provide first dose at least 30 minutes before starting nutrition. Multivitamins/Minerals. Daily labs for P, K, and Mg; replace as needed. If no electrolytes disturbances after 24 hrs, advance 10 ml every 12 hrs to goal rate of 45 ml/hr x 24 hrs. Continue with water flushes 35 ml/hr (or per MD Health maintenance Diet: Holding tube feeds 2/2 ?aspiration GI prophylaxis: PROTONIX DVT prophylaxis: HEPARIN Antibiotics: Levaquin CODE STATUS: Full code Disposition: Diagnostic workup and management of hyponatremia; nephro following. Continue antibiotics for pneumonia Patient case was discussed with attending, Toni Amador MD and senior residents Dr. Young and Dr. Farris. Allison Cole, DO PGYI Mr Rios is a Lithuanian-speaking 73-year-old male with past medical history of age-related dementia, history of CVA with residual seizures, history of stage II rectal adenocarcinoma s/p chemoradiation, who was brought into the ED for altered mentation. Patient was admitted for acute metabolic encephalopathy, severe sepsis and acute hepatic respiratory failure in the setting of Klebsiella pneumonia. Patient was initially treated with IV Zosyn and doxycycline for the first 2 days of hospitalization/?02/08, later transitioned to p.o. Levaquin 500 mg daily. As per family and patient's wishes, patient had a PEG tube placed on his last hospitalization. He also has troponinemia, likely type II, however family denied any cardiac intervention at this time. He was also noted to have hyponatremia, no started on sodium chloride tablets by nephrology. Patient improved steadily on this hospitalization, and was scheduled to be discharged today 01/1620. However at 12:15 PM today, a rapid response was called for acute desaturation to 84% on room air. Patient was switched to oxygen mask 10 L, and saturating 87%. Flow was increased to 15 L with oxygen saturation is 94-98%. Repeat chest x-ray was ordered which was consistent with bronchitis, and possible bibasilar aspiration pneumonia, however patient does not have any fever or elevated leukocyte count. Will monitor for 1 more day, unlikely to need antibiotics at this time. Tube feeds were held, registered dietitian was consulted again, and tube feeds will be resumed again at a slower rate to prevent regurgitation and better tolerance. Dispo: Anticipate discharge in the next 24 hours if tolerates tube feeds, will closely monitor for aspiration, while on feeds. Patient examined and case discussed with the team including attending physician. Note reviewed, I agree with the care plan as documented. - Memo Farris MD, PGY 2
[2024-02-16] MEDS: METOPROLOL SUCCINATE XL 25 MG TABCR 50 MG GT (08:50)
[2024-02-16] MEDS: MULTIVITAMIN 15 ML UDC NG (08:50)
[2024-02-16] MEDS: levETIRAcetam LIQD 500 MG/5 ML UDC GT (08:50)
[2024-02-16] MEDS: SODIUM CHLORIDE 1 GM TABLET GT ×2 (08:50→18:00)
[2024-02-16] MEDS: LEVOFLOXACIN 250 MG TABLET 750 MG GT (08:51)
[2024-02-16] MEDS: LANSOPRAZOLE 30 MG TAB.RAP.DR GT (08:51)
[2024-02-16] MEDS: ASPIRIN 81 MG CHEW GT (08:51)
[2024-02-16] MEDS: THIAMINE 100 MG TABLET GT (08:51)
--- NOTE | 2024-02-16 10:01 | PD.RESPRO ---
Documentation for date of: 02/16/24 Subjective Subjective Interval history: Patient seen at bedside this morning. No overnight events Patient continues on oxy mask and saturating well. K+ 3.6 and no mg today, recommend to keep above 4 and 2 respectively. Patient was resting peacefully in his bed At this time no invasive interventions will be done as patient's family has decided to not pursue any invasive interventions at this time. Recommend to continue aspirin, high intensity statin, and beta-anitha if blood pressure allows. Plavix 75 mg daily could also be added to regimen if there is no complications or contraindication for anticoagulation Exam Vital Signs Temp Pulse Resp BP Pulse Ox O2 Del Method O2 Flow Rate 97.0 F 86 24 H 114/73 95 Oxy Mask 4 02/16/24 08:00 02/16/24 08:50 02/16/24 08:00 02/16/24 08:50 02/16/24 08:00 02/16/24 08:00 02/16/24 06:17 Narrative Exam General: A/O x1 (to person only), resting in bed, thin, frail male Eyes: Pupils reactive to light and EOMI. Ears: No visible ear discharge, Hearing grossly intact. Nose: No visible nasal discharge. Mouth/Throat: Moist mucous membranes, no redness, no lesions. Neck: Neck supple, no cervical lymphadenopathy. Lungs: Clear JESUS, No accessory muscle use. Cardio: Normal S1/S2, regular rhythm, no murmurs, no JVD. Abdomen: Soft, non-tender, no palpable masses, peristalsis present, no guarding or rebound, PEG tube in place with no bleeding. Extremities: Symmetrical, no significant deformities, no peripheral edema , non-tender, peripheral pulses presents. Skin: No rashes, no lesions, warm to touch. Neuro: Able to move all extremities. Objective Labs 02/16/24 05:28 02/16/24 14:48 Labs: Laboratory Results - last 24 hr 02/15/24 02/15/24 02/15/24 10:56 12:33 12:42 WBC 4.7 D RBC 3.93 L Hgb 12.4 L Hct 35.7 L MCV 91 MCH 31.6 MCHC 34.7 RDW Std Deviation 48.3 H Plt Count 282 D Neut % (Auto) 91 H Lymph % (Auto) 5 L [place] % (Auto) 4 Eos % (Auto) 0 Baso % (Auto) 0 Neut # (Auto) 4.2 Lymph # (Auto) 0.2 L [place] # (Auto) 0.2 Eos # (Auto) 0.0 Baso # (Auto) 0.0 Immature Gran # (Auto) 0.05 H Absolute Nucleated RBC 0.00 Immature Gran % 1 H Nucleated RBC % 0 Puncture Site Right Radial ABG pH 7.50 H ABG pCO2 36 ABG pO2 58 L* ABG HCO3 28 H ABG O2 Saturation 91 ABG Base Excess 5 H Oxygen Liter Flow 15 Sodium 127 L 128 L Potassium 4.4 Chloride 95 L Carbon Dioxide 24.5 Anion Gap 9 BUN 5 L Creatinine 0.2 L Estim Creat Clear Calc 200.4 eGFR > 60 BUN/Creatinine Ratio 25 H Glucose 125 H Calculated Osmolality 255 L Calcium 8.1 L 02/16/24 05:28 WBC 4.2 RBC 3.66 L Hgb 11.6 L Hct 33.6 L MCV 92 MCH 31.7 MCHC 34.5 RDW Std Deviation 49.5 H Plt Count 253 Neut % (Auto) 90 H Lymph % (Auto) 5 L [place] % (Auto) 4 Eos % (Auto) 0 Baso % (Auto) 0 Neut # (Auto) 3.7 Lymph # (Auto) 0.2 L [place] # (Auto) 0.2 Eos # (Auto) 0.0 Baso # (Auto) 0.0 Immature Gran # (Auto) 0.05 H Absolute Nucleated RBC 0.00 Immature Gran % 1 H Nucleated RBC % 0 Puncture Site ABG pH ABG pCO2 ABG pO2 ABG HCO3 ABG O2 Saturation ABG Base Excess Oxygen Liter Flow Sodium 127 L Potassium 3.6 D Chloride 94 L Carbon Dioxide 27.4 Anion Gap 6 L BUN 7 L Creatinine 0.3 L Estim Creat Clear Calc 133.6 eGFR > 60 BUN/Creatinine Ratio 23 H Glucose 118 H Calculated Osmolality 254 L Calcium 8.0 L ABG Interpretation ABG results: 02/15/24 12:33 ABG pH 7.50 H ABG pCO2 36 ABG pO2 58 L* ABG HCO3 28 H ABG O2 Saturation 91 ABG Base Excess 5 H Quality Measures Quality Measures VTE prophylaxis Advance care planning discussed with:: patient Assessment & Plan Assessment Current Active Medications: Generic Name Dose Route Start Last Admin Trade Name Freq PRN Reason Stop Dose Admin Acetaminophen 650 mg 02/07/24 18:29 Acetaminophen 325 Mg Tablet PO 03/08/24 18:28 Q6H PRN Fever >100.4 Acetaminophen 650 mg 02/07/24 18:29 Acetaminophen Supp 650 Mg Supp [place] 03/08/24 18:28 Q6H PRN PAIN SCALE 1-3 (mild Acetylcysteine 3 ml 02/15/24 12:30 02/16/24 06:14 Acetylcysteine Ana 20% 4 Ml Nebu INH 03/16/24 12:29 3 ml Q4HRRT JENNY Administration Albuterol/Ipratropium 3 ml 02/14/24 22:02 02/16/24 06:14 Albuterol/Ipratropium (Duoneb) Rt Ana 3 Ml Nebu INH 03/15/24 22:01 3 ml Q6HRRT PRN Administration SHORTNESS OF BREATH OR WHEEZE Aspirin 81 mg 02/13/24 09:00 02/16/24 08:51 Aspirin 81 Mg Chew GT 03/14/24 08:59 81 mg QDAY JENNY Administration Heparin Sodium (Porcine) 5,000 unit 02/15/24 12:30 02/16/24 05:24 Heparin Sod Inj 5000 Unit/Ml Vial SC 02/29/24 12:29 5,000 unit Q8HR JENNY Administration Lansoprazole 30 mg 02/13/24 09:00 02/16/24 08:51 Lansoprazole 30 Mg Tab. GT 03/14/24 08:59 30 mg QDAY JENNY Administration Levetiracetam 500 mg 02/13/24 21:00 02/16/24 08:50 Levetiracetam Liqd 500 Mg/5 Ml Udc GT 03/14/24 20:59 500 mg BID JENNY Administration Metoprolol Succinate 50 mg 02/15/24 11:15 02/16/24 08:50 Metoprolol Succinate Xl 25 Mg Tabcr GT 03/16/24 11:14 50 mg QDAY JENNY Administration Multivitamins/Minerals 15 ml 02/09/24 09:30 02/16/24 08:50 Multivitamin 15 Ml Udc NG 03/10/24 09:29 15 ml QDAY JENNY Administration Ondansetron HCl 4 mg 02/07/24 18:29 Ondansetron Inj 2 Mg/Ml Inj 2 Ml IV 03/08/24 18:28 Q6H PRN NAUSEA OR VOMITING Protocol Sennosides 1 tab 02/13/24 16:05 Senna Tablet GT 03/08/24 18:28 QDAY PRN constipation Protocol Sodium Chloride 1 gm 02/13/24 09:15 02/16/24 08:50 Sodium Chloride 1 Gm Tablet GT 03/14/24 09:14 1 gm BID JENNY Administration Thiamine HCl 100 mg 02/15/24 09:00 02/16/24 08:51 Thiamine 100 Mg Tablet GT 03/16/24 08:59 100 mg QDAY JENNY Administration Plan 73-year-old male with past medical history of colon cancer s/p chemoradiation, seizure, dementia, and CVA (ischemic and hemorrhagic) was admitted to the hospital on 02/07/2024 due to acute encephalopathy likely secondary to hospital-acquired pneumonia given the patient was in our hospital on December. . Elevated troponins, NSTEMI type II most likely demand ischemia ?Patient's troponin on admission were 0.678 and peaked at 2.076 before downtrending. ? EKG showed sinus tachycardia ?Last echo on January 06, 2024 had the following findings Normal LV size and function. Grade 1 diastolic dysfunction. Estimated EF 55 to 60% Normal RV size and function Mild TR. Mild AV sclerosis without stenosis. Trace AI. ?Zohreh ACS score of 124 points, 9% probability of Plan: ?Recommend to continue patient on aspirin, high intensity statin, and beta anitha if BP allows. -Recommend Plavix 75 mg daily could also be added to regimen if there is no complications or contraindication for anticoagulation -Recommend primary care team to have goals of care discussion with patient's family as condition is guarded. -Aggressively replete potassium and magnesium to keep above 4 and 2 respectively to avoid any arrhythmias. -Patient was made DNR and had PEG tube placed yesterday, started tube feeds. -As per oncologist patient is clinically likely in stage II with large primary tumor, but no regional or distant mets. Also stated the goal of chemo and radiation was comfort in terms of preventing or delaying obstruction, pain, or bleeding symptoms and since patient did not have any surgery this will work for around 1 to 2 years. Still no clear life expectancy. Patient's condition continues to be guarded, with probable underlying CAD, but will need to assess the risk of benefits of invasive workup, recommend to speak with family to discuss goals of care and wishes. - Family at this time has decided not to pursue invasive interventions, therefore no left heart cath and continue to treat him medically. 2. Acute encephalopathy 3. Acute hypoxic respiratory failure 4. Sepsis likely secondary to hospital-acquired pneumonia 5. Hospital-acquired pneumonia 6. Hypotension ?Patient initially met SIRS 4 out of 4 with leukopenia, tachycardia, tachypnea, and febrile ?Chest x-ray showed bibasilar pneumonia, given prior hospitalization last month patient is at increased risk of hospital-acquired pneumonia ? Patient has baseline dementia and is AO x 1 today (only to present) ?Patient's blood pressure has been on the lower end since admission with the lowest being 90/52, but currently is 127/86 today. ? Continue current management as per primary care team - Patient continues to be DNR/DNI 7. Leukopenia 8. Rectal cancer s/p chemoradiation ? Leukopenia mostly in the setting of chemoradiation ?WBCs 2.8 on admission ?Continue current management as per primary care team 9. Hypoosmolar hyponatremia ?Sodium 129 on admission ? This could be due to renal loss versus gastrointestinal loss versus medication induced ? Continue current management as per primary care team 10. Transaminitis ?Patient liver enzymes have been elevated since last admission ? AST 576, ALT 293, alkaline phosphatase 308 on admission ?Liver ultrasound was unremarkable ? Continue current management as per primary care team 11. Seizures 12. CVA 13. Dementia ?Recommend to continue patient's aspirin and Keppra ?Continue current management per primary care team Continue rest of management as per primary team. We are grateful to be able to participate in Mr. Rios's care. Thank you for the consult Plan of care discussed with attending Tile Layer Supervisor, Dr. Cesar Mcdaniels MD PGY-1 Attending Provider Attestation/Addendum I have personally seen and examined the patient separately on the above date of service and discussed the plan of care with the resident. I reviewed the resident Dr. Laws consultation progress note and agree with the resident findings and plan in the note above and have also edited the documentation to reflect my findings and plan. Surinder Guerrero M.D. Interventional Cardiology
--- NOTE | 2024-02-16 10:03 | PC.SS ---
Addendum entered by MIGUEL ANGEL Kaur 02/16/24 14:23: Attending Dr. Amador requested to push transportation time. [facility] ETA changed to 6pm. Updated nurse and [facility]. Addendum entered by MIGUEL ANGEL Kaur 02/16/24 12:03: ETA 3pm with [facility]. Cami at [facility] and charge nurse Cedrick are aware. Addendum entered by MIGUEL ANGEL Kaur 02/16/24 10:27: Transportation arranged with [employer]. Reference number [id number]. Request for [facility]. Pending ETA. Original Note: SS follow up: plan is to discharge the patient today back ti [facility] ([facility]). Cami at [facility] is agreeable with accepting the patient today. Provided a voicemail to patient's relative, Karissa to make aware.
[2024-02-16 11:01] LABS: Sodium 125 mMol/L (136-145)
--- NOTE | 2024-02-16 11:47 | PC.DIETICIAN ---
Jevity 1.5 at 30 ml/hr via PEG tube by pump. Advance 10 ml every 8 hrs to goal rate of 45 ml/hr x 24 hrs. If no IV fluids, 100mL Q 4 hrs per MD Provides: 1080 ml total volume, 1620 kcal, 69 g prot, 820 ml free water+600 [id number]=[id number] (32ml/kg)
[2024-02-16] MEDS: SODIUM CHLORIDE 1 GM TABLET PO (12:43)
--- NOTE | 2024-02-16 13:06 | PD.RESPRO ---
Documentation for date of: 02/16/24 Subjective Subjective Interval history: Mr. Rios is a 73-year-old male with past medical history of seizure, dementia, CVA, rectal cancer status post chemo who was brought in by ambulance to [facility] on for with a chief complaint of altered mental status and shortness of breath. Patient was unable to provide history, most of the history on admission was obtained from patient's family and chart review, during the course of his hospital stay cardiology was consulted due to concern of NSTEMI which on further workup showed NSTEMI type II, oncology was consulted for rectal CA due to patient's advanced disease and acute changes and GI was consulted for PEG tube placement. With the progression of hospital course patient's sodium continued to decline, acute drop noted on 02/11 from 132 to 124, patient was given IV normal saline and patient's sodium did not improve, decreased to 122 and nephrology was consulted for acute hyponatremia. Of note patient is currently being treated for extensive bilateral pneumonia. Patient is underweight with BMI of 15.7 and has PEG tube placement status post poor p.o. intake causing failure to thrive. 02/12: Patient seen at bedside, patient is responsive to name, unable to provide any details. As patient was unresponsive to IV fluids, patient placed on fluid restriction and will be started on salt tablets, will continue to monitor sodium every 4 hours, will follow urine sodium, urine creatinine, urine potassium and urine chloride. Possible component of SIADH due to underlying lung pathology as patient was unresponsive to fluids. Will continue to monitor. 02/14/24: Patient was seen and examined by the bedside. No acute overnight events. Sodium improved from 122 to 127 in 24 hours plan. Continues to be on salt tablets. Urine creatinine 52, sodium 122.5, potassium 24, chloride 44.7. Patient is set to be discharged on salt tablet twice daily for 1 week, repeat CMP in 1 week. 02/15/24: Patient seen at bedside. No acute overnight events, patient more alert conversational, patient is pending discharge currently on salt tablets. Anticipating discharge on salt tablets twice daily for 1 week and follow-up with repeat CMP in 1 week. No lab done today as patient is pending discharge. 02/16/24: Patient seen at bedside, currently on 4 L oxygen saturating well. Patient had a rapid response yesterday for suspected aspiration pneumonia, sodium this morning 125, increased salt tablets to 3 times daily. Anticipate discharge on salt tablets 3 times daily for 1 week follow-up with repeat CMP in 1 week. Will continue to monitor sodium. Exam Vital Signs Temp Pulse Resp BP Pulse Ox O2 Del Method O2 Flow Rate 97.0 F 94 19 114/73 99 Oxy Mask 2 02/16/24 08:00 02/16/24 11:03 02/16/24 11:03 02/16/24 08:50 02/16/24 11:03 02/16/24 08:00 02/16/24 11:03 Narrative Exam Physical Exam General: Awake and in no acute distress. Chronically ill-appearing. Conversational. AOx1. HEENT: Normocephalic, atraumatic, mucous membranes moist. Heart: Regular rate and rhythm, no murmurs. Lungs: Bilateral wheezing noted, patient saturating well on 4 L via oxy mask. Abdomen: Soft, nondistended, nontender, positive bowel sounds. ?PEG tube in place. No guarding or rebound tenderness. Neurologic: Alert and oriented x1, no gross neurological deficit, and patient able to move all 4 extremities. Extremities: No edema. Skin: No rash or ecchymoses. Objective Labs 02/16/24 05:28 02/16/24 14:48 Labs: Laboratory Results - last 24 hr 02/15/24 02/16/24 02/16/24 12:42 05:28 10:40 WBC 4.7 D 4.2 RBC 3.93 L 3.66 L Hgb 12.4 L 11.6 L Hct 35.7 L 33.6 L MCV 91 92 MCH 31.6 31.7 MCHC 34.7 34.5 RDW Std Deviation 48.3 H 49.5 H Plt Count 282 D 253 Neut % (Auto) 91 H 90 H Lymph % (Auto) 5 L 5 L Edwards % (Auto) 4 4 Eos % (Auto) 0 0 Baso % (Auto) 0 0 Neut # (Auto) 4.2 3.7 Lymph # (Auto) 0.2 L 0.2 L Edwards # (Auto) 0.2 0.2 Eos # (Auto) 0.0 0.0 Baso # (Auto) 0.0 0.0 Immature Gran # (Auto) 0.05 H 0.05 H Absolute Nucleated RBC 0.00 0.00 Immature Gran % 1 H 1 H Nucleated RBC % 0 0 Sodium 128 L 127 L 125 L Potassium 4.4 3.6 D Chloride 95 L 94 L Carbon Dioxide 24.5 27.4 Anion Gap 9 6 L BUN 5 L 7 L Creatinine 0.2 L 0.3 L Estim Creat Clear Calc 200.4 133.6 eGFR > 60 > 60 BUN/Creatinine Ratio 25 H 23 H Glucose 125 H 118 H Calculated Osmolality 255 L 254 L Calcium 8.1 L 8.0 L ABG Interpretation ABG results: 02/15/24 12:33 ABG pH 7.50 H ABG pCO2 36 ABG pO2 58 L* ABG HCO3 28 H ABG O2 Saturation 91 ABG Base Excess 5 H Quality Measures Quality Measures VTE prophylaxis Advance care planning discussed with:: patient Assessment & Plan Assessment Current Active Medications: Generic Name Dose Route Start Last Admin Trade Name Freq PRN Reason Stop Dose Admin Acetaminophen 650 mg 02/07/24 18:29 Acetaminophen 325 Mg Tablet PO 03/08/24 18:28 Q6H PRN Fever >100.4 Acetaminophen 650 mg 02/07/24 18:29 Acetaminophen Supp [address] 03/08/24 18:28 Q6H PRN PAIN SCALE 1-3 (mild Albuterol/Ipratropium 3 ml 02/14/24 22:02 02/16/24 06:14 Albuterol/Ipratropium (Duoneb) Rt Ana 3 Ml Nebu INH 03/15/24 22:01 3 ml Q6HRRT PRN Administration SHORTNESS OF BREATH OR WHEEZE Aspirin 81 mg 02/13/24 09:00 02/16/24 08:51 Aspirin 81 Mg Chew GT 03/14/24 08:59 81 mg QDAY JENNY Administration Heparin Sodium (Porcine) 5,000 unit 02/15/24 12:30 02/16/24 05:24 Heparin Sod Inj 5000 Unit/Ml Vial SC 02/29/24 12:29 5,000 unit Q8HR JENNY Administration Lansoprazole 30 mg 02/13/24 09:00 02/16/24 08:51 Lansoprazole 30 Mg Tab.Rap.Dr GLASER 03/14/24 08:59 30 mg QDAY JENNY Administration Levetiracetam 500 mg 02/13/24 21:00 02/16/24 08:50 Levetiracetam Liqd 500 Mg/5 Ml Udc GT 03/14/24 20:59 500 mg BID JENNY Administration Metoprolol Succinate 50 mg 02/15/24 11:15 02/16/24 08:50 Metoprolol Succinate Xl 25 Mg Tabcr GT 03/16/24 11:14 50 mg QDAY JENNY Administration Multivitamins/Minerals 15 ml 02/09/24 09:30 02/16/24 08:50 Multivitamin 15 Ml Udc NG 03/10/24 09:29 15 ml QDAY JENNY Administration Ondansetron HCl 4 mg 02/07/24 18:29 Ondansetron Inj 2 Mg/Ml Inj 2 Ml IV 03/08/24 18:28 Q6H PRN NAUSEA OR VOMITING Protocol Sennosides 1 tab 02/13/24 16:05 Senna Tablet GT 03/08/24 18:28 QDAY PRN constipation Protocol Sodium Chloride 1 gm 02/16/24 18:00 Sodium Chloride 1 Gm Tablet GT 03/17/24 17:59 TID JENNY Thiamine HCl 100 mg 02/15/24 09:00 02/16/24 08:51 Thiamine 100 Mg Tablet GT 03/16/24 08:59 100 mg QDAY JENNY Administration Plan Mr. Rios is a 73-year-old male with past medical history of seizure, dementia, CVA, rectal cancer status post chemo who was brought in by ambulance to [facility] on for with a chief complaint of altered mental status and shortness of breath. Patient was unable to provide history, most of the history on admission was obtained from patient's family and chart review, during the course of his hospital stay cardiology was consulted due to concern of NSTEMI which on further workup showed NSTEMI type II, oncology was consulted for rectal CA due to patient's advanced disease and acute changes and GI was consulted for PEG tube placement. With the progression of hospital course patient's sodium continued to decline, acute drop noted on 02/11 from 132 to 124, patient was given IV normal saline and patient's sodium did not improve, decreased to 122 and nephrology was consulted for acute hyponatremia. Of note patient is currently being treated for extensive bilateral pneumonia. Patient is underweight with BMI of 15.7 and has PEG tube placement status post poor p.o. intake causing failure to thrive. #Acute Euvolemic hypoosmolar hyponatremia, improving -Dropped acutely from 132 to 124 on 02/11, did not improve with IV NS, high suspicion of SIADH due to pulmonary pathology of extensive bilateral pneumonia and the use of antiseizure medications. Of note uric acid level significantly low consistent with increased ADH response. 02/14/24: Na improved from 122 to 127 while on salt tablets and fluid restriction. Plan: -Sodium tablet three times daily through G-tube for 1 week -Fluid restriction -Follow-up outpatient with CMP in 1 week #Acute encephalopathy #Acute hypoxic respiratory failure #Severe sepsis #Klebsiella pneumonia #Hypotension #Dementia, chronic #Dysphagia #Leukopenia (improved) #Chronic normocytic anemia #Troponinemia, likely type II vs. I (resolved) #Hyperlipidemia #Cardiomyopathy #Electrolyte abnormalities #Transaminitis #Seizure #Bilateral heal ulcers #Stage II intramucosal rectal adenocarcinoma (stable) #Chronic pharyngeal dysphagia #Artificial nutrition #Hypoglycemia (resolved) #Underweight BMI 15.7 #Failure to thrive -Management per primary team Plan of care discussed with attending Dr. Zamora. Arnav Gill PGY-1 Attending Provider Attestation/Addendum Patient seen and examined with resident physician Dr. Gill. Note reviewed, agree with findings and recommendations.
[2024-02-16 16:18] LABS: Anion Gap 5 (7-16); BUN/Creatinine Ratio 35 Ratio (12-20); Blood Urea Nitrogen 7 mg/dL (9-23); Calcium 7.7 mg/dL (8.3-10.6); Carbon Dioxide 26.7 mMol/L (20.0-31.0); Chloride 95 mMol/L (98-107); Creatinine (Component) 0.2 mg/dL (0.6-1.3); Estimated Creatinine Clearance 199.1 mL/min (>60); Glucose 114 mg/dL (74-106); Osmolality,Calculated 254 (275-295); Potassium 4.2 mMol/L (3.4-5.1); Sodium 127 mMol/L (136-145); eGFR > 60 See Note
--- NOTE | 2024-02-16 17:34 | ESDS_ITS ---
<Statement entered by Memo Farris MD - 02/17/24 07:47> Patient was examined with the team including attending physician. Note reviewed, I agree with the discharge plan as documented. - Memo Farris MD, PGY 2 Planned Discharge Date 02/16/24 DS: Providers Provider Date of admission: 02/07/24 18:30 Primary care physician: Physician No Primary/Family Admitting Provider: Toni Amador MD Attending Provider on Admission: Toni Amador MD Consults: 02/07/24 18:36 Consult to Infectious Diseases Stat Comment: Recurrent PNA Consulting Provider: Aramis Hernandez 02/07/24 20:44 Consult to Cardiology Routine Comment: Consulting Provider: Surinder Guerrero 02/08/24 10:16 Consult to Oncology Routine Comment: Intramucosal rectal adenocarcinoma Consulting Provider: Lj Sanchez Instructions: Chart shows you've seen patient before Follows up with oncologist Dr. Oren Forde poor surgical candidate by Dr. Khanh Carlin at [facility], per chart review 02/08/24 13:09 Referral Registered Dietitian Routine Comment: Instructions: PEG TUBE INSERTION COMPLETED 02/09/24 23:30 Referral Wound Care Urgent Comment: Instructions: patient admitted from snf on 02/06, no wound referal ordered. unstageable to heel or and stage 3 to coccyx 02/10/24 08:26 Referral Speech Therapy Routine Comment: repeat swallow eval please 02/11/24 12:22 Consult to Gastroenterology Urgent Comment: PEG placement; recurrent aspiration Consulting Provider: Jayson Barraza 02/13/24 08:21 Consult to Nephrology Routine Comment: hyponatremia Consulting Provider: Carol Zamora Attending Provider on DC: Toni Amador MD Discharging Provider: Toni Amador MD DS: Diagnosis Problem List Completed Was Problem List Reviewed/Reconciled?: Yes Hospital Course Hospital Course Hospital course: This is a 73-year-old male with PMHx of seizure, dementia, CVA, and rectal adenocarcinoma s/p chemoradiation, presented with AMS, admitted for acute encephalopathy 2/2 sepsis pneumonia. Sputum culture grew Klebsiella pneumonia, she continued on LEVAQUIN per sensitivity. ID concurs, added IgG given recurrent pneumonia which is currently pending. Cocci IgM was negative Cardiology was following for NSTEMI type II, and hx of ischemic cardiomyopathy, patient started on PLAVIX, METOPROLOL, ASPIRIN and ATORVASTATIN. Risk of bleed discussed with patient and patient's sister at bedside. Patient and family agreed prior to starting medication. Nephrology is following for hyponatremia, which is corrected with fluid restrictions, IV fluid and salt tablets. Sodium 127 at the time of discharge. Patient will follow-up with nephrology in 1 week, and will have renal labs completed for his next appointment. Presented with worsening dysphagia, evaluated by speech, deemed unsafe for p.o. feed. He underwent PEG tube placement with GI, will continue PEG tube feed as instructed by dietitian. Patient, on room air, and stable at the time of discharge, he will discharge to SNF. Initially PATIENT INSTRUCTIONS: * Follow-up with PCP within 1 week of discharge, discussed scheduling colonoscopy. * Follow-up with oncology, Dr. Sanchez, within 1 week of discharge for rectal adenocarcinoma * Follow-up with nephrology, Dr. Zamora, within 1 week of discharge, please bring renal labs to appointment. * Follow-up with cardiology, Dr. Guerrero within 1 week of discharge * Return to Emergency Room if symptoms persist, worsen, or new symptoms develop. * Continue taking medications as prescribed below. CONTINUE taking the following medications: ? PLAVIX 75 mg daily ? METOPROLOL XL 50 mg daily ? ATORVASTATIN 80 mg daily at night ? ASPIRIN 81 mg daily ? LEVOFLOXACIN 750 mg daily for 2 more days ? KEPPRA 500 mg daily ? Continue tube feed through PEG tube as instructed ADMISSION DIAGNOSES: Acute encephalopathy (resolved) Acute hypoxic respiratory failure (improving) Severe sepsis (improving) Klebsiella pneumonia Hypotension (improving) Dementia, chronic Underweight BMI 15.7 Failure to thrive Dysphagia s/p PEG tube placement Hyponatremia Leukopenia (improved) Chronic normocytic anemia Troponinemia, likely type II vs. I (resolved) Hyperlipidemia Cardiomyopathy Electrolyte abnormalities Transaminitis Seizure Bilateral heal ulcers Stage II intramucosal rectal adenocarcinoma (stable) Patient case was discussed with attending, Dr. Alma Rosa MD and senior resident Dr. Farris. DO ELVIRA Alatorre Time Spent with Patient Time attestation: Total time spent providing and/or coordinating discharge services: Greater than 35 minutes. Exam Vital Signs Temp Pulse Resp BP Pulse Ox O2 Del Method O2 Flow Rate 97.6 F 83 20 111/64 94 L Oxy Mask 2 02/16/24 16:00 02/16/24 16:00 02/16/24 16:00 02/16/24 16:00 02/16/24 16:00 02/16/24 16:00 02/16/24 11:03 Narrative Exam Gen: Elderly male, appears chronically ill, pleasant but confused HEENT: NCAT, PERRLA, MMM, no LAD noted CVS: normal S1, S2. RRR. No MRG Resp: CTA B/L no w/r/r Abd: soft, non-tender, non-distended. BS+ in all 4 quadrants. PEG tube and abd binder noted MSK: Moves all extremities, no edema noted. Ulcers at B/L heels Neuro: CN II-XII grossly intact. Does not follow all commands Discharge Plan Plan Patient Disposition: Xfer Skilled Nsg Fac (SNF) Patient condition on transfer: Stable Prescriptions/Referrals Prescriptions/Med Rec: New clopidogrel [Plavix] 75 mg tablet 75 mg PO QDAY 30 Days Qty: 30 0RF metoprolol succinate 50 mg tablet extended release 24 hr 50 mg PO QDAY 30 Days Qty: 30 0RF sodium chloride 1,000 mg tablet,soluble 1,000 mg PO TID 30 Days Qty: 90 0RF Continued atorvastatin 80 mg tablet 40 mg PO QPM Qty: 30 0RF acetaminophen 325 mg Tablet 650 mg PO QID PRN (Reason: Pain, Mild) Rx Instructions: elevated temp, mild pain guaifenesin 100 mg/5 mL Liquid 200 mg PO QID PRN (Reason: Cough) ipratropium-albuterol 0.5 mg-3 mg(2.5 mg base)/3 mL Solution For Nebulization 3 ml INHALATION Q4HR PRN (Reason: Shortness Of Breath Or Wheezing) multivitamin with minerals Tablet 1 tab PO QDAY zinc Tablet,Chewable 1 tab PO QDAY Rx Instructions: for wound supplement for 14 days levetiracetam 100 mg/mL Solution 500 mg PO BID Rx Instructions: may be mixed with applesauced for thickening amino acids-protein hydrolys 15-100 gram-kcal/30 mL Liquid 1 ea PO BID Rx Instructions: for wound supplement for 60 days, start 01/29/24, end 03/29/24 thiamine mononitrate (vit B1) 90 mg/scoop Powder 90 mg PO QDAY Discontinued azithromycin 250 mg Tablet 500 mg PO QDAY Rx Instructions: for infecttion for 1 day. start 02/08/24, end 02/09/24 azithromycin 250 mg Tablet 250 mg PO QDAY Rx Instructions: start on day 2 of therapy, for infection for 4 days, start 02/09/24, end 02/13/24 ascorbic acid (vitamin C) 500 mg Tablet 500 mg PO BID Rx Instructions: for wound supplement for 60 days, started 01/29/24, end 03/29/24 prednisone 20 mg Tablet 40 mg PO QDAY Rx Instructions: for wheezing for 5 days prednisone 20 mg Tablet 40 mg PO QDAY midodrine 5 mg Tablet 5 mg PO TID Rx Instructions: for low blood pressure hold if SBP is more than 110 Referrals: No Primary/Family,Physician [Primary Care Provider] - Patient/Caregiver Discharge Instructions Discharge Activity: resume usual activities Other Discharge Activity Instructions:: Follow-up with PCP within 1 week of discharge, discussed scheduling colonoscopy. Follow-up with oncology, Dr. Sanchez, within 1 week of discharge for rectal adenocarcinoma Follow-up with cardiology, Dr. Guerrero, within 1-2 weeks of discharge Follow-up with nephrology, Dr. Zamora, within 1 week of discharge, please bring renal labs to appointment. Return to Emergency Room if symptoms persist, worsen, or new symptoms develop. Continue taking medications as prescribed below. CONTINUE taking the following medications: ? PLAVIX 75 mg daily ? METOPROLOL XL 50 mg daily ? ATORVASTATIN 80 mg daily at night ? ASPIRIN 81 mg daily ? LEVOFLOXACIN 750 mg daily for 2 more days ? KEPPRA 500 mg twice daily ? Continue tube feed through PEG tube as instructed: Jevity 1.5 at 30 ml/hr via PEG tube by pump. Advance 10 ml every 8 hrs to goal rate of 45 ml/hr x 24 hrs. Free water flushes 100mL Q 4 hrs. Provides: 1080 ml total volume, 1620 kcal, 69 g prot, 820 ml free water+600 [id number] (32ml/kg) - Take salt tablets three times a day for hyponatremia, until further assessment by PCP and Nephrology Other Discharge Diet Instructions: Jevity 1.5 at 30 ml/hr via PEG tube by pump. Advance 10 ml every 8 hrs to goal rate of 45 ml/hr x 24 hrs. If no IV fluids, 100mL Q 4 hrs per MD Provides: 1080 ml total volume, 1620 kcal, 69 g prot, 820 ml free water+600 [id number] (32ml/kg) Education Materials: Anemia, Hyponatremia Dc, Stroke Prevention Eating Healthy Print Language: Scottish Activity Restrictions/Additional Instructions: Follow-up with Dr. Zamora in 2 weeks- tele appt - [phone] Renal panel in 2 weeks Stand Alone Forms: [employer]aine Award Info., Patient Portal Info Letter Discharge Order Discharge Orders: Discharge (Routine); Ordered 02/16/24 Ordered By: Memo Farris Quality Discharge Quality Measures VTE prophylaxis MD Attestestation MD Attestation I reviewed labs, imaging, EKG, home medications and prior available records. Face to face evaluation was performed by me. I have personally examined the patient and discussed assessment and plan with the IM team. I reviewed the resident note and agree with the plan with exceptions as below. Breakthrough seizure Acute hypoxic respiratory failure Aspiration pneumonia Dementia, likely Alzheimer's type, without aggressive behavior Hyperactive delirium Hyponatremia Transaminitis Dysphagia No further seizure-like activities. Likely in the setting of aspiration event. Oxygen requirements improved. Received levofloxacin for 7 days. Hepatitis panel is negative. Liver ultrasound is WNL. LFTs downtrending. Delirium precautions Hyponatremia improved with sodium tablets. Discharge on sodium tablets 3 times daily. Follow-up with nephrology as outpatient. Status post PEG tube insertion. Dietitian is following. Continue tube feeds at 30 cc/h. Time spent is 40 minutes. More than 50% of the time was spent on patient education and coordination of care.
--- NOTE | 2024-02-16 17:48 | PC.NURSE ---
report called to nurse Tran at [facility].
[2024-02-29 06:27] LABS: IgG, Serum* 1472 mg/dL (600-1540)
== END 2024-02-16 19:08 | disposition skilled nursing facility (03) | DRG 871 ==
LOC: SERX 18:06 → SERHOLD 19:17 → S2NX 23:24 → S3NX 02-14 16:41
PROVIDERS: Internal Medicine Cardiovascular Disease; Internal Medicine Infectious Disease; Registered Nurse General Practice; Specialist; Student in an Organized Health Care Education/Training Program; Admitting Provider Student in an Organized Health Care Education/Training Program; Emergency Provider Emergency Medicine; Visit Provider Student in an Organized Health Care Education/Training Program
PROC: 0DH63UZ Insertion of Feeding Device into Stomach, Percutaneous Approach (ICD-10-PCS; CPT 43246; principal; 2024-02-12 16:00)
DX: A41.9 Sepsis, unspecified organism (principal); G93.41 Metabolic encephalopathy; J96.01 Acute respiratory failure with hypoxia; I21.A1 Myocardial infarction type 2; J15.0 Pneumonia due to Klebsiella pneumoniae; J69.0 Pneumonitis due to inhalation of food and vomit; F02.811 Dementia in other diseases classified elsewhere, unspecified severity, with agitation; E87.1 Hypo-osmolality and hyponatremia; F05 Delirium due to known physiological condition; Z68.1 Body mass index [BMI] 19.9 or less, adult; R64 Cachexia; C19 Malignant neoplasm of rectosigmoid junction; L97.429 Non-pressure chronic ulcer of left heel and midfoot with unspecified severity; L97.419 Non-pressure chronic ulcer of right heel and midfoot with unspecified severity; R65.20 Severe sepsis without septic shock; R56.9 Unspecified convulsions; G30.9 Alzheimer's disease, unspecified; E86.0 Dehydration; E78.5 Hyperlipidemia, unspecified; I25.5 Ischemic cardiomyopathy; K29.70 Gastritis, unspecified, without bleeding; D63.0 Anemia in neoplastic disease; D72.819 Decreased white blood cell count, unspecified; R62.7 Adult failure to thrive; R13.13 Dysphagia, pharyngeal phase; R63.6 Underweight; I95.9 Hypotension, unspecified; Y95 Nosocomial condition; E87.6 Hypokalemia; E16.2 Hypoglycemia, unspecified; Z86.73 Personal history of transient ischemic attack (TIA), and cerebral infarction without residual deficits; Z92.21 Personal history of antineoplastic chemotherapy; Z92.3 Personal history of irradiation; Z66 Do not resuscitate; Z87.01 Personal history of pneumonia (recurrent); Z74.01 Bed confinement status; Z78.1 Physical restraint status; Z79.02 Long term (current) use of antithrombotics/antiplatelets; Z79.899 Other long term (current) drug therapy; Z79.82 Long term (current) use of aspirin
CPT/HCPCS: 36415; 36600; 71045; 71260; 76705; 80048; 80053; 80069; 80074; 81001; 82436; 82570; 82784; 82803; 83605; 83615; 83690; 83735; 83880; 84100; 84132; 84133; 84145; 84295; 84300; 84478; 84484; 84550; 85025; 85610; 85730; 86331; 86635; 86703; 87040; 87077; 87081; 87086; 87186; 87205; 87400; 87502; 87811; 92526; 92610; 93005; 93306; 94640; 96365; 96367; 96374; 96376; 99285; A4217; A4649; A9270; J0696; J1200; J1643; J1644; J1953; J1956; J2250; J2543; J3010; J3411; J3475; J3480; J7030; J7040; Q9967

== ENCOUNTER 2024-02-19 20:13 | Inpatient (IN) | payer MEDICARE, MEDICAID, SELFPAY ==
[2024-02-19] VITALS (15 sets, daily range): BP systolic 76–123; BP diastolic 48–84; PULSE 0–119; RESP 19–87; TEMP 38.1–38.8; O2SAT 83–100; BMI 21.6
--- NOTE | 2024-02-19 20:17 | XR_ITS ---
Examination: AP chest single view Technique: AP portable upright chest single view Exam date and time: February 19, [id number] hrs. Indications: Sepsis today. Findings: Moderate heart failure Suspicious for superimposed pneumonia at the lung bases Moderate enlargement cardiac contour, enlarged ectatic thoracic aorta with bilateral perihilar pulmonary edema Impression: Moderate heart failure Suspicious for superimposed pneumonia at the lung bases
--- NOTE | 2024-02-19 20:24 | PC.NURSE ---
2023, sepsis alert per bijan
[2024-02-19] MEDS: ACETAMINOPHEN SUPP 650 MG SUPP PR (20:25)
--- NOTE | 2024-02-19 20:25 | EDNOTE_ITS ---
Altered Mental Status RME/HPI General Chief Complaint: Altered Mental Status Stated Complaint: AMS Time Seen by Provider: 02/19/24 20:22 Arrival date/time: 02/19/24 20:13 Limitations: no limitations RME / HPI RME / HPI narrative: DR. DOS SANTOS MAIN ED EVALUATION: 73-year-old male from [facility] presents to the Emergency Department [facility] with complaints of fever and altered mental status. Associated symptoms include a cough that is productive green in color. [employer]PERVIS[employer] reports HR/Fever at change of shift. PMHx: High cholesterol, seizure disorder, hypertension, pneumonia, old CVA, dementia, cardiogenic shock, alcoholic cirrhosis, rectal cancer, TIA. Recent admission for : 02/16/24 Sputum culture grew Klebsiella pneumonia, she continued on LEVAQUIN per sensitivity. ID concurs, added IgG given recurrent pneumonia which is currently pending. Cocci IgM was negative Cardiology was following for NSTEMI type II, and hx of ischemic cardiomyopathy, patient started on PLAVIX, METOPROLOL, ASPIRIN and ATORVASTATIN. Risk of bleed discussed with patient and patient's sister at bedside. Patient and family agreed prior to starting medication. Related Data Home Medications ?Medication ?Instructions ?Recorded ?Confirmed acetaminophen 325 mg tablet 650 mg PO QID PRN Pain, Mild 02/08/24 02/08/24 amino acids-protein hydrolysate 15 1 ea PO BID 02/08/24 02/08/24 gram-100 kcal/30 mL oral liquid guaifenesin 100 mg/5 mL oral liquid 200 mg PO QID PRN Cough 02/08/24 02/08/24 ipratropium 0.5 mg-albuterol 3 mg 3 ml inhalation Q4HR PRN Shortness 02/08/24 02/08/24 (2.5 mg base)/3 mL nebulization Of Breath Or Wheezing soln levetiracetam 100 mg/mL oral 500 mg PO BID 02/08/24 02/08/24 solution multivitamin with minerals 1 tab PO QDAY 02/08/24 02/08/24 thiamine mononitrate (vit B1) 90 90 mg PO QDAY 02/08/24 02/08/24 mg/scoop oral powder zinc 1 tab PO QDAY 02/08/24 02/08/24 Previous Rx's ?Medication ?Instructions ?Recorded atorvastatin 80 mg tablet 40 mg (1/2 x 80 mg) PO QPM #30 tabs 01/09/24 clopidogrel 75 mg tablet (Plavix) 75 mg PO QDAY 1 month #30 tabs 02/14/24 metoprolol succinate 50 mg 50 mg PO QDAY 1 month #30 tabs 02/14/24 tablet,extended release 24 hr sodium chloride 1,000 mg soluble 1,000 mg PO TID 1 month #90 tabs 02/16/24 tablet Allergies Allergy/AdvReac Type Severity Reaction Status Date / Time No Known Allergies Allergy Unverified 04/10/23 17:26 Review of Systems Review of Systems ROS Unobtainable: unobtainable due to mental status Past Medical History Past Medical History NEUROLOGIC: Positive Neurological Disorders, Cerebrovascular Accident, Dementia and Seizures CARDIAC: Positive Myocardial Infarction and Hypercholesterolemia; Negative Cardiac Disorders or Congestive Heart Failure RESPIRATORY: Positive Asthma; Negative Chronic Obstructive Pulmonary Disease (COPD) GASTROINTESTINAL: Positive Cirrhosis, Gastrointestinal Bleed and Colorectal Cancer; Negative Gastrointestinal Disorders GENITOURINARY: Negative Genitourinary Disorders or Renal Disease REPRODUCTIVE: Negative Testicular Cancer MUSCULOSKELETAL: Negative Musculoskeletal Disorders ENDOCRINE: Negative Endocrine Disorders, Diabetes Mellitus Type 1 or Diabetes Mellitus Type 2 HEMATOLOGIC: Positive Anemia; Negative Blood Disorders or Sickle Cell Disease OTHER HISTORY: Positive Colorectal Cancer; Negative Autoimmune Disease, Blood Transfusions, Blood Transfusion Reaction, Anesthesia Reactions or Testicular Cancer Family History FAMILY HISTORY: Negative Family Psychiatric Problems, Family Respiratory Disorders, Family Cardiac Disorders, Family Gastrointestinal Problems, Family Cancer, Family Surgery or Family Anesthesia Reaction Social History SMOKING STATUS: Unknown if ever smoked SUBSTANCE USE: does not use ED Exam Narrative Physical exam: Patient lying in the bed. Not diaphoretic. Actively coughing. General Limitations: Present no limitations General appearance: Present alert and other (Awake and reacts to) Head Head exam: Present atraumatic Eye Eye exam: Present normal appearance ENT ENT exam: Present normal exam, normal oropharynx and mucous membranes dry Neck Neck exam: Present normal inspection Chest Chest inspection: Present normal inspection and symmetric chest wall rise Respiratory Respiratory exam: Present normal lung sounds bilaterally and respiratory distress; Absent wheezes Cardiovascular Cardiovascular exam: Present regular rate, normal rhythm and normal heart sounds Abdominal Exam Abdominal exam: Present soft and normal bowel sounds Rectal Exam Rectal exam: Present other (Stage II ulcer sacral area, no surrounding erythema no discharge.) Extremities Exam Extremities exam: Present normal inspection and full ROM Back Exam Back exam: Present normal inspection and full ROM Neurological Exam Neurological exam: Present other (Patient opens his eyes and mouth on command. ) Psychiatric Psychiatric exam: Present normal affect and normal mood Skin Skin exam: Present warm and other (Nickel size lesion on the heel of his left foot. No surrounding erythema, no edema, no other rashes noted.); Absent diaphoresis, pallor or mottled Course Course Course Narrative: 2023: Sepsis alert initiated. Orders made at this time are congruent with ED Adult Sepsis Order List. Re-evaluation is to be completed. 2048: Antibiotics started. 2119: Sepsis reassessment performed consisting of lab review, vitals, physical exam including auscultation of heart, lungs, and visual evaluation of capillary refills, mucosal membranes and extremities. Quality Measures Current suspected stage: sepsis Possible source: unknown Blood cultures ordered: yes Antibiotic ordered: Yes Pertinent labs: 02/19/24 02/19/24 20:50 20:59 Lactic Acid 1.6 mMol/L (0.4-2.0) Procalcitonin 0.93 H ng/ml (0.0-0.49) sepsis Orders Category Date Time Status Blender STAT Care 02/19/24 20:32 Completed Continuous Pulse Oximetry STAT Care 02/19/24 20:32 Completed EKG (ED ONLY) *Do not use* NOW Care 02/19/24 20:32 Completed Reich to [place] Routine Care 02/19/24 22:29 Ordered Insert IV NOW Care 02/19/24 20:32 Active NPO STAT Care 02/19/24 20:32 Completed Strict Intake and Output Routine Care 02/19/24 20:[address] head/brain wo con Stat Exams 02/19/24 21:37 Completed EKG (ED Only) Stat Exams 02/19/24 20:32 Ordered XR chest 1V portable Stat Exams 02/19/24 20:17 Completed B-Type Natriuretic Peptide Stat Lab 02/19/24 20:59 Completed Blood Culture (Lab) Stat Lab 02/19/24 20:59 Results CBC Stat Lab 02/19/24 20:50 Completed Comprehensive Metabolic Panel Stat Lab 02/19/24 20:50 Completed LDH (Lactate Dehydrogenase) Stat Lab 02/19/24 20:50 Completed Lactate (Lactic Acid) Stat Lab 02/19/24 20:59 Completed Lipase Stat Lab 02/19/24 20:50 Completed Magnesium Stat Lab 02/19/24 20:50 Completed Partial Thromboplastin Time Stat Lab 02/19/24 20:50 Completed Phosphorous Stat Lab 02/19/24 20:50 Completed Procalcitonin Stat Lab 02/19/24 20:50 Completed Prothrombin Time with INR Stat Lab 02/19/24 20:50 Completed Troponin I Stat Lab 02/19/24 20:50 Completed Urinalysis Stat Lab 02/19/24 21:00 Completed Urine Culture Stat Lab 02/19/24 20:40 Received Acetaminophen Supp [Tylenol Supp] Med 02/19/24 20:21 Discontinued 650 mg AZ X1 ONE Piper/Tazo 3.375 gm [Zosyn] Med 02/19/24 20:32 Discontinued 3.375 gm in 50 ml IV X1 Sodium Chloride 0.9% 1000 ml [Ns] 1,845 ml Med 02/19/24 22:42 Discontinued IV 1,845 mls/hr Sodium Chloride 0.9% 500 ml [Ns] 500 ml Med 02/19/24 22:50 Discontinued IV 999 mls/hr Oxygen Delivery NOW RT 02/19/24 20:32 Active Vital Signs Vital signs: Vital Signs Temperature 101.9 F H 02/19/24 20:20 Pulse Rate 110 H 02/19/24 20:20 Respiratory Rate 29 H 02/19/24 20:20 Blood Pressure 119/84 02/19/24 20:20 Pulse Oximetry (%) 96 02/19/24 20:20 Altered Mental Status MDM Narrative MDM Narrative:: IConstanza am scribing for and in the presence of Dr. Dos Santos. Patient data External records reviewed:: [facility] previous records (Reviewed last admission record from 02/07/24 through 02/16/24, patient admitted for the following: Pneumonia, Fever, Hypoxemia.) and EMS form Clinical information provided by:: EMS Social determinants that could affect healthcare access:: none Patient has the following chronic illnesses:: High cholesterol, seizure disorder, hypertension, pneumonia, old CVA, dementia, cardiogenic shock, alcoholic cirrhosis, rectal cancer, TIA. How is presenting disease/condition affected by chronic disease/condition?: exacerbated by Evaluation data The following diagnostics were reviewed and interpreted by me:: lab results, radiology exam(s) and EKG tracing(s) Lab and/or radiology exams considered but not ordered:: none Interpretation Summary: EKG done at 2017, sinus tachycardia, rate of 108, low voltage, no ST elevations or depressions, no STEMI, according to my interpretation. I have personally reviewed the radiology data and agree with the radiologist's interpretation below: [facility] Report Signed Patient: LAQUITA SERRANO. Record#: [id number] Birthdate: 1950 Age/Sex: 73 / M Location: [facility] Attending Dr: Ordering Physician: Yanique Dos Santos MD Date of Service: 02/19/24 Procedure(s): XR chest 1V portable Accession Number(s): [id number] cc: Isidro Talamantes MD; NO PRIMARY/FAMILY,PHYSICIAN; Yanique Dos Santos MD~ Examination: AP chest single view Technique: AP portable upright chest single view Exam date and time: February 19, 2024 2035 hrs. Indications: Sepsis today. Findings: Moderate heart failure Suspicious for superimposed pneumonia at the lung bases Moderate enlargement cardiac contour, enlarged ectatic thoracic aorta with bilateral perihilar pulmonary edema Impression: Moderate heart failure Suspicious for superimposed pneumonia at the lung bases Dictated By: Isidro Talamantes MD Signed By: <Electronically signed by Isidro Talamantes MD in OV> 02/19/245 ------ [facility] Report Signed Patient: LAQUITA SERRANO. Record#: [id number] Birthdate: 1950 Age/Sex: 73 / M Location: [facility] Attending Dr: Ordering Physician: Yanique Dos Santos MD Date of Service: 02/19/24 Procedure(s): CT head/brain wo con Accession Number(s): [id number] cc: Isidro Talamantes MD; NO PRIMARY/FAMILY,PHYSICIAN; Yanique Dos Santos MD~ Examination: CT brain head without contrast. 2-D sagittal coronal reconstructions Date and time of exam:February 19, 2024 2140 hrs. Indications: Onset altered mental status today CTDI: vol (mGy):48.8 DLP: (mGycm):974 Technique: Multiple CT axial sections of the brain have been obtained, 5 mm slice thickness. Contrast has not been administered. 2-D sagittal, coronal reconstructions have been obtained Low dose protocols were performed. One or more of the following dose reduction techniques were used; automated exposure control, adjustment of the mA and/or KV according to patient size, use of iterative reconstruction technique. Findings: No significant ventricular enlargement. Stable old infarct right occipital lobe compared with April 10, 2023 Intra-axial or extra-axial hemorrhage density is not seen. No mass effect or midline shift Basal cisterns are not remarkable. Fourth ventricle is midline. Cranial vault intact. Impression: Negative for acute hemorrhage, mass effect or midline shift Advise clinical correlation and follow-up accordingly Dictated By: Isidro Talamantes MD Signed By: <Electronically signed by Isidro Talamantes MD in OV> 02/19/24 0068 Medications / Prescriptions Medications or Prescriptions considered but not ordered:: none Medication administrations:: Medication Administration History Acetaminophen (Acetaminophen Supp 650 Mg Supp) 650 mg AZ Q6H PRN PRN Reason: PAIN SCALE 1-3 (mild Stop: 03/20/24 23:23 Aspirin (Aspirin 81 Mg Chew) 81 mg GT QDAY [facility] Stop: 03/21/24 08:59 Last Admin: 02/20/24 08:04 Dose: 81 mg Documented By: FRANCIE Clopidogrel Bisulfate (Clopidogrel Bisulfate 75 Mg Tablet) 75 mg GT QDAY [facility] Stop: 03/21/24 08:59 Last Admin: 02/20/24 08:04 Dose: 75 mg Documented By: FRANCIE Dextrose (Dextrose 50%-Water Inj 50 Ml Syringe) 25 ml IV Q15MIN PRN PRN Reason: BG 50-70 responsive npo pt Stop: 03/21/24 12:14 Dextrose (Dextrose 50%-Water Inj 50 Ml Syringe) 50 ml IV Q15MIN PRN PRN Reason: BG <50 OR BG <70 & pt unresponsive Stop: 03/21/24 12:14 Furosemide (Furosemide Inj 10 Mg/Ml 4ml Vial) 40 mg IVP BIDD [facility] Stop: 03/21/24 05:59 Last Admin: 02/20/24 17:48 Dose: 40 mg Documented By: Admin: 02/20/24 05:51 Dose: Not Given Documented By: KD Non-Admin Reason: Other, see note Heparin Sodium (Porcine) (Heparin Sod Inj 5000 Unit/Ml Vial) 5,000 unit SC Q12HR JENNY Stop: 03/05/24 08:59 Last Admin: 02/20/24 20:47 Dose: 5,000 unit Documented By: TEETEE Co-signed By: MALENA Admin: 02/20/24 08:04 Dose: 5,000 unit Documented By: FRANCIE Co-signed By: FRANK Cefepime HCl 2 gm/ Sodium (Chloride) 50 mls @ 100 mls/hr IV Q8HR JENNY Stop: 02/27/24 13:59 Last Admin: 02/20/24 21:40 Dose: 100 mls/hr Documented By: Infusion: 02/20/24 14:33 Dose: Infused Documented By: Admin: 02/20/24 14:03 Dose: 100 mls/hr Documented By: ESTEFANI Vancomycin HCl (Vancomycin/Water 1250 Mg Ivpb) 250 mls @ 120 mls/hr IV BID@1000,2200 JENNY; Protocol Stop: 02/27/24 21:59 Last Admin: 02/20/24 21:40 Dose: 120 mls/hr Documented By: TEETEE Levalbuterol HCl (Levalbuterol Rt 0.63 Mg/3 Ml Nebu) 0.63 mg INH Q8HR PRN PRN Reason: WHEEZING Stop: 03/20/24 23:35 Levetiracetam (Levetiracetam Liqd 500 Mg/5 Ml Udc) 500 mg GT BID [facility] Stop: 03/21/24 08:59 Last Admin: 02/20/24 20:47 Dose: 500 mg Documented By: Admin: 02/20/24 08:08 Dose: 500 mg Documented By: FRANCIE Midodrine (Midodrine 5 Mg Tablet) 10 mg GT BID [facility] Stop: 03/20/24 23:44 Last Admin: 02/20/24 20:47 Dose: 10 mg Documented By: Admin: 02/20/24 08:04 Dose: 10 mg Documented By: Admin: 02/20/24 00:44 Dose: 10 mg Documented By: ANTOINETTE Pharmacy Consult (Vancomycin Pharmacy To Dose 1 Each Each) 1 each IV QDAY PRN PRN Reason: PROTOCOL Stop: 03/21/24 08:59 Sennosides (Senna Tablet) 1 tab GT QDAY JENNY; Protocol Stop: 03/21/24 08:59 Last Admin: 02/20/24 08:04 Dose: 1 tab Documented By: FRANCIE Sodium Chloride (Sodium Chloride 1 Gm Tablet) 1 gm GT TID JENNY Stop: 03/21/24 05:59 Last Admin: 02/20/24 21:39 Dose: 1 gm Documented By: Admin: 02/20/24 14:03 Dose: 1 gm Documented By: Admin: 02/20/24 06:33 Dose: 1 gm Documented By: ANTOINETTE Discontinued Medications Acetaminophen (Acetaminophen Supp 650 Mg Supp) 650 mg AZ X1 ONE Stop: 02/19/24 20:22 Last Admin: 02/19/24 20:25 Dose: 650 mg Documented By: ANTOINETTE Dextrose (Dextrose 50%-Water Inj 50 Ml Syringe) 25 ml IV X1 ONE Stop: 02/20/24 12:46 Last Admin: 02/20/24 12:40 Dose: 25 ml Documented By: ESTEFANI Furosemide (Furosemide Inj 10 Mg/Ml Vial 2 Ml) 20 mg IVP X1 ONE Stop: 02/20/24 08:02 Last Admin: 02/20/24 08:11 Dose: 20 mg Documented By: FRANCIE Piperacillin/Tazobactam/Dextrose (Zosyn) 3.375 gm in 50 mls @ 100 mls/hr IV X1 ONE Stop: 02/19/24 21:01 Last Infusion: 02/19/24 21:21 Dose: Infused Documented By: Admin: 02/19/24 20:49 Dose: 100 mls/hr Documented By: ANTOINETTE Sodium Chloride (Ns) 1,845 mls @ 1,845 mls/hr 30 ml/kg infuse over 60 min (1845 ml) IV .Q1H ONE Stop: 02/19/24 23:41 Last Infusion: 02/20/24 00:14 Dose: Infused Documented By: Admin: 02/19/24 22:47 Dose: 1,845 mls/hr Documented By: ANTOINETTE Sodium Chloride (Ns) 500 mls @ 999 mls/hr IV .Q31M ONE Stop: 02/19/24 23:20 Last Infusion: 02/20/24 01:34 Dose: Infused Documented By: Admin: 02/20/24 00:44 Dose: 999 mls/hr Documented By: ANTOINETTE Cefepime HCl 2 gm/ Sodium (Chloride) 50 mls @ 100 mls/hr IV Q8HR JENNY Stop: 02/20/24 06:29 Last Infusion: 02/20/24 06:27 Dose: Infused Documented By: Admin: 02/20/24 05:52 Dose: 100 mls/hr Documented By: Infusion: 02/20/24 01:34 Dose: Infused Documented By: Admin: 02/20/24 00:43 Dose: 100 mls/hr Documented By: ANTOINETTE Vancomycin/Sodium Chloride (Vancomycin/Ns 1 Gm Ivpb) 200 mls @ 120 mls/hr IV X1 ONE Stop: 02/20/24 01:24 Last Infusion: 02/20/24 04:03 Dose: Infused Documented By: Admin: 02/20/24 01:41 Dose: 120 mls/hr Documented By: ANTOINETTE Vancomycin HCl (Vancomycin/Water 1250 Mg Ivpb) 250 mls @ 120 mls/hr IV X1 ONE; Protocol Stop: 02/20/24 12:04 Last Admin: 02/20/24 11:34 Dose: 120 mls/hr Documented By: ESTEFANI Midodrine (Midodrine 5 Mg Tablet) 10 mg PO BID [facility] Stop: 03/20/24 23:29 Last Admin: 02/20/24 01:35 Dose: Not Given Documented By: ANTOINETTE Non-Admin Reason: Discontinued Sodium Chloride (Sodium Chloride Rt 10% 15 Ml Nebu) 5 ml INH X1 ONE Stop: 02/19/24 23:25 Last Admin: 02/20/24 00:51 Dose: Not Given Documented By: JUANA Non-Admin Reason: Other, see note Sodium Chloride (Sodium Chloride 1 Gm Tablet) 1 gm GT QID [facility] Stop: 03/21/24 05:59 see above Consultations Consultation(s) initiated? (list below): Yes Consultation #1 (Physician, Specialty, Details): Discussed case with [the resident physician, attending Dr. Chisholm] from Hospitalist service regarding admission. Discussed patients ED course, exam findings, labs, and radiology results. The Hospitalist [agrees] to accept the patient for admission. Time: 22:53 Diagnosis Differential diagnosis altered mental status: other (sepsis, seizure, pneumonia, UTI, other intra-abdominal or pulmonary infection, worsening of his dementia, bleed, no reported trauma at this time. Cellulitis.) Most likely diagnosis given after review of the tests above:: see below Admission Indicated Admission indicated?: indicated Admission Request Was there a request for admission?: Yes Admission Attestation Admission request attestation: Discussed case with [] from Hospitalist service regarding admission. Discussed patients ED course, exam findings, labs, and radiology results. The Hospitalist [agrees,declines] to accept the patient for admission. Disposition Plan Disposition Plan: Admit Critical Care Time Critical Care Time Critical Care Time: Yes Total Critical Care Time (min.): 40 Attestation: The high probability of sudden, clinically significant deterioration in the patient?s condition required the highest level of my preparedness to intervene urgently. The services I provided to this patient were to treat and/or prevent clinically significant deterioration. Services included the following: chart data review, reviewing nursing notes and/or old charts, documentation time, documentation consultant collaboration regarding findings and treatment options, medication orders and management, direct patient care, vital sign assessments and ordering, interpreting and reviewing diagnostic studies and lab tests. Aggregate critical care time includes only time during which I was engaged in work directly related to the patient?s care, as described above, whether at bedside or elsewhere in the Emergency Department. It did not include time spent performing other reported procedures or the services of residents, students, nurses or physician assistants. Discharge Plan Plan Patient Disposition: Admit Acute Care w/in Hospital Patient condition on transfer: Stable Problem List Clinical Impression: Dementia, Sepsis, Pneumonia
--- NOTE | 2024-02-19 20:39 | PC.NURSE ---
PATIENT UNABLE TO COMMUNICATE AT THIS TIME. PATIENT TO SICK TO VERBALLY RESPOND TO ANYTHING. PATIENT HAS PEG TUBE FOR FEEDING.
[2024-02-19] MEDS: PIPER/TAZO 3.375 GM 3.375 GM/50 ML BAG IV (20:49)
[2024-02-19 21:03] LABS: Lactate (Lactic Acid) 1.6 mMol/L (0.4-2.0)
[2024-02-19 21:06] LABS: Basophils % (Auto) 0 % (0-2.5); Eosinophils % (Auto) 0 % (0-10); Hematocrit 37.3 % (41.0-53.0); Immature Granulocytes % (Auto) 1 % (0-0); Immature Granulocytes Auto 0.03 Thou/mm3 (0.00-0.00); Lymphocytes # (Auto) 0.3 Thou/mm3 (1.0-4.8); Lymphocytes % (Auto) 5 % (10-50); Mean Corpuscular HGB Conc 34.9 g/dl (31.0-37.0); Mean Corpuscular Hemoglobin 31.3 pg (25.0-35.0); Mean Corpuscular Volume 90 fL (80-100); Monocytes # (Auto) 0.2 Thou/mm3 (0.0-0.8); Monocytes % (Auto) 4 % (0-12); Neutrophils # (Auto) 5.7 Thou/mm3 (1.8-7.7); Neutrophils % (Auto) 91 % (37-80); Nucleated Red Blood Cell % 0 /100 WBC (0); Platelet Count 296 Thou/mm3 (140-440); RDW Standard Deviation 49.6 fL (35.1-43.9); Red Blood Count 4.16 Miln/mm3 (4.50-5.90); White Blood Count 6.3 Thou/mm3 (3.8-10.6)
[2024-02-19 21:19] LABS: Collection Type, Urine Clean Catch; Squamous Epithelial Cell,Urine 0 /hpf (0-5)
[2024-02-19 21:20] LABS: INR 1.1 (0.9-1.3); Partial Thromboplastin Time 29.9 Seconds (22.0-36.0); Prothrombin Time 12.4 Seconds (9.0-12.2)
[2024-02-19 21:25] LABS: B-Type Natriuretic Peptide 1012 pg/mL (0-100)
[2024-02-19 21:33] LABS: Amorphous Crystals,Urine Present (Absent); Bilirubin,Urine Negative (Negative); Blood,Urine Negative (Negative); Clarity,Urine Turbid (Clear/Hazy); Color,Urine Yellow (Lt Yel-Yel); Glucose, Urine Negative (Negative); Ketones,Urine Negative (Negative); Leukocyte Esterase,Urine Negative (Negative); Nitrite,Urine Negative (Negative); PH,Urine 7.5 (5.0-7.0); Protein,Urine Trace (Neg - Trace); RBC,Urine 4 /hpf (0-3); Specific Gravity,Urine 1.019 (1.001-1.035); WBC,Urine 10 /hpf (0-5)
[2024-02-19 21:34] LABS: Alanine Aminotransferase 195 U/L (10-49); Albumin, Serum 3.5 gm/dL (3.4-4.8); Albumin/Globulin Ratio 0.9 (1.2-2.2); Alkaline Phosphatase 152 U/L (46-116); Anion Gap 6 (7-16); Aspartate Amino Transferase 266 U/L (0-34); BUN/Creatinine Ratio 50 Ratio (12-20); Bilirubin,Total 0.7 mg/dL (0.3-1.2); Blood Urea Nitrogen 15 mg/dL (9-23); Calcium 8.5 mg/dL (8.3-10.6); Calcium (Corrected) 8.9 mg/dL (8.5-10.1); Chloride 91 mMol/L (98-107); Creatinine (Component) 0.3 mg/dL (0.6-1.3); Estimated Creatinine Clearance 177.4 mL/min (>60); Globulin 3.8 gm/dL (2.3-3.5); Glucose 114 mg/dL (74-106); LDH (Lactate Dehydrogenase) 552 U/L (120-246); Lipase 56 U/L (12-53); Magnesium 1.9 mg/dL (1.6-2.6); Osmolality,Calculated 253 (275-295); Phosphorous 2.4 mg/dL (2.4-5.1); Potassium 4.4 mMol/L (3.4-5.1); Procalcitonin 0.93 ng/ml (0.0-0.49); Sodium 125 mMol/L (136-145); Total Protein 7.3 gm/dL (5.7-8.2); eGFR > 60 See Note
[2024-02-19 21:36] LABS: Troponin I 0.934 ng/mL (0.0-0.045)
--- NOTE | 2024-02-19 21:37 | XR_ITS ---
Examination: CT brain head without contrast. 2-D sagittal coronal reconstructions Date and time of exam:February 19, 2024 2140 hrs. Indications: Onset altered mental status today CTDI: vol (mGy):48.8 DLP: (mGycm):974 Technique: Multiple CT axial sections of the brain have been obtained, 5 mm slice thickness. Contrast has not been administered. 2-D sagittal, coronal reconstructions have been obtained Low dose protocols were performed. One or more of the following dose reduction techniques were used; automated exposure control, adjustment of the mA and/or KV according to patient size, use of iterative reconstruction technique. Findings: No significant ventricular enlargement. Stable old infarct right occipital lobe compared with April 10, 2023 Intra-axial or extra-axial hemorrhage density is not seen. No mass effect or midline shift Basal cisterns are not remarkable. Fourth ventricle is midline. Cranial vault intact. Impression: Negative for acute hemorrhage, mass effect or midline shift Advise clinical correlation and follow-up accordingly
[2024-02-19] MEDS: SODIUM CHLORIDE 0.9% 1000 ML 1,845 ML 1845 ML IV (22:47)
--- NOTE | 2024-02-19 23:33 | XR_ITS ---
Examination: CT abdomen and pelvis without contrast. Coronal 3-D reconstructions. Sagittal 2-D reconstructions. Date and time of exam:February 19, 2024 1157 hrs. Indications: Sepsis today, unknown etiology CTDI: vol (mGy): 8.69 DLP: (mGycm): 483 Technique: Axial images of the abdomen have been obtained, 3 mm slice thickness Intravenous contrast material has not been administered. Low dose protocols were performed. One or more of the following dose reduction techniques were used; automated exposure control, adjustment of the mA and/or KV according to patient size, use of iterative reconstruction technique. Findings: Moderate enlargement cardiac contour, small pericardial effusion Bibasilar pneumonia with small pleural effusions Liver is irregular in contour Cholelithiasis, contracted gallbladder Spleen is not enlarged No pancreatic mass Small bilateral renal calculi Mild right hydronephrosis No pericecal inflammatory change Abundant stool in the rectosigmoid and rectum with thickening of the rectal wall Urinary Reich catheter multiple small bladder calculi Impression: Bibasilar pneumonia Cirrhosis versus primary elsewhere disease Cholelithiasis Small bilateral renal calculi Mild right hydronephrosis Small bladder calculi Proctitis pattern
--- NOTE | 2024-02-19 23:39 | PD.RESHP ---
Documentation for date of: 02/19/24 [facility] History of Present Illness Chief complaint: Fever and AMS History of present illness: 73-year-old male with past medical history of rectal adenocarcinoma stage II cancer s/p chemoradiation, seizure, dementia, and CVA (ischemic and hemorrhagic) was brought to the ED from [facility] on 02/19/2024 due to altered mental status and fever likely secondary to worsening hospital-acquired pneumonia and new heart failure. Per staff members of the facility, patient has been having green-jc sputum with coughing and has had fevers up to 102F at the facility. Patient is a very poor historian secondary to dementia, CVA and overall debilitating status; therefore most of the history was taken from chart review. Of note, patient was discharged on 02/15 after he made considerable improvement from Klebsiella PNA and discharged with 2-day course of Levaquin along with instructions to follow-up with PCP, cardiology, nephrology and oncology; however, patient's status worsened while he was at the care facility. PMH: colon cancer s/p chemoradiation, seizure, dementia, and CVA (ischemic and hemorrhagic) Allergies: NKDA Surgical Hx: None per chart review Meds: Pending med rec Social Hx: Previous history of heavy alcohol use, no illicit drug or smoking Occupation: Retired In the ED, patient was febrile (101.9), tachypneic, tachycardic and hypoxic requiring 6L of nc oxygen supplementation. Initial labs showed WBC 6.3 (with history of chemoradiation), Hgb 13, sodium 125, potassium 4.4, chloride 91, BUN 16, creatinine 0.3, lactic acid 1.6, magnesium 1.9, AST 266, ALT 195, lactic dehydrogenase 552, troponins 0.934, BNP of 1012, and procalcitonin 0.93. Initial imaging included chest x-ray showed moderate heart failure and suspicious for superimposed pneumonia at the lung bases, CT head was negative for any acute process. Patient will be admitted for acute hypoxic respiratory failure secondary to HCAP with IV antibiotics, workup for new sepsis secondary to likely PNA vs. unspecified source along with IV diuresis for suspected heart failure exacerbation. Exam Vital Signs Temp Pulse Resp BP Pulse Ox O2 Flow Rate 100.6 F H 101 H 19 96/66 96 6 02/19/24 22:33 02/19/24 22:05 02/19/24 22:05 02/19/24 22:05 02/19/24 22:05 02/19/24 20:29 Narrative Exam Physical Exam: GENERAL: Awake, whispers answers with difficulty 2/2 to cough, appears stated age, cachexic HEENT: NC/AT. Moist mucosa. PERRLA/EOMI. CARDIO: Heart RRR, no obvious murmurs, no JVD. PULM: Wet coughing. Coarse lung sounds with prominent rhonchi throughout bilateral lobes. Sporadic crackles heard on lower lung grover. No wheeze/rales. GI: Abdomen soft, NT/ND, +BS. 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 +Pedal pulses present B/L. Moves extremities x4. NEURO: Oriented x1 (person, not to place or purpose), unable to assess for motor/sensory function, no neurological deficits noted Results: Labs 02/20/24 04:30 02/20/24 04:30 Labs: Short CBC 02/19/24 Range/Units 20:50 WBC 6.3 D (3.8-10.6) Thou/mm3 Hgb 13.0 L (13.5-16.0) g/dL Hct 37.3 L (41.0-53.0) % Plt Count 296 D (140-440) Thou/mm3 BMP 02/19/24 20:50 Sodium 125 L Potassium 4.4 Chloride 91 L Carbon Dioxide 28.0 BUN 15 Creatinine 0.3 L Glucose 114 H Calcium 8.5 Cardiac Enzymes 02/19/24 Range/Units 20:50 Troponin I 0.934 H* (0.0-0.045) ng/mL Liver Function 02/19/24 Range/Units 20:50 Total Bilirubin 0.7 (0.3-1.2) mg/dL AST 266 H (0-34) U/L ALT 195 H (10-49) U/L Alkaline Phosphatase 152 H (46-116) U/L Albumin 3.5 (3.4-4.8) gm/dL Urine 02/19/24 Range/Units 21:00 Urine Color Yellow (Lt Yel-Yel) Urine Clarity Turbid A (Clear/Hazy) Urine pH 7.5 H (5.0-7.0) Ur Specific [place] 1.019 (1.001-1.035) Urine Protein Trace (Neg - Trace) Urine Glucose (UA) Negative (Negative) Quality Measures Quality Measures sepsis Current suspected stage: sepsis Possible source: unknown Blood cultures ordered: yes Antibiotic ordered: Yes Advance care planning discussed with:: other (Since patient was unable to answer questions; utilized code status from previous hospitalization) Medications Home Medications and Allergies Home Medications ?Medication ?Instructions ?Recorded ?Confirmed ?Type acetaminophen 325 mg tablet 650 mg PO QID PRN Pain, Mild 02/08/24 02/08/24 History amino acids-protein hydrolysate 15 1 ea PO BID 02/08/24 02/08/24 History gram-100 kcal/30 mL oral liquid guaifenesin 100 mg/5 mL oral liquid 200 mg PO QID PRN Cough 02/08/24 02/08/24 History ipratropium 0.5 mg-albuterol 3 mg 3 ml inhalation Q4HR PRN Shortness 02/08/24 02/08/24 History (2.5 mg base)/3 mL nebulization Of Breath Or Wheezing soln levetiracetam 100 mg/mL oral 500 mg PO BID 02/08/24 02/08/24 History solution multivitamin with minerals 1 tab PO QDAY 02/08/24 02/08/24 History thiamine mononitrate (vit B1) 90 90 mg PO QDAY 02/08/24 02/08/24 History mg/scoop oral powder zinc 1 tab PO QDAY 02/08/24 02/08/24 History Allergies Allergy/AdvReac Type Severity Reaction Status Date / Time No Known Allergies Allergy Unverified 04/10/23 17:26 Visit Medications Acetaminophen (Acetaminophen Supp 650 Mg Supp) 650 mg NE Q6H PRN PRN Reason: PAIN SCALE 1-3 (mild Stop: 03/20/24 23:23 Aspirin (Aspirin 81 Mg Chew) 81 mg GT QDAY JENNY Stop: 03/21/24 08:59 Furosemide (Furosemide Inj 10 Mg/Ml 4ml Vial) 40 mg IVP BIDD JENNY Stop: 03/21/24 05:59 Heparin Sodium (Porcine) (Heparin Sod Inj 5000 Unit/Ml Vial) 5,000 unit SC Q12HR JENNY Stop: 03/05/24 08:59 Cefepime HCl 2 gm/ Sodium (Chloride) 50 mls @ 100 mls/hr IV Q8HR JENNY Stop: 02/26/24 23:27 Levalbuterol HCl (Levalbuterol Rt 0.63 Mg/3 Ml Nebu) 0.63 mg INH Q8HR PRN PRN Reason: WHEEZING Stop: 03/20/24 23:35 Midodrine (Midodrine 5 Mg Tablet) 10 mg GT BID [facility] Stop: 03/20/24 23:44 Pharmacy Consult (Vancomycin Pharmacy To Dose 1 Each Each) 1 each IV QDAY JENNY Stop: 03/21/24 08:59 Sennosides (Senna Tablet) 1 tab GT QDAY JENNY; Protocol Stop: 03/21/24 08:59 Sodium Chloride (Sodium Chloride 1 Gm Tablet) 1 gm GT QID JENNY Stop: 03/21/24 05:59 Discontinued Medications Acetaminophen (Acetaminophen Supp 650 Mg Supp) 650 mg NE X1 ONE Stop: 02/19/24 20:22 Last Admin: 02/19/24 20:25 Dose: 650 mg Piperacillin/Tazobactam/Dextrose (Zosyn) 3.375 gm in 50 mls @ 100 mls/hr IV X1 ONE Stop: 02/19/24 21:01 Last Infusion: 02/19/24 21:21 Dose: Infused Sodium Chloride (Ns) 1,845 mls @ 1,845 mls/hr 30 ml/kg infuse over 60 min (1845 ml) IV .Q1H ONE Stop: 02/19/24 23:41 Last Admin: 02/19/24 22:47 Dose: 1,845 mls/hr Sodium Chloride (Ns) 500 mls @ 999 mls/hr IV .Q31M ONE Stop: 02/19/24 23:20 Midodrine (Midodrine 5 Mg Tablet) 10 mg PO BID [facility] Stop: 03/20/24 23:29 Sodium Chloride (Sodium Chloride Rt 10% 15 Ml Nebu) 5 ml INH X1 ONE Stop: 02/19/24 23:25 Assessment & Plan Plan 73-year-old male with past medical history of rectal adenocarcinoma stage II cancer s/p chemoradiation, seizure, dementia, and CVA (ischemic and hemorrhagic) was brought from [facility] due to altered mental status and fever likely secondary to worsening hospital-acquired pneumonia and new heart failure will be admitted for acute hypoxic respiratory failure secondary to HCAP with IV antibiotics, workup for new sepsis secondary to likely PNA vs. unspecified source along with IV diuresis for suspected heart failure exacerbation. #Sepsis 2/2 PNA vs. unspecified source #Acute Hypoxic Respiratory Failure Patient has hx of Klebsiella PNA which was treated on prior hospitalization Currently presenting febrile with temp peaking at 101.9, tachycardia, tachypnea and WBC elevated in the setting of chemoradiation Patient has diffuse rhonci and wet cough on exam with greenish sputum production CXR does show PNA along with new heart failure pattern In the ED, patient was given IVF, tylenol and IV Zosyn x1 with minimal improvement in status Patient continues to require extensive oxygen supplementation; on 6L satting from Patient also has soft BPs of 80/60s likely secondary to septic component Plan: Will start patient on IV Vanc and Cefepime Sputum, blood and urine cultures sent Midodrine 10mg po BID for soft blood pressure CT abd/pelvis w/o contrast ordered to r/o other source of infection Levalbuterol q8h for wheezing if present Chest PT #Acute HFpEF exacerbation #History of Ischemic Cardiomyopathy #Elevated Troponin Patient is presenting with AHRF as stated above with superimposed PNA Presents with elevated BNP of 1012 and troponin of 0.934 Patient does not have JVD, lower extremity edema on exam; however, the following does not need to be present to diagnose HF exacerbation CXR does show HF pattern with moderate enlargement cardiac contour, enlarged ectatic thoracic aorta with bilateral perihilar pulmonary edema On exam, patient has significant auscultatory findings of rhonchi bilaterally ECHO from 01/25 does show EF 55-60% with Grade I diastolic dysfunction Plan: Will start IV Lasix 40mg BIDD Strict I/O Reich in Daily weight Fluid restriction of 1500ml Continue ASPIRIN 81 mg daily Magnesium >2, potassium >4 Held Atorvastatin 2/2 to elevated liver enzymes #Hyponatremia DDx includes SIADH Was told to follow-up with Nephrology Sodium 125 Plan: Continue to monitor sodium Resumed SODIUM CHLORIDE 1 tablet TID #Chronic normocytic anemia WBC is borderline low, 02/14 acute elevation with new left shift Hemoglobin around baseline HIV panel negative from last admission Plan: Daily CBC #Elevated Liver Enzymes Likely ischemic hepatopathy 2/2 sepsis, underlying hepatopathy of unknown origin Ultrasound and CT in January 2024: Cholelithiasis without cholecystitis, no hepatic pathology Negative hepatitis panel from January 2024 Unable to assess for alcohol use given mentation; has history of heavy alcohol use in the past Plan: Daily CMP Treat underlying medical problems #History of Seizures Plan: Resumed home KEPPRA 500 mg G-TUBE BID Seizure precaution #Bilateral heal ulcers Chronic findings Plan: Consult wound care #Stage II intramucosal rectal adenocarcinoma History of rectal adenocarcinoma, s/p chemoradiation Follows up with oncologist Dr. Oren Forde poor surgical candidate by Dr. Khanh Carlin at [facility], per chart review Dr. Sanchez consulted, recommended outpatient follow-up as well as outpatient colonoscopy Oncology, Dr. Sanchez, following Patient will need colonoscopy outpatient Dietitian recommendations from last admission: Jevity 1.5 at 10 ml/hr x 24 hrs (do not advance). If no IV fluids, water flushes 35 ml/hr Thiamine 100mg/day for 7 days; provide first dose at least 30 minutes before starting nutrition. Multivitamins/Minerals. Daily labs for P, K, and Mg; replace as needed. If no electrolytes disturbances after 24 hrs, advance 10 ml every 12 hrs to goal rate of 45 ml/hr x 24 hrs. Continue with water flushes 35 ml/hr (or per MD Plan: Restart tube feeds when appropriate Health Maintenance: Lines: PIV Bowel: Senna Diet: Holding tube feeds 2/2 CT abd/pelvis to r/o other source of infection GI prophylaxis: not needed for now DVT prophylaxis: heparin subq Dispo: Diagnostic workup and management of AHRF 2/2 to PNA and HF Code: DNR Patient seen and examined with attending Dr. Chisholm and senior resident Dr. Jasbir Gunderson, PGY-1 Attending Provider Attestation/Addendum Face to face evaluation was performed by me. I have personally seen and examined the patient. I discussed the assessment and plan with the entire medicine team. I reviewed available medical records, imaging studies, laboratory results. I agree with the above subjective data, objective findings, assessment and plan except as corrected by me or noted below Acute hypoxic respiratory failure Heart failure reduced preserved fraction acute on chronic exacerbated sepsis, present on admission bilateral Shortness of breath Rectal abdomen continue with diuresis and antibiotics. Follow culture data and clinical course, follow-up vitals and labs. DVT prophylaxis
[2024-02-20] VITALS (34 sets, daily range): BP systolic 75–118; BP diastolic 44–84; PULSE 69–112; RESP 17–89; TEMP 36.1–36.4; O2SAT 9–100
[2024-02-20] MEDS: CEFEPIME INJ 2 GM in SODIUM CHLORIDE 0.9% (P) 50 ML IV ×4 (00:43→21:40)
[2024-02-20] MEDS: SODIUM CHLORIDE 0.9% 500 ML 500 ML 999 ML IV (00:44)
[2024-02-20] MEDS: MIDODRINE 5 MG TABLET 10 MG GT ×3 (00:44→20:47)
--- NOTE | 2024-02-20 01:36 | PRELIM_ITS ---
CT scan of the abdomen and pelvis without intravenous contrast (axial sections with sagittal and oleg nal reformats) February 19, 2024 2357 hours Clinical History: Sepsis 2/2 unknown source; has PEG tube Comparison: No prior study is available for comparison. Findings:Moderate bilateral pleural effusion s with dependent atelectasis of bilateral lower lobe. Infiltrates noted in bilateral lower lobe.Contr acted gallbladder with 8 mm Radio-opaque calculus within it. No pericholecystic fluid.The liver, panc reas, spleen and adrenals are unremarkable on this noncontrast study. Few 2-3 mm non-obstructing garland culi noted in both kidneys. Mild left hydroureteronephrosis noted without any obstructing ureteric ca lculus.PEG tube noted with its tip within body of stomach. No evidence of bowel obstruction. Abundan t fecal material is noted within the colon. The appendix is not definitively visualized; however, the re is no evidence of inflammatory process in the right lower quadrant to suggest appendicitis. Fecal loading noted in rectum with circumferential rectal wall thickening. There is no mesenteric or retrop eritoneal adenopathy.Diffuse urinary bladder wall thickening noted with wall thickness measuring up t o 18 mm. Urinary bladder is decompressed with Reich's bulb within it. Multiple calculi noted within u rinary bladder largest measuring 8 mm.There is no free fluid or free air.Degenerative changes are terence ntified in the spine. Impression:1. Findings suggestive of cystitis with multiple urinary bladder garland culi. 2. Mild left hydroureteronephrosis.3. Fecal loading in rectum with Features of proctitis. Recom mend clinical correlation.4. Cholelithiasis without evidence of acute cholecystitis. 5. Moderate bila teral pleural effusions with dependent atelectasis of bilateral lower lobe. Possibility of aspiration pneumonia cannot be excluded. Recommend clinical correlation.6. Infiltrates in bilateral lower lobe, possibility of infective etiology cannot be excluded. Report Electronically Signed By: William Wells 02/20/2024 1:35:54 AM [EST]
[2024-02-20] MEDS: VANCOMYCIN/NS 1 GM IVPB 200 ML IV (01:41)
[2024-02-20 05:12] LABS: Basophils % (Auto) 0 % (0-2.5); Eosinophils % (Auto) 0 % (0-10); Hematocrit 31.8 % (41.0-53.0); Hemoglobin 10.8 g/dL (13.5-16.0); Immature Granulocytes % (Auto) 1 % (0-0); Immature Granulocytes Auto 0.02 Thou/mm3 (0.00-0.00); Lymphocytes # (Auto) 0.3 Thou/mm3 (1.0-4.8); Lymphocytes % (Auto) 7 % (10-50); Mean Corpuscular Hemoglobin 31.8 pg (25.0-35.0); Mean Corpuscular Volume 94 fL (80-100); Monocytes # (Auto) 0.2 Thou/mm3 (0.0-0.8); Monocytes % (Auto) 5 % (0-12); Neutrophils # (Auto) 3.8 Thou/mm3 (1.8-7.7); Neutrophils % (Auto) 87 % (37-80); Nucleated Red Blood Cell % 0 /100 WBC (0); Platelet Count 278 Thou/mm3 (140-440); RDW Standard Deviation 51.3 fL (35.1-43.9); White Blood Count 4.3 Thou/mm3 (3.8-10.6)
[2024-02-20 05:18] LABS: INR 1.2 (0.9-1.3); Prothrombin Time 12.9 Seconds (9.0-12.2)
[2024-02-20 05:35] LABS: Alanine Aminotransferase 154 U/L (10-49); Albumin, Serum 2.7 gm/dL (3.4-4.8); Albumin/Globulin Ratio 0.9 (1.2-2.2); Alkaline Phosphatase 108 U/L (46-116); Anion Gap 3 (7-16); Aspartate Amino Transferase 212 U/L (0-34); BUN/Creatinine Ratio 70 Ratio (12-20); Bilirubin,Total 0.7 mg/dL (0.3-1.2); Blood Urea Nitrogen 14 mg/dL (9-23); Calcium 7.7 mg/dL (8.3-10.6); Calcium (Corrected) 8.7 mg/dL (8.5-10.1); Chloride 99 mMol/L (98-107); Creatinine (Component) 0.2 mg/dL (0.6-1.3); Estimated Creatinine Clearance 266.2 mL/min (>60); Globulin 3.1 gm/dL (2.3-3.5); Glucose 99 mg/dL (74-106); Magnesium 1.8 mg/dL (1.6-2.6); Osmolality,Calculated 259 (275-295); Phosphorous 2.5 mg/dL (2.4-5.1); Potassium 3.9 mMol/L (3.4-5.1); Sodium 129 mMol/L (136-145); Total Protein 5.8 gm/dL (5.7-8.2); eGFR > 60 See Note
[2024-02-20] MEDS: SODIUM CHLORIDE 1 GM TABLET GT ×3 (06:33→21:39)
[2024-02-20] MEDS: ASPIRIN 81 MG CHEW GT (08:04)
[2024-02-20] MEDS: CLOPIDOGREL BISULFATE 75 MG TABLET GT (08:04)
[2024-02-20] MEDS: HEPARIN SOD INJ 5000 UNIT/ML VIAL SC ×2 (08:04→20:47)
[2024-02-20] MEDS: SENNA TABLET 1 TAB GT (08:04)
[2024-02-20] MEDS: levETIRAcetam LIQD 500 MG/5 ML UDC GT ×2 (08:08→20:47)
[2024-02-20] MEDS: FUROSEMIDE INJ 10 MG/ML VIAL 2 ML 20 MG IVP (08:11)
[2024-02-20 09:40] LABS: Troponin I 0.668 ng/mL (0.0-0.045)
[2024-02-20] MEDS: VANCOMYCIN/WATER 1250 MG IVPB 250 ML 120 MG IV ×2 (11:34→21:40)
[2024-02-20] MEDS: DEXTROSE 50%-WATER INJ 50 ML SYRINGE 25 ML IV (12:40)
--- NOTE | 2024-02-20 12:48 | ESPR_ITS ---
Documentation for date of: 02/20/24 Subjective Subjective Interval history: Patient was seen and examined bedside. Patient was sleeping unable to respond to verbal commands but did not communicate much. On physical examination, bilateral transmitted breath sounds and crackles are heard. Started on trickle feeds. Will continue antibiotics for now Exam Vital Signs Temp Pulse Resp BP Pulse Ox O2 Del Method O2 Flow Rate 97.6 F 82 18 109/73 98 Nasal Cannula 6 02/20/24 08:30 02/20/24 08:30 02/20/24 08:30 02/20/24 08:30 02/20/24 08:30 02/20/24 08:30 02/20/24 08:30 Narrative Exam General: Drowsy. Following verbal commands. HEENT: Normocephalic, atraumatic, mucous membranes moist. Heart: Regular rate and rhythm, no murmurs. Lungs: Bilateral transmitted sounds and crackles are heard. Abdomen: Soft, nondistended, nontender, positive bowel sounds. ?No guarding or rebound tenderness. PEG tube in situ. Neurologic: Alert and oriented x3, no gross neurological deficit, and patient able to move all 4 extremities. Extremities: Mild bilateral pitting pedal edema was noted. Skin: No rash . Ecchymotic patches are noted in the upper extremity. Objective Labs 02/21/24 04:20 02/21/24 04:20 Labs: Laboratory Results - last 24 hr 02/19/24 02/19/24 02/19/24 20:50 20:59 21:00 WBC 6.3 D RBC 4.16 L Hgb 13.0 L Hct 37.3 L MCV 90 MCH 31.3 MCHC 34.9 RDW Std Deviation 49.6 H Plt Count 296 D Neut % (Auto) 91 H Lymph % (Auto) 5 L [place] % (Auto) 4 Eos % (Auto) 0 Baso % (Auto) 0 Neut # (Auto) 5.7 Lymph # (Auto) 0.3 L [place] # (Auto) 0.2 Eos # (Auto) 0.0 Baso # (Auto) 0.0 Immature Gran # (Auto) 0.03 H Absolute Nucleated RBC 0.00 Immature Gran % 1 H Nucleated RBC % 0 PT 12.4 H INR 1.1 APTT 29.9 D Sodium 125 L Potassium 4.4 Chloride 91 L Carbon Dioxide 28.0 Anion Gap 6 L BUN 15 Creatinine 0.3 L Estim Creat Clear Calc 177.4 eGFR > 60 BUN/Creatinine Ratio 50 H Glucose 114 H Calculated Osmolality 253 L Lactic Acid 1.6 Calcium 8.5 Corrected Calcium 8.9 Phosphorus 2.4 Magnesium 1.9 Total Bilirubin 0.7 AST 266 H ALT 195 H Alkaline Phosphatase 152 H Lactate Dehydrogenase 552 H Troponin I 0.934 H* B-Natriuretic Peptide 1012 H* Total Protein 7.3 Albumin 3.5 Globulin 3.8 H Albumin/Globulin Ratio 0.9 L Lipase 56 H Procalcitonin 0.93 H Ur Collection Type Clean Catch Urine Color Yellow Urine Clarity Turbid A Urine pH 7.5 H Ur Specific [place] 1.019 Urine Protein Trace Urine Glucose (UA) Negative Urine Ketones Negative Urine Blood Negative Urine Nitrite Negative Urine Bilirubin Negative Urine Urobilinogen (Auto) 6.0 Ur Leukocyte Esterase Negative Urine RBC 4 H Urine WBC 10 H Ur Squamous Epith Cells 0 Amorphous Crystals Present A Urine Bacteria None 02/20/24 02/20/24 04:30 09:07 WBC 4.3 RBC 3.40 L Hgb 10.8 L D Hct 31.8 L MCV 94 MCH 31.8 MCHC 34.0 RDW Std Deviation 51.3 H Plt Count 278 Neut % (Auto) 87 H Lymph % (Auto) 7 L [place] % (Auto) 5 Eos % (Auto) 0 Baso % (Auto) 0 Neut # (Auto) 3.8 Lymph # (Auto) 0.3 L [place] # (Auto) 0.2 Eos # (Auto) 0.0 Baso # (Auto) 0.0 Immature Gran # (Auto) 0.02 H Absolute Nucleated RBC 0.00 Immature Gran % 1 H Nucleated RBC % 0 PT 12.9 H INR 1.2 APTT Sodium 129 L Potassium 3.9 D Chloride 99 Carbon Dioxide 27.0 Anion Gap 3 L BUN 14 Creatinine 0.2 L Estim Creat Clear Calc 266.2 eGFR > 60 BUN/Creatinine Ratio 70 H Glucose 99 Calculated Osmolality 259 L Lactic Acid Calcium 7.7 L Corrected Calcium 8.7 Phosphorus 2.5 Magnesium 1.8 Total Bilirubin 0.7 AST 212 H ALT 154 H Alkaline Phosphatase 108 D Lactate Dehydrogenase Troponin I 0.668 H* D B-Natriuretic Peptide Total Protein 5.8 Albumin 2.7 L D Globulin 3.1 Albumin/Globulin Ratio 0.9 L Lipase Procalcitonin Ur Collection Type Urine Color Urine Clarity Urine pH Ur Specific [place] Urine Protein Urine Glucose (UA) Urine Ketones Urine Blood Urine Nitrite Urine Bilirubin Urine Urobilinogen (Auto) Ur Leukocyte Esterase Urine RBC Urine WBC Ur Squamous Epith Cells Amorphous Crystals Urine Bacteria Quality Measures Quality Measures sepsis Current suspected stage: sepsis Possible source: unknown Blood cultures ordered: yes Antibiotic ordered: Yes Advance care planning discussed with:: patient Assessment & Plan Assessment Current Active Medications: Generic Name Dose Route Start Last Admin Trade Name Freq PRN Reason Stop Dose Admin Acetaminophen 650 mg 02/19/24 23:24 Acetaminophen Supp 650 Mg Supp DC 03/20/24 23:23 Q6H PRN PAIN SCALE 1-3 (mild Aspirin 81 mg 02/20/24 09:00 02/20/24 08:04 Aspirin 81 Mg Chew GT 03/21/24 08:59 81 mg QDAY JENNY Administration Clopidogrel Bisulfate 75 mg 02/20/24 09:00 02/20/24 08:04 Clopidogrel Bisulfate 75 Mg Tablet GT 03/21/24 08:59 75 mg QDAY JENNY Administration Dextrose 25 ml 02/20/24 12:15 Dextrose 50%-Water Inj 50 Ml Syringe IV 03/21/24 12:14 Q15MIN PRN BG 50-70 responsive npo pt Dextrose 50 ml 02/20/24 12:15 Dextrose 50%-Water Inj 50 Ml Syringe IV 03/21/24 12:14 Q15MIN PRN BG <50 OR BG <70 & pt unresponsive Furosemide 40 mg 02/20/24 06:00 02/20/24 05:51 Furosemide Inj 10 Mg/Ml 4ml Vial IVP 03/21/24 05:59 Not Given BIDD JENNY Heparin Sodium (Porcine) 5,000 unit 02/20/24 09:00 02/20/24 08:04 Heparin Sod Inj 5000 Unit/Ml Vial SC 03/05/24 08:59 5,000 unit Q12HR JENNY Administration Cefepime HCl 2 gm/ Sodium 50 mls @ 100 mls/hr 02/20/24 14:00 Chloride IV 02/27/24 13:59 Q8HR JENNY Vancomycin HCl 250 mls @ 120 mls/hr 02/20/24 22:00 Vancomycin/Water 1250 Mg Ivpb IV 02/27/24 21:59 BID@1000,2200 [facility] Protocol Levalbuterol HCl 0.63 mg 02/19/24 23:36 Levalbuterol Rt 0.63 Mg/3 Ml Nebu INH 03/20/24 23:35 Q8HR PRN WHEEZING Levetiracetam 500 mg 02/20/24 09:00 02/20/24 08:08 Levetiracetam Liqd 500 Mg/5 Ml Udc GT 03/21/24 08:59 500 mg BID JENNY Administration Midodrine 10 mg 02/19/24 23:45 02/20/24 08:04 Midodrine 5 Mg Tablet GT 03/20/24 23:44 10 mg BID JENNY Administration Pharmacy Consult 1 each 02/20/24 09:00 Vancomycin Pharmacy To Dose 1 Each Each IV 03/21/24 08:59 QDAY PRN PROTOCOL Sennosides 1 tab 02/20/24 09:00 02/20/24 08:04 Senna Tablet GT 03/21/24 08:59 1 tab QDAY JENNY Administration Protocol Sodium Chloride 1 gm 02/20/24 06:00 02/20/24 06:33 Sodium Chloride 1 Gm Tablet GT 03/21/24 05:59 1 gm TID JENNY Administration Plan 73-year-old male with past medical history of rectal adenocarcinoma stage II cancer s/p chemoradiation, seizure, dementia, and CVA (ischemic and hemorrhagic) was brought from [facility] due to altered mental status and fever likely secondary to worsening hospital-acquired pneumonia and new heart failure will be admitted for acute hypoxic respiratory failure secondary to HCAP with IV antibiotics, workup for new sepsis secondary to likely PNA vs. unspecified source along with IV diuresis for suspected heart failure exacerbation. #Sepsis 2/2 PNA vs. unspecified source #Acute Hypoxic Respiratory Failure Patient has hx of Klebsiella PNA which was treated on prior hospitalization Currently presenting febrile with temp peaking at 101.9, tachycardia, tachypnea Patient has diffuse rhonci and wet cough on exam with greenish sputum production CXR does show PNA along with new heart failure pattern In the ED, patient was given IVF, tylenol and IV Zosyn x1 with minimal improvement in status Patient continues to require extensive oxygen supplementation; on 6L satting from 89-93 Patient also has soft BPs of 80/60s likely secondary to septic component Plan: Will start patient on IV Vanc and Cefepime Sputum, blood and urine cultures sent Midodrine 10mg po BID for soft blood pressure CT abd/pelvis w/o contrast ordered to r/o other source of infection Levalbuterol q8h for wheezing if present Chest PT #Acute HFpEF exacerbation #History of Ischemic Cardiomyopathy #Elevated Troponin Patient is presenting with AHRF as stated above with superimposed PNA Presents with elevated BNP of 1012 and troponin of 0.934 Patient does not have JVD, lower extremity edema on exam; however, the following does not need to be present to diagnose HF exacerbation CXR does show HF pattern with moderate enlargement cardiac contour, enlarged ectatic thoracic aorta with bilateral perihilar pulmonary edema On exam, patient has significant auscultatory findings of rhonchi bilaterally ECHO from 01/25 does show EF 55-60% with Grade I diastolic dysfunction Plan: Will start IV Lasix 40mg BID Strict I/O Reich in Daily weight Fluid restriction of 1500ml Continue ASPIRIN 81 mg daily Magnesium >2, potassium >4 Held Atorvastatin 2/2 to elevated liver enzymes #Hyponatremia DDx includes SIADH Was told to follow-up with Nephrology Sodium 129 as of 02/20/2024 Plan: Continue to monitor sodium Resumed SODIUM CHLORIDE 1 tablet TID #Chronic normocytic anemia WBC is borderline low, 02/14 acute elevation with new left shift Hemoglobin around baseline HIV panel negative from last admission Plan: Daily CBC #Elevated Liver Enzymes Likely ischemic hepatopathy 2/2 sepsis, underlying hepatopathy of unknown origin Ultrasound and CT in January 2024: Cholelithiasis without cholecystitis, no hepatic pathology Negative hepatitis panel from January 2024 Unable to assess for alcohol use given mentation; has history of heavy alcohol use in the past Plan: Daily CMP Treat underlying medical problems #History of Seizures Plan: Resumed home KEPPRA 500 mg G-TUBE BID Seizure precaution #Bilateral heal ulcers Chronic findings Plan: Referral for wound care #Stage II intramucosal rectal adenocarcinoma History of rectal adenocarcinoma, s/p chemoradiation Follows up with oncologist Dr. Oren Forde poor surgical candidate by Dr. Khanh Carlin at [facility], per chart review Dr. Sanchez consulted, recommended outpatient follow-up as well as outpatient colonoscopy Oncology, Dr. Sanchez, following Patient will need colonoscopy outpatient Dietitian recommendations from last admission: Jevity 1.5 at 10 ml/hr x 24 hrs (do not advance). If no IV fluids, water flushes 35 ml/hr Thiamine 100mg/day for 7 days; provide first dose at least 30 minutes before starting nutrition. Multivitamins/Minerals. Daily labs for P, K, and Mg; replace as needed. If no electrolytes disturbances after 24 hrs, advance 10 ml every 12 hrs to goal rate of 45 ml/hr x 24 hrs. Continue with water flushes 35 ml/hr (or per MD Plan: Resumed tube feeds Health Maintenance: Lines: PIV Bowel: Senna Diet: tube feeds GI prophylaxis: not needed for now DVT prophylaxis: heparin subq Dispo: Diagnostic workup and management of AHRF 2/2 to PNA and HF Code: DNR Patient plan of care was discussed with the attending physician, Dr. Perry East, PGY1 Attending Provider Attestation/Addendum I reviewed labs, imaging, EKG, home medications and prior available records. Face to face evaluation was performed by me. I have personally examined the patient and discussed assessment and plan with the IM team. I reviewed the resident note and agree with the plan with exceptions as below. Acute hypoxic respiratory failure Extensive bilateral pneumonia Aspiration pneumonia CHF exacerbation HFpEF Non-STEMI Dysphagia status post PEG tube Goals of care discussion/counseling He is on high flow nasal cannula Continue vancomycin/cefepime IV Lasix Follow-up sputum, blood and urine cultures Discussed goals of care He is DNR/DNI
[2024-02-20 15:36] LABS: Cocci Serology, IgM Negative (Negative)
[2024-02-20] MEDS: FUROSEMIDE INJ 10 MG/ML 4ML VIAL 40 MG IVP (17:48)
--- NOTE | 2024-02-20 23:33 | PC.NURSE ---
Called Dr. Gunderson to ask about tube feedings. He states to hold feedings at this time. No IV fluids as well.
[2024-02-21] VITALS (13 sets, daily range): BP systolic 82–135; BP diastolic 52–76; PULSE 60–92; RESP 20–28; TEMP 35.6–36.6; O2SAT 90–99; BMI 19.7
[2024-02-21] MEDS: DEXTROSE 50%-WATER INJ 50 ML SYRINGE 25 ML IV (04:53)
[2024-02-21] MEDS: SODIUM CHLORIDE 1 GM TABLET GT ×3 (05:01→22:01)
[2024-02-21] MEDS: CEFEPIME INJ 2 GM in SODIUM CHLORIDE 0.9% (P) 50 ML IV ×3 (05:02→22:02)
[2024-02-21] MEDS: MIDODRINE 5 MG TABLET 10 MG GT (05:36)
[2024-02-21 06:33] LABS: Alanine Aminotransferase 152 U/L (10-49); Albumin, Serum 2.8 gm/dL (3.4-4.8); Albumin/Globulin Ratio 0.8 (1.2-2.2); Alkaline Phosphatase 101 U/L (46-116); Anion Gap 8 (7-16); Aspartate Amino Transferase 216 U/L (0-34); BUN/Creatinine Ratio 47 Ratio (12-20); Bilirubin,Total 0.5 mg/dL (0.3-1.2); Blood Urea Nitrogen 14 mg/dL (9-23); Calcium 8.1 mg/dL (8.3-10.6); Calcium (Corrected) 9.1 mg/dL (8.5-10.1); Carbon Dioxide 23.1 mMol/L (20.0-31.0); Chloride 98 mMol/L (98-107); Creatinine (Component) 0.3 mg/dL (0.6-1.3); Estimated Creatinine Clearance 161.6 mL/min (>60); Globulin 3.3 gm/dL (2.3-3.5); Glucose 134 mg/dL (74-106); Osmolality,Calculated 261 (275-295); Potassium 3.2 mMol/L (3.4-5.1); Sodium 129 mMol/L (136-145); Total Protein 6.1 gm/dL (5.7-8.2); eGFR > 60 See Note
[2024-02-21 07:04] LABS: Basophils % (Auto) 0 % (0-2.5); Eosinophils % (Auto) 1 % (0-10); Hematocrit 34.5 % (41.0-53.0); Hemoglobin 11.6 g/dL (13.5-16.0); Immature Granulocytes % (Auto) 1 % (0-0); Immature Granulocytes Auto 0.03 Thou/mm3 (0.00-0.00); Lymphocytes # (Auto) 0.3 Thou/mm3 (1.0-4.8); Lymphocytes % (Auto) 10 % (10-50); Mean Corpuscular HGB Conc 33.6 g/dl (31.0-37.0); Mean Corpuscular Hemoglobin 31.8 pg (25.0-35.0); Mean Corpuscular Volume 95 fL (80-100); Monocytes # (Auto) 0.2 Thou/mm3 (0.0-0.8); Monocytes % (Auto) 8 % (0-12); Neutrophils # (Auto) 2.3 Thou/mm3 (1.8-7.7); Neutrophils % (Auto) 80 % (37-80); Nucleated Red Blood Cell % 0 /100 WBC (0); Platelet Count 294 Thou/mm3 (140-440); RDW Standard Deviation 52.2 fL (35.1-43.9); Red Blood Count 3.65 Miln/mm3 (4.50-5.90)
[2024-02-21 07:13] LABS: White Blood Count 2.9 Thou/mm3 (3.8-10.6)
--- NOTE | 2024-02-21 07:17 | PD.RESPRO ---
Documentation for date of: 02/21/24 Subjective Subjective Interval history: No acute overnight events. Patient appears at baseline. Slightly agitated this morning, pulled IV line, we put mitten restraints on. Patient also states he is hungry, we resumed PEG tube feed. Denies fever, chills, headaches, chest pain, sob, cough, GI or urinary symptoms. Exam Vital Signs Temp Pulse Resp BP Pulse Ox O2 Del Method O2 Flow Rate 96.5 F L 69 22 H 82/55 L 95 Nasal Cannula 2 02/21/24 04:00 02/21/24 05:36 02/21/24 04:00 02/21/24 05:36 02/21/24 05:06 02/21/24 05:06 02/21/24 05:06 Narrative Exam General: Drowsy. Following verbal commands. HEENT: Normocephalic, atraumatic, mucous membranes moist. Heart: Regular rate and rhythm, no murmurs. Lungs: Bilateral transmitted sounds and crackles are heard. Abdomen: Soft, nondistended, nontender, positive bowel sounds. ?No guarding or rebound tenderness. PEG tube in situ. Neurologic: Alert and oriented x3, no gross neurological deficit, and patient able to move all 4 extremities. Extremities: Mild bilateral pitting pedal edema was noted. Skin: No rash . Ecchymotic patches are noted in the upper extremity. Objective Labs 02/21/24 04:20 02/21/24 04:20 Labs: Laboratory Results - last 24 hr 02/20/24 02/20/24 02/21/24 04:30 09:07 04:20 WBC 2.9 L RBC 3.65 L Hgb 11.6 L Hct 34.5 L MCV 95 MCH 31.8 MCHC 33.6 RDW Std Deviation 52.2 H Plt Count 294 Neut % (Auto) 80 Lymph % (Auto) 10 [place] % (Auto) 8 Eos % (Auto) 1 Baso % (Auto) 0 Neut # (Auto) 2.3 Lymph # (Auto) 0.3 L [place] # (Auto) 0.2 Eos # (Auto) 0.0 Baso # (Auto) 0.0 Immature Gran # (Auto) 0.03 H Absolute Nucleated RBC 0.00 Immature Gran % 1 H Nucleated RBC % 0 Sodium 129 L Potassium 3.2 L D Chloride 98 Carbon Dioxide 23.1 Anion Gap 8 BUN 14 Creatinine 0.3 L Estim Creat Clear Calc 161.6 eGFR > 60 BUN/Creatinine Ratio 47 H Glucose 134 H Calculated Osmolality 261 L Calcium 8.1 L Corrected Calcium 9.1 Total Bilirubin 0.5 AST 216 H ALT 152 H Alkaline Phosphatase 101 Troponin I 0.668 H* D Total Protein 6.1 Albumin 2.8 L Globulin 3.3 Albumin/Globulin Ratio 0.8 L Coccidioides IgM Ab Negative Quality Measures Quality Measures sepsis Current suspected stage: sepsis Possible source: unknown Blood cultures ordered: yes Antibiotic ordered: Yes Advance care planning discussed with:: patient Assessment & Plan Assessment Current Active Medications: Generic Name Dose Route Start Last Admin Trade Name Freq PRN Reason Stop Dose Admin Acetaminophen 650 mg 02/19/24 23:24 Acetaminophen Supp 650 Mg Supp [place] 03/20/24 23:23 Q6H PRN PAIN SCALE 1-3 (mild Aspirin 81 mg 02/20/24 09:00 02/20/24 08:04 Aspirin 81 Mg Chew GT 03/21/24 08:59 81 mg QDAY JENNY Administration Clopidogrel Bisulfate 75 mg 02/20/24 09:00 02/20/24 08:04 Clopidogrel Bisulfate 75 Mg Tablet GT 03/21/24 08:59 75 mg QDAY EJNNY Administration Dextrose 25 ml 02/20/24 12:15 Dextrose 50%-Water Inj 50 Ml Syringe IV 03/21/24 12:14 Q15MIN PRN BG 50-70 responsive npo pt Dextrose 50 ml 02/20/24 12:15 Dextrose 50%-Water Inj 50 Ml Syringe IV 03/21/24 12:14 Q15MIN PRN BG <50 OR BG <70 & pt unresponsive Furosemide 40 mg 02/20/24 06:00 02/21/24 05:32 Furosemide Inj 10 Mg/Ml 4ml Vial IVP 03/21/24 05:59 Not Given BIDD JENNY Heparin Sodium (Porcine) 5,000 unit 02/20/24 09:00 02/20/24 20:47 Heparin Sod Inj 5000 Unit/Ml Vial SC 03/05/24 08:59 5,000 unit Q12HR JENNY Administration Cefepime HCl 2 gm/ Sodium 50 mls @ 100 mls/hr 02/20/24 14:00 02/21/24 05:02 Chloride IV 02/27/24 13:59 100 mls/hr Q8HR JENNY Administration Vancomycin HCl 250 mls @ 120 mls/hr 02/20/24 22:00 02/20/24 21:40 Vancomycin/Water 1250 Mg Ivpb IV 02/27/24 21:59 120 mls/hr BID@1000,2200 JENNY Administration Protocol Levalbuterol HCl 0.63 mg 02/19/24 23:36 Levalbuterol Rt 0.63 Mg/3 Ml Nebu INH 03/20/24 23:35 Q8HR PRN WHEEZING Levetiracetam 500 mg 02/20/24 09:00 02/20/24 20:47 Levetiracetam Liqd 500 Mg/5 Ml Udc GT 03/21/24 08:59 500 mg BID JENNY Administration Midodrine 10 mg 02/19/24 23:45 02/21/24 05:36 Midodrine 5 Mg Tablet GT 03/20/24 23:44 10 mg BID JENNY Administration Pharmacy Consult 1 each 02/20/24 09:00 Vancomycin Pharmacy To Dose 1 Each Each IV 03/21/24 08:59 QDAY PRN PROTOCOL Sennosides 1 tab 02/20/24 09:00 02/20/24 08:04 Senna Tablet GT 03/21/24 08:59 1 tab QDAY JENNY Administration Protocol Sodium Chloride 1 gm 02/20/24 06:00 02/21/24 05:01 Sodium Chloride 1 Gm Tablet GT 03/21/24 05:59 1 gm TID JENNY Administration Plan In summary: 73-year-old male with PMH of seizures on KEPPRA, stage II rectal adenocarcinoma s/p chemoradiation, chronic oropharyngeal dysphagia on PEG tube, dementia, and CVA, recent hospitalization for acute encephalopathy 2/2 AHRF in settings of sepsis pneumonia, returns to ED with AMS and fever. Admitted for AHRF likely sepsis pneumonia. Continued on ANTIBIOTICS and sepsis protocol. Acute hypoxemic respiratory failure 2/2: Sepsis pneumonia Previously admitted for AHRF in settings of Klebsiella pneumonia, completed course of ANTIBIOTICS. Now presenting with 3/4 SIRS with fever, tachycardia and tachypnea. Exam showed bilateral coarse breath sounds and increased sputum production. CXR showed bibasilar pneumonia. CT AP bibasilar pneumonia. CT head negative for acute pathology. Currently on 2 L NC, satting well, no signs of respiratory distress. Continued management as below. ? Continue VANCOMYCIN IV (02/19 to [present]) ? Continue CEFEPIME 2 g IV Q8H (02/19 to [present]) ? Continue MIDODRINE 10 mg BID for hypotension ? Continue LEVALBUTEROL q.8h. ? Continue chest physiotherapy ? Pending panculture Acute HFpEF exacerbation History of Ischemic Cardiomyopathy Elevated Troponin Hypertension Failure likely contributing to AHR P stated above. Presenting with BNP 1012, troponin 0.934. EKG sinus tach without acute ST changes. No JVD, LE edema on exam however CHF suggested moderate cardiac enlargement and bihilar edema. Received LASIX BID with 2.6 L urine output. No signs of fluid overload on exam. Coarse breath sound likely 2/2 pneumonia as above. ECHO from 01/25, grade 1 diastolic dysfunction with EF 55-60%. BP soft this morning, improved with 250 cc NS bolus. Continued on MIDODRINE TID. ? Decrease LASIX to 40 mg daily ? Continue MIDODRINE 10 mg TID ? Continue ASPIRIN 80 mg daily ? Continue CLOPIDOGREL 75 mg daily ? Strict CHARITY's ? Daily weights ? Fluid restriction 1500 cc ? Maintain Magnesium >2, potassium >4 ? Holding ATORVASTATIN 2/2 transaminitis Hyponatremia Chronic hyponatremia. Sodium consistently around 129. Previously seen by nephrology during last visit. Patient was plus to follow-up with nephrology outpatient. ? Resume SODIUM CHLORIDE 1 tablet TID ? Daily CMP Chronic normocytic anemia Chronic leukopenia WBC is borderline low, 02/14 acute elevation with new left shift Hemoglobin around baseline HIV panel negative from last admission ? Daily CBC Acute transaminitis Likely ischemic hepatopathy 2/2 sepsis, underlying hepatopathy of unknown origin Ultrasound and CT in January 2024: Cholelithiasis without cholecystitis, no hepatic pathology Negative hepatitis panel from January 2024. No current alcohol use, distant history of alcohol use. Anticipate improvement with sepsis treatment. ? Daily CMP History of Seizures ? Resumed home KEPPRA 500 mg G-TUBE BID ? Seizure precaution Bilateral heal ulcers Decubitus ulcer, stage I Chronic findings ? Referral for wound care #Stage II intramucosal rectal adenocarcinoma History of rectal adenocarcinoma, s/p chemoradiation Follows up with oncologist Dr. Oren Forde poor surgical candidate by Dr. Khanh Carlin at [facility], per chart review Dr. Sanchez consulted, recommended outpatient follow-up as well as outpatient colonoscopy Oncology, Dr. Sanchez, following Patient will need colonoscopy outpatient Dietitian recommendations from last admission: Jevity 1.5 at 10 ml/hr x 24 hrs (do not advance). If no IV fluids, water flushes 35 ml/hr Thiamine 100mg/day for 7 days; provide first dose at least 30 minutes before starting nutrition. Multivitamins/Minerals. Daily labs for P, K, and Mg; replace as needed. If no electrolytes disturbances after 24 hrs, advance 10 ml every 12 hrs to goal rate of 45 ml/hr x 24 hrs. Continue with water flushes 35 ml/hr (or per MD ? Resume slow PEG tube feeds as tolerated Incidental findings CT redemonstrated cirrhosis versus primary elsewhere disease, cholelithiasis, small bilateral renal calculi, mild right-sided hydronephrosis, small bladder calculi, proctitis pattern. Patient currently asymptomatic ? Recommended outpatient follow-up with PCP further evaluation ? Will continue monitoring symptoms Health maintenance Diet: Cardiac GI prophylaxis: PROTONIX DVT prophylaxis: HEPARIN Antibiotics: CEFEPIME and VANCOMYCIN CODE STATUS: DNR Disposition: Pending improvement of symptoms Patient case was discussed with attending, Dr. Toni Amador MD and senior resident Dr. Farris. Allison Cole DO PGYI Attending Provider Attestation/Addendum I reviewed labs, imaging, EKG, home medications and prior available records. Face to face evaluation was performed by me. I have personally examined the patient and discussed assessment and plan with the IM team. I reviewed the resident note and agree with the plan with exceptions as below. Acute hypoxic respiratory failure Extensive bilateral pneumonia Aspiration pneumonia CHF exacerbation HFpEF Non-STEMI Dysphagia status post PEG tube Hypokalemia Hyponatremia Goals of care discussion/counseling He is on nasal cannula Continue vancomycin/cefepime. Cultures are pending Decrease Lasix dose Replete magnesium and potassium. Follow-up potassium and magnesium levels Monitor sodium level Follow-up sputum, blood and urine cultures Discussed goals of care He is DNR
[2024-02-21] MEDS: SODIUM CHLORIDE 0.9% 250 ML 250 ML 999 ML IV (08:22)
[2024-02-21] MEDS: POTASSIUM CHL 10 mEq IVPB 10 MEQ/100 ML BAG 100 MEQ IV ×4 (09:00→12:19)
--- NOTE | 2024-02-21 09:40 | PC.SS ---
Kory attempted to contact patient's daughter, Mariah, to complete assessment. PAT left voice message to have Mariah call back.
[2024-02-21] MEDS: POTASSIUM CHLORIDE 10% 20 MEQ/15 ML UDC 40 MEQ PO (09:46)
[2024-02-21 09:47] LABS: Vancomycin,Trough 17.9 mcg/mL (5.0-10.0)
[2024-02-21] MEDS: guaiFENesin/DM TABLET 1 EACH GT ×2 (09:47→22:01)
[2024-02-21] MEDS: SENNA TABLET 1 TAB GT (09:47)
[2024-02-21] MEDS: HEPARIN SOD INJ 5000 UNIT/ML VIAL SC ×2 (09:47→22:02)
[2024-02-21] MEDS: levETIRAcetam LIQD 500 MG/5 ML UDC GT ×2 (09:47→22:01)
[2024-02-21] MEDS: CLOPIDOGREL BISULFATE 75 MG TABLET GT (09:47)
[2024-02-21] MEDS: ASPIRIN 81 MG CHEW GT (09:47)
[2024-02-21] MEDS: VANCOMYCIN/WATER 1250 MG IVPB 250 ML 120 MG IV (11:07)
[2024-02-21] MEDS: POTASSIUM CHLORIDE 10% 20 MEQ/15 ML UDC 40 MEQ GT (11:08)
--- NOTE | 2024-02-21 15:13 | PCS.ST ---
Seen for PO trials for diet readiness. Pt continues to have s/sx of aspiration and weak cough to clear airway. Not ready for PO at this time. [employer]ING MACHINE TENDER will continue to see pt for PO readiness [place].
--- NOTE | 2024-02-21 15:25 | PD.ADDPROG ---
Addendum Progress Note Addendum Date of report being addended: 02/22/24 Narrative: I reviewed labs, imaging, EKG, home medications and prior available records. Face to face evaluation was performed by me. I have personally examined the patient and discussed assessment and plan with the IM team. I reviewed the resident note and agree with the plan with exceptions as below. Acute hypoxic respiratory failure Extensive bilateral pneumonia Aspiration pneumonia CHF exacerbation HFpEF Non-STEMI Dysphagia status post PEG tube Hyperglycemia Hypokalemia Hyponatremia Transaminitis Goals of care discussion/counseling He is on nasal cannula Cultures are negative to date. Switched vancomycin/cefepime to levofloxacin Continue Lasix 40 mg p.o. twice daily Replete magnesium and potassium. Follow-up potassium and magnesium levels Resumed tube feeds. Gave orange juice for the hypoglycemia. Dextrose amp as needed if remains hyperglycemic. Monitor fingersticks Monitor sodium level Follow-up sputum, blood and urine cultures: Negative to date His LFTs might be related to congestion versus medication side effect from antibiotics. Switched antibiotics to Levaquin. Continue diuresis as above. Monitor LFTs. Discussed goals of care He is DNR
[2024-02-21 15:31] LABS: Potassium 4.8 mMol/L (3.4-5.1)
[2024-02-21 16:29] LABS: Magnesium 1.9 mg/dL (1.6-2.6)
[2024-02-21] MEDS: VANCOMYCIN 500 MG 1000 MG (22:44)
[2024-02-21] MEDS: VANCOMYCIN 1000 MG (22:46)
[2024-02-22] VITALS (14 sets, daily range): BP systolic 112–141; BP diastolic 58–85; PULSE 66–132; RESP 17–26; TEMP 35.7–36.5; O2SAT 89–100
[2024-02-22] MEDS: MELATONIN 3 MG TABLET PO (02:50)
[2024-02-22] MEDS: SODIUM CHLORIDE 1 GM TABLET GT ×3 (05:31→22:35)
[2024-02-22] MEDS: CEFEPIME INJ 2 GM in SODIUM CHLORIDE 0.9% (P) 50 ML IV (05:31)
[2024-02-22 06:13] LABS: Basophils % (Auto) 0 % (0-2.5); Eosinophils % (Auto) 0 % (0-10); Hematocrit 36.1 % (41.0-53.0); Hemoglobin 11.8 g/dL (13.5-16.0); Immature Granulocytes % (Auto) 1 % (0-0); Immature Granulocytes Auto 0.03 Thou/mm3 (0.00-0.00); Lymphocytes # (Auto) 0.2 Thou/mm3 (1.0-4.8); Lymphocytes % (Auto) 8 % (10-50); Mean Corpuscular HGB Conc 32.7 g/dl (31.0-37.0); Mean Corpuscular Hemoglobin 31.5 pg (25.0-35.0); Mean Corpuscular Volume 96 fL (80-100); Monocytes # (Auto) 0.2 Thou/mm3 (0.0-0.8); Monocytes % (Auto) 7 % (0-12); Neutrophils # (Auto) 2.5 Thou/mm3 (1.8-7.7); Neutrophils % (Auto) 83 % (37-80); Nucleated Red Blood Cell % 0 /100 WBC (0); Platelet Count 305 Thou/mm3 (140-440); RDW Standard Deviation 52.6 fL (35.1-43.9); Red Blood Count 3.75 Miln/mm3 (4.50-5.90)
[2024-02-22 06:15] LABS: White Blood Count 2.9 Thou/mm3 (3.8-10.6)
[2024-02-22 06:35] LABS: Alanine Aminotransferase 185 U/L (10-49); Albumin/Globulin Ratio 0.8 (1.2-2.2); Alkaline Phosphatase 129 U/L (46-116); Anion Gap 10 (7-16); Aspartate Amino Transferase 262 U/L (0-34); BUN/Creatinine Ratio 43 Ratio (12-20); Bilirubin,Total 0.7 mg/dL (0.3-1.2); Blood Urea Nitrogen 13 mg/dL (9-23); Calcium 8.7 mg/dL (8.3-10.6); Calcium (Corrected) 9.5 mg/dL (8.5-10.1); Chloride 101 mMol/L (98-107); Creatinine (Component) 0.3 mg/dL (0.6-1.3); Estimated Creatinine Clearance 164.6 mL/min (>60); Globulin 3.6 gm/dL (2.3-3.5); Glucose 66 mg/dL (74-106); Osmolality,Calculated 264 (275-295); Potassium 4.2 mMol/L (3.4-5.1); Sodium 133 mMol/L (136-145); Total Protein 6.6 gm/dL (5.7-8.2); eGFR > 60 See Note
[2024-02-22] MEDS: CLOPIDOGREL BISULFATE 75 MG TABLET GT (09:27)
[2024-02-22] MEDS: PANTOPRAZOLE INJ 40 MG VIAL IV (09:27)
[2024-02-22] MEDS: FUROSEMIDE INJ 10 MG/ML 4ML VIAL 40 MG IVP ×2 (09:27→17:55)
[2024-02-22] MEDS: SENNA TABLET 1 TAB GT (09:28)
[2024-02-22] MEDS: levETIRAcetam LIQD 500 MG/5 ML UDC GT ×2 (09:28→20:11)
[2024-02-22] MEDS: HEPARIN SOD INJ 5000 UNIT/ML VIAL SC ×2 (09:28→20:11)
[2024-02-22] MEDS: ASPIRIN 81 MG CHEW GT (09:28)
[2024-02-22] MEDS: LEVOFLOXACIN 250 MG TABLET 750 MG GT (09:30)
[2024-02-22] MEDS: guaiFENesin/DM TABLET 1 EACH GT ×2 (09:31→20:11)
--- NOTE | 2024-02-22 10:20 | PC.SS ---
Patient is altered. He is a re-admit. Patient was admitted from [facility]. Patient was recently here and had new peg tube placed. He was on restraints for pulling. SS spoke to patient's sister, Karissa, to inquire if she continues to be the point of contact and alt medical decision maker. She confirmed she will continue this role. Patient's daughter will be the second point of contact. Patient will return to [facility]. SS will submit documentation to facility. Patient will need gurney transport. Patient was changed to DNR code status on last admission. transport: gurney alt medical decision maker: SisterKarissa,
--- NOTE | 2024-02-22 11:54 | PC.DIETICIAN ---
Nutrition prescription Jevity 1.5 at 30 ml/hr via PEG tube by pump. Advance 10 ml every 8 hrs to goal rate of 50 ml/hr x 22 hrs. If no IV fluids, water flushes of 100 ml every 4 hrs (or per MD). -Hold TF for one hour before and after levofloxacin administration-
--- NOTE | 2024-02-22 12:57 | ESPR_ITS ---
<Statement entered by Julian Chance DO - 02/22/24 16:47> Senior attestation: Patient was examined and case was reviewed with team including attending physician. Note reviewed, I agree with most of its contents and agree with the patient's care. Blood cultures negative on preliminary 48 hours, will de-escalate antibiotiocs to levofloxacin 750mg daily. Chest physiotherapy ordered, will wean down oxygen supplementation as tolerated. Lasix dose has been adjusted to 40mg BID from qday. Julian Chance DO PGY-3 Documentation for date of: 02/22/24 Subjective Subjective Interval history: Patient was seen at bedside this morning. No overnight events. Patient was still AO x 1 only to name and following commands. Patient has a total of -800 in the past 24 hours. Patient still in restraints has he was still pulling on some IV lines. Patient sounds to be more congested today. Started Levaquin 750 mg daily, discontinued vanco and rocephin. Will order chest physiotherapy q6h. Started tube feeds. Exam Vital Signs Temp Pulse Resp BP Pulse Ox O2 Del Method O2 Flow Rate 97.0 F 73 20 127/58 L 99 Nasal Cannula 4 02/22/24 08:00 02/22/24 09:27 02/22/24 08:00 02/22/24 09:27 02/22/24 08:00 02/22/24 04:00 02/22/24 07:08 Narrative Exam General: A/O x1 (to person only), resting in bed, thin, frail male Eyes: Pupils reactive to light and EOMI. Ears: No visible ear discharge, Hearing grossly intact. Nose: No visible nasal discharge. Mouth/Throat: Moist mucous membranes, no redness, no lesions. Neck: Neck supple, no cervical lymphadenopathy. Lungs: Crackles JESUS, No accessory muscle use. Cardio: Normal S1/S2, regular rhythm, no murmurs, no JVD. Abdomen: Soft, non-tender, no palpable masses, peristalsis present, no guarding or rebound, PEG tube in place with no bleeding. Extremities: Symmetrical, no significant deformities, no peripheral edema , non-tender, peripheral pulses presents. Skin: No rashes, no lesions, warm to touch. Neuro: Able to move all extremities. Objective Labs 02/24/24 05:12 02/24/24 05:12 Labs: Laboratory Results - last 24 hr 02/21/24 02/22/24 14:59 05:22 WBC 2.9 L RBC 3.75 L Hgb 11.8 L Hct 36.1 L MCV 96 MCH 31.5 MCHC 32.7 RDW Std Deviation 52.6 H Plt Count 305 Neut % (Auto) 83 H Lymph % (Auto) 8 L [place] % (Auto) 7 Eos % (Auto) 0 Baso % (Auto) 0 Neut # (Auto) 2.5 Lymph # (Auto) 0.2 L [place] # (Auto) 0.2 Eos # (Auto) 0.0 Baso # (Auto) 0.0 Immature Gran # (Auto) 0.03 H Absolute Nucleated RBC 0.00 Immature Gran % 1 H Nucleated RBC % 0 Sodium 133 L Potassium 4.8 D 4.2 D Chloride 101 Carbon Dioxide 22.0 Anion Gap 10 BUN 13 Creatinine 0.3 L Estim Creat Clear Calc 164.6 eGFR > 60 BUN/Creatinine Ratio 43 H Glucose 66 L D Calculated Osmolality 264 L Calcium 8.7 Corrected Calcium 9.5 Magnesium 1.9 Total Bilirubin 0.7 AST 262 H ALT 185 H Alkaline Phosphatase 129 H D Total Protein 6.6 Albumin 3.0 L Globulin 3.6 H Albumin/Globulin Ratio 0.8 L Quality Measures Quality Measures sepsis Current suspected stage: ruled out Possible source: unknown Blood cultures ordered: yes Antibiotic ordered: Yes Advance care planning discussed with:: patient Assessment & Plan Assessment Current Active Medications: Generic Name Dose Route Start Last Admin Trade Name Freq PRN Reason Stop Dose Admin Acetaminophen 650 mg 02/19/24 23:24 Acetaminophen Supp 650 Mg Supp AK 03/20/24 23:23 Q6H PRN PAIN SCALE 1-3 (mild Aspirin 81 mg 02/20/24 09:00 02/22/24 09:28 Aspirin 81 Mg Chew GT 03/21/24 08:59 81 mg QDAY JENNY Administration Clopidogrel Bisulfate 75 mg 02/20/24 09:00 02/22/24 09:27 Clopidogrel Bisulfate 75 Mg Tablet GT 03/21/24 08:59 75 mg QDAY JENNY Administration Dextrose 25 ml 02/20/24 12:15 Dextrose 50%-Water Inj 50 Ml Syringe IV 03/21/24 12:14 Q15MIN PRN BG 50-70 responsive npo pt Dextrose 50 ml 02/20/24 12:15 Dextrose 50%-Water Inj 50 Ml Syringe IV 03/21/24 12:14 Q15MIN PRN BG <50 OR BG <70 & pt unresponsive Furosemide 40 mg 02/22/24 09:00 02/22/24 09:27 Furosemide Inj 10 Mg/Ml 4ml Vial IVP 03/23/24 08:59 40 mg BIDD JENNY Administration Guaifenesin/Dextromethorphan 1 each 02/21/24 09:45 02/22/24 09:31 Guaifenesin/Dm Tablet GT 03/22/24 08:59 1 each BID JENNY Administration Heparin Sodium (Porcine) 5,000 unit 02/20/24 09:00 02/22/24 09:28 Heparin Sod Inj 5000 Unit/Ml Vial SC 03/05/24 08:59 5,000 unit Q12HR JENNY Administration Levalbuterol HCl 0.63 mg 02/19/24 23:36 Levalbuterol Rt 0.63 Mg/3 Ml Nebu INH 03/20/24 23:35 Q8HR PRN WHEEZING Levetiracetam 500 mg 02/20/24 09:00 02/22/24 09:28 Levetiracetam Liqd 500 Mg/5 Ml Udc GT 03/21/24 08:59 500 mg BID JENNY Administration Levofloxacin 750 mg 02/22/24 09:00 02/22/24 09:30 Levofloxacin 250 Mg Tablet GT 02/29/24 08:59 750 mg QDAY JENNY Administration Midodrine 10 mg 02/21/24 14:00 02/22/24 05:26 Midodrine 5 Mg Tablet GT 03/22/24 13:59 Not Given TID JENNY Pantoprazole Sodium 40 mg 02/22/24 09:00 02/22/24 09:27 Pantoprazole Inj 40 Mg Vial IV 03/23/24 08:59 40 mg QDAY JENNY Administration Sennosides 1 tab 02/20/24 09:00 02/22/24 09:28 Senna Tablet GT 03/21/24 08:59 1 tab QDAY JENNY Administration Protocol Sodium Chloride 1 gm 02/20/24 06:00 02/22/24 05:31 Sodium Chloride 1 Gm Tablet GT 03/21/24 05:59 1 gm TID JENNY Administration Plan 73-year-old male with past medical history of colon cancer s/p chemoradiation, seizure, dementia, and CVA (ischemic and hemorrhagic) was admitted to the hospital on 02/19/2024 due to acute encephalopathy likely secondary to hospital- acquired pneumonia versus community-acquired pneumonia. #Acute encephalopathy secondary to #Acute hypoxic respiratory failure secondary to #Possible hospital-acquired pneumonia versus community-acquired pneumonia ?Patient came in with complaints of altered mental status and worsening pneumonia with coughing, fevers, and greenish sputum from [facility]. ?Initially patient met SIRS 4 out of 4 with tachycardia, tachypnea, fever, and leukocytopenia ?Patient's qSOFA initially of 2 points indicating high risk for in-hospital mortality. -No evidence of shock as MAP above 65 ?Lactic acid was 1.6 ?WBC 2.9 today ?Chest x-ray 02/19/2024 showed lung base pneumonia ?Abdomen/pelvis CT on 02/19/2024 showed bibasilar pneumonia ? Blood cultures negative Plan: ?Started Levaquin 750 mg daily ?Discontinue vancomycin and Rocephin [02/19-] ?Continue pain treatments as needed ? Continue chest physiotherapy every 6 hours ?Pending sputum cultures ?Will continue to monitor #Acute decompensated diastolic heart failure exacerbation #HFpEF (EF 55 to 60%) #NSTEMI type II likely demand ischemia ?Patient came in with acute hypoxic respiratory failure as well as elevated BNP at 1012 which could have been due to CHF exacerbation. ? Troponins peaked at 0.934 and down trended ? Elevated troponins likely in the setting of CHF exacerbation versus pneumonia. ? Echo on 01/26/2024 showed the following findings: Normal LV size and function. Grade 1 diastolic dysfunction. Estimated EF 55 to 60% Normal RV size and function. Mild TR. Mild AV sclerosis without stenosis. Trace AI. Plan: ? Will continue Lasix 40 mg twice daily ?Will continue midodrine 10 mg 3 times daily to avoid MAP below 65 ? Fluid restrictions ? Strict CHARITY's ? Daily weights ? Will continue to monitor #Hypoosmolar hyponatremia ? Patient sodium initially was 125 ? Sodium today 133 ?Patient sodium has been chronically low in the 127?125 on prior admission Plan: ? Continue sodium tablets 3 times daily #Transaminitis ? Patient has a history of elevated liver enzymes which could be due to ischemic hepatitis versus congestive hepatopathy in the setting of CHF exacerbation ? Patient's last hepatitis panels which were nonreactive and liver ultrasound did not show any focal lesions or hepatomegaly. Plan: ?Will continue to monitor #Chronic normocytic normochromic anemia ?Likely anemia of chronic disease ?Hemoglobin 11.8 today with no active signs of bleeding Plan: ?Will continue to monitor #Hx of seizures ? Seizure precautions ? Resumed Keppra 500 mg twice daily #Hx of CVA ? Continue patient's Plavix #Hx of rectal adenocarcinoma s/p chemo ?Follow-up outpatient Disposition: Patient admitted to telemetry. Diet: Tube feeds GI prophylaxis: pantoprazole DVT prophylaxis: heparin sc Code: DNR/DNI Case disclosed with Attending Dr. Amador and My senior Dr. Chance PGY3. Norris Mcdaniels PGY1 Attending Provider Attestation/Addendum I reviewed labs, imaging, EKG, home medications and prior available records. Face to face evaluation was performed by me. I have personally examined the patient and discussed assessment and plan with the IM team. I reviewed the resident note and agree with the plan with exceptions as below. Please see my separate addendum for the same date of service
[2024-02-22 14:31] LABS: Cocci Serology, IgG Negative (Negative)
[2024-02-23] VITALS (12 sets, daily range): BP systolic 100–137; BP diastolic 60–88; PULSE 75–102; RESP 18–96; TEMP 35.9–36.2; O2SAT 93–98; BMI 18.6
[2024-02-23] MEDS: FUROSEMIDE INJ 10 MG/ML 4ML VIAL 40 MG IVP (05:20)
[2024-02-23] MEDS: SODIUM CHLORIDE 1 GM TABLET GT ×3 (05:21→21:11)
[2024-02-23 08:57] LABS: Basophils % (Auto) 0 % (0-2.5); Eosinophils % (Auto) 0 % (0-10); Hematocrit 35.6 % (41.0-53.0); Immature Granulocytes % (Auto) 1 % (0-0); Immature Granulocytes Auto 0.02 Thou/mm3 (0.00-0.00); Lymphocytes # (Auto) 0.2 Thou/mm3 (1.0-4.8); Lymphocytes % (Auto) 8 % (10-50); Mean Corpuscular HGB Conc 33.7 g/dl (31.0-37.0); Mean Corpuscular Volume 92 fL (80-100); Monocytes # (Auto) 0.2 Thou/mm3 (0.0-0.8); Monocytes % (Auto) 6 % (0-12); Neutrophils # (Auto) 2.2 Thou/mm3 (1.8-7.7); Neutrophils % (Auto) 84 % (37-80); Nucleated Red Blood Cell % 0 /100 WBC (0); Platelet Count 304 Thou/mm3 (140-440); Red Blood Count 3.87 Miln/mm3 (4.50-5.90)
[2024-02-23 08:58] LABS: White Blood Count 2.6 Thou/mm3 (3.8-10.6)
[2024-02-23 09:03] LABS: Alanine Aminotransferase 185 U/L (10-49); Albumin, Serum 3.6 gm/dL (3.4-4.8); Albumin/Globulin Ratio 0.9 (1.2-2.2); Alkaline Phosphatase 157 U/L (46-116); Anion Gap 8 (7-16); Aspartate Amino Transferase 239 U/L (0-34); BUN/Creatinine Ratio 35 Ratio (12-20); Bilirubin,Total 0.5 mg/dL (0.3-1.2); Blood Urea Nitrogen 14 mg/dL (9-23); Calcium 8.6 mg/dL (8.3-10.6); Calcium (Corrected) 8.9 mg/dL (8.5-10.1); Chloride 94 mMol/L (98-107); Creatinine (Component) 0.4 mg/dL (0.6-1.3); Estimated Creatinine Clearance 114.2 mL/min (>60); Globulin 3.8 gm/dL (2.3-3.5); Glucose 166 mg/dL (74-106); Magnesium 1.8 mg/dL (1.6-2.6); Osmolality,Calculated 270 (275-295); Potassium 2.9 mMol/L (3.4-5.1); Sodium 133 mMol/L (136-145); Total Protein 7.4 gm/dL (5.7-8.2); eGFR > 60 See Note
--- NOTE | 2024-02-23 09:11 | ESPR_ITS ---
<Statement entered by Julian Chance DO - 02/23/24 14:14> Senior attestation: Patient was examined and case was reviewed with team including attending physician. Note reviewed, I agree with most of its contents and agree with the patient's care. Sputum cultures reveal MRSA with resistance to levaquin, abx changed to doxycycline. Will continue to monitor patient for an additional day, anticipate discharge in next 24 hours. Julian Chance DO PGY-3 Documentation for date of: 02/23/24 Subjective Subjective Interval history: Patient was seen at bedside this morning. No overnight events. Patient did have some PVCs, but still sinus rhythm upon telemetry monitoring reviewed. Patient continues to have a lot of congestion which is noticeable on his speech. He is AO x 1. Sputum cultures came back positive for MRSA therefore his antibiotic regimen was changed to doxycycline from Levaquin. Patient had a total balance of -3.1 L in the past 24 hours therefore his Lasix was decreased to 40 daily. No other complaints at this time. Will wean patient off oxygen anticipating probable discharge in the next few days. Exam Vital Signs Temp Pulse Resp BP Pulse Ox O2 Del Method O2 Flow Rate 97.0 F 86 19 137/88 H 98 Nasal Cannula 3 02/23/24 08:00 02/23/24 08:00 02/23/24 08:00 02/23/24 08:00 02/23/24 08:00 02/23/24 08:00 02/23/24 08:00 Narrative Exam General: A/O x1 (to person only), resting in bed, thin, frail male Eyes: Pupils reactive to light and EOMI. Ears: No visible ear discharge, Hearing grossly intact. Nose: No visible nasal discharge. Mouth/Throat: Moist mucous membranes, no redness, no lesions. Neck: Neck supple, no cervical lymphadenopathy. Lungs: Decreased breath sounds in R side, No accessory muscle use. Cardio: Normal S1/S2, regular rhythm, no murmurs, no JVD. Abdomen: Soft, non-tender, no palpable masses, peristalsis present, no guarding or rebound, PEG tube in place with no bleeding. Extremities: Symmetrical, no significant deformities, no peripheral edema , non-tender, peripheral pulses presents. Skin: No rashes, no lesions, warm to touch. Neuro: Able to move all extremities. Objective Labs 02/23/24 08:28 02/23/24 08:28 Labs: Laboratory Results - last 24 hr 02/20/24 02/23/24 04:30 08:28 WBC 2.6 L RBC 3.87 L Hgb 12.0 L Hct 35.6 L MCV 92 MCH 31.0 MCHC 33.7 RDW Std Deviation 50.0 H Plt Count 304 Neut % (Auto) 84 H Lymph % (Auto) 8 L [place] % (Auto) 6 Eos % (Auto) 0 Baso % (Auto) 0 Neut # (Auto) 2.2 Lymph # (Auto) 0.2 L [place] # (Auto) 0.2 Eos # (Auto) 0.0 Baso # (Auto) 0.0 Immature Gran # (Auto) 0.02 H Absolute Nucleated RBC 0.00 Immature Gran % 1 H Nucleated RBC % 0 Sodium 133 L Potassium 2.9 L D Chloride 94 L Carbon Dioxide 31.0 Anion Gap 8 BUN 14 Creatinine 0.4 L Estim Creat Clear Calc 114.2 eGFR > 60 BUN/Creatinine Ratio 35 H Glucose 166 H D Calculated Osmolality 270 L Calcium 8.6 Corrected Calcium 8.9 Magnesium 1.8 Total Bilirubin 0.5 AST 239 H ALT 185 H Alkaline Phosphatase 157 H D Total Protein 7.4 Albumin 3.6 D Globulin 3.8 H Albumin/Globulin Ratio 0.9 L Coccidioides IgG Ab Negative Quality Measures Quality Measures sepsis Current suspected stage: ruled out Possible source: unknown Blood cultures ordered: yes Antibiotic ordered: Yes Advance care planning discussed with:: patient Assessment & Plan Assessment Current Active Medications: Generic Name Dose Route Start Last Admin Trade Name Freq PRN Reason Stop Dose Admin Acetaminophen 650 mg 02/19/24 23:24 Acetaminophen Supp 650 Mg Supp SC 03/20/24 23:23 Q6H PRN PAIN SCALE 1-3 (mild Aspirin 81 mg 02/20/24 09:00 02/22/24 09:28 Aspirin 81 Mg Chew GT 03/21/24 08:59 81 mg QDAY JENNY Administration Clopidogrel Bisulfate 75 mg 02/20/24 09:00 02/22/24 09:27 Clopidogrel Bisulfate 75 Mg Tablet GT 03/21/24 08:59 75 mg QDAY JENNY Administration Dextrose 25 ml 02/20/24 12:15 Dextrose 50%-Water Inj 50 Ml Syringe IV 03/21/24 12:14 Q15MIN PRN BG 50-70 responsive npo pt Dextrose 50 ml 02/20/24 12:15 Dextrose 50%-Water Inj 50 Ml Syringe IV 03/21/24 12:14 Q15MIN PRN BG <50 OR BG <70 & pt unresponsive Doxycycline Hyclate 100 mg 02/23/24 09:00 Doxycycline 100 Mg Tablet PO 03/01/24 08:59 BID JENNY Furosemide 40 mg 02/22/24 09:00 02/23/24 05:20 Furosemide Inj 10 Mg/Ml 4ml Vial IVP 03/23/24 08:59 40 mg BIDD JENNY Administration Guaifenesin/Dextromethorphan 1 each 02/21/24 09:45 02/22/24 20:11 Guaifenesin/Dm Tablet GT 03/22/24 08:59 1 each BID JENNY Administration Heparin Sodium (Porcine) 5,000 unit 02/20/24 09:00 02/22/24 20:11 Heparin Sod Inj 5000 Unit/Ml Vial SC 03/05/24 08:59 5,000 unit Q12HR JENNY Administration Levalbuterol HCl 0.63 mg 02/19/24 23:36 Levalbuterol Rt 0.63 Mg/3 Ml Nebu INH 03/20/24 23:35 Q8HR PRN WHEEZING Levetiracetam 500 mg 02/20/24 09:00 02/22/24 20:11 Levetiracetam Liqd 500 Mg/5 Ml Udc GT 03/21/24 08:59 500 mg BID JENNY Administration Midodrine 10 mg 02/21/24 14:00 02/23/24 05:21 Midodrine 5 Mg Tablet GT 03/22/24 13:59 Not Given TID JENNY Mupirocin 2 gm 02/23/24 14:00 Mupirocin Oint 2% 22 Gm Tube TOP 03/03/24 07:50 TID JENNY Pantoprazole Sodium 40 mg 02/22/24 09:00 02/22/24 09:27 Pantoprazole Inj 40 Mg Vial IV 03/23/24 08:59 40 mg QDAY JENNY Administration Sennosides 1 tab 02/20/24 09:00 02/22/24 09:28 Senna Tablet GT 03/21/24 08:59 1 tab QDAY JENNY Administration Protocol Sodium Chloride 1 gm 02/20/24 06:00 02/23/24 05:21 Sodium Chloride 1 Gm Tablet GT 03/21/24 05:59 1 gm TID JENNY Administration Plan 73-year-old male with past medical history of colon cancer s/p chemoradiation, seizure, dementia, and CVA (ischemic and hemorrhagic) was admitted to the hospital on 02/19/2024 due to acute encephalopathy likely secondary to hospital- acquired pneumonia versus community-acquired pneumonia. #Acute encephalopathy secondary to #Acute hypoxic respiratory failure secondary to #MRSA pneumonia ?Patient came in with complaints of altered mental status and worsening pneumonia with coughing, fevers, and greenish sputum from [facility]. ?Initially patient met SIRS 4 out of 4 with tachycardia, tachypnea, fever, and leukocytopenia ?Patient's qSOFA initially of 2 points indicating high risk for in-hospital mortality. -No evidence of shock as MAP above 65 ?Lactic acid was 1.6 ?WBC 2.6 today ?Chest x-ray 02/19/2024 showed lung base pneumonia ?Abdomen/pelvis CT on 02/19/2024 showed bibasilar pneumonia ? Blood cultures negative ?Discontinue vancomycin and Rocephin [02/19-] and Levaquin [02/22/2024- 02/23/2024] ? sputum cultures positive for MRSA Plan: ?Started Doxy 100mg BID [02/23/2024-] ?Continue pain treatments as needed ? Continue chest physiotherapy every 6 hours ?Will continue to monitor #Acute decompensated diastolic heart failure exacerbation #HFpEF (EF 55 to 60%) #NSTEMI type II likely demand ischemia ?Patient came in with acute hypoxic respiratory failure as well as elevated BNP at 1012 which could have been due to CHF exacerbation. ? Troponins peaked at 0.934 and down trended ? Elevated troponins likely in the setting of CHF exacerbation versus pneumonia. ? Echo on 01/26/2024 showed the following findings: Normal LV size and function. Grade 1 diastolic dysfunction. Estimated EF 55 to 60% Normal RV size and function. Mild TR. Mild AV sclerosis without stenosis. Trace AI. Plan: ? Decreased to Lasix 40 mg once daily ?Will continue midodrine 10 mg 3 times daily to avoid MAP below 65 ? Fluid restrictions ? Strict CHARITY's ? Daily weights ? Will continue to monitor #Hypoosmolar hyponatremia ? Patient sodium initially was 125 ? Sodium today 133 ?Patient sodium has been chronically low in the 127?125 on prior admission Plan: ? Continue sodium tablets 3 times daily #Transaminitis ? Patient has a history of elevated liver enzymes which could be due to ischemic hepatitis versus congestive hepatopathy in the setting of CHF exacerbation ? Patient's last hepatitis panels which were nonreactive and liver ultrasound did not show any focal lesions or hepatomegaly. Plan: ?Will continue to monitor #Hypokalemia -Potassium 2.9 today Plan: -Repleted potassium 80 meq -Will replete as necessary #Chronic normocytic normochromic anemia ?Likely anemia of chronic disease ?Hemoglobin 12 today with no active signs of bleeding Plan: ?Will continue to monitor #Hx of seizures ? Seizure precautions ? Resumed Keppra 500 mg twice daily #Hx of CVA ? Continue patient's Plavix #Hx of rectal adenocarcinoma s/p chemo ?Follow-up outpatient Disposition: Patient admitted to telemetry. Diet: Tube feeds GI prophylaxis: pantoprazole DVT prophylaxis: heparin sc Code: DNR/DNI Case disclosed with Attending Dr. Bailey and My senior Dr. Chance PGY3. Norris Mcdaniels PGY1 Attending Provider Attestation/Addendum I, Darleen Bailey, DO, attest that I was physically present for the ro portions of the service and evaluated the patient with the resident and I reviewed and discussed the case with the resident and agree with the resident's findings and plans of care as documented above Patient seen and evaluated this AM. Patient admitted with MRSA pneumonia, started on doxycycline today. Patient has no acute complaints at this time and is on room air. Will continue with doxy, if patient condition continues to improve, anticipate DC within next 24hrs
[2024-02-23] MEDS: HEPARIN SOD INJ 5000 UNIT/ML VIAL SC ×2 (09:55→21:14)
[2024-02-23] MEDS: SENNA TABLET 1 TAB GT (09:55)
[2024-02-23] MEDS: levETIRAcetam LIQD 500 MG/5 ML UDC GT ×2 (09:55→21:12)
[2024-02-23] MEDS: PANTOPRAZOLE INJ 40 MG VIAL IV (09:55)
[2024-02-23] MEDS: guaiFENesin/DM TABLET 1 EACH GT ×2 (09:55→21:12)
[2024-02-23] MEDS: DOXYCYCLINE 100 MG TABLET PO ×2 (09:55→21:11)
[2024-02-23] MEDS: Magnesium Sulfate 4 GM Ivpb 4 GM/50 ML BAG IV (09:55)
[2024-02-23] MEDS: POTASSIUM CHL 10 mEq IVPB 10 MEQ/100 ML BAG 100 MEQ IV ×4 (09:55→15:27)
[2024-02-23] MEDS: ASPIRIN 81 MG CHEW GT (09:55)
[2024-02-23] MEDS: CLOPIDOGREL BISULFATE 75 MG TABLET GT (09:55)
[2024-02-23] MEDS: POTASSIUM CHLORIDE 10% 20 MEQ/15 ML UDC 40 MEQ GT (10:24)
[2024-02-23] MEDS: INSULIN LISPRO (AdmeLOG) 1 UNIT/0.01 ML UNIT SC ×2 (13:32→17:50)
[2024-02-23] MEDS: MUPIROCIN OINT 2% 22 GM TUBE TOP (13:35)
--- NOTE | 2024-02-23 18:19 | PC.RT ---
called to bedside by GABRIELLE Felix, to NT suction. pt refused suctioning, and was educated on importance RN aware.
--- NOTE | 2024-02-23 23:32 | PC.NURSE ---
Addendum entered by Barrington Reyes RN 02/23/24 23:40: Dr. Jasbir taylor to put mitten restraints. Mitten restraints applied at [id number]. Original Note: Patient pulled out lines x2 and continues to pull out lines. Patient is confused. RN will call hospitalists to see if RN can put mitten restraints.
[2024-02-24] VITALS (14 sets, daily range): BP systolic 109–137; BP diastolic 65–79; PULSE 60–93; RESP 18–98; TEMP 36.1–36.6; O2SAT 93–98
[2024-02-24] MEDS: INSULIN LISPRO (AdmeLOG) 1 UNIT/0.01 ML UNIT SC (05:13)
[2024-02-24] MEDS: SODIUM CHLORIDE 1 GM TABLET GT ×3 (05:14→21:40)
[2024-02-24 06:16] LABS: Basophils % (Auto) 0 % (0-2.5); Eosinophils % (Auto) 0 % (0-10); Hematocrit 31.5 % (41.0-53.0); Hemoglobin 10.6 g/dL (13.5-16.0); Immature Granulocytes % (Auto) 1 % (0-0); Immature Granulocytes Auto 0.03 Thou/mm3 (0.00-0.00); Lymphocytes # (Auto) 0.3 Thou/mm3 (1.0-4.8); Lymphocytes % (Auto) 10 % (10-50); Mean Corpuscular HGB Conc 33.7 g/dl (31.0-37.0); Mean Corpuscular Hemoglobin 30.8 pg (25.0-35.0); Mean Corpuscular Volume 92 fL (80-100); Monocytes # (Auto) 0.2 Thou/mm3 (0.0-0.8); Monocytes % (Auto) 7 % (0-12); Neutrophils # (Auto) 2.3 Thou/mm3 (1.8-7.7); Neutrophils % (Auto) 81 % (37-80); Nucleated Red Blood Cell % 0 /100 WBC (0); Platelet Count 255 Thou/mm3 (140-440); RDW Standard Deviation 50.2 fL (35.1-43.9); Red Blood Count 3.44 Miln/mm3 (4.50-5.90)
[2024-02-24 06:20] LABS: White Blood Count 2.9 Thou/mm3 (3.8-10.6)
[2024-02-24 06:53] LABS: Anion Gap 8 (7-16); BUN/Creatinine Ratio 50 Ratio (12-20); Blood Urea Nitrogen 15 mg/dL (9-23); Carbon Dioxide 28.4 mMol/L (20.0-31.0); Chloride 97 mMol/L (98-107); Creatinine (Component) 0.3 mg/dL (0.6-1.3); Estimated Creatinine Clearance 154.5 mL/min (>60); Glucose 129 mg/dL (74-106); Potassium 3.9 mMol/L (3.4-5.1); Sodium 133 mMol/L (136-145); eGFR > 60 See Note
[2024-02-24 06:54] LABS: Alanine Aminotransferase 153 U/L (10-49); Albumin/Globulin Ratio 0.9 (1.2-2.2); Alkaline Phosphatase 134 U/L (46-116); Aspartate Amino Transferase 190 U/L (0-34); Bilirubin,Total 0.4 mg/dL (0.3-1.2); Calcium 7.9 mg/dL (8.3-10.6); Calcium (Corrected) 8.7 mg/dL (8.5-10.1); Globulin 3.5 gm/dL (2.3-3.5); Magnesium 2.2 mg/dL (1.6-2.6); Osmolality,Calculated 269 (275-295); Total Protein 6.5 gm/dL (5.7-8.2)
[2024-02-24] MEDS: SENNA TABLET 1 TAB GT (08:44)
[2024-02-24] MEDS: guaiFENesin/DM TABLET 1 EACH GT ×2 (08:44→21:56)
[2024-02-24] MEDS: ASPIRIN 81 MG CHEW GT (08:44)
[2024-02-24] MEDS: levETIRAcetam LIQD 500 MG/5 ML UDC GT ×2 (08:44→21:40)
[2024-02-24] MEDS: FUROSEMIDE INJ 10 MG/ML 4ML VIAL 40 MG IVP (08:45)
[2024-02-24] MEDS: DOXYCYCLINE 100 MG TABLET PO ×2 (08:45→21:40)
[2024-02-24] MEDS: CLOPIDOGREL BISULFATE 75 MG TABLET GT (08:45)
[2024-02-24] MEDS: PANTOPRAZOLE INJ 40 MG VIAL IV (08:45)
[2024-02-24] MEDS: HEPARIN SOD INJ 5000 UNIT/ML VIAL SC ×2 (08:45→21:40)
--- NOTE | 2024-02-24 10:13 | ESDS_ITS ---
<Statement entered by Darleen Bailey DO - 02/24/24 15:20> I, Darleen Bailey DO, attest that I was physically present for the ro portions of the service and evaluated the patient with the resident and I reviewed and discussed the case with the resident and agree with the resident's findings and plans of care as documented above <Statement entered by Julian Chance DO - 02/24/24 15:20> Senior attestation: Patient was examined and case was reviewed with team including attending physician. Note reviewed, I agree with most of its contents and agree with the patient's care. Julian Chance DO PGY-3 Planned Discharge Date 02/24/24 DS: Providers Provider Date of admission: 02/19/24 23:20 Primary care physician: Physician No Primary/Family Admitting Provider: Sanket Chisholm MD Attending Provider on Admission: Sanket Chisholm MD Consults: 02/20/24 23:40 Referral Wound Care Routine Comment: Instructions: Wound to coccyx and left heel 02/21/24 09:10 Referral Registered Dietitian Routine Comment: PEG tube feed Attending Provider on DC: Darleen Bailey DO Discharging Provider: Darleen Bailey DO DS: Diagnosis Problem List Completed Was Problem List Reviewed/Reconciled?: Yes Hospital Course Hospital Course Hospital course: 73-year-old male with past medical history of colon cancer s/p chemoradiation, seizure, dementia, and CVA (ischemic and hemorrhagic) was admitted to the hospital on 02/19/2024 due to acute encephalopathy and acute hypoxic respiratory failure likely secondary to hospital-acquired pneumonia versus community-acquired pneumonia. In the ED patient came in with complaints of altered mental status associated with productive cough. Initially patient was tachypneic, tachycardic, febrile and normotensive. Initial labs were relevant for anemia (Hgb 13), mild hyponatremia (sodium 125), hypochloremia (91), transaminitis (AST 266 and ALT 195), elevated lactic dehydrogenase 552, troponinemia (peaked at 0.934 and down trended), and elevated BNP at 1012. Initial imaging included chest x-ray which showed superimposed pneumonia of the lung bases, head CT which was unremarkable, and abdomen/pelvis CT which showed bibasilar pneumonia, cirrhosis, cholelithiasis, and small bilateral renal calculi. Patient was previously discharged from the hospital on 02/16/2024 after he came in with similar symptoms at this time he was discharged on Levaquin. Patient this time was placed on vancomycin and Rocephin and his sputum cultures came back positive for MRSA for which his antibiotics were switched to doxycycline. Patient completed 3 days of vancomycin and Rocephin and received 2 days of doxycycline while in his hospital stay. Patient also received decongestants as well as mupirocin ointment for his nares. Patient's daughter who was the medical power of collections attorney had some questions about patient's current condition to be discharged as she had seen him the day prior and he was still congested. It was explained to her that on the day of discharge patient was a lot better and he was not congested with clear lung sounds throughout and that he was on the adequate antibiotic regimen for his MRSA pneumonia. She understood and wanted the patient to be suction prior to discharging. At the time of discharge patient was stable enough to be discharged back to a detention facility for continuation of care. Discharge plan: We have prescribed doxycycline 100 mg twice daily for 3 more days. We have switched your atorvastatin from 80 mg at bedtime to 40 mg at bedtime. Please apply mupirocin to the nares. Please take all other prescribed medications as prescribed. Please follow-up with primary care physician in 1 week after discharge. Primary care physician to reconsider continuation of Plavix on follow-up. Please come back to the ER if symptoms persist or worsen. Problem list: #Acute encephalopathy secondary to #Acute hypoxic respiratory failure secondary to #MRSA pneumonia #Acute decompensated diastolic heart failure exacerbation #HFpEF (EF 55 to 60%) #NSTEMI type II likely demand ischemia #Hypoosmolar hyponatremia #Transaminitis #Cirrhosis #Cholelithiasis #Hypokalemia #Chronic normocytic normochromic anemia #Hx of seizures #Hx of CVA #Hx of rectal adenocarcinoma s/p chemo Case disclosed with Attending Dr. Bailey and My senior Dr. Chance PGY3. Norris Mcdaniels PGY1 Status at Discharge Overall status at discharge: patient is progressing back to baseline Time Spent with Patient Time attestation: Total time spent providing and/or coordinating discharge services:>35 min Exam Vital Signs Temp Pulse Resp BP Pulse Ox O2 Del Method O2 Flow Rate 97.5 F 77 21 H 130/76 98 Room Air 15 02/24/24 08:00 02/24/24 09:18 02/24/24 09:18 02/24/24 08:45 02/24/24 09:18 02/24/24 08:00 02/23/24 14:47 Narrative Exam General: A/O x1 (to person only), resting in bed, thin, frail male Eyes: Pupils reactive to light and EOMI. Ears: No visible ear discharge, Hearing grossly intact. Nose: No visible nasal discharge. Mouth/Throat: Moist mucous membranes, no redness, no lesions. Neck: Neck supple, no cervical lymphadenopathy. Lungs: clear JESUS, No accessory muscle use. Cardio: Normal S1/S2, regular rhythm, no murmurs, no JVD. Abdomen: Soft, non-tender, no palpable masses, peristalsis present, no guarding or rebound, PEG tube in place with no bleeding. Extremities: Symmetrical, no significant deformities, no peripheral edema , non-tender, peripheral pulses presents. Skin: No rashes, no lesions, warm to touch. Neuro: Able to move all extremities. Discharge Plan Plan Patient Disposition: Xfer Skilled Nsg Fac (SNF) Patient condition on transfer: Stable Care Plan Goals: We have prescribed doxycycline 100 mg twice daily for 3 more days. We have switched your atorvastatin from 80 mg at bedtime to 40 mg at bedtime. Please apply mupirocin to the nares. Please take all other prescribed medications as prescribed. Please follow-up with primary care physician in 1 week after discharge. Primary care physician to reconsider continuation of Plavix on follow-up. Please come back to the ER if symptoms persist or worsen. Prescriptions/Referrals Prescriptions/Med Rec: New atorvastatin 40 mg tablet 40 mg PO QPM 30 Days Qty: 30 0RF doxycycline hyclate 100 mg capsule 100 mg PO BID 3 Days Qty: 6 0RF mupirocin 2 % ointment 1 applic topical TID 30 Days Qty: 50 0RF Continued acetaminophen 325 mg Tablet 650 mg PO QID PRN (Reason: Pain, Mild) Rx Instructions: elevated temp, mild pain guaifenesin 100 mg/5 mL Liquid 200 mg PO QID PRN (Reason: Cough) ipratropium-albuterol 0.5 mg-3 mg(2.5 mg base)/3 mL Solution For Nebulization 3 ml INHALATION Q4HR PRN (Reason: Shortness Of Breath Or Wheezing) multivitamin with minerals Tablet 1 tab PO QDAY zinc Tablet,Chewable 1 tab PO QDAY Rx Instructions: for wound supplement for 14 days levetiracetam 100 mg/mL Solution 500 mg PO BID Rx Instructions: may be mixed with applesauced for thickening amino acids-protein hydrolys 15-100 gram-kcal/30 mL Liquid 1 ea PO BID Rx Instructions: for wound supplement for 60 days, start 01/29/24, end 03/29/24 thiamine mononitrate (vit B1) 90 mg/scoop Powder 90 mg PO QDAY clopidogrel [Plavix] 75 mg tablet 75 mg PO QDAY 30 Days Qty: 30 0RF metoprolol succinate 50 mg tablet extended release 24 hr 50 mg PO QDAY 30 Days Qty: 30 0RF sodium chloride 1,000 mg tablet,soluble 1,000 mg PO TID 30 Days Qty: 90 0RF Discontinued atorvastatin 80 mg tablet 40 mg PO QPM Qty: 30 0RF Referrals: No Primary/Family,Physician [Primary Care Provider] - Patient/Caregiver Discharge Instructions Education Materials: What Is Pneumonia?, Preventing Pneumonia, Treating Pneu monia, MRSA Infec Print Language: German Stand Alone Forms: Raine Award Info., Patient Portal Info Letter Discharge Order Discharge Orders: Discharge (Routine); Ordered 02/24/24 Ordered By: Memo Farris Quality Discharge Quality Measures VTE prophylaxis
--- NOTE | 2024-02-24 10:52 | PC.NURSE ---
Received phone call from patients sister Karissa Rios ([phone]) who stated that she did not want the patient to be discharged. Per Karissa she was concerned that the patient still has pneumonia. Karissa was educated that patient would be discharging on antibiotics. Karissa stated that she would like to speak with the doctors. Notified and web content & social media manager Monica. Provider stated he would call pts sister
--- NOTE | 2024-02-24 11:15 | PC.SS ---
Addendum entered by Mart Bess 02/24/24 13:21: SS spoke with vincent Lemus, confirmed appealed discharge; [id number] Original Note: SS spoke with Mariah, daughter and medical decision maker, had questions about discharge; SS contacted medical team to return Mariah's call and answer questions SS spoke with KIARRA Hancock, for pt informed of discharge, Karissa had questions, SS transferred call to Iva morales SS learned pt to be discharged; SS spoke to Tyron [facility] to inform of pt return
--- NOTE | 2024-02-24 12:14 | PC.NURSE ---
Notified that patients daughter Mariah is appealing the discharge per PAT Cevallos
[2024-02-24] MEDS: MIDODRINE 5 MG TABLET 10 MG GT (13:46)
[2024-02-24] MEDS: MUPIROCIN OINT 2% 22 GM TUBE TOP (13:47)
[2024-02-25] VITALS (12 sets, daily range): BP systolic 113–135; BP diastolic 62–84; PULSE 17–108; RESP 14–99; TEMP 36.1–36.4; O2SAT 92–100; BMI 18.8
[2024-02-25] MEDS: SODIUM CHLORIDE 1 GM TABLET GT ×3 (05:27→22:03)
[2024-02-25] MEDS: INSULIN LISPRO (AdmeLOG) 1 UNIT/0.01 ML UNIT SC (05:27)
[2024-02-25 06:37] LABS: Alanine Aminotransferase 135 U/L (10-49); Albumin, Serum 3.1 gm/dL (3.4-4.8); Albumin/Globulin Ratio 0.9 (1.2-2.2); Alkaline Phosphatase 132 U/L (46-116); Anion Gap 6 (7-16); Aspartate Amino Transferase 160 U/L (0-34); BUN/Creatinine Ratio 60 Ratio (12-20); Bilirubin,Total 0.4 mg/dL (0.3-1.2); Blood Urea Nitrogen 18 mg/dL (9-23); Calcium 8.1 mg/dL (8.3-10.6); Calcium (Corrected) 8.8 mg/dL (8.5-10.1); Carbon Dioxide 30.1 mMol/L (20.0-31.0); Chloride 96 mMol/L (98-107); Creatinine (Component) 0.3 mg/dL (0.6-1.3); Estimated Creatinine Clearance 154.5 mL/min (>60); Globulin 3.3 gm/dL (2.3-3.5); Glucose 132 mg/dL (74-106); Osmolality,Calculated 268 (275-295); Potassium 3.8 mMol/L (3.4-5.1); Sodium 132 mMol/L (136-145); Total Protein 6.4 gm/dL (5.7-8.2); eGFR > 60 See Note
[2024-02-25 06:42] LABS: Basophils % (Auto) 0 % (0-2.5); Eosinophils % (Auto) 1 % (0-10); Hematocrit 30.2 % (41.0-53.0); Hemoglobin 10.1 g/dL (13.5-16.0); Immature Granulocytes % (Auto) 2 % (0-0); Immature Granulocytes Auto 0.05 Thou/mm3 (0.00-0.00); Lymphocytes # (Auto) 0.2 Thou/mm3 (1.0-4.8); Lymphocytes % (Auto) 9 % (10-50); Mean Corpuscular HGB Conc 33.4 g/dl (31.0-37.0); Mean Corpuscular Hemoglobin 30.7 pg (25.0-35.0); Mean Corpuscular Volume 92 fL (80-100); Monocytes # (Auto) 0.2 Thou/mm3 (0.0-0.8); Monocytes % (Auto) 7 % (0-12); Neutrophils # (Auto) 2.1 Thou/mm3 (1.8-7.7); Neutrophils % (Auto) 80 % (37-80); Nucleated Red Blood Cell % 0 /100 WBC (0); Platelet Count 237 Thou/mm3 (140-440); RDW Standard Deviation 51.3 fL (35.1-43.9); Red Blood Count 3.29 Miln/mm3 (4.50-5.90)
[2024-02-25 06:43] LABS: White Blood Count 2.6 Thou/mm3 (3.8-10.6)
--- NOTE | 2024-02-25 09:40 | PC.SS ---
Follow up note: Patient ready for d/c. However, family filed an appeal yesterday. Appeal still in pending process.
[2024-02-25] MEDS: DOXYCYCLINE 100 MG TABLET PO ×2 (09:51→22:03)
[2024-02-25] MEDS: FUROSEMIDE INJ 10 MG/ML 4ML VIAL 40 MG IVP (09:51)
[2024-02-25] MEDS: ASPIRIN 81 MG CHEW GT (09:51)
[2024-02-25] MEDS: SENNA TABLET 1 TAB GT (09:51)
[2024-02-25] MEDS: levETIRAcetam LIQD 500 MG/5 ML UDC GT ×2 (09:51→22:03)
[2024-02-25] MEDS: CLOPIDOGREL BISULFATE 75 MG TABLET GT (09:51)
[2024-02-25] MEDS: PANTOPRAZOLE INJ 40 MG VIAL IV (09:51)
[2024-02-25] MEDS: HEPARIN SOD INJ 5000 UNIT/ML VIAL SC ×2 (09:52→22:03)
[2024-02-25] MEDS: guaiFENesin/DM TABLET 1 EACH GT ×2 (10:30→22:03)
[2024-02-25 14:33] LABS: Collection Type, Urine Catheter; Squamous Epithelial Cell,Urine 0 /hpf (0-5)
[2024-02-25 14:41] LABS: Bilirubin,Urine Negative (Negative); Blood,Urine 3+ (Negative); Clarity,Urine Clear (Clear/Hazy); Color,Urine Lt-Yellow (Lt Yel-Yel); Glucose, Urine Negative (Negative); Hyaline Casts,Urine < 1 /hpf (0-1); Ketones,Urine Negative (Negative); Leukocyte Esterase,Urine Negative (Negative); Nitrite,Urine Negative (Negative); PH,Urine 7.5 (5.0-7.0); Protein,Urine Negative (Neg - Trace); RBC,Urine 432 /hpf (0-3); Specific Gravity,Urine 1.009 (1.001-1.035); Urobilinogen,Urine Negative mg/dL (0.0-1.0); WBC,Urine 5 /hpf (0-5)
--- NOTE | 2024-02-25 15:33 | ESPR_ITS ---
Documentation for date of: 02/25/24 Subjective Subjective Interval history: Patient was seen at bedside this morning. Patient did not pass swallow eval. Patient's Reich bag did have some very dark urine and UA was ordered which was positive for RBCs and blood. This could have been due to patient passing one of the kidney stones that he had. Kidney function was stable at BUN 18 and creatinine 0.3, gave IV fluids and tamsulosin. Decrease Lasix to 20 mg daily. No other complaints at this time and are anticipating possible discharge in the next 24 to 48 hours. Exam Vital Signs Temp Pulse Resp BP Pulse Ox O2 Del Method O2 Flow Rate 97.6 F 72 20 114/84 95 Nasal Cannula 2 02/25/24 12:00 02/25/24 13:00 02/25/24 12:00 02/25/24 13:00 02/25/24 12:00 02/25/24 12:00 02/25/24 12:00 Narrative Exam General: A/O x1 (to person only), resting in bed, thin, frail male Eyes: Pupils reactive to light and EOMI. Ears: No visible ear discharge, Hearing grossly intact. Nose: No visible nasal discharge. Mouth/Throat: Moist mucous membranes, no redness, no lesions. Neck: Neck supple, no cervical lymphadenopathy. Lungs:Clear JESUS, No accessory muscle use. Cardio: Normal S1/S2, regular rhythm, no murmurs, no JVD. Abdomen: Soft, non-tender, no palpable masses, peristalsis present, no guarding or rebound, PEG tube in place with no bleeding. Extremities: Symmetrical, no significant deformities, no peripheral edema , non-tender, peripheral pulses presents. Skin: No rashes, no lesions, warm to touch. Neuro: Able to move all extremities. Objective Labs 02/26/24 04:50 02/26/24 04:50 Labs: Laboratory Results - last 24 hr 02/25/24 02/25/24 05:10 14:00 WBC 2.6 L RBC 3.29 L Hgb 10.1 L Hct 30.2 L MCV 92 MCH 30.7 MCHC 33.4 RDW Std Deviation 51.3 H Plt Count 237 Neut % (Auto) 80 Lymph % (Auto) 9 L [place] % (Auto) 7 Eos % (Auto) 1 Baso % (Auto) 0 Neut # (Auto) 2.1 Lymph # (Auto) 0.2 L [place] # (Auto) 0.2 Eos # (Auto) 0.0 Baso # (Auto) 0.0 Immature Gran # (Auto) 0.05 H Absolute Nucleated RBC 0.00 Immature Gran % 2 H Nucleated RBC % 0 Sodium 132 L Potassium 3.8 Chloride 96 L Carbon Dioxide 30.1 Anion Gap 6 L BUN 18 Creatinine 0.3 L Estim Creat Clear Calc 154.5 eGFR > 60 BUN/Creatinine Ratio 60 H Glucose 132 H Calculated Osmolality 268 L Calcium 8.1 L Corrected Calcium 8.8 Magnesium 2.0 Total Bilirubin 0.4 AST 160 H ALT 135 H Alkaline Phosphatase 132 H Total Protein 6.4 Albumin 3.1 L Globulin 3.3 Albumin/Globulin Ratio 0.9 L Ur Collection Type Catheter Urine Color Lt-Yellow Urine Clarity Clear Urine pH 7.5 H Ur Specific [place] 1.009 Urine Protein Negative Urine Glucose (UA) Negative Urine Ketones Negative Urine Blood 3+ A Urine Nitrite Negative Urine Bilirubin Negative Urine Urobilinogen (Auto) Negative Ur Leukocyte Esterase Negative Urine RBC 432 H Urine WBC 5 Ur Squamous Epith Cells 0 Urine Bacteria None Hyaline Casts < 1 Quality Measures Quality Measures VTE prophylaxis Advance care planning discussed with:: patient Assessment & Plan Assessment Current Active Medications: Generic Name Dose Route Start Last Admin Trade Name Freq PRN Reason Stop Dose Admin Acetaminophen 650 mg 02/19/24 23:24 Acetaminophen Supp 650 Mg Supp [place] 03/20/24 23:23 Q6H PRN PAIN SCALE 1-3 (mild Aspirin 81 mg 02/20/24 09:00 02/25/24 09:51 Aspirin 81 Mg Chew GT 03/21/24 08:59 81 mg QDAY JENNY Administration Clopidogrel Bisulfate 75 mg 02/20/24 09:00 02/25/24 09:51 Clopidogrel Bisulfate 75 Mg Tablet GT 03/21/24 08:59 75 mg QDAY JENNY Administration Dextrose 25 ml 02/23/24 13:12 Dextrose 50%-Water Inj 50 Ml Syringe IV 03/24/24 13:11 Q15MIN PRN BG 50-70 responsive npo pt Dextrose 50 ml 02/23/24 13:12 Dextrose 50%-Water Inj 50 Ml Syringe IV 03/24/24 13:11 Q15MIN PRN BG <50 OR BG <70 & pt unresponsive Doxycycline Hyclate 100 mg 02/23/24 09:00 02/25/24 09:51 Doxycycline 100 Mg Tablet PO 03/01/24 08:59 100 mg BID JENNY Administration Furosemide 20 mg 02/26/24 09:00 Furosemide 20 Mg Tablet PO 03/27/24 08:59 QDAY JENNY Glucagon 1 mg 02/23/24 13:12 Glucagon Inj 1 Mg Vial IM Q15MIN PRN BG <70, and no IV access Guaifenesin/Dextromethorphan 1 each 02/21/24 09:45 02/25/24 10:30 Guaifenesin/Dm Tablet GT 03/22/24 08:59 1 each BID JENNY Administration Heparin Sodium (Porcine) 5,000 unit 02/20/24 09:00 02/25/24 09:52 Heparin Sod Inj 5000 Unit/Ml Vial SC 03/05/24 08:59 5,000 unit Q12HR JENNY Administration Sodium Chloride 1,000 mls @ 75 mls/hr 02/25/24 15:28 Ns IV 03/26/24 15:27 .[id number] [facility] Insulin Human Lispro 0 unit 02/23/24 13:15 02/25/24 12:47 Insulin Lispro (Admelog) 1 Unit/0.01 Ml Unit SC 03/24/24 13:14 Not Given Q6HR [facility] Protocol Levalbuterol HCl 0.63 mg 02/19/24 23:36 Levalbuterol Rt 0.63 Mg/3 Ml Nebu INH 03/20/24 23:35 Q8HR PRN WHEEZING Levetiracetam 500 mg 02/20/24 09:00 02/25/24 09:51 Levetiracetam Liqd 500 Mg/5 Ml Udc GT 03/21/24 08:59 500 mg BID JENNY Administration Midodrine 10 mg 02/21/24 14:00 02/25/24 13:00 Midodrine 5 Mg Tablet GT 03/22/24 13:59 Not Given TID JENNY Mupirocin 2 gm 02/23/24 14:00 02/25/24 05:15 Mupirocin Oint 2% 22 Gm Tube TOP 03/03/24 07:50 Not Given TID JENNY Pantoprazole Sodium 40 mg 02/22/24 09:00 02/25/24 09:51 Pantoprazole Inj 40 Mg Vial IV 03/23/24 08:59 40 mg QDAY JENNY Administration Sennosides 1 tab 02/20/24 09:00 02/25/24 09:51 Senna Tablet GT 03/21/24 08:59 1 tab QDAY JENNY Administration Protocol Sodium Chloride 1 gm 02/20/24 06:00 02/25/24 13:55 Sodium Chloride 1 Gm Tablet GT 03/21/24 05:59 1 gm TID JENNY Administration Tamsulosin HCl 0.4 mg 02/25/24 15:30 Tamsulosin Hcl 0.4 Mg Capsule PO 03/26/24 15:29 QDAY JENNY Plan 73-year-old male with past medical history of colon cancer s/p chemoradiation, seizure, dementia, and CVA (ischemic and hemorrhagic) was admitted to the hospital on 02/19/2024 due to acute encephalopathy likely secondary to hospital- acquired pneumonia versus community-acquired pneumonia. #Acute encephalopathy secondary to #Acute hypoxic respiratory failure secondary to #MRSA pneumonia ?Patient came in with complaints of altered mental status and worsening pneumonia with coughing, fevers, and greenish sputum from [facility]. ?Initially patient met SIRS 4 out of 4 with tachycardia, tachypnea, fever, and leukocytopenia ?Patient's qSOFA initially of 2 points indicating high risk for in-hospital mortality. -No evidence of shock as MAP above 65 ?Lactic acid was 1.6 ?WBC 2.6 today ?Chest x-ray 02/19/2024 showed lung base pneumonia ?Abdomen/pelvis CT on 02/19/2024 showed bibasilar pneumonia ? Blood cultures negative ?Discontinue vancomycin and Rocephin [02/19-] and Levaquin [02/22/2024- 02/23/2024] ? sputum cultures positive for MRSA Plan: ?Started Doxy 100mg BID [02/23/2024-] ?Continue pain treatments as needed ? Continue chest physiotherapy every 6 hours ?Will continue to monitor #Nephrolithiasis #Hematuria ? Patient had very dark urine in Reich bag ? UA was positive for RBC and blood Plan: ? IV fluids ? Tamsulosin ? Will continue to monitor #Acute decompensated diastolic heart failure exacerbation #HFpEF (EF 55 to 60%) #NSTEMI type II likely demand ischemia ?Patient came in with acute hypoxic respiratory failure as well as elevated BNP at 1012 which could have been due to CHF exacerbation. ? Troponins peaked at 0.934 and down trended ? Elevated troponins likely in the setting of CHF exacerbation versus pneumonia. ? Echo on 01/26/2024 showed the following findings: Normal LV size and function. Grade 1 diastolic dysfunction. Estimated EF 55 to 60% Normal RV size and function. Mild TR. Mild AV sclerosis without stenosis. Trace AI. Plan: ? Decreased to Lasix 20 mg once daily ?Will continue midodrine 10 mg 3 times daily to avoid MAP below 65 ? Fluid restrictions ? Strict CHARITY's ? Daily weights ? Will continue to monitor #Hypoosmolar hyponatremia ? Patient sodium initially was 125 ? Sodium today 133 ?Patient sodium has been chronically low in the 127?125 on prior admission Plan: ? Continue sodium tablets 3 times daily #Transaminitis ? Patient has a history of elevated liver enzymes which could be due to ischemic hepatitis versus congestive hepatopathy in the setting of CHF exacerbation ? Patient's last hepatitis panels which were nonreactive and liver ultrasound did not show any focal lesions or hepatomegaly. Plan: ?Will continue to monitor #Hypokalemia -Potassium 3.8 today Plan: -Will replete as necessary #Chronic normocytic normochromic anemia ?Likely anemia of chronic disease ?Hemoglobin 10.1 today with no active signs of bleeding Plan: ?Will continue to monitor #Hx of seizures ? Seizure precautions ? Resumed Keppra 500 mg twice daily #Hx of CVA ? Continue patient's Plavix #Hx of rectal adenocarcinoma s/p chemo ?Follow-up outpatient Disposition: Patient admitted to telemetry. Diet: Tube feeds GI prophylaxis: pantoprazole DVT prophylaxis: heparin sc Code: DNR/DNI Case disclosed with Attending Dr. St and My senior Dr. Farris PGY2. Norris Mcdaniels PGY1 L Mr Rios is a 73 year old male with past medical history of colon cancer s/p chemoradiation, seizure, dementia, and CVA (ischemic and hemorrhagic) was admitted to the hospital on 02/19/2024 due to acute hypoxia likely secondary to hospital-acquired pneumonia versus community-acquired pneumonia. He was found to have MRSA pneumonia, started on doxycycline x10 days. Patient has no acute complaints at this time and is on room air. Will continue with doxy, if patient condition continues to improve, anticipate DC within next 24hrs Patient examined and case discussed with the team including attending physician. Note reviewed, I agree with the care plan as documented. - Memo Farris MD, PGY 2 Attending Provider Attestation/Addendum I have discussed and was present for the essential components of the history, physical examination, diagnosis, and treatment plan with the resident. I agree with the patient's care as documented by the resident and amended herein by me. Nirav St DO. Although this document has been carefully reviewed, there may still be some phonetic and other typographical errors. These errors are purely grammatical due to imperfections in the software program and should not be construed in any way to compromise the substance of the patient's medical care during this visit.
--- NOTE | 2024-02-25 15:41 | PC.SS ---
Rounding Note: Urine analysis has been ordered.
--- NOTE | 2024-02-25 15:47 | PC.SS ---
Follow up note: SS updated patient's sister, Karissa, that patient [facility] was denied. Patient will have to d/c by tomorrow noon. Sister was in agreement. Updated the physician who states they will discuss and update me. Patient will d/c to [facility] once physician ready.
--- NOTE | 2024-02-25 15:48 | PC.SS ---
Follow up note: SS met with patient to discuss d/c options. Patient is in agreement with going to [facility]. SS updated facility and they will run financials. Patient has been to other facilities prior. Possible d/c by Thursday.
[2024-02-25] MEDS: SODIUM CHLORIDE 0.9% 1000 ML 1,000 ML 75 ML IV (16:02)
[2024-02-25] MEDS: TAMSULOSIN HCL 0.4 MG CAPSULE PO (16:02)
[2024-02-25] MEDS: MUPIROCIN OINT 2% 22 GM TUBE TOP ×2 (16:02→22:02)
[2024-02-26] VITALS: BP 109/71; PULSE 79; PULSE 81; RESP 17; TEMP 35.9; O2SAT 98
[2024-02-26 04:00] VITALS: BP 109/68; PULSE 71; PULSE 76; RESP 14; TEMP 36.6; O2SAT 97
[2024-02-26] MEDS: SODIUM CHLORIDE 0.9% 1000 ML 1,000 ML 75 ML IV (05:28)
[2024-02-26] MEDS: MUPIROCIN OINT 2% 22 GM TUBE TOP (05:29)
[2024-02-26] MEDS: SODIUM CHLORIDE 1 GM TABLET GT (05:31)
[2024-02-26] MEDS: INSULIN LISPRO (AdmeLOG) 1 UNIT/0.01 ML UNIT SC (05:33)
[2024-02-26 05:56] VITALS: BMI 18.8
[2024-02-26 06:44] LABS: Alanine Aminotransferase 132 U/L (10-49); Albumin, Serum 3.1 gm/dL (3.4-4.8); Albumin/Globulin Ratio 0.9 (1.2-2.2); Alkaline Phosphatase 135 U/L (46-116); Anion Gap 6 (7-16); Aspartate Amino Transferase 170 U/L (0-34); BUN/Creatinine Ratio 60 Ratio (12-20); Bilirubin,Total 0.5 mg/dL (0.3-1.2); Blood Urea Nitrogen 18 mg/dL (9-23); Calcium 8.6 mg/dL (8.3-10.6); Calcium (Corrected) 9.3 mg/dL (8.5-10.1); Carbon Dioxide 31.1 mMol/L (20.0-31.0); Chloride 96 mMol/L (98-107); Creatinine (Component) 0.3 mg/dL (0.6-1.3); Estimated Creatinine Clearance 154.7 mL/min (>60); Globulin 3.4 gm/dL (2.3-3.5); Glucose 118 mg/dL (74-106); Osmolality,Calculated 269 (275-295); Potassium 3.9 mMol/L (3.4-5.1); Sodium 133 mMol/L (136-145); Total Protein 6.5 gm/dL (5.7-8.2); eGFR > 60 See Note
[2024-02-26 07:27] LABS: Basophils % (Auto) 0 % (0-2.5); Eosinophils # (Auto) 0.1 Thou/mm3 (0.0-0.5); Eosinophils % (Auto) 2 % (0-10); Hematocrit 32.6 % (41.0-53.0); Hemoglobin 10.5 g/dL (13.5-16.0); Immature Granulocytes % (Auto) 2 % (0-0); Immature Granulocytes Auto 0.05 Thou/mm3 (0.00-0.00); Lymphocytes # (Auto) 0.2 Thou/mm3 (1.0-4.8); Lymphocytes % (Auto) 9 % (10-50); Mean Corpuscular HGB Conc 32.2 g/dl (31.0-37.0); Mean Corpuscular Hemoglobin 31.2 pg (25.0-35.0); Mean Corpuscular Volume 97 fL (80-100); Monocytes # (Auto) 0.1 Thou/mm3 (0.0-0.8); Monocytes % (Auto) 5 % (0-12); Neutrophils # (Auto) 2.2 Thou/mm3 (1.8-7.7); Neutrophils % (Auto) 82 % (37-80); Nucleated Red Blood Cell % 0 /100 WBC (0); Platelet Count 198 Thou/mm3 (140-440); RDW Standard Deviation 53.7 fL (35.1-43.9); Red Blood Count 3.37 Miln/mm3 (4.50-5.90)
[2024-02-26 07:45] LABS: White Blood Count 2.7 Thou/mm3 (3.8-10.6)
[2024-02-26 08:00] VITALS: BP 111/76; PULSE 69; PULSE 89; RESP 19; TEMP 36.3; O2SAT 99
[2024-02-26 08:22] VITALS: BP 111/76; PULSE 70
[2024-02-26] MEDS: CLOPIDOGREL BISULFATE 75 MG TABLET GT (08:22)
[2024-02-26] MEDS: ASPIRIN 81 MG CHEW GT (08:22)
[2024-02-26] MEDS: PANTOPRAZOLE INJ 40 MG VIAL IV (08:22)
[2024-02-26] MEDS: Furosemide 20 MG TABLET PO (08:22)
[2024-02-26] MEDS: levETIRAcetam LIQD 500 MG/5 ML UDC GT (08:22)
[2024-02-26] MEDS: TAMSULOSIN HCL 0.4 MG CAPSULE GT (08:23)
[2024-02-26] MEDS: SENNA TABLET 1 TAB GT (08:23)
[2024-02-26] MEDS: DOXYCYCLINE 100 MG TABLET GT (08:23)
[2024-02-26] MEDS: guaiFENesin/DM TABLET 1 EACH GT (08:25)
[2024-02-26 08:57] VITALS: PULSE 89; RESP 24; RESP 97; O2SAT 97
--- NOTE | 2024-02-26 09:23 | PC.SS ---
d/c held yesterday due to blood in patient urine. This a.m. physician to re-evaluate. D/c pending for today before noon. set up transport through [employer]. Update sent to [facility] on . Facility aware patient will d/c today. Family aware. Nursing aware
[2024-02-26 12:00] VITALS: BP 111/75; PULSE 76; RESP 15; TEMP 36.1; O2SAT 99
--- NOTE | 2024-02-26 13:14 | ESDS_ITS ---
Planned Discharge Date 02/26/24 DS: Providers Provider Date of admission: 02/19/24 23:20 Primary care physician: Physician No Primary/Family Admitting Provider: Sanket Chisholm MD Attending Provider on Admission: Sanket Chisholm MD Consults: 02/20/24 23:40 Referral Wound Care Routine Comment: Instructions: Wound to coccyx and left heel 02/21/24 09:10 Referral Registered Dietitian Routine Comment: PEG tube feed Attending Provider on DC: Carlos East MD Discharging Provider: Carlos East MD DS: Diagnosis Problem List Completed Was Problem List Reviewed/Reconciled?: Yes Hospital Course Hospital Course Hospital course: 73-year-old male with past medical history of colon cancer s/p chemoradiation, seizure, dementia, and CVA (ischemic and hemorrhagic) was admitted to the hospital on 02/19/2024 due to acute encephalopathy and acute hypoxic respiratory failure likely secondary to hospital-acquired pneumonia versus community-acquired pneumonia. In the ED patient came in with complaints of altered mental status associated with productive cough. Initially patient was tachypneic, tachycardic, febrile and normotensive. Initial labs were relevant for anemia (Hgb 13), mild hyponatremia (sodium 125), hypochloremia (91), transaminitis (AST 266 and ALT 195), elevated lactic dehydrogenase 552, troponinemia (peaked at 0.934 and down trended), and elevated BNP at 1012. Initial imaging included chest x-ray which showed superimposed pneumonia of the lung bases, head CT which was unremarkable, and abdomen/pelvis CT which showed bibasilar pneumonia, cirrhosis, cholelithiasis, and small bilateral renal calculi. Patient was previously discharged from the hospital on 02/16/2024 after he came in with similar symptoms at this time he was discharged on Levaquin. Patient this time was placed on vancomycin and Rocephin and his sputum cultures came back positive for MRSA for which his antibiotics were switched to doxycycline. Patient completed 3 days of vancomycin and Rocephin and received 2 days of doxycycline while in his hospital stay. Patient also received decongestants as well as mupirocin ointment for his nares. Patient's daughter who was the medical power of insurance attorney had some questions about patient's current condition to be discharged as she had seen him the day prior and he was still congested. It was explained to her that on the day of discharge patient was a lot better and he was not congested with clear lung sounds throughout and that he was on the adequate antibiotic regimen for his MRSA pneumonia. She understood and wanted the patient to be suction prior to discharging. At the time of discharge patient was stable enough to be discharged back to a nursing home facility for continuation of care. Discharge plan: We have prescribed doxycycline 100 mg twice daily for 3 more days. We have switched your atorvastatin from 80 mg at bedtime to 40 mg at bedtime. Please apply mupirocin to the nares. Please take all other prescribed medications as prescribed. Please follow-up with primary care physician in 1 week after discharge. Primary care physician to reconsider continuation of Plavix on follow-up. Please come back to the ER if symptoms persist or worsen. Problem list: #Acute encephalopathy secondary to #Acute hypoxic respiratory failure secondary to #MRSA pneumonia #Acute decompensated diastolic heart failure exacerbation #HFpEF (EF 55 to 60%) #NSTEMI type II likely demand ischemia #Hypoosmolar hyponatremia #Transaminitis #Cirrhosis #Cholelithiasis #Hypokalemia #Chronic normocytic normochromic anemia #Hx of seizures #Hx of CVA #Hx of rectal adenocarcinoma s/p chemo Case disclosed with Attending Dr. Alma Rosa East, PGY1 Status at Discharge Overall status at discharge: patient is progressing back to baseline Time Spent with Patient Time attestation: Total time spent providing and/or coordinating discharge services: Time spent: Greater than 30 minutes Exam Vital Signs Temp Pulse Resp BP Pulse Ox O2 Del Method O2 Flow Rate 96.9 F 76 15 111/75 99 Room Air 2 02/26/24 12:02/26/24 12:00 02/26/24 12:00 02/26/24 12:02/26/24 12:02/26/24 12:02/26/24 04:00 FiO2 108 02/25/24 23:24 Narrative Exam General: Awake. able to follow verbal commands HEENT: Normocephalic, atraumatic, mucous membranes moist. Heart: Regular rate and rhythm, no murmurs. Lungs: Overall decreased breath sounds noted bilaterally Abdomen: Soft, nondistended, nontender, positive bowel sounds. ?No guarding or rebound tenderness. Was still PEG tube in situ Neurologic: Alert and oriented x3, no gross neurological deficit, and patient able to move all 4 extremities. Extremities: No edema. Skin: No rash or ecchymoses. Discharge Plan Plan Patient Disposition: Xfer Skilled Nsg Fac (SNF) Patient condition on transfer: Stable Care Plan Goals: We have prescribed doxycycline 100 mg twice daily for 3 more days. We have switched your atorvastatin from 80 mg at bedtime to 40 mg at bedtime. Please apply mupirocin to the nares. Please take all other prescribed medications as prescribed. Please follow-up with primary care physician in 1 week after discharge. Primary care physician to reconsider continuation of Plavix on follow-up. Please come back to the ER if symptoms persist or worsen. Prescriptions/Referrals Prescriptions/Med Rec: New atorvastatin 40 mg tablet 40 mg PO QPM 30 Days Qty: 30 0RF doxycycline hyclate 100 mg capsule 100 mg PO BID 3 Days Qty: 6 0RF mupirocin 2 % ointment 1 applic topical TID 30 Days Qty: 50 0RF Continued acetaminophen 325 mg Tablet 650 mg PO QID PRN (Reason: Pain, Mild) Rx Instructions: elevated temp, mild pain guaifenesin 100 mg/5 mL Liquid 200 mg PO QID PRN (Reason: Cough) ipratropium-albuterol 0.5 mg-3 mg(2.5 mg base)/3 mL Solution For Nebulization 3 ml INHALATION Q4HR PRN (Reason: Shortness Of Breath Or Wheezing) multivitamin with minerals Tablet 1 tab PO QDAY zinc Tablet,Chewable 1 tab PO QDAY Rx Instructions: for wound supplement for 14 days levetiracetam 100 mg/mL Solution 500 mg PO BID Rx Instructions: may be mixed with applesauced for thickening amino acids-protein hydrolys 15-100 gram-kcal/30 mL Liquid 1 ea PO BID Rx Instructions: for wound supplement for 60 days, start 01/29/24, end 03/29/24 thiamine mononitrate (vit B1) 90 mg/scoop Powder 90 mg PO QDAY clopidogrel [Plavix] 75 mg tablet 75 mg PO QDAY 30 Days Qty: 30 0RF metoprolol succinate 50 mg tablet extended release 24 hr 50 mg PO QDAY 30 Days Qty: 30 0RF sodium chloride 1,000 mg tablet,soluble 1,000 mg PO TID 30 Days Qty: 90 0RF Discontinued atorvastatin 80 mg tablet 40 mg PO QPM Qty: 30 0RF Referrals: No Primary/Family,Physician [Primary Care Provider] - Patient/Caregiver Discharge Instructions Other Discharge Activity Instructions:: open wound to coccyx area,and l. heel cleansed with wound cleanser,cover with allevyn. Education Materials: What Is Pneumonia?, Preventing Pneumonia, Treating Pneumonia, MRSA Infec Print Language: Bulgarian Stand Alone Forms: Raine Award Info., Patient Portal Info Letter Discharge Order Discharge Orders: Discharge (Routine); Ordered 02/26/24 Ordered By: Memo Farris Quality Discharge Quality Measures VTE prophylaxis Attestestation MD Attestation I have discussed and was present for the essential components of the discharge history, physical examination, diagnosis, and discharge treatment plan with the resident. I agree with the patient's discharge care as documented by the resident and amended herein by me. Nirav St, DO. The patient understood all discharge instructions, all questions were answered satisfactorily. The patient was instructed to return to the Emergency Department is symptoms worsened or persisted. Hematuria has resolved. Patient was stable, afebrile at time of discharge. Although this document has been carefully reviewed, there may still be some phonetic and other typographical errors. These errors are purely grammatical due to imperfections in the software program and should not be construed in any way to compromise the substance of the patient's medical care during this visit.
== END 2024-02-26 11:35 | disposition skilled nursing facility (03) | DRG 177 ==
LOC: SERX 20:29 → SERHOLD 23:45 → S2NX 02-20 09:34
PROVIDERS: Student in an Organized Health Care Education/Training Program; Admitting Provider Internal Medicine; Emergency Provider Emergency Medicine; Visit Provider Student in an Organized Health Care Education/Training Program
DX: J15.212 Pneumonia due to Methicillin resistant Staphylococcus aureus (principal); I21.A1 Myocardial infarction type 2; I50.33 Acute on chronic diastolic (congestive) heart failure; J96.01 Acute respiratory failure with hypoxia; E87.1 Hypo-osmolality and hyponatremia; G93.49 Other encephalopathy; N13.2 Hydronephrosis with renal and ureteral calculous obstruction; Z16.23 Resistance to quinolones and fluoroquinolones; I25.5 Ischemic cardiomyopathy; R56.9 Unspecified convulsions; F03.90 Unspecified dementia, unspecified severity, without behavioral disturbance, psychotic disturbance, mood disturbance, and anxiety; E78.00 Pure hypercholesterolemia, unspecified; E87.8 Other disorders of electrolyte and fluid balance, not elsewhere classified; K80.20 Calculus of gallbladder without cholecystitis without obstruction; N21.0 Calculus in bladder; R13.12 Dysphagia, oropharyngeal phase; E87.6 Hypokalemia; E16.2 Hypoglycemia, unspecified; I95.9 Hypotension, unspecified; R73.9 Hyperglycemia, unspecified; L89.621 Pressure ulcer of left heel, stage 1; L89.611 Pressure ulcer of right heel, stage 1; D64.9 Anemia, unspecified; K74.60 Unspecified cirrhosis of liver; Y95 Nosocomial condition; Z66 Do not resuscitate; Z92.21 Personal history of antineoplastic chemotherapy; Z92.3 Personal history of irradiation; Z86.73 Personal history of transient ischemic attack (TIA), and cerebral infarction without residual deficits; Z85.048 Personal history of other malignant neoplasm of rectum, rectosigmoid junction, and anus; Z93.1 Gastrostomy status; Z78.1 Physical restraint status; Z79.02 Long term (current) use of antithrombotics/antiplatelets; Z79.899 Other long term (current) drug therapy
CPT/HCPCS: 36415; 70450; 71045; 74176; 80053; 80202; 81001; 83605; 83615; 83690; 83735; 83880; 84100; 84132; 84145; 84484; 85025; 85610; 85730; 86331; 86635; 87040; 87086; 87186; 87205; 87400; 87811; 92526; 92610; 93005; 94664; 94667; 96361; 96365; 96366; 96367; 99291; J0692; J1643; J1815; J1940; J2470; J2543; J3370; J3371; J3372; J3475; J3480; J7030; J7040; J7050; A9270; J1644; J3490

== ENCOUNTER 2024-02-27 18:06 | Emergency (ER) | payer MEDICARE, MEDICAID, SELFPAY ==
[2024-02-27] VITALS (10 sets, daily range): BP systolic 112–166; BP diastolic 66–109; PULSE 80–102; RESP 16–33; TEMP 36.7; O2SAT 97–100; BMI 16.9
--- NOTE | 2024-02-27 19:27 | PD.EDGIBLD ---
ED GI Bleed RME/HPI General Chief complaint: GI Bleed Stated complaint: GI BLEED Time Seen by Provider: 02/27/24 19:24 Arrival date/time: 02/27/24 18:06 this is a 73-year-old male that comes from [facility] with complaints of a GI bleed. Patient complains of a cough. Patient denies any complaints. Patient has a history of a TIA, stroke, alcoholic cirrhosis, colon cancer s/p chemoradiation, seizure, dementia, and CVA (ischemic and hemorrhagic). Patient was recently discharged from the hospital yesterday for kidney stones and also pneumonia. Related Data Home Medications ?Medication ?Instructions ?Recorded ?Confirmed acetaminophen 325 mg tablet 650 mg PO QID PRN Pain, Mild 02/08/24 02/08/24 amino acids-protein hydrolysate 15 1 ea PO BID 02/08/24 02/08/24 gram-100 kcal/30 mL oral liquid guaifenesin 100 mg/5 mL oral liquid 200 mg PO QID PRN Cough 02/08/24 02/08/24 ipratropium 0.5 mg-albuterol 3 mg 3 ml inhalation Q4HR PRN Shortness 02/08/24 02/08/24 (2.5 mg base)/3 mL nebulization Of Breath Or Wheezing soln levetiracetam 100 mg/mL oral 500 mg PO BID 02/08/24 02/08/24 solution multivitamin with minerals 1 tab PO QDAY 02/08/24 02/08/24 thiamine mononitrate (vit B1) 90 90 mg PO QDAY 02/08/24 02/08/24 mg/scoop oral powder zinc 1 tab PO QDAY 02/08/24 02/08/24 Previous Rx's ?Medication ?Instructions ?Recorded clopidogrel 75 mg tablet (Plavix) 75 mg PO QDAY 1 month #30 tabs 02/14/24 metoprolol succinate 50 mg 50 mg PO QDAY 1 month #30 tabs 02/14/24 tablet,extended release 24 hr sodium chloride 1,000 mg soluble 1,000 mg PO TID 1 month #90 tabs 02/16/24 tablet atorvastatin 40 mg tablet 40 mg PO QPM 1 month #30 tabs 02/24/24 mupirocin 2 % topical ointment 1 applic topical TID 1 month #50 02/24/24 grams Allergies Allergy/AdvReac Type Severity Reaction Status Date / Time No Known Allergies Allergy Unverified 04/10/23 17:26 Review of Systems Review of Systems Systems Reviewed: All systems reviewed, normal except as documented Past Medical History Past Medical History NEUROLOGIC: Positive Neurological Disorders, Cerebrovascular Accident (LEFT SIDE DEFECIT), Transient Ischemic Attacks (TIA), Dementia and Seizures CARDIAC: Positive Myocardial Infarction and Hypercholesterolemia; Negative Cardiac Disorders or Congestive Heart Failure RESPIRATORY: Positive Asthma; Negative Chronic Obstructive Pulmonary Disease (COPD) GASTROINTESTINAL: Positive Cirrhosis, Gastrointestinal Bleed and Colorectal Cancer; Negative Gastrointestinal Disorders GENITOURINARY: Negative Genitourinary Disorders or Renal Disease REPRODUCTIVE: Negative Testicular Cancer MUSCULOSKELETAL: Negative Musculoskeletal Disorders ENDOCRINE: Negative Endocrine Disorders, Diabetes Mellitus Type 1 or Diabetes Mellitus Type 2 HEMATOLOGIC: Positive Anemia; Negative Blood Disorders or Sickle Cell Disease OTHER HISTORY: Positive Colorectal Cancer; Negative Autoimmune Disease, Blood Transfusions, Blood Transfusion Reaction, Anesthesia Reactions or Testicular Cancer Family History FAMILY HISTORY: Negative Family Psychiatric Problems, Family Respiratory Disorders, Family Cardiac Disorders, Family Gastrointestinal Problems, Family Cancer, Family Surgery or Family Anesthesia Reaction Surgical History SURGICAL: Positive Abdominal Surgery (PEG TUBE PLACEMENT) Social History SMOKING STATUS: Smoker, status unknown SECOND HAND EXPOSURE: No SUBSTANCE USE: does not use ED Exam Narrative Physical exam: General: Thin, no acute distress Head normocephalic HEENT: Eyes pupils are PERRLA EOMs are intact within acceptable limits Neck is supple nontender Chest equal chest rise nontender to palpation Respiratory: Clear to auscultation no wheezes crackles or rubs CV: Rate rhythm is regular, tachycardic, no murmurs rubs or clicks Abdomen is soft nontender no masses positive bowel sounds all 4 quadrants, stools look brownish red in diaper Back: No CVA tenderness no spinous process tenderness from cervical spine thoracic and lumbar spine Skin: Intact no petechiae rash induration ulceration or crepitus Extremities: Moving all extremity against resistance cap refill less than 2 seconds neurosensory intact. No lower extremity edema Neuro: Awake and alert Course Quality Measures none Orders Category Date Time Status In and Out Catheter X1 Care 02/27/24 21:08 Completed Occult Blood,Stool (Nursing) NOW Care 02/27/24 19:29 Completed XR chest 1V Stat Exams 02/27/24 19:29 Completed XR foot comp LT min 3V Stat Exams 02/27/24 21:09 Completed CBC Stat Lab 02/27/24 20:00 Completed Comprehensive Metabolic Panel Stat Lab 02/27/24 20:00 Completed PT [Prothrombin Time with INR] Stat Lab 02/27/24 20:00 Completed Type and Screen Stat Lab 02/27/24 20:00 Completed Vital Signs Vital signs: Vital Signs Pulse Rate 80 02/27/24 18:40 Respiratory Rate 22 H 02/27/24 18:40 Blood Pressure 128/77 02/27/24 18:40 Pulse Oximetry (%) 100 02/27/24 18:40 Oxygen Delivery Method Nasal Cannula 02/27/24 18:40 Oxygen Flow Rate 2 02/27/24 18:40 GI Bleed MDM Narrative MDM Narrative:: I spoke to hospitalist admitting team for possible admission and they said they would come evaluate patient [id number]. Patient's blood pressure stable. White count is 4.2, hemoglobin 12.2 with hematocrit of 37.2 which is improved from previously. Platelet count was 221. PT INR unremarkable. CHEM panel shows a sodium of 135, patient's AST 252, ALT 173, alk phos 171. These numbers were previously elevated as well will need to closely monitor. I did a guaiac stool which was positive. Stool appeared brownish-red no patti blood noted. spoke to dr.macarena esquivel to de. He recommends that patient get a CBC in 1 to 2 days for recheck. Close monitoring assisted for acute GI bleeding. Patient data External records reviewed:: [facility] previous records Clinical information provided by:: patient Social determinants that could affect healthcare access:: none (lives in a assisted ) Patient has the following chronic illnesses:: see note How is presenting disease/condition affected by chronic disease/condition?: uneffected by Evaluation data The following diagnostics were reviewed and interpreted by me:: lab results and radiology exam(s) Lab and/or radiology exams considered but not ordered:: see note Interpretation Summary: see note Medications / Prescriptions Medications or Prescriptions considered but not ordered:: none Medication administrations:: see note Consultations Consultation(s) initiated? (list below): No Diagnosis GI bleed differential diagnosis: hemorrhoids, infectious diarrhea, Upper gastrointestinal hemorrhage and Lower gastrointestinal hemorrhage Most likely diagnosis given after review of the tests above:: gi bleed Admission Indicated Admission indicated?: not indicated Admission Request Was there a request for admission?: No Disposition Plan Disposition Plan: Discharge Discharge Attestation Discharge Attestation: The patient and all family members were given an opportunity to ask questions and understood the discharge instructions. Discharge instructions specifically effects, indications for sooner follow up or return to the emergency department, and the expected course of current diagnosis. Patient condition: Stable Discharge Plan Plan Patient Disposition: Xfer Skilled Nsg Fac (SNF) Patient condition on transfer: Stable Prescriptions/Referrals Prescriptions/Med Rec: No Action acetaminophen 325 mg Tablet 650 mg PO QID PRN (Reason: Pain, Mild) Rx Instructions: elevated temp, mild pain guaifenesin 100 mg/5 mL Liquid 200 mg PO QID PRN (Reason: Cough) ipratropium-albuterol 0.5 mg-3 mg(2.5 mg base)/3 mL Solution For Nebulization 3 ml INHALATION Q4HR PRN (Reason: Shortness Of Breath Or Wheezing) multivitamin with minerals Tablet 1 tab PO QDAY zinc Tablet,Chewable 1 tab PO QDAY Rx Instructions: for wound supplement for 14 days levetiracetam 100 mg/mL Solution 500 mg PO BID Rx Instructions: may be mixed with applesauced for thickening amino acids-protein hydrolys 15-100 gram-kcal/30 mL Liquid 1 ea PO BID Rx Instructions: for wound supplement for 60 days, start 01/29/24, end 03/29/24 thiamine mononitrate (vit B1) 90 mg/scoop Powder 90 mg PO QDAY clopidogrel [Plavix] 75 mg tablet 75 mg PO QDAY 30 Days Qty: 30 0RF metoprolol succinate 50 mg tablet extended release 24 hr 50 mg PO QDAY 30 Days Qty: 30 0RF sodium chloride 1,000 mg tablet,soluble 1,000 mg PO TID 30 Days Qty: 90 0RF atorvastatin 40 mg tablet 40 mg PO QPM 30 Days Qty: 30 0RF mupirocin 2 % ointment 1 applic topical TID 30 Days Qty: 50 0RF Referrals: Shu Mcdermott PA-C [Primary Care Provider] - In 1 week Problem List Clinical Impression: Blood in stool, Elevated liver enzymes Patient/Caregiver Discharge Instructions Discharge Activity: activity as tolerated Education Materials: Bleeding Gastrointestinal Additional Instructions: Please have patient have a repeat CBC in 1 to 2 days to make sure it is not dropping today his hemoglobin was 12.2 with a hematocrit of 37.2. come back to the emergency room if symptoms change or worsen. May follow-up with assisted doctor. Knee Print Language: Slovak Stand Alone Forms: Raine Award Info., Patient Portal Info Letter PA/DIRECTOR OF SECURITIES AND REAL ESTATE Supervising Physician PA/DIRECTOR OF SECURITIES AND REAL ESTATE Supervising Physician: lorie
--- NOTE | 2024-02-27 19:29 | XR_ITS ---
Examination: AP chest single view Technique one AP portable upright chest single view Exam date and time: February 19, 2024 1947 hrs. Comparison February 19, 2024 Indications: Coughing today. Findings: Mild enlargement cardiac contour Mild vascular congestion No lobar pneumonia Moderate osteopenia Impression: Mild vascular congestion No lobar pneumonia
[2024-02-27 20:27] LABS: Basophils % (Auto) 0 % (0-2.5); Eosinophils % (Auto) 1 % (0-10); Hematocrit 37.2 % (41.0-53.0); Hemoglobin 12.2 g/dL (13.5-16.0); Immature Granulocytes % (Auto) 2 % (0-0); Immature Granulocytes Auto 0.07 Thou/mm3 (0.00-0.00); Lymphocytes # (Auto) 0.4 Thou/mm3 (1.0-4.8); Lymphocytes % (Auto) 10 % (10-50); Mean Corpuscular HGB Conc 32.8 g/dl (31.0-37.0); Mean Corpuscular Volume 94 fL (80-100); Monocytes # (Auto) 0.2 Thou/mm3 (0.0-0.8); Monocytes % (Auto) 4 % (0-12); Neutrophils # (Auto) 3.4 Thou/mm3 (1.8-7.7); Neutrophils % (Auto) 83 % (37-80); Nucleated Red Blood Cell % 0 /100 WBC (0); Platelet Count 221 Thou/mm3 (140-440); RDW Standard Deviation 51.8 fL (35.1-43.9); Red Blood Count 3.94 Miln/mm3 (4.50-5.90); White Blood Count 4.2 Thou/mm3 (3.8-10.6)
[2024-02-27 20:40] LABS: Prothrombin Time 11.3 Seconds (9.0-12.2)
[2024-02-27 20:51] LABS: Alanine Aminotransferase 173 U/L (10-49); Albumin, Serum 3.6 gm/dL (3.4-4.8); Albumin/Globulin Ratio 0.9 (1.2-2.2); Alkaline Phosphatase 171 U/L (46-116); Anion Gap 6 (7-16); Aspartate Amino Transferase 252 U/L (0-34); BUN/Creatinine Ratio 53 Ratio (12-20); Bilirubin,Total 0.5 mg/dL (0.3-1.2); Blood Urea Nitrogen 16 mg/dL (9-23); Calcium 9.3 mg/dL (8.3-10.6); Calcium (Corrected) 9.6 mg/dL (8.5-10.1); Carbon Dioxide 31.3 mMol/L (20.0-31.0); Chloride 98 mMol/L (98-107); Creatinine (Component) 0.3 mg/dL (0.6-1.3); Estimated Creatinine Clearance 122.8 mL/min (>60); Globulin 4.1 gm/dL (2.3-3.5); Glucose 92 mg/dL (74-106); Osmolality,Calculated 271 (275-295); Potassium 4.9 mMol/L (3.4-5.1); Sodium 135 mMol/L (136-145); Total Protein 7.7 gm/dL (5.7-8.2); eGFR > 60 See Note
--- NOTE | 2024-02-27 21:09 | XR_ITS ---
Examination: Foot, left, 3 views Technique: AP, oblique, lateral views foot, 3 views Date and time of exam: February 19, 2024 2116 hrs. Indications: Nonhealing ulcer left heel Findings: Severe osteopenia Soft tissue vascular calcification No acute fracture No patti cortical bone destruction Impression: No patti cortical bone destruction Consider MRI ankle without contrast follow-up
[2024-02-28] VITALS: BP 101/66; PULSE 88; RESP 19; O2SAT 98
--- NOTE | 2024-02-28 00:31 | PC.NURSE ---
REPORT GIVEN TO RONY VERA AT [facility], ALL QUESTIONS ASKED AND ANSWERED.
[2024-02-28 01:00] VITALS: BP 91/59; PULSE 85; RESP 16; O2SAT 98
--- NOTE | 2024-02-28 01:17 | PC.NURSE ---
REPORT GIVEN TO OH LI. ALL QUESTIONS ASKED AND ANSWERED. PATIENT TRANSFERRED BACK TO FACILITY. NO DISTRESS NOTED AT TRANSFER.
== END 2024-02-28 01:16 | disposition skilled nursing facility (03) ==
PROVIDERS: Nurse Practitioner Family; Emergency Provider Emergency Medicine; PCP Physician Assistant Medical
DX: K92.1 Melena (principal); L97.429 Non-pressure chronic ulcer of left heel and midfoot with unspecified severity; R05.9 Cough, unspecified; C19 Malignant neoplasm of rectosigmoid junction; K70.30 Alcoholic cirrhosis of liver without ascites; Z86.73 Personal history of transient ischemic attack (TIA), and cerebral infarction without residual deficits; Z92.21 Personal history of antineoplastic chemotherapy; Z92.3 Personal history of irradiation
CPT/HCPCS: 36415; 71045; 73630; 80053; 81001; 85025; 85610; 86850; 86900; 86901; 99283

== ENCOUNTER 2024-03-02 02:23 | Inpatient (IN) | payer MEDICARE, MEDICAID, SELFPAY ==
[2024-03-02] VITALS (23 sets, daily range): BP systolic 108–137; BP diastolic 68–83; PULSE 58–114; RESP 15–95; TEMP 35–38.9; O2SAT 30–100; BMI 17.2
--- NOTE | 2024-03-02 02:26 | PD.EDADULT ---
ED General RME/HPI General Chief complaint: General Adult/Misc Complain Stated complaint: GENERAL ILLNESS, PRODUCTIVE COUGH Time Seen by Provider: 03/02/24 02:28 Arrival date/time: 03/02/24 02:23 RME / HPI RME / HPI narrative: Dr. Sauceda?s Main ED Evaluation: 73yo male FAY from [facility] presents to the ED for a chief complaint of hypoxia. Per EMS, they were called out due to the patient being hypoxic with an oxygen saturation below 90%, but upon their arrival, patient was saturating at 96%. Patient does not have any medical complaints at this time. He denies any cough or any other associated symptoms. No known allergies. Related Data Home Medications ?Medication ?Instructions ?Recorded ?Confirmed acetaminophen 325 mg tablet 650 mg PO QID PRN Pain, Mild 02/08/24 02/08/24 amino acids-protein hydrolysate 15 1 ea PO BID 02/08/24 02/08/24 gram-100 kcal/30 mL oral liquid guaifenesin 100 mg/5 mL oral liquid 200 mg PO QID PRN Cough 02/08/24 02/08/24 ipratropium 0.5 mg-albuterol 3 mg 3 ml inhalation Q4HR PRN Shortness 02/08/24 02/08/24 (2.5 mg base)/3 mL nebulization Of Breath Or Wheezing soln levetiracetam 100 mg/mL oral 500 mg PO BID 02/08/24 02/08/24 solution multivitamin with minerals 1 tab PO QDAY 02/08/24 02/08/24 thiamine mononitrate (vit B1) 90 90 mg PO QDAY 02/08/24 02/08/24 mg/scoop oral powder zinc 1 tab PO QDAY 02/08/24 02/08/24 Previous Rx's ?Medication ?Instructions ?Recorded clopidogrel 75 mg tablet (Plavix) 75 mg PO QDAY 1 month #30 tabs 02/14/24 metoprolol succinate 50 mg 50 mg PO QDAY 1 month #30 tabs 02/14/24 tablet,extended release 24 hr sodium chloride 1,000 mg soluble 1,000 mg PO TID 1 month #90 tabs 02/16/24 tablet atorvastatin 40 mg tablet 40 mg PO QPM 1 month #30 tabs 02/24/24 mupirocin 2 % topical ointment 1 applic topical TID 1 month #50 02/24/24 grams Allergies Allergy/AdvReac Type Severity Reaction Status Date / Time No Known Allergies Allergy Unverified 04/10/23 17:26 Review of Systems Review of Systems Systems Reviewed: All systems reviewed, normal except as documented Past Medical History Past Medical History NEUROLOGIC: Positive Neurological Disorders, Cerebrovascular Accident (LEFT SIDE DEFECIT), Transient Ischemic Attacks (TIA), Dementia and Seizures CARDIAC: Positive Myocardial Infarction and Hypercholesterolemia; Negative Cardiac Disorders or Congestive Heart Failure RESPIRATORY: Positive Asthma; Negative Chronic Obstructive Pulmonary Disease (COPD) GASTROINTESTINAL: Positive Cirrhosis, Gastrointestinal Bleed and Colorectal Cancer; Negative Gastrointestinal Disorders GENITOURINARY: Negative Genitourinary Disorders or Renal Disease REPRODUCTIVE: Negative Testicular Cancer MUSCULOSKELETAL: Negative Musculoskeletal Disorders ENDOCRINE: Negative Endocrine Disorders, Diabetes Mellitus Type 1 or Diabetes Mellitus Type 2 HEMATOLOGIC: Positive Anemia; Negative Blood Disorders or Sickle Cell Disease OTHER HISTORY: Positive Colorectal Cancer; Negative Autoimmune Disease, Blood Transfusions, Blood Transfusion Reaction, Anesthesia Reactions or Testicular Cancer Family History FAMILY HISTORY: Negative Family Psychiatric Problems, Family Respiratory Disorders, Family Cardiac Disorders, Family Gastrointestinal Problems, Family Cancer, Family Surgery or Family Anesthesia Reaction Surgical History SURGICAL: Positive Abdominal Surgery (PEG TUBE PLACEMENT) Social History SMOKING STATUS: Smoker, status unknown SECOND HAND EXPOSURE: No SUBSTANCE USE: does not use ED Exam Narrative Physical exam: GENERAL APPEARANCE: alert and oriented x 4, well-developed, well-nourished, no acute distress HEENT: Normocephalic, atraumatic; pupils equal, round, reactive to light; EOMI; mucous membranes pink, moist; oropharynx clear NECK: Supple LUNGS: CTABL; no wheezes, no rales, no rhonchi HEART: Regular rate, regular rhythm; normal S1, S2; no murmurs ABDOMEN: non distended; normal BS; soft, no tenderness, no guarding, no rebound; no masses, no organomegaly, no hernia BACK: no CVA tenderness EXTREMITIES: atraumatic; no edema NEUROLOGIC: awake; alert and oriented x4; cranial nerves II-XII grossly intact; no focal sensory or motor deficits PSYCHIATRIC: appropriate mood and affect SKIN: warm, dry, normal color; no rashes Course Course Course Narrative: CXR is ordered for determining the etiology of shortness of breath. Quality Measures none Orders Category Date Time Status Appeals Officer STAT Care 03/02/24 05:27 Active Continuous Pulse Oximetry STAT Care 03/02/24 05:27 Completed EKG (ED ONLY) *Do not use* NOW Care 03/02/24 05:28 Active In and Out Catheter [id number] Care 03/02/24 05:27 Active Insert IV NOW Care 03/02/24 05:27 Active NPO STAT Care 03/02/24 05:27 Active Strict Intake and Output Routine Care 03/02/24 05:27 Ordered EKG (ED Only) Stat Exams 03/02/24 05:27 Ordered XR chest 1V portable Stat Exams 03/02/24 02:29 Taken Arterial Blood Gas Stat Lab 03/02/24 05:28 Ordered B-Type Natriuretic Peptide Stat Lab 03/02/24 05:15 Received Blood Culture (Lab) Stat Lab 03/02/24 05:27 Ordered CBC Stat Lab 03/02/24 05:15 Received Comprehensive Metabolic Panel Stat Lab 03/02/24 05:15 Received LDH (Lactate Dehydrogenase) Stat Lab 03/02/24 05:15 Received Lactate (Lactic Acid) Stat Lab 03/02/24 05:27 Ordered Lipase Stat Lab 03/02/24 05:15 Received Magnesium Stat Lab 03/02/24 05:15 Received Partial Thromboplastin Time Stat Lab 03/02/24 05:15 Received Phosphorous Stat Lab 03/02/24 05:15 Received Procalcitonin Stat Lab 03/02/24 05:15 Received Prothrombin Time with INR Stat Lab 03/02/24 05:15 Received Troponin I Stat Lab 03/02/24 05:15 Received Urinalysis Stat Lab 03/02/24 05:27 Ordered Urine Culture Stat Lab 03/02/24 05:27 Ordered Oxygen Delivery NOW RT 03/02/24 05:27 Active Vital Signs Vital signs: Vital Signs Temperature 98 F 03/02/24 02:26 Pulse Rate 99 03/02/24 02:26 Respiratory Rate 16 03/02/24 02:26 Blood Pressure 118/70 03/02/24 02:26 Pulse Oximetry (%) 97 03/02/24 02:26 Oxygen Delivery Method Nasal Cannula 03/02/24 02:26 Oxygen Flow Rate 6 03/02/24 02:26 MDM Patient data External records reviewed:: [facility] previous records (Per chart review, patient was seen here on 02/28/24 for acute GI bleeding.) Clinical information provided by:: patient Social determinants that could affect healthcare access:: housing (Pt resides in a SNF.) Patient has the following chronic illnesses:: TIA, stroke, alcoholic cirrhosis, colon cancer s/p chemoradiation, seizure, dementia, and CVA How is presenting disease/condition affected by chronic disease/condition?: uneffected by Evaluation data The following diagnostics were reviewed and interpreted by me:: lab results and radiology exam(s) Lab and/or radiology exams considered but not ordered:: none Interpretation Summary: CXR shows chronic changes, but no infiltrates, normal cardiac silhouette, according to my interpretation. Labs pending at the time of signout. Medications Medications considered but not ordered:: none Medication administrations:: none Consultations Consultation(s) initiated? (list below): No Diagnosis Differential Diagnosis ED Complaint MDM: pneumonia, bronchitis, Influenza, COVID Most likely diagnosis given after review of the tests above:: see below Admission Indicated Admission indicated?: not indicated Explain why admission is indicated or not indicated:: pending at signout Admission Request Was there a request for admission?: No Disposition Plan Disposition Plan: other (specify) (Signed out to Dr. Pearson at 0600 pending labs and final disposition.) Medical Decision Making MDM Narrative MDM Narrative: Scribe Attestation: 03/02/24 Nuris Lassiter am scribing for and in the presence of Dr. Sauceda. Patient was going to be discharged home, but upon EMS arrival, patient was saturating at 79% on room air. Additional work-up ordered. Differential Diagnosis Differential Diagnosis: pneumonia, bronchitis, Influenza, COVID Lab Data 03/02/24 05:15 03/02/24 05:15 Discharge Plan Plan Patient Disposition: HOME (Self Care) Disposition Comment: Stable for discharge Patient condition on transfer: Stable Prescriptions/Referrals Prescriptions/Med Rec: No Action acetaminophen 325 mg Tablet 650 mg PO QID PRN (Reason: Pain, Mild) Rx Instructions: elevated temp, mild pain guaifenesin 100 mg/5 mL Liquid 200 mg PO QID PRN (Reason: Cough) ipratropium-albuterol 0.5 mg-3 mg(2.5 mg base)/3 mL Solution For Nebulization 3 ml INHALATION Q4HR PRN (Reason: Shortness Of Breath Or Wheezing) multivitamin with minerals Tablet 1 tab PO QDAY zinc Tablet,Chewable 1 tab PO QDAY Rx Instructions: for wound supplement for 14 days levetiracetam 100 mg/mL Solution 500 mg PO BID Rx Instructions: may be mixed with applesauced for thickening amino acids-protein hydrolys 15-100 gram-kcal/30 mL Liquid 1 ea PO BID Rx Instructions: for wound supplement for 60 days, start 01/29/24, end 03/29/24 thiamine mononitrate (vit B1) 90 mg/scoop Powder 90 mg PO QDAY clopidogrel [Plavix] 75 mg tablet 75 mg PO QDAY 30 Days Qty: 30 0RF metoprolol succinate 50 mg tablet extended release 24 hr 50 mg PO QDAY 30 Days Qty: 30 0RF sodium chloride 1,000 mg tablet,soluble 1,000 mg PO TID 30 Days Qty: 90 0RF atorvastatin 40 mg tablet 40 mg PO QPM 30 Days Qty: 30 0RF mupirocin 2 % ointment 1 applic topical TID 30 Days Qty: 50 0RF Problem List Clinical Impression: Hypoxia Patient/Caregiver Discharge Instructions Discharge Activity: activity as tolerated Education Materials: ED Cough Chronic Uncertain Cause Adult Additional Instructions: Please return to the emergency department for any worsening or any further medical problems Otherwise you should follow-up with your primary care doctor within the next several days Tonight your oxygen level was completely normal, you had no fever, the rest of your vital signs are completely normal. Your lung sounds are clear and your chest x-ray is normal. Print Language: Kyrgyz Stand Alone Forms: [facility] Award Info., Patient Portal Info Letter
--- NOTE | 2024-03-02 02:29 | XR_ITS ---
Examination: AP chest single view Technique: AP portable upright chest single view Exam date and time: March 02, 2024 0301 hrs. Indications: Coughing beginning several days ago. Findings: Early bibasilar pneumonia Normal heart size Moderate ectasia thoracic aorta Prominent osteopenia Impression: Early bibasilar pneumonia
--- NOTE | 2024-03-02 05:27 | EKG_ITS ---
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: : [id number] Requested By: Rangel Buenrostro Order Number: [id number] Reading MD: Rangel Buenrostro Measurements Intervals [place] Rate: 112 P: 266 [place]: 254 QRS: 108 QRSD: 90 T: 83 QT: 333 QTc: 455 Interpretive Statements ECTOPIC ATRIAL TACHYCARDIA WITH FIRST DEGREE AV BLOCK LEFT ATRIAL ENLARGEMENT [-0.15mV P WAVE IN V1/V2] MARKED RIGHT AXIS DEVIATION [QRS AXIS > 100] LOW QRS VOLTAGE IN EXTREMITY LEADS [QRS DEFLECTION < 0.5 mV IN LIMB LEADS] MODERATE ST DEPRESSION [0.05+ mV ST DEPRESSION] Compared to ECG 02/07/2024 16:38:17 First degree AV block now present Right-axis deviation now present Low QRS voltage now present ST (T wave) deviation now present Sinus tachycardia no longer present /store/S0/[id number]/ecg/[id number].pdf
--- NOTE | 2024-03-02 05:40 | PC.NURSE ---
PATIENT WAS TO BE TRANSFERRED BACK TO [facility], PATIENT SATING 97% ON ROOM AIR WHEN REPORT WAS ORIGINALLY CALLED TO FACILITY. EMS HERE TO PICK PATIENT UP. PATIENT CONGESTED. AND SATING AT 85% ON ROOM AIR. TRANSFER BACK TO FACILITY CANCELED SEPSIS WORKUP ORDERED AFTER NOTIFYING
--- NOTE | 2024-03-02 05:55 | PC.LAC ---
PATIENT HAS TO CUTS TO LOWER LIP AND IS CURRENTLY BLEEDING FROM LIP.
[2024-03-02 05:58] LABS: Lactate (Lactic Acid) 1.1 mMol/L (0.4-2.0)
[2024-03-02 05:59] LABS: Basophils % (Auto) 0 % (0-2.5); Eosinophils % (Auto) 0 % (0-10); Hematocrit 32.8 % (41.0-53.0); Immature Granulocytes % (Auto) 1 % (0-0); Immature Granulocytes Auto 0.03 Thou/mm3 (0.00-0.00); Lymphocytes # (Auto) 0.4 Thou/mm3 (1.0-4.8); Lymphocytes % (Auto) 10 % (10-50); Mean Corpuscular HGB Conc 33.5 g/dl (31.0-37.0); Mean Corpuscular Hemoglobin 31.3 pg (25.0-35.0); Mean Corpuscular Volume 93 fL (80-100); Monocytes # (Auto) 0.2 Thou/mm3 (0.0-0.8); Monocytes % (Auto) 4 % (0-12); Neutrophils # (Auto) 3.7 Thou/mm3 (1.8-7.7); Neutrophils % (Auto) 85 % (37-80); Nucleated Red Blood Cell % 0 /100 WBC (0); Platelet Count 241 Thou/mm3 (140-440); RDW Standard Deviation 51.7 fL (35.1-43.9); Red Blood Count 3.52 Miln/mm3 (4.50-5.90); White Blood Count 4.3 Thou/mm3 (3.8-10.6)
--- NOTE | 2024-03-02 06:12 | EDNOTE_ITS ---
Emergency Room Addendum <Constanza Heck - Last Filed: 03/02/24 18:15> Addendum Narrative: 0600: Care assumed from Dr. Sauceda, the previous shift emergency physician. Past medical, surgical, social and family history reviewed. Vitals and home medications reviewed. I will assume the care of the patient at this time, pending remainder of labs and final disposition. Please refer to the emergency department record for history and examination from initial visit.? The initial plan was to discharge the patient however the patient became acutely hypoxic and required deep suctioning and further workup. A small amount of dark blood was noted along with stool and patient became febrile with a temperature of 102. Patient also noted to be tachypneic and tachycardic. Sepsis alert was called. On reviewing lab results there has been a slight drop in hemoglobin from 12.2 to 11.0. Zosyn IV ordered. 1244: Sepsis alert initiated. Orders made at this time are congruent with ED Adult Sepsis Order List. Re-evaluation is to be completed. 1302: Fluids started. 1330: Sepsis reassessment performed consisting of lab review, vitals, physical exam including auscultation of heart, lungs, and visual evaluation of capillary refills, mucosal membranes and extremities. 1650: Discussed test HPI, PMHx, lab, radiology results and/or management with hospitalist. Will admit for further evaluation and management. Accepts patient for admission. Diagnoses: hypoxia, sepsis, lower GI bleed, transaminitis CRITICAL CARE: TIME: 30 minutes. For sepsis The high probability of sudden, clinically significant deterioration in the patient?s condition required the highest level of my preparedness to intervene urgently. The services I provided to this patient were to treat and/or prevent clinically significant deterioration. Services included the following: chart data review, reviewing nursing notes and/or old charts, documentation time, incident response consultant collaboration regarding findings and treatment options, medication orders and management, direct patient care, vital sign assessments and ordering, interpreting and reviewing diagnostic studies and lab tests. Aggregate critical care time includes only time during which I was engaged in work directly related to the patient?s care, as described above, whether at bedside or elsewhere in the Emergency Department. It did not include time spent performing other reported procedures or the services of residents, students, nurses or physician assistants. RADIOLOGY Procedure(s): CT angio chest Accession Number(s): [id number] cc: Maggie Alfaro MD; Isidro Talamantes MD; Alba Pearson MD~ Examination: CTA chest with intravenous contrast 2-D reconstructions 3-D reconstructions, vascular Date and time of exam: March 02, 2024 1416 hrs. Comparison February 11, 2024: Onset shortness of breath chest pain today CTDI: vol (mGy) 13.7 DLP: (mGycm) 331 Technique: Multiple axial sections of the thorax have been obtained. 3 mm slice thickness, from below the hemidiaphragms to above the apices of the lungs. Mediastinal and lung density settings have been obtained. 2-D sagittal and coronal reconstructions. 3-D angiographic renderings, 3-D volume renderings, 3D post processing, vascular maximum intensity projections obtained. Contrast administered is 85 cc Isovue-370 intravenous. Low dose protocols were performed. One or more of the following dose reduction techniques were used; automated exposure control, adjustment of the mA and/or KV according to patient size, use of iterative reconstruction technique. 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 Sauceda, the previous shift emergency physician. Past medical, surgical, social and family history reviewed. Vitals and home medications reviewed. I will assume the care of the patient at this time, pending remainder of labs and final disposition. Please refer to the emergency department record for history and examination from initial visit.? The initial plan was to discharge the patient however the patient became acutely hypoxic and required deep suctioning and further workup. A small amount of dark blood was noted along with stool and patient became febrile with a temperature of 102. Patient also noted to be tachypneic and tachycardic. Sepsis alert was called. On reviewing lab results there has been a slight drop in hemoglobin from 12.2 to 11.0. Zosyn IV ordered.
[2024-03-02 06:16] LABS: INR 1.1 (0.9-1.3); Partial Thromboplastin Time 29.3 Seconds (22.0-36.0)
[2024-03-02 06:28] LABS: Alanine Aminotransferase 168 U/L (10-49); Albumin, Serum 3.6 gm/dL (3.4-4.8); Albumin/Globulin Ratio 0.9 (1.2-2.2); Alkaline Phosphatase 164 U/L (46-116); Anion Gap 7 (7-16); Aspartate Amino Transferase 262 U/L (0-34); BUN/Creatinine Ratio 67 Ratio (12-20); Bilirubin,Total 0.8 mg/dL (0.3-1.2); Blood Urea Nitrogen 20 mg/dL (9-23); Calcium 8.4 mg/dL (8.3-10.6); Calcium (Corrected) 8.7 mg/dL (8.5-10.1); Carbon Dioxide 27.7 mMol/L (20.0-31.0); Chloride 97 mMol/L (98-107); Creatinine (Component) 0.3 mg/dL (0.6-1.3); Globulin 4.1 gm/dL (2.3-3.5); Glucose 94 mg/dL (74-106); LDH (Lactate Dehydrogenase) 482 U/L (120-246); Lipase 44 U/L (12-53); Osmolality,Calculated 267 (275-295); Phosphorous 3.8 mg/dL (2.4-5.1); Potassium 4.4 mMol/L (3.4-5.1); Procalcitonin 0.14 ng/ml (0.0-0.49); Sodium 132 mMol/L (136-145); Total Protein 7.7 gm/dL (5.7-8.2); Troponin I < 0.020 ng/mL (0.0-0.045); eGFR > 60 See Note
[2024-03-02 06:49] LABS: B-Type Natriuretic Peptide 175 pg/mL (0-100)
--- NOTE | 2024-03-02 07:30 | PC.NURSE ---
Report received from pm nurse, patient lying in gurney in semifowler's position, alert to person not place or time, patient from SNF and has h/o dementia, patient to er with co generalized weakness, lo 02 sats, patient currently on 4l/nc 02 sats 90%, switch 02 to oxymask at 5l, patient answering some questions appropriately, however, is confused, patient denies pain. Skin is cool dry and pink, patient has gurgling sound in throat, and dry lips, blood noted to lips and tongue, patient coughing intermittently, new orders received from Dr. Pearson who is at bedside, RT made aware of nebulizer tx. Call light within reach.
--- NOTE | 2024-03-02 07:40 | PC.NURSE ---
Attempted in and out cathetar, no urine output noted, Dr. Pearson made aware.
[2024-03-02] MEDS: SODIUM CHLORIDE 0.9% 1000 ML 1,000 ML 999 ML IV (07:46)
[2024-03-02] MEDS: guaiFENesin SYRUP 200 MG/10 ML UDC 100 MG PO (07:47)
--- NOTE | 2024-03-02 07:55 | PC.NURSE ---
suctions clear to pink tinged mucous from throat and mouth. Dr. Pearson aware.
[2024-03-02] MEDS: SODIUM CL RT SOL 3% 4 ML NEBU (NON-FORMULARY) INH (07:58)
[2024-03-02 08:33] LABS: Inspired O2, VO2 Liters 5 L/min
[2024-03-02 08:36] LABS: Base Excess 3 (-3-3); HCO3 27 mEq/L (20-26); O2 Saturation 78 % (91-98); PCO2 42 mmHg (32.0-48.0); pH, Arterial 7.43 (7.35-7.45)
[2024-03-02 08:37] LABS: Allen Test Not Performed; PO2 45 mmHg (83-108); Puncture Site Left Radial
[2024-03-02 09:18] LABS: Collection Type, Urine Clean Catch
[2024-03-02 09:25] LABS: Amorphous Crystals,Urine Present (Absent); Bilirubin,Urine Negative (Negative); Blood,Urine Negative (Negative); Clarity,Urine Hazy (Clear/Hazy); Color,Urine Yellow (Lt Yel-Yel); Glucose, Urine Negative (Negative); Ketones,Urine Negative (Negative); Leukocyte Esterase,Urine Negative (Negative); Nitrite,Urine Negative (Negative); PH,Urine 6.5 (5.0-7.0); Protein,Urine Trace (Neg - Trace); RBC,Urine 7 /hpf (0-3); Specific Gravity,Urine 1.021 (1.001-1.035); Squamous Epithelial Cell,Urine 1 /hpf (0-5); WBC,Urine 1 /hpf (0-5)
--- NOTE | 2024-03-02 11:46 | XR_ITS ---
Examination: CTA chest with intravenous contrast 2-D reconstructions 3-D reconstructions, vascular Date and time of exam: March 02, 2024 1416 hrs. Comparison February 11, 2024: Onset shortness of breath chest pain today CTDI: vol (mGy) 13.7 DLP: (mGycm) 331 Technique: Multiple axial sections of the thorax have been obtained. 3 mm slice thickness, from below the hemidiaphragms to above the apices of the lungs. Mediastinal and lung density settings have been obtained. 2-D sagittal and coronal reconstructions. 3-D angiographic renderings, 3-D volume renderings, 3D post processing, vascular maximum intensity projections obtained. Contrast administered is 85 cc Isovue-370 intravenous. Low dose protocols were performed. One or more of the following dose reduction techniques were used; automated exposure control, adjustment of the mA and/or KV according to patient size, use of iterative reconstruction technique. 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
--- NOTE | 2024-03-02 12:22 | PC.NURSE ---
Called patient's daughter Mariah, left her a message on regarding ct check off list. Spoke with patients nurse, Monica to attempt to complete check off list, however, per Monica, patient is new to her and states patient's daughter pavan will know more.
--- NOTE | 2024-03-02 12:44 | XR_ITS ---
Examination: CT abdomen with intravenous contrast CT pelvis with intravenous contrast 2-D coronal reconstructions 2-D sagittal reconstructions Date and time of exam:March 02, 2024 1416 hrs. Comparison February 20, 2024 Indications: Rectal bleeding today. CTDI: vol (mGy) 9.92 DLP: (mGycm) 471 Technique: Multiple axial sections of the abdomen and pelvis have been obtained. 64 slice high-resolution scanner used. 3 mm axial sections have been obtained, post intravenous injection 5 cc Isovue-370 2-D sagittal, coronal reconstructions obtained. Low dose protocols were performed. One or more of the following dose reduction techniques were used; automated exposure control, adjustment of the mA and/or KV according to patient size, use of iterative reconstruction technique. Findings: Liver irregular in contour no focal liver lesions Possible contracted gallbladder with tiny gallstone Spleen is not enlarged No pancreatic mass Heavy abdominal aortic calcification no aneurysmal dilatation No hydronephrosis Moderate to large amounts of stool throughout the entire colon No pericecal inflammatory change, especially the rectosigmoid Diffuse wall thickening involving the rectum, differential would include proctitis, or rectal tumor not excluded Prominent osteopenia Advanced disc narrowing L5-S1 Moderate to advanced narrowing hip joints Fluid containing right inguinal hernia with Impression: Cirrhosis Possible contracted gallbladder with tiny gallstone Very large amounts of stool in the rectosigmoid with marked diffuse thickening of the rectal wall, differential would include proctitis, rectal tumor not excluded, recommend direct inspection
--- NOTE | 2024-03-02 12:44 | PC.NURSE ---
Patient brief changed, large soft brown and dark bloody stool noted, patient rectal temp 102.0/R, sepsis alert called. Dr. Pearson made aware.
[2024-03-02] MEDS: PIPER/TAZO INJ 3.375 GM in SODIUM CHLORIDE 0.9% (P) 50 ML IV (13:02)
[2024-03-02] MEDS: ACETAMINOPHEN 500 MG TABLET 1000 MG PO (13:02)
[2024-03-02 13:17] LABS: Lactate (Lactic Acid) 1.1 mMol/L (0.4-2.0)
--- NOTE | 2024-03-02 14:35 | PC.NURSE ---
Dr. Sosa made aware that the Pt SPO2 is 77% on 15l oxy-mask, new orders given to this nurse
--- NOTE | 2024-03-02 15:14 | PC.NURSE ---
Patient on high flow NC at 30l, 100% 02, patient trying to remove n/c and equipment, 02 sats 88%, will notify Dr. Pearson.
--- NOTE | 2024-03-02 16:04 | PC.NURSE ---
patient was placed by on Bipap, he was saturating at 72% on high flow, rt was called and patient was placed at 100% 02 on bipap settings, the oxygen was improved to 92% after, patient was also placed on restrains and a bedside sitter for safety
--- NOTE | 2024-03-02 17:17 | PC.NURSE ---
Patient on bipap, on 100% 02 sats 100% at this time.
--- NOTE | 2024-03-02 17:30 | PC.NURSE ---
patient lying in gurmey quietly on bipap,02 sats 100%. patient close to nurses station with increased observation.
[2024-03-02 17:59] LABS: Basophils % (Auto) 0 % (0-2.5); Eosinophils % (Auto) 0 % (0-10); Hematocrit 40.4 % (41.0-53.0); Hemoglobin 13.1 g/dL (13.5-16.0); Immature Granulocytes % (Auto) 0 % (0-0); Immature Granulocytes Auto 0.03 Thou/mm3 (0.00-0.00); Lymphocytes # (Auto) 0.1 Thou/mm3 (1.0-4.8); Lymphocytes % (Auto) 2 % (10-50); Mean Corpuscular HGB Conc 32.4 g/dl (31.0-37.0); Mean Corpuscular Hemoglobin 30.8 pg (25.0-35.0); Mean Corpuscular Volume 95 fL (80-100); Monocytes # (Auto) 0.2 Thou/mm3 (0.0-0.8); Monocytes % (Auto) 2 % (0-12); Neutrophils # (Auto) 7.2 Thou/mm3 (1.8-7.7); Neutrophils % (Auto) 96 % (37-80); Nucleated Red Blood Cell % 0 /100 WBC (0); Platelet Count 251 Thou/mm3 (140-440); RDW Standard Deviation 52.6 fL (35.1-43.9); Red Blood Count 4.25 Miln/mm3 (4.50-5.90); White Blood Count 7.6 Thou/mm3 (3.8-10.6)
[2024-03-02] MEDS: PANTOPRAZOLE INJ 40 MG VIAL IVP (18:12)
[2024-03-02] MEDS: CEFEPIME INJ 2 GM in SODIUM CHLORIDE 0.9% (P) 50 ML IV ×2 (18:12→23:00)
[2024-03-02] MEDS: CLOPIDOGREL BISULFATE 75 MG TABLET GT (18:12)
[2024-03-02] MEDS: ASPIRIN EC 81 MG TABEC PO (18:12)
--- NOTE | 2024-03-02 18:27 | ESHP_ITS ---
Documentation for date of: 03/02/24 HPI History of Present Illness History of present illness: This is a 73-year-old male with PMH of seizures on KEPPRA, stage II rectal adenocarcinoma s/p chemoradiation, chronic oropharyngeal dysphagia on PEG tube, dementia, CVA, and recurrent aspiration pneumonia, [facility] and [facility]. History limited secondary to BiPAP and dementia. However per chart review, patient found desatting to [address] [facility] He has recurrent admissions for aspiration pneumonia 2/2 chronic dysphagia as a result of CVA, and PEG tube use. ED COURSE: T102, HR 90, BP 109/68, satting 97% on BiPAP with 10% FiO2 Relative leukocytosis with WBC 7.6 (baseline WBC 2.5), Hgb 13.1, PLT 251 ABG showed PaO2 45, bicarb 27, pCO2 42, pH 7.43 Sodium 133, AST 356, ALT 211, ALP 211, remainder CMP WNL UA negative for UTI EKG showed ectopic atrial tachycardia, no acute ST changes. 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 rectal tumor (patient has a history of rectal adenocarcinoma followed up by oncology outpatient) Patient was started on fluids and ZOSYN. Hospitalist team was consulted. Will admit patient for sepsis pneumonia. PMHx: Recurrent aspiration pneumonia, CVA, PEG tube 2/2 dysphagia, stage II rectal adenocarcinoma, seizure disorder. PSHx: None per chart review MEDS: In the med rec ALLERGIES: NKA SH: Unable to obtain history, per chart review history of alcohol use, no illicit drugs or smoking. Exam Vital Signs Temp Pulse Resp BP Pulse Ox O2 Del Method O2 Flow Rate 95.7 F L 90 16 109/68 100 Room Air 30 03/02/24 17:18 03/02/24 17:18 03/02/24 17:18 03/02/24 17:18 03/02/24 17:18 03/02/24 17:18 03/02/24 15:15 FiO2 100 03/02/24 16:18 Narrative Exam General: Cachectic, on BiPAP, no apparent distress. HEENT: Normocephalic, atraumatic, mucous membranes moist. Heart: Regular rate and rhythm, no murmurs. Lungs: Coarse breath sounds bilaterally, no wheezing. Symmetrical chest expansion Abdomen: Soft, nondistended, nontender, positive bowel sounds. ?No guarding or rebound tenderness. PEG tube in situ. Neurologic: Unable to assess 2/2 dementia and patient on BiPAP Extremities: Bilateral pedal edema Skin: No rash . Ecchymotic patches are noted in the upper extremity. Results: Labs 03/03/24 09:05 03/03/24 10:15 Labs: Short CBC 03/02/24 03/02/24 Range/Units 05:15 17:36 WBC 4.3 7.6 D (3.8-10.6) Thou/mm3 Hgb 11.0 L 13.1 L D (13.5-16.0) g/dL Hct 32.8 L 40.4 L (41.0-53.0) % Plt Count 241 251 (140-440) Thou/mm3 BMP 03/02/24 05:15 Sodium 132 L Potassium 4.4 Chloride 97 L Carbon Dioxide 27.7 BUN 20 Creatinine 0.3 L Glucose 94 Calcium 8.4 Cardiac Enzymes 03/02/24 Range/Units 05:15 Troponin I < 0.020 (0.0-0.045) ng/mL Liver Function 03/02/24 Range/Units 05:15 Total Bilirubin 0.8 (0.3-1.2) mg/dL AST 262 H (0-34) U/L ALT 168 H (10-49) U/L Alkaline Phosphatase 164 H (46-116) U/L Albumin 3.6 (3.4-4.8) gm/dL Urine 03/02/24 Range/Units 07:50 Urine Color Yellow (Lt Yel-Yel) Urine Clarity Hazy (Clear/Hazy) Urine pH 6.5 (5.0-7.0) Ur Specific [place] 1.021 (1.001-1.035) Urine Protein Trace (Neg - Trace) Urine Glucose (UA) Negative (Negative) ABG Interpretation ABG results: 03/02/24 08:20 ABG pH 7.43 ABG pCO2 42 ABG pO2 45 L* ABG HCO3 27 H ABG O2 Saturation 78 L ABG Base Excess 3 Quality Measures Quality Measures none Advance care planning discussed with:: other Medications Home Medications and Allergies Home Medications ?Medication ?Instructions ?Recorded ?Confirmed ?Type acetaminophen 325 mg tablet 650 mg PO QID PRN Pain, Mild 02/08/24 03/03/24 History amino acids-protein hydrolysate 15 1 ea PO BID 02/08/24 03/03/24 History gram-100 kcal/30 mL oral liquid guaifenesin 100 mg/5 mL oral liquid 200 mg PO QID PRN Cough 02/08/24 03/03/24 History ipratropium 0.5 mg-albuterol 3 mg 3 ml inhalation Q4HR PRN Shortness 02/08/24 03/03/24 History (2.5 mg base)/3 mL nebulization Of Breath Or Wheezing soln levetiracetam 100 mg/mL oral 500 mg feeding tube BID 02/08/24 03/02/24 History solution multivitamin with minerals 1 tab PO QDAY 02/08/24 03/02/24 History aspirin 81 mg chewable tablet 81 mg feeding tube QDAY 03/02/24 03/02/24 History atorvastatin 40 mg tablet 40 mg feeding tube QPM 03/02/24 03/02/24 History clopidogrel 75 mg tablet (Plavix) 75 mg feeding tube QDAY 03/02/24 03/02/24 History metoprolol succinate 50 mg capsule 50 mg feeding tube QDAY 03/02/24 03/02/24 History sprinkle, ext. release 24 hr thiamine mononitrate (vit B1) 100 100 mg PO QDAY 03/02/24 03/03/24 History mg tablet Allergies Allergy/AdvReac Type Severity Reaction Status Date / Time No Known Allergies Allergy Unverified 04/10/23 17:26 Visit Medications Acetaminophen (Acetaminophen Ana 325 Mg/10 Ml Udc) 650 mg GT Q8H PRN PRN Reason: Fever > 100.4 Stop: 04/01/24 16:59 Acetaminophen (Acetaminophen Ana 325 Mg/10 Ml Udc) 650 mg GT Q6H PRN PRN Reason: Pain 1-4 Stop: 04/01/24 17:14 Hydrocodone Bitart/Acetaminophen (Hydrocodone/Apap 10/325 Tab) 1 tab GT Q4HR PRN PRN Reason: PAIN SCALE 7-10 (Severe Stop: 03/07/24 16:57 Albuterol/Ipratropium (Albuterol/Ipratropium (Duoneb) Rt Ana 3 Ml Nebu) 3 ml INH Q6HRRT JENNY Stop: 04/01/24 18:59 Atorvastatin Calcium (Atorvastatin Calcium 20 Mg Tablet) 40 mg GT HS JENNY Stop: 04/01/24 20:59 Cefepime HCl 2 gm/ Sodium (Chloride) 50 mls @ 100 mls/hr IV Q8HR JENNY Stop: 03/09/24 17:02 Last Admin: 03/02/24 18:12 Dose: 100 mls/hr Vancomycin/Sodium Chloride (Vancomycin/Ns 1 Gm Ivpb) 200 mls @ 120 mls/hr IV X1 ONE Stop: 03/02/24 19:39 Levalbuterol HCl (Levalbuterol Rt 0.31 Mg/3 Ml Nebu) 0.31 mg INH Q6H PRN PRN Reason: WHEEZING Stop: 04/01/24 17:25 Levetiracetam (Levetiracetam Liqd 500 Mg/5 Ml Udc) 500 mg GT BID [facility] Stop: 04/01/24 17:14 Midodrine (Midodrine 5 Mg Tablet) 10 mg GT TID JENNY Stop: 04/01/24 21:59 Ondansetron HCl (Ondansetron Inj 2 Mg/Ml Inj 2 Ml) 4 mg IV Q6H PRN; Protocol PRN Reason: NAUSEA OR VOMITING Stop: 04/01/24 16:57 Oxycodone/Acetaminophen (Oxycodone/Apap 5/325 Tablet) 1 tab GT Q6H PRN PRN Reason: PAIN SCALE 4-6 (Moderate Stop: 03/07/24 16:57 Pantoprazole Sodium (Pantoprazole Inj 40 Mg Vial) 40 mg IVP QDAY [facility] Stop: 04/01/24 16:59 Last Admin: 03/02/24 18:12 Dose: 40 mg Pharmacy Consult (Vancomycin Pharmacy To Dose 1 Each Each) 1 each IV QDAY PRN PRN Reason: PROTOCOL Stop: 04/01/24 17:14 Sodium Chloride (Sodium Chloride 1 Gm Tablet) 1 gm GT QDAY [facility] Stop: 04/01/24 17:14 Discontinued Medications Acetaminophen (Acetaminophen 500 Mg Tablet) 1,000 mg PO X1 ONE Stop: 03/02/24 12:56 Last Admin: 03/02/24 13:02 Dose: 1,000 mg Aspirin (Aspirin Ec 81 Mg Tabec) 81 mg PO X1 ONE Stop: 03/02/24 17:04 Last Admin: 03/02/24 18:12 Dose: 81 mg Clopidogrel Bisulfate (Clopidogrel Bisulfate 75 Mg Tablet) 75 mg GT X1 ONE Stop: 03/02/24 17:04 Last Admin: 03/02/24 18:12 Dose: 75 mg Guaifenesin (Guaifenesin Syrup 200 Mg/10 Ml Udc) 100 mg PO X1 ONE; Protocol Stop: 03/02/24 07:27 Last Admin: 03/02/24 07:47 Dose: 100 mg Sodium Chloride (Ns) 1,000 mls @ 999 mls/hr IV .Q1H1M ONE Stop: 03/02/24 08:37 Last Infusion: 03/02/24 09:40 Dose: 0 mls/hr Piperacillin Sod/Tazobactam (Sod 3.375 gm/ Sodium Chloride) 50 mls @ 100 mls/hr IV X1 ONE Stop: 03/02/24 13:14 Last Infusion: 03/02/24 13:41 Dose: Infused Sodium Chloride (Sodium Cl Rt Ana 3% 4 Ml Nebu (Non-Formulary)) 4 ml INH X1 ONE Stop: 03/02/24 07:27 Last Admin: 03/02/24 07:58 Dose: 4 ml Sodium Chloride (Sodium Chloride Rt 10% 15 Ml Nebu) 5 ml INH X1 ONE Stop: 03/02/24 17:13 Assessment & Plan Plan In summary: 73-year-old male with PMH of seizures on KEPPRA, stage II rectal adenocarcinoma s/p chemoradiation, chronic oropharyngeal dysphagia on PEG tube, dementia, CVA, and recurrent aspiration pneumonia, returns to ED with SOB and fever. Admitted for AHRF likely sepsis pneumonia. Continued on ANTIBIOTICS and sepsis protocol. Acute hypoxemic respiratory failure 2/2: Sepsis 2/2 pneumonia Most likely aspiration pneumonia. [facility] after found hypoxemic, desatting low 90s. Per chart review. History of recurrent admissions for aspiration pneumonia in settings of CVA, dysphagia and PEG tube. On admission, 3/4 SIRS positive with T101, HR 90, relative leukocytosis with WBC 7.6 (baseline around 2.5). Chest x-ray showed bibasilar pneumonia. CTA showed bibasilar pneumonia, significant on the right, bilateral subcentimeter pulm nodules, negative for PE. Previously sputum culture grew MRSA and Klebsiella. Received 2 L NS and ZOSYN x 1 in ED. ? Continue VANCOMYCIN IV (02/19 to [present]) ? Continue CEFEPIME 2 g IV Q8H (02/19 to [present]) ? Continue MIDODRINE 10 mg BID for hypotension ? Continue LEVALBUTEROL q.8h. ? Started NS 500 cc bolus X1 ? Continue BiPAP ? Continue chest physiotherapy ? Pending panculture Acute HFpEF exacerbation History of Ischemic Cardiomyopathy Elevated Troponin Hypotension, chronic Failure likely contributing to AHR P stated above. Presenting with BNP 1012, troponin 0.934. EKG sinus tach without acute ST changes. No JVD, LE edema on exam however CHF suggested moderate cardiac enlargement and bihilar edema. Received LASIX BID with 2.6 L urine output. No signs of fluid overload on exam. Coarse breath sound likely 2/2 pneumonia as above. ECHO from 01/25, grade 1 diastolic dysfunction with EF 55-60%. BP soft this morning, improved with 250 cc NS bolus. Continued on MIDODRINE TID. ? Holding home LASIX to 40 mg daily ? Holding home METOPROLOL succinate 50 mg daily, HR appears controlled ? Continue home MIDODRINE 10 mg TID ? Continue home ASPIRIN 80 mg daily ? Continue home CLOPIDOGREL 75 mg daily ? Continue home ATORVASTATIN 40 mg daily ? Strict CHARITY's ? Daily weights ? Fluid restriction 1500 cc ? Maintain Magnesium >2, potassium >[address] showed large stool in rectum ? Added bowel regimen Mild hyponatremia Chronic hyponatremia, sodium 133 this admission. ? Continue home SODIUM CHLORIDE 1 tablet TID ? Daily CMP Chronic normocytic anemia Chronic leukopenia WBC consistently borderline low, also present on previous admission. Currently elevated from baseline 2/2 sepsis. HIV panel negative from last admission. ? Daily CBC Acute transaminitis Persistent transaminitis, seen on previous admission. Ultrasound and CT in January 2024: Cholelithiasis without cholecystitis, no hepatic pathology. Negative hepatitis panel from January 2024. No current alcohol use, distant history of alcohol use. Likely scheming hepatopathy, anticipate improvement with sepsis treatment. ? Daily CMP History of Seizures ? Resumed home KEPPRA 500 mg G-TUBE BID ? Seizure precaution Bilateral heal ulcers Decubitus ulcer, stage I Chronic findings ? Referral for wound care Stage II intramucosal rectal adenocarcinoma History of rectal adenocarcinoma, s/p chemoradiation Follows up with oncologist Dr. Oren Forde. Poor surgical candidate by Dr. Khanh Carlin at [facility], per chart review On last visit, seen by Dr. Sanchez who recommended outpatient follow-up ? Follow-up with Dr. Sanchez outpatient History of CVA Chronic PEG tube use Failure to thrive Patient exhibits signs of symptoms of failure to thrive including cachexia, underweight body mass, recurrent aspiration pneumonia in settings of PEG tube. Recurrent admissions for aspiration pneumonia. ? Goals of care with family ? Dietitian consulted for PEG tube feed ? N.p.o. for now Incidental findings Mild aneurysmal dilatation ascending thoracic aorta 4.3 cm Bilateral subcentimeter pulmonary nodules, suggest continued CT chest without contrast in 6 months Cirrhosis seen on CT Possible contracted gallbladder with tiny gallstone seen on CT ? Unable to assess the patient is symptomatic ? Will continue to monitor ? To follow-up outpatient with PCP Health maintenance Diet: N.p.o. for now GI prophylaxis: PROTONIX DVT prophylaxis: PLAVIX Antibiotics: CEFEPIME, VANCOMYCIN CODE STATUS: DNR Disposition: Pending goals of care, treating pneumonia Patient case was discussed with attending, Dr. Syed St DO and senior residents Dr. Young and Dr. Rm. Allison Cole DO PGYI Attending Provider Attestation/Addendum I have discussed and was present for the essential components of the history, physical examination, diagnosis, and treatment plan with the resident. I agree with the patient's care as documented by the resident and amended herein by me. Nirav St DO. Although this document has been carefully reviewed, there may still be some phonetic and other typographical errors. These errors are purely grammatical due to imperfections in the software program and should not be construed in any way to compromise the substance of the patient's medical care during this visit.
[2024-03-02] MEDS: levETIRAcetam LIQD 500 MG/5 ML UDC GT (18:32)
[2024-03-02 18:34] LABS: Alanine Aminotransferase 211 U/L (10-49); Albumin/Globulin Ratio 0.9 (1.2-2.2); Alkaline Phosphatase 211 U/L (46-116); Anion Gap 10 (7-16); Aspartate Amino Transferase 356 U/L (0-34); BUN/Creatinine Ratio 48 Ratio (12-20); Bilirubin,Total 0.9 mg/dL (0.3-1.2); Blood Urea Nitrogen 19 mg/dL (9-23); Calcium 8.8 mg/dL (8.3-10.6); Calcium (Corrected) 8.8 mg/dL (8.5-10.1); Carbon Dioxide 24.8 mMol/L (20.0-31.0); Chloride 98 mMol/L (98-107); Creatinine (Component) 0.4 mg/dL (0.6-1.3); Globulin 4.6 gm/dL (2.3-3.5); Glucose 104 mg/dL (74-106); Magnesium 2.2 mg/dL (1.6-2.6); Osmolality,Calculated 268 (275-295); Potassium 5.1 mMol/L (3.4-5.1); Sodium 133 mMol/L (136-145); Total Protein 8.6 gm/dL (5.7-8.2); eGFR > 60 See Note
[2024-03-02] MEDS: ALBUTEROL/IPRATROPIUM (Duoneb) RT SOL 3 ML NEBU INH (18:40)
--- NOTE | 2024-03-02 19:11 | PC.NURSE ---
Removed restraints do to patient being on bipap.
[2024-03-02] MEDS: POLYETHYLENE GLYCOL 17 GM PACKET NG (20:07)
[2024-03-02] MEDS: bisacodyL 10 MG SUPP PR (20:07)
[2024-03-02] MEDS: SODIUM CHLORIDE 1 GM TABLET GT (20:07)
[2024-03-02] MEDS: ATORVASTATIN CALCIUM 20 MG TABLET 40 MG GT (20:08)
[2024-03-02] MEDS: VANCOMYCIN/NS 1 GM IVPB 200 ML IV (20:48)
[2024-03-02] MEDS: MIDODRINE 5 MG TABLET 10 MG GT (23:00)
--- NOTE | 2024-03-02 23:30 | PC.RT ---
Sputum sample collected and sent to lab
[2024-03-03] VITALS (17 sets, daily range): BP systolic 93–124; BP diastolic 60–92; PULSE 78–130; RESP 14–46; TEMP 36–36.6; O2SAT 94–99; BMI 17.2
[2024-03-03] MEDS: ALBUTEROL/IPRATROPIUM (Duoneb) RT SOL 3 ML NEBU INH ×4 (01:34→18:36)
[2024-03-03] MEDS: MIDODRINE 5 MG TABLET 10 MG GT ×3 (05:50→21:09)
[2024-03-03] MEDS: CEFEPIME INJ 2 GM in SODIUM CHLORIDE 0.9% (P) 50 ML IV ×3 (05:50→21:09)
[2024-03-03] MEDS: POLYETHYLENE GLYCOL 17 GM PACKET NG ×2 (08:18→08:21)
[2024-03-03] MEDS: levETIRAcetam LIQD 500 MG/5 ML UDC GT ×2 (08:18→20:33)
[2024-03-03] MEDS: PANTOPRAZOLE INJ 40 MG VIAL IVP (08:18)
[2024-03-03] MEDS: SODIUM CHLORIDE 1 GM TABLET GT (08:21)
[2024-03-03 09:24] LABS: Basophils % (Auto) 0 % (0-2.5); Eosinophils % (Auto) 0 % (0-10); Hematocrit 35.1 % (41.0-53.0); Hemoglobin 11.6 g/dL (13.5-16.0); Immature Granulocytes % (Auto) 0 % (0-0); Immature Granulocytes Auto 0.02 Thou/mm3 (0.00-0.00); Lymphocytes # (Auto) 0.2 Thou/mm3 (1.0-4.8); Lymphocytes % (Auto) 4 % (10-50); Mean Corpuscular Hemoglobin 31.3 pg (25.0-35.0); Mean Corpuscular Volume 95 fL (80-100); Monocytes # (Auto) 0.1 Thou/mm3 (0.0-0.8); Monocytes % (Auto) 2 % (0-12); Neutrophils % (Auto) 94 % (37-80); Nucleated Red Blood Cell % 0 /100 WBC (0); Platelet Count 267 Thou/mm3 (140-440); RDW Standard Deviation 53.9 fL (35.1-43.9); Red Blood Count 3.71 Miln/mm3 (4.50-5.90); White Blood Count 6.4 Thou/mm3 (3.8-10.6)
--- NOTE | 2024-03-03 10:39 | PC.SS ---
Initial assessment: This is 73 year old male admitted for AHRF. Patient is altered. Patient is a re-admit. Patient was admitted from [facility]. Patient was recently here and had new peg tube placed. Patient currently on BiPAP. Patient's emergency contact is patient's sister, Karissa. tableau report developer spoke with Karissa. Patient's daughter will be the second point of contact. Karissa informed the discharge plan is for the patient to return to [facility]. Patient will require gurney transport and has coverage via [facility]. Next of kin: SisterKarissa D/c plan: return to [facility]
[2024-03-03] MEDS: VANCOMYCIN/NS 750 MG IVPB 750 MG/150 ML BAG 120 MG IV ×2 (10:50→21:37)
[2024-03-03 11:19] LABS: Alanine Aminotransferase 182 U/L (10-49); Albumin, Serum 3.4 gm/dL (3.4-4.8); Albumin/Globulin Ratio 0.8 (1.2-2.2); Alkaline Phosphatase 185 U/L (46-116); Anion Gap 10 (7-16); Aspartate Amino Transferase 299 U/L (0-34); BUN/Creatinine Ratio 58 Ratio (12-20); Blood Urea Nitrogen 23 mg/dL (9-23); Calcium 8.6 mg/dL (8.3-10.6); Calcium (Corrected) 9.1 mg/dL (8.5-10.1); Carbon Dioxide 23.9 mMol/L (20.0-31.0); Chloride 103 mMol/L (98-107); Creatinine (Component) 0.4 mg/dL (0.6-1.3); Estimated Creatinine Clearance 105.8 mL/min (>60); Globulin 4.1 gm/dL (2.3-3.5); Glucose 77 mg/dL (74-106); Magnesium 2.1 mg/dL (1.6-2.6); Osmolality,Calculated 276 (275-295); Potassium 3.8 mMol/L (3.4-5.1); Sodium 137 mMol/L (136-145); Total Protein 7.5 gm/dL (5.7-8.2); eGFR > 60 See Note
--- NOTE | 2024-03-03 11:22 | PC.SS ---
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
--- NOTE | 2024-03-03 11:30 | PC.DIETICIAN ---
Nutrition prescription Jevity 1.5 at 25 ml/hr via PEG tube by pump. Advance 10 ml every 8 hrs to goal rate of 45 ml/hr x 24 hrs. If no IV fluids, water flushes of 25 ml/hr (or per MD).
--- NOTE | 2024-03-03 14:32 | PC.SS ---
Addendum entered by MIGUEL ANGEL Kaur 03/03/24 14:37: SS follow up: contacted Sarai at [facility]. Informed her there would be a hospice discussion for the patient. Sarai confirms if the family wants to pursue with hospice services for the patient, then the patient is able to return with hospice services with [facility] or [facility] as they are the facilities preferred agencies. Patient is a correction resident from [email or web address] Pending a goals of care discussion with the family tomorrow at 10am. Addendum entered by MIGUEL ANGEL Kaur 03/03/24 14:34: Spoke with patient's sister Karissa regarding goals of care discussion and education on hospice services. Karissa informed she would be able to be present tomorrow morning at 10am along with patient's daughter for a goals of care discussion. Updated Dr. Cole to notify medical team. Original Note: Rounding note: medical team is requesting goals of care with the patient's family.
--- NOTE | 2024-03-03 15:47 | PD.RESPRO ---
Documentation for date of: 03/03/24 Subjective Subjective Interval history: No acute overnight events. Overall no improvement in mentation, still obtunded, not following command. Exam Vital Signs Temp Pulse Resp BP Pulse Ox O2 Del Method O2 Flow Rate 97.8 F 123 H 40 H 122/74 94 L BiPAP 30 03/03/24 11:57 03/03/24 15:16 03/03/24 15:16 03/03/24 13:20 03/03/24 15:16 03/03/24 11:57 03/02/24 15:15 FiO2 40 03/03/24 15:16 Narrative Exam General: Cachectic, on BiPAP, no apparent distress. HEENT: Normocephalic, atraumatic, mucous membranes moist. Heart: Regular rate and rhythm, no murmurs. Lungs: Coarse breath sounds bilaterally, no wheezing. Symmetrical chest expansion Abdomen: Soft, nondistended, nontender, positive bowel sounds. ?No guarding or rebound tenderness. PEG tube in situ. Neurologic: Unable to assess 2/2 dementia and patient on BiPAP Extremities: Bilateral pedal edema Skin: No rash . Ecchymotic patches are noted in the upper extremity. Objective Labs 03/03/24 09:05 03/03/24 10:15 Labs: Laboratory Results - last 24 hr 03/02/24 03/03/24 03/03/24 17:36 09:05 10:15 WBC 7.6 D 6.4 RBC 4.25 L 3.71 L Hgb 13.1 L D 11.6 L Hct 40.4 L 35.1 L MCV 95 95 MCH 30.8 31.3 MCHC 32.4 33.0 RDW Std Deviation 52.6 H 53.9 H Plt Count 251 267 Neut % (Auto) 96 H 94 H Lymph % (Auto) 2 L 4 L [place] % (Auto) 2 2 Eos % (Auto) 0 0 Baso % (Auto) 0 0 Neut # (Auto) 7.2 6.0 Lymph # (Auto) 0.1 L 0.2 L [place] # (Auto) 0.2 0.1 Eos # (Auto) 0.0 0.0 Baso # (Auto) 0.0 0.0 Immature Gran # (Auto) 0.03 H 0.02 H Absolute Nucleated RBC 0.00 0.00 Immature Gran % 0 0 Nucleated RBC % 0 0 Sodium 133 L 137 Potassium 5.1 D 3.8 D Chloride 98 103 Carbon Dioxide 24.8 23.9 Anion Gap 10 10 BUN 19 23 Creatinine 0.4 L 0.4 L Estim Creat Clear Calc Not Performed. 105.8 eGFR > 60 > 60 BUN/Creatinine Ratio 48 H 58 H Glucose 104 77 Calculated Osmolality 268 L 276 Calcium 8.8 8.6 Corrected Calcium 8.8 9.1 Phosphorus 5.0 Magnesium 2.2 2.1 Total Bilirubin 0.9 1.0 AST 356 H 299 H ALT 211 H 182 H Alkaline Phosphatase 211 H D 185 H D Total Protein 8.6 H 7.5 Albumin 4.0 3.4 D Globulin 4.6 H 4.1 H Albumin/Globulin Ratio 0.9 L 0.8 L ABG Interpretation ABG results: 03/02/24 08:20 ABG pH 7.43 ABG pCO2 42 ABG pO2 45 L* ABG HCO3 27 H ABG O2 Saturation 78 L ABG Base Excess 3 Quality Measures Quality Measures none Advance care planning discussed with:: other (Unable to obtain due to mental status) Assessment & Plan Assessment Current Active Medications: Generic Name Dose Route Start Last Admin Trade Name Freq PRN Reason Stop Dose Admin Acetaminophen 650 mg 03/02/24 17:00 Acetaminophen Ana 325 Mg/10 Ml Udc GT 04/01/24 16:59 Q8H PRN Fever > 100.4 Acetaminophen 650 mg 03/03/24 09:58 Acetaminophen Ana 325 Mg/10 Ml Udc GT 04/01/24 17:14 Q6H PRN Pain 1-3 Hydrocodone Bitart/Acetaminophen 1 tab 03/02/24 16:58 Hydrocodone/Apap 10/325 Tab GT 03/07/24 16:57 Q4HR PRN PAIN SCALE 7-10 (Severe Albuterol/Ipratropium 3 ml 03/02/24 19:00 03/03/24 13:14 Albuterol/Ipratropium (Duoneb) Rt Ana 3 Ml Nebu INH 04/01/24 18:59 3 ml Q6HRRT JENNY Administration Atorvastatin Calcium 40 mg 03/02/24 21:00 03/02/24 20:08 Atorvastatin Calcium 20 Mg Tablet GT 04/01/24 20:59 40 mg HS JENNY Administration Cefepime HCl 2 gm/ Sodium 50 mls @ 100 mls/hr 03/02/24 17:03 03/03/24 13:20 Chloride IV 03/09/24 17:02 100 mls/hr Q8HR JENNY Administration Vancomycin/Sodium Chloride 750 mg in 150 mls @ 120 mls/hr 03/03/24 10:00 03/03/24 10:50 Vancomycin/Ns 750 Mg Ivpb IV 03/10/24 09:59 120 mls/hr BID@1000,2200 JENNY Administration Levalbuterol HCl 0.31 mg 03/02/24 17:26 Levalbuterol Rt 0.31 Mg/3 Ml Nebu INH 04/01/24 17:25 Q6H PRN WHEEZING Levetiracetam 500 mg 03/02/24 17:15 03/03/24 08:18 Levetiracetam Liqd 500 Mg/5 Ml Udc GT 04/01/24 17:14 500 mg BID JENNY Administration Midodrine 10 mg 03/02/24 22:00 03/03/24 13:20 Midodrine 5 Mg Tablet GT 04/01/24 21:59 10 mg TID JENNY Administration Ondansetron HCl 4 mg 03/02/24 16:58 Ondansetron Inj 2 Mg/Ml Inj 2 Ml IV 04/01/24 16:57 Q6H PRN NAUSEA OR VOMITING Protocol Oxycodone/Acetaminophen 1 tab 03/02/24 16:58 Oxycodone/Apap 5/325 Tablet GT 03/07/24 16:57 Q6H PRN PAIN SCALE 4-6 (Moderate Pantoprazole Sodium 40 mg 03/02/24 17:00 03/03/24 08:18 Pantoprazole Inj 40 Mg Vial IVP 04/01/24 16:59 40 mg QDAY JENNY Administration Pharmacy Consult 1 each 03/02/24 17:15 Vancomycin Pharmacy To Dose 1 Each Each IV 04/01/24 17:14 QDAY PRN PROTOCOL Polyethylene Glycol 17 gm 03/02/24 18:45 03/03/24 08:21 Polyethylene Glycol 17 Gm Packet NG 04/01/24 18:44 17 gm QDAY JENNY Administration Sodium Chloride 1 gm 03/02/24 17:15 03/03/24 08:21 Sodium Chloride 1 Gm Tablet GT 04/01/24 17:14 1 gm QDAY JENNY Administration Plan In summary: 73-year-old male with PMH of seizures on KEPPRA, stage II rectal adenocarcinoma s/p chemoradiation, chronic oropharyngeal dysphagia on PEG tube, dementia, CVA, and recurrent aspiration pneumonia, returns to ED with SOB and fever. Admitted for AHRF likely sepsis pneumonia. Continued on ANTIBIOTICS and sepsis protocol. Overall no improvement in symptoms. Unable to wean off BiPAP. Pending goals of care discussion with family tomorrow /3 at 10 AM with daughter and sister at bedside. Acute encephalopathy acute hypoxemic respiratory failure 2/2: Sepsis 2/2 pneumonia Baseline dementia, acute worsening of mental status in setting of most likely aspiration pneumonia. No improvement in mentation, remains obtunded. Not following command. Imaging showed bibasilar pneumonia more significant on the right, likely aspiration as patient has history of recurrent aspiration pneumonia in settings of chronic dysphagia and PEG tube use. 3/4 SIRS positive with tachycardia, leukocytosis and fever. Afebrile currently, persistent tachycardia and worsening leukocytosis. Coarse breath sound bilaterally. Previous sputum culture grew MRSA and Klebsiella. Fluid resuscitated. ? Continue VANCOMYCIN IV (02/19 to [present]) ? Continue CEFEPIME 2 g IV Q8H (02/19 to [present]) Consider switching to CEFTRIAXONE if LFTs worsen ? Continue MIDODRINE 10 mg BID for hypotension ? Continue LEVALBUTEROL q.8h. ? Continue BiPAP ? Continue chest physiotherapy ? Pending panculture ? Pending repeat ABG in a.m. Acute HFpEF exacerbation History of Ischemic Cardiomyopathy Elevated Troponin Hypotension, chronic Failure likely contributing to AHR P stated above. Presenting with BNP 1012, troponin 0.934. EKG sinus tach without acute ST changes. No JVD, LE edema on exam however CHF suggested moderate cardiac enlargement and bihilar edema. Received LASIX BID with 2.6 L urine output. No signs of fluid overload on exam. Coarse breath sound likely 2/2 pneumonia as above. ECHO from 01/25, grade 1 diastolic dysfunction with EF 55-60%. Currently normotensive. ? Holding home LASIX to 40 mg daily ? Holding home METOPROLOL succinate 50 mg daily, HR appears controlled ? Continue home MIDODRINE 10 mg TID ? Continue home ASPIRIN 80 mg daily ? Continue home CLOPIDOGREL 75 mg daily ? Continue home ATORVASTATIN 40 mg daily ? Strict CHARITY's ? Daily weights ? Fluid restriction 1500 cc ? Maintain Magnesium >2, potassium >4 Constipation (resolved) CT showed large stool in rectum ? Added bowel regimen Mild hyponatremia (resolved) Chronic hyponatremia, sodium 133 this admission. Currently sodium 137. ? Continue home SODIUM CHLORIDE 1 tablet TID ? Daily CMP Chronic normocytic anemia Chronic leukopenia WBC consistently borderline low, also present on previous admission. Currently elevated from baseline 2/2 sepsis. HIV panel negative from last admission. ? Daily CBC Acute transaminitis (improving) Persistent transaminitis, seen on previous admission. Ultrasound and CT in January 2024: Cholelithiasis without cholecystitis, no hepatic pathology. Negative hepatitis panel from January 2024. No current alcohol use, distant history of alcohol use. 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 ? Daily CMP History of Seizures ? Resumed home KEPPRA 500 mg G-TUBE BID ? Seizure precaution Bilateral heal ulcers Decubitus ulcer, stage I Chronic findings ? Referral for wound care Stage II intramucosal rectal adenocarcinoma History of rectal adenocarcinoma, s/p chemoradiation Follows up with oncologist Dr. Oren Forde. Poor surgical candidate by Dr. Khanh Carlin at [facility], per chart review On last visit, seen by Dr. Sanchez who recommended outpatient follow-up ? Follow-up with Dr. Sanchez outpatient History of CVA Chronic PEG tube use Failure to thrive Patient exhibits signs of symptoms of failure to thrive including cachexia, underweight body mass, recurrent aspiration pneumonia in settings of PEG tube. Recurrent admissions for aspiration pneumonia. ? Goals of care with family ? Dietitian consulted for PEG tube feed ? N.p.o. for now Incidental findings Mild aneurysmal dilatation ascending thoracic aorta 4.3 cm Bilateral subcentimeter pulmonary nodules, suggest continued CT chest without contrast in 6 months Cirrhosis seen on CT Possible contracted gallbladder with tiny gallstone seen on CT ? Unable to assess the patient is symptomatic ? Will continue to monitor ? To follow-up outpatient with PCP Health maintenance Diet: N.p.o. for now GI prophylaxis: PROTONIX DVT prophylaxis: PLAVIX Antibiotics: CEFEPIME, VANCOMYCIN CODE STATUS: DNR Disposition: Pending goals of care, treating pneumonia Patient case was discussed with attending, Dr. Syed St DO and senior residents Dr. Young and Dr. Rm. Allison Cole DO PGYI Attending Provider Attestation/Addendum I have discussed and was present for the essential components of the history, physical examination, diagnosis, and treatment plan with the resident. I agree with the patient's care as documented by the resident and amended herein by me. Nirav St DO. Although this document has been carefully reviewed, there may still be some phonetic and other typographical errors. These errors are purely grammatical due to imperfections in the software program and should not be construed in any way to compromise the substance of the patient's medical care during this visit.
[2024-03-03] MEDS: SODIUM CHLORIDE 0.9% 500 ML 500 ML 999 ML IV (17:49)
[2024-03-03] MEDS: ATORVASTATIN CALCIUM 20 MG TABLET 40 MG GT (20:33)
[2024-03-04] VITALS (15 sets, daily range): BP systolic 85–110; BP diastolic 53–76; PULSE 80–114; RESP 12–30; TEMP 36.1–36.5; O2SAT 95–100; BMI 17.2
[2024-03-04] MEDS: ALBUTEROL/IPRATROPIUM (Duoneb) RT SOL 3 ML NEBU INH ×4 (00:26→18:24)
[2024-03-04] MEDS: MIDODRINE 5 MG TABLET 10 MG GT ×2 (05:03→13:29)
[2024-03-04] MEDS: CEFEPIME INJ 2 GM in SODIUM CHLORIDE 0.9% (P) 50 ML IV (05:03)
[2024-03-04 05:19] LABS: Basophils % (Auto) 0 % (0-2.5); Eosinophils % (Auto) 0 % (0-10); Hematocrit 27.1 % (41.0-53.0); Hemoglobin 8.9 g/dL (13.5-16.0); Immature Granulocytes % (Auto) 1 % (0-0); Immature Granulocytes Auto 0.02 Thou/mm3 (0.00-0.00); Lymphocytes # (Auto) 0.2 Thou/mm3 (1.0-4.8); Lymphocytes % (Auto) 4 % (10-50); Mean Corpuscular HGB Conc 32.8 g/dl (31.0-37.0); Mean Corpuscular Volume 94 fL (80-100); Monocytes # (Auto) 0.1 Thou/mm3 (0.0-0.8); Monocytes % (Auto) 2 % (0-12); Neutrophils # (Auto) 3.7 Thou/mm3 (1.8-7.7); Neutrophils % (Auto) 93 % (37-80); Nucleated Red Blood Cell % 0 /100 WBC (0); Platelet Count 224 Thou/mm3 (140-440); RDW Standard Deviation 54.4 fL (35.1-43.9); Red Blood Count 2.87 Miln/mm3 (4.50-5.90)
[2024-03-04 05:37] LABS: Base Excess -1 (-3-3); HCO3 24 mEq/L (20-26); O2 Saturation 95 % (91-98); PCO2 36 mmHg (32.0-48.0); PO2 71 mmHg (83-108); pH, Arterial 7.43 (7.35-7.45)
[2024-03-04 05:38] LABS: Alanine Aminotransferase 342 U/L (10-49); Albumin/Globulin Ratio 0.9 (1.2-2.2); Alkaline Phosphatase 203 U/L (46-116); Anion Gap 11 (7-16); Aspartate Amino Transferase 982 U/L (0-34); BUN/Creatinine Ratio 68 Ratio (12-20); Bilirubin,Total 0.9 mg/dL (0.3-1.2); Blood Urea Nitrogen 27 mg/dL (9-23); Calcium 8.4 mg/dL (8.3-10.6); Calcium (Corrected) 9.2 mg/dL (8.5-10.1); Chloride 110 mMol/L (98-107); Creatinine (Component) 0.4 mg/dL (0.6-1.3); Estimated Creatinine Clearance 105.8 mL/min (>60); Globulin 3.5 gm/dL (2.3-3.5); Glucose 77 mg/dL (74-106); Magnesium 2.4 mg/dL (1.6-2.6); Osmolality,Calculated 287 (275-295); Phosphorous 2.5 mg/dL (2.4-5.1); Potassium 3.3 mMol/L (3.4-5.1); Sodium 142 mMol/L (136-145); Total Protein 6.5 gm/dL (5.7-8.2); eGFR > 60 See Note
[2024-03-04 05:40] LABS: Allen Test Performed/OK; Inspired Oxygen, FIO2 35 %; Puncture Site Right Brachial
[2024-03-04] MEDS: SODIUM CHLORIDE 1 GM TABLET GT (08:32)
[2024-03-04] MEDS: POTASSIUM CHLORIDE 10% 20 MEQ/15 ML UDC 40 MEQ GT (08:32)
[2024-03-04] MEDS: PANTOPRAZOLE INJ 40 MG VIAL IVP (08:32)
[2024-03-04] MEDS: levETIRAcetam LIQD 500 MG/5 ML UDC GT (08:33)
[2024-03-04] MEDS: POTASSIUM CHL 10 mEq IVPB 10 MEQ/100 ML BAG 100 MEQ IV ×4 (08:33→11:51)
--- NOTE | 2024-03-04 09:01 | PD.IDPROG ---
Subjective Subjective Interval history: re admitted after short outpt stay. is dnr possible pneumonia with aspiration Exam Vital Signs Temp Pulse Resp BP Pulse Ox O2 Del Method O2 Flow Rate 97.2 F 86 22 H 92/61 99 BiPAP 30 03/04/24 04:00 03/04/24 06:45 03/04/24 06:45 03/04/24 05:48 03/04/24 06:45 03/04/24 04:00 03/02/24 15:15 FiO2 35 03/04/24 06:45 Narrative Exam on bipap, so hypoxia persists. pt is dnr. Objective - Internal Medicine Labs 03/04/24 04:34 03/04/24 04:34 Labs: Laboratory Results - last 24 hr 03/03/24 03/03/24 03/04/24 09:05 10:15 04:34 WBC 6.4 4.0 RBC 3.71 L 2.87 L Hgb 11.6 L 8.9 L D Hct 35.1 L 27.1 L MCV 95 94 MCH 31.3 31.0 MCHC 33.0 32.8 RDW Std Deviation 53.9 H 54.4 H Plt Count 267 224 D Neut % (Auto) 94 H 93 H Lymph % (Auto) 4 L 4 L [place] % (Auto) 2 2 Eos % (Auto) 0 0 Baso % (Auto) 0 0 Neut # (Auto) 6.0 3.7 Lymph # (Auto) 0.2 L 0.2 L [place] # (Auto) 0.1 0.1 Eos # (Auto) 0.0 0.0 Baso # (Auto) 0.0 0.0 Immature Gran # (Auto) 0.02 H 0.02 H Absolute Nucleated RBC 0.00 0.00 Immature Gran % 0 1 H Nucleated RBC % 0 0 Puncture Site ABG pH ABG pCO2 ABG pO2 ABG HCO3 ABG O2 Saturation ABG Base Excess FiO2 Sodium 137 142 Potassium 3.8 D 3.3 L D Chloride 103 110 H Carbon Dioxide 23.9 21.0 Anion Gap 10 11 BUN 23 27 H Creatinine 0.4 L 0.4 L Estim Creat Clear Calc 105.8 105.8 eGFR > 60 > 60 BUN/Creatinine Ratio 58 H 68 H Glucose 77 77 Calculated Osmolality 276 287 Calcium 8.6 8.4 Corrected Calcium 9.1 9.2 Phosphorus 2.5 Magnesium 2.1 2.4 Total Bilirubin 1.0 0.9 AST 299 H 982 H* ALT 182 H 342 H Alkaline Phosphatase 185 H D 203 H Total Protein 7.5 6.5 Albumin 3.4 D 3.0 L Globulin 4.1 H 3.5 Albumin/Globulin Ratio 0.8 L 0.9 L 03/04/24 05:25 WBC RBC Hgb Hct MCV MCH MCHC RDW Std Deviation Plt Count Neut % (Auto) Lymph % (Auto) [place] % (Auto) Eos % (Auto) Baso % (Auto) Neut # (Auto) Lymph # (Auto) [place] # (Auto) Eos # (Auto) Baso # (Auto) Immature Gran # (Auto) Absolute Nucleated RBC Immature Gran % Nucleated RBC % Puncture Site Right Brachial ABG pH 7.43 ABG pCO2 36 ABG pO2 71 L D ABG HCO3 24 ABG O2 Saturation 95 ABG Base Excess -1 FiO2 35 Sodium Potassium Chloride Carbon Dioxide Anion Gap BUN Creatinine Estim Creat Clear Calc eGFR BUN/Creatinine Ratio Glucose Calculated Osmolality Calcium Corrected Calcium Phosphorus Magnesium Total Bilirubin AST ALT Alkaline Phosphatase Total Protein Albumin Globulin Albumin/Globulin Ratio ABG Interpretation ABG results: 03/02/24 03/04/24 08:20 05:25 ABG pH 7.43 7.43 ABG pCO2 42 36 ABG pO2 45 L* 71 L D ABG HCO3 27 H 24 ABG O2 Saturation 78 L 95 ABG Base Excess 3 -1 Assessment & Plan A&P Narrative recurrent acute illness recent resp infection, possibly aspiration normal procal on arrival other problems as noted. change to zosyn f/u thursday address goals of care. if he is a dnr and 73 yoa. are we talking comfort measures yet? looks like abx were stopped. if you want to give abx, then zosyn ok, Time Spent With Patient Time: Total time spent is greater than 50% in coordination of care (as documented) at patient's floor/unit and/or counseling patient:
[2024-03-04 09:39] LABS: Lactate (Lactic Acid) 1.4 mMol/L (0.4-2.0)
[2024-03-04] MEDS: RINGERS LACTATED 1000 ML 500 ML 999 ML IV (09:45)
--- NOTE | 2024-03-04 10:23 | PC.SS ---
Family meeting conducted with patient's sister (Karissa Rios) and patient's daughter (Mariah Rios). Attending, Dr. tS; provided overview on the patient's condition. Patient experiencing low blood pressure, liver failure and high flow oxygen. Confirmed code status DNR. Patient's family has decided to transition the patient to comfort care. Comfort care measures to begin on 03-05-24 following arrival of family members. Bedside nurse updated.
--- NOTE | 2024-03-04 14:29 | PC.SS ---
Update: Patient to transition to comfort care measures.
--- NOTE | 2024-03-04 15:07 | ESPR_ITS ---
Documentation for date of: 03/04/24 Subjective Subjective Interval history: No acute overnight events. Continued on BiPAP, still tachypneic, overbreathing vent. Mental status slightly improved. Appears more awake however not following command. Exam Vital Signs Temp Pulse Resp BP Pulse Ox O2 Del Method O2 Flow Rate 97.4 F 96 26 H 88/56 L 96 BiPAP 30 03/04/24 12:00 03/04/24 14:25 03/04/24 14:25 03/04/24 13:29 03/04/24 14:25 03/04/24 12:00 03/02/24 15:15 FiO2 35 03/04/24 14:25 Narrative Exam General: Cachectic, on BiPAP, no apparent distress. HEENT: Normocephalic, atraumatic, mucous membranes moist. Heart: Regular rate and rhythm, no murmurs. Lungs: Coarse breath sounds bilaterally, no wheezing. Symmetrical chest expansion Abdomen: Soft, nondistended, nontender, positive bowel sounds. ?No guarding or rebound tenderness. PEG tube in situ. Neurologic: Unable to assess 2/2 dementia and patient on BiPAP Extremities: Bilateral pedal edema Skin: No rash . Ecchymotic patches are noted in the upper extremity. Objective Labs 03/04/24 04:34 03/04/24 04:34 Labs: Laboratory Results - last 24 hr 03/04/24 03/04/24 03/04/24 04:34 05:25 09:25 WBC 4.0 RBC 2.87 L Hgb 8.9 L D Hct 27.1 L MCV 94 MCH 31.0 MCHC 32.8 RDW Std Deviation 54.4 H Plt Count 224 D Neut % (Auto) 93 H Lymph % (Auto) 4 L [place] % (Auto) 2 Eos % (Auto) 0 Baso % (Auto) 0 Neut # (Auto) 3.7 Lymph # (Auto) 0.2 L [place] # (Auto) 0.1 Eos # (Auto) 0.0 Baso # (Auto) 0.0 Immature Gran # (Auto) 0.02 H Absolute Nucleated RBC 0.00 Immature Gran % 1 H Nucleated RBC % 0 Puncture Site Right Brachial ABG pH 7.43 ABG pCO2 36 ABG pO2 71 L D ABG HCO3 24 ABG O2 Saturation 95 ABG Base Excess -1 FiO2 35 Sodium 142 Potassium 3.3 L D Chloride 110 H Carbon Dioxide 21.0 Anion Gap 11 BUN 27 H Creatinine 0.4 L Estim Creat Clear Calc 105.8 eGFR > 60 BUN/Creatinine Ratio 68 H Glucose 77 Calculated Osmolality 287 Lactic Acid 1.4 Calcium 8.4 Corrected Calcium 9.2 Phosphorus 2.5 Magnesium 2.4 Total Bilirubin 0.9 AST 982 H* ALT 342 H Alkaline Phosphatase 203 H Total Protein 6.5 Albumin 3.0 L Globulin 3.5 Albumin/Globulin Ratio 0.9 L Vancomycin Trough 13.0 H ABG Interpretation ABG results: 03/02/24 03/04/24 08:20 05:25 ABG pH 7.43 7.43 ABG pCO2 42 36 ABG pO2 45 L* 71 L D ABG HCO3 27 H 24 ABG O2 Saturation 78 L 95 ABG Base Excess 3 -1 Quality Measures Quality Measures none Advance care planning discussed with:: patient Assessment & Plan Assessment Current Active Medications: Generic Name Dose Route Start Last Admin Trade Name Freq PRN Reason Stop Dose Admin Acetaminophen 650 mg 03/02/24 17:00 Acetaminophen [place] 325 Mg/10 Ml [facility] [place] 04/01/24 16:59 Q8H PRN Fever > 100.4 Hydrocodone Bitart/Acetaminophen 1 tab 03/02/24 16:58 Hydrocodone/Apap 10/325 Tab GT 03/07/24 16:57 Q4HR PRN PAIN SCALE 7-10 (Severe Albuterol/Ipratropium 3 ml 03/02/24 19:00 03/04/24 12:28 Albuterol/Ipratropium (Duoneb) Rt Ana 3 Ml Nebu INH 04/01/24 18:59 3 ml Q6HRRT JENNY Administration Doxycycline Hyclate 100 mg 03/04/24 21:00 Doxycycline 100 Mg Tablet PO 03/11/24 20:59 BID JENNY Piperacillin/Tazobactam/Dextrose 50 mls @ 12.5 mls/hr 03/04/24 11:41 03/04/24 12:49 Zosyn IV 03/11/24 11:40 Not Given Q8HR JENNY Levetiracetam 500 mg 03/02/24 17:15 03/04/24 08:33 Levetiracetam Liqd 500 Mg/5 Ml Udc GT 04/01/24 17:14 500 mg BID JENNY Administration Midodrine 10 mg 03/02/24 22:00 03/04/24 13:29 Midodrine 5 Mg Tablet GT 04/01/24 21:59 10 mg TID JENNY Administration Ondansetron HCl 4 mg 03/02/24 16:58 Ondansetron Inj 2 Mg/Ml Inj 2 Ml IV 04/01/24 16:57 Q6H PRN NAUSEA OR VOMITING Protocol Oxycodone/Acetaminophen 1 tab 03/02/24 16:58 Oxycodone/Apap 5/325 Tablet GT 03/07/24 16:57 Q6H PRN PAIN SCALE 4-6 (Moderate Pantoprazole Sodium 40 mg 03/02/24 17:00 03/04/24 08:32 Pantoprazole Inj 40 Mg Vial IVP 04/01/24 16:59 40 mg QDAY JENNY Administration Polyethylene Glycol 17 gm 03/02/24 18:45 03/03/24 08:21 Polyethylene Glycol 17 Gm Packet NG 04/01/24 18:44 17 gm QDAY JENNY Administration Plan In summary: 73-year-old male with PMH of seizures on KEPPRA, stage II rectal adenocarcinoma s/p chemoradiation, chronic oropharyngeal dysphagia on PEG tube, dementia, CVA, and recurrent aspiration pneumonia, returns to ED with SOB and fever. Admitted for AHRF likely sepsis pneumonia. Continued on ANTIBIOTICS and sepsis protocol. Despite the aggressive management of his condition, including continued antibiotic therapy, the patient has not shown significant improvement in his symptoms. His respiratory status remains critically compromised, and he is unable to tolerate weaning from BiPAP. His prognosis is poor given the lack of response to treatment and the extent of his underlying health conditions. Considering the patient's ongoing critical condition, the treatment team, in consultation with the family, has focused on aligning his care with his values and preferences. This decision is being made with input from his daughter and sister, who are present at his bedside, recognizing the patient's previously expressed desires and his current quality of life. Acute encephalopathy acute hypoxemic respiratory failure 2/2: Sepsis 2/2 pneumonia Acute HFpEF exacerbation History of Ischemic Cardiomyopathy Hypotension, chronic Constipation (resolved) Mild hyponatremia (resolved) Chronic normocytic anemia Chronic leukopenia Acute transaminitis (improving) History of Seizures Bilateral heal ulcers Decubitus ulcer, stage I Stage II intramucosal rectal adenocarcinoma History of CVA Chronic PEG tube use Failure to thrive Incidental findings as seen on CT Plan: ? CONTINUE BIPAP until family is at bedside tonight 03/04/2024 ? Start comfort care measures tonight 03/04/2024 Patient case was discussed with attending, Dr. Syed St DO and senior residents Dr. Canales and Dr. Mejía. Allison Cole DO PGYI Senior Resident Attestation: The goals of care discussion was done with family, and after all the family members arrived this evening patient was placed on comfort measures. I discussed with and supervised the healthcare administration internship physician involved in the care of this patient. I personally saw and examined the patient and discussed the assessment and plan with the entire medicine team, including my attending. I agree with the assessment and plan as documented above. Robert Mejía MD PGY2 Internal Medicine Attending Provider Attestation/Addendum I have discussed and was present for the essential components of the history, physical examination, diagnosis, and treatment plan with the resident. I agree with the patient's care as documented by the resident and amended herein by me. Nirav St DO. Patient seen and evaluated this AM. Met with family at approximately 10 AM, goals of care discussed with the patient's daughter and sister who agreed with comfort measures which will be started later today when the patient's extended family arrives at the hospital. Will discontinue antibiotics and remove BiPAP at that time. Will continue to monitor closely until that time. Although this document has been carefully reviewed, there may still be some phonetic and other typographical errors. These errors are purely grammatical due to imperfections in the software program and should not be construed in any way to compromise the substance of the patient's medical care during this visit.
[2024-03-04] MEDS: SCOPOLAMINE 1 MG TDSY TOP (19:29)
[2024-03-04] MEDS: Morphine IV Drip 100mg/100ml 100 ML IV (19:29)
[2024-03-04] MEDS: MORPHINE SULF INJ 10 MG/ML VIAL 2 MG IVP (21:38)
[2024-03-05] VITALS: PULSE 88
[2024-03-05 03:34] VITALS: PULSE 79; RESP 93
[2024-03-05 04:00] VITALS: PULSE 105; RESP 25; TEMP 36.4; O2SAT 96
[2024-03-05 08:00] VITALS: BP 90/58; PULSE 100; RESP 24; TEMP 36.1; O2SAT 96
[2024-03-05 12:00] VITALS: BP 86/57; PULSE 73; RESP 22; TEMP 36; O2SAT 92
--- NOTE | 2024-03-05 12:07 | PC.NURSE ---
Dr St and team into see pt., will await any new orders.
--- NOTE | 2024-03-05 13:50 | PC.SS ---
Addendum entered by Leatha Watts 03/05/24 15:01: Back Tender Fourdrinier (PAT) Leatha spoke to [facility], Alba to coordinate care. Patient's DME will be delivered between 1500 and 1700. SW scheduled EMS for 1800. SW notified Mariah and Alba. Original Note: PFS/PAT-Back Tender FourdrinierLeatha informed by Dr. St that patient can be discharged home with hospice services. SW met with patient's daughter, Mariah and sisters: Fang and Karissa. SW introduced self, role and reason for visit. PAT explained that comfort care can be continued under hospice at home. Mariah and Karissa explained that medical team explained hospice. Karissa wants to take patient to her house (Address: [address] [place] [id number]). PAT explained that family would be mainly responsible for care. SW explained that hospice would provide DME and all necessary items: medications and diapers. SW offered hospice options, but Mariah and Karissa requested for [facility]. PAT sent referral to [facility].
[2024-03-05 16:00] VITALS: BP 90/58; PULSE 72; RESP 22; TEMP 36.1; O2SAT 91
--- NOTE | 2024-03-05 19:33 | PD.RESDS ---
Planned Discharge Date 03/05/24 DS: Providers Provider Date of admission: 03/02/24 16:59 Primary care physician: Maggie Alfaro MD Admitting Provider: Syed St DO Attending Provider on Admission: Syed St DO Consults: 03/05/24 12:46 Referral Hospice Stat Comment: home hospice Attending Provider on DC: Robert Mejía MD Discharging Provider: Robert Mejía MD DS: Diagnosis Problem List Completed Was Problem List Reviewed/Reconciled?: Yes Hospital Course Hospital Course Hospital course: This is a 73-year-old male with PMH of seizures on KEPPRA, stage II rectal adenocarcinoma s/p chemoradiation, chronic oropharyngeal dysphagia on PEG tube, dementia, CVA, and recurrent aspiration pneumonia, coming from [facility] with shortness of breath and fever. History limited secondary to BiPAP and dementia. However per chart review, patient found desatting to low 90s [facility]. He has recurrent admissions for aspiration pneumonia 2/2 chronic dysphagia as a result of CVA, and PEG tube use. ED COURSE: T102, HR 90, BP 109/68, satting 97% on BiPAP with 10% FiO2 Relative leukocytosis with WBC 7.6 (baseline WBC 2.5), Hgb 13.1, PLT 251 ABG showed PaO2 45, bicarb 27, pCO2 42, pH 7.43 Sodium 133, AST 356, ALT 211, ALP 211, remainder CMP WNL UA negative for UTI EKG showed ectopic atrial tachycardia, no acute ST changes. 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 rectal tumor (patient has a history of rectal adenocarcinoma followed up by oncology outpatient) Patient was started on IV fluid and Zosyn. However, as this was his fourth admission in last 3 months. And given his poor prognosis, patient family decided to take the patient home with hospice. Problems: Acute encephalopathy acute hypoxemic respiratory failure 2/2: Sepsis 2/2 pneumonia Acute HFpEF exacerbation History of Ischemic Cardiomyopathy Hypotension, chronic Constipation (resolved) Mild hyponatremia (resolved) Chronic normocytic anemia Chronic leukopenia Acute transaminitis (improving) History of Seizures Bilateral heal ulcers Decubitus ulcer, stage I Stage II intramucosal rectal adenocarcinoma History of CVA Chronic PEG tube use Failure to thrive Incidental findings as seen on CT Plan: -Deferred per home hospice The patient's management plan was discussed with my attending physician Dr. St, DO Robert Mejía MD, PGY2 Time Spent with Patient Time attestation: Total time spent providing and/or coordinating discharge services: > 45 min Exam Vital Signs Temp Pulse Resp BP Pulse Ox O2 Del Method O2 Flow Rate 97.0 F 72 22 H 90/58 L 91 L BiPAP 30 03/05/24 16:00 03/05/24 16:00 03/05/24 16:00 03/05/24 16:00 03/05/24 16:00 03/05/24 08:00 03/05/24 08:00 FiO2 35 03/05/24 08:00 Narrative Exam General: Cachectic, Comfortably lying on bed, saturating 91% on room air HEENT: Normocephalic, atraumatic, mucous membranes moist. Heart: Regular rate and rhythm, no murmurs. Lungs: Coarse breath sounds bilaterally, no wheezing. Symmetrical chest expansion Abdomen: Soft, nondistended, nontender, positive bowel sounds. ?No guarding or rebound tenderness. PEG tube in situ. Neurologic: Unable to assess 2/2 dementia Extremities: Bilateral pedal edema Skin: No rash . Ecchymotic patches are noted in the upper extremity. Discharge Plan Plan Patient Disposition: Home w/HOSPICE Care Plan Goals: - Deferred per home hospice. Prescriptions/Referrals Prescriptions/Med Rec: No Action acetaminophen 325 mg Tablet 650 mg PO QID PRN (Reason: Pain, Mild) Rx Instructions: elevated temp, mild pain guaifenesin 100 mg/5 mL Liquid 200 mg PO QID PRN (Reason: Cough) ipratropium-albuterol 0.5 mg-3 mg(2.5 mg base)/3 mL Solution For Nebulization 3 ml INHALATION Q4HR PRN (Reason: Shortness Of Breath Or Wheezing) multivitamin with minerals Tablet 1 tab PO QDAY levetiracetam 100 mg/mL Solution 500 mg feeding tube BID Rx Instructions: may be mixed with applesauced for thickening amino acids-protein hydrolys 15-100 gram-kcal/30 mL Liquid 1 ea PO BID Rx Instructions: for wound supplement for 60 days, start 01/29/24, end 03/29/24 atorvastatin 40 mg tablet 40 mg feeding tube QPM clopidogrel [Plavix] 75 mg tablet 75 mg feeding tube QDAY aspirin 81 mg Tablet,Chewable 81 mg feeding tube QDAY thiamine mononitrate (vit B1) 100 mg Tablet 100 mg PO QDAY metoprolol succinate 50 mg Capsule,Sprinkle,Er 24hr 50 mg feeding tube QDAY mupirocin 2 % ointment 1 applic topical TID 30 Days Qty: 50 0RF Rx Instructions: apply to both nares for mrsa for 7 days 02/25-03/04 Referrals: Maggie Alfaro MD [Primary Care Provider] - Patient/Caregiver Discharge Instructions Discharge Activity: activity as tolerated Other Discharge Activity Instructions:: - Deferred per home hospice. Education Materials: Bleeding Gastrointestinal, Understanding Post Sepsis Syndrome, Sepsis Print Language: [place] Stand Alone Forms: [facility]aine Award Info., Patient Portal Info Letter Discharge Order Discharge Orders: Discharge (Routine); Ordered 03/05/24 Ordered By: Robert Mejía Quality Discharge Quality Measures VTE prophylaxis MD Attestestation MD Attestation I have discussed and was present for the essential components of the discharge history, physical examination, diagnosis, and discharge treatment plan with the resident. I agree with the patient's discharge care as documented by the resident and amended herein by me. Nirav St DO. The patient understood all discharge instructions, all questions were answered satisfactorily. Patient discharged on home hospice Although this document has been carefully reviewed, there may still be some phonetic and other typographical errors. These errors are purely grammatical due to imperfections in the software program and should not be construed in any way to compromise the substance of the patient's medical care during this visit.
== END 2024-03-05 18:27 | disposition hospice, home (50) | DRG 871 ==
LOC: SERX 14:26 → SERHOLD 18:10 → S2NX 19:27 → S3SX 03-05 03:10
PROVIDERS: Emergency Medicine; Admitting Provider Student in an Organized Health Care Education/Training Program; Emergency Provider Emergency Medicine; PCP Hospitalist; Visit Provider Student in an Organized Health Care Education/Training Program
DX: A41.9 Sepsis, unspecified organism (principal); I50.33 Acute on chronic diastolic (congestive) heart failure; J18.9 Pneumonia, unspecified organism; J96.01 Acute respiratory failure with hypoxia; E87.1 Hypo-osmolality and hyponatremia; Z68.1 Body mass index [BMI] 19.9 or less, adult; G93.40 Encephalopathy, unspecified; F03.90 Unspecified dementia, unspecified severity, without behavioral disturbance, psychotic disturbance, mood disturbance, and anxiety; R13.12 Dysphagia, oropharyngeal phase; I95.89 Other hypotension; K59.00 Constipation, unspecified; R65.20 Severe sepsis without septic shock; D64.9 Anemia, unspecified; D72.819 Decreased white blood cell count, unspecified; R56.9 Unspecified convulsions; L89.621 Pressure ulcer of left heel, stage 1; L89.611 Pressure ulcer of right heel, stage 1; R62.7 Adult failure to thrive; I71.21 Aneurysm of the ascending aorta, without rupture; I25.5 Ischemic cardiomyopathy; R63.4 Abnormal weight loss; I69.391 Dysphagia following cerebral infarction; R91.1 Solitary pulmonary nodule; Z85.048 Personal history of other malignant neoplasm of rectum, rectosigmoid junction, and anus; Z92.21 Personal history of antineoplastic chemotherapy; Z66 Do not resuscitate; Z93.1 Gastrostomy status; Z86.14 Personal history of Methicillin resistant Staphylococcus aureus infection; Z92.3 Personal history of irradiation; Z51.5 Encounter for palliative care; Z79.02 Long term (current) use of antithrombotics/antiplatelets; Z79.899 Other long term (current) drug therapy; Z79.82 Long term (current) use of aspirin
CPT/HCPCS: 36415; 36600; 71045; 71275; 74177; 80053; 80202; 81001; 82803; 83605; 83615; 83690; 83735; 83880; 84100; 84145; 84484; 85025; 85610; 85730; 87040; 87081; 87086; 87205; 87400; 87811; 93005; 94640; 94660; 96361; 96365; 96367; 96374; 99291; A4649; A9270; J0692; J2270; J2470; J2543; J3370; J3480; J7030; J7040; J7050; J7120; Q9967